=== PATIENT | female | born 1945 | race Caucasian/White ===

== ENCOUNTER 2017-11-06 19:41 | Emergency (ER) | payer MEDICARE, MEDICAID ==
--- NOTE | 2017-11-06 20:16 | RADIOLOGY REPORT (SQ) ---
EXAM DESCRIPTION: CT HEAD WITHOUT COMPLETED DATE/TIME: 11/06/2017 8:07 pm REASON FOR STUDY: tia COMPARISON: 10/25/2015 TECHNIQUE: Axial images acquired through the brain without intravenous contrast. Images reviewed wi th bone, brain and subdural windows. Images stored on PACS. All CT scanners at this facility use dose modulation, iterative reconstruction, and/or weight based d osing when appropriate to reduce radiation dose to as low as reasonably achievable (ALARA). [facility]: Dose Right [facility]: CareDose [facility]: Dose Right [facility]: Teradose 4D [facility]: Smart PlayMotion RADIATION DOSE: CT Rad equipment meets quality standard of care and radiation dose reduction techniq ues were employed. CTDIvol: 64.6 mGy. DLP: 1292 mGy-cm. mGy. LIMITATIONS: None. FINDINGS: VENTRICLES: Prominent. CEREBRUM: No masses. No hemorrhage. No midline shift. Stable chronic infarction right frontal lobe . Additional areas of low density in the white matter most likely due to chronic micro-vascular isch emic change. No evidence for acute infarction. CEREBELLUM: No masses. No hemorrhage. No alteration of density. No evidence for acute infarction. EXTRAAXIAL SPACES: Mild age-related involutional change. No fluid collections. No masses. ORBITS AND GLOBE: No intra- or extraconal masses. Normal contour of globe without masses. CALVARIUM: No fracture. PARANASAL SINUSES: Stable mucosal thickening with mucous retention cyst left maxillary sinus. No air -fluid levels. SOFT TISSUES: No mass or hematoma. OTHER: No other significant finding. IMPRESSION: NO ACUTE INTRACRANIAL PROCESS. NO SIGNIFICANT CHANGE FROM PRIOR STUDY. EVIDENCE OF ACUTE STROKE: NO. TECHNICAL DOCUMENTATION: JOB ID: [id number] Quality ID # [id number]: Final reports with documentation of one or more dose reduction techniques (e.g., Au tomated exposure control, adjustment of the mA and/or kV according to patient size, use of iterative reconstruction technique) 2010 [employer]- All Rights Reserved Reading location - IP/workstation name: [email or web address]
[2017-11-06 20:18] LABS: ABSOLUTE BASOPHILS # (AUTO) 0.1 10^3/uL (0.0-0.2); ABSOLUTE EOSINOPHILS # (AUTO) 0.2 10^3/uL (0.0-0.6); ABSOLUTE LYMPHOCYTES (AUTO) 3.8 10^3/uL (0.5-4.7); ABSOLUTE MONOCYTES (AUTO) 0.5 10^3/uL (0.1-1.4); ABSOLUTE NEUT (AUTO) 5.5 10^3/uL (1.7-8.2); BASOPHILS % (AUTO) 0.9 % (0-2); EOSINOPHILS % (AUTO) 1.5 % (0-6); HEMOGLOBIN 11.9 g/dL (12.0-15.5); LYMPHOCYTES % (AUTO) 37.8 % (13-45); MEAN CORPUSCULAR HEMOGLOBIN 27.7 pg (27.0-33.4); MEAN CORPUSCULAR VOLUME 84 fl (80-97); MONOCYTES % (AUTO) 5.2 % (3-13); RED BLOOD COUNT 4.28 10^6/uL (3.72-5.28); SEGMENTED NEUTROPHILS % (AUTO) 54.6 % (42-78); TOTAL CELLS COUNTED % (AUTO) 100 %
[2017-11-06 20:34] LABS: ALANINE AMINOTRANSFERASE 20 U/L (9-52); ALBUMIN 3.6 g/dL (3.5-5.0); ALKALINE PHOSPHATASE 114 U/L (38-126); ANION GAP 9 (5-19); ASPARTATE AMINO TRANSFERASE 20 U/L (14-36); BILIRUBIN,DIRECT 0.3 mg/dL (0.0-0.4); BILIRUBIN,TOTAL 0.3 mg/dL (0.2-1.3); BLOOD UREA NITROGEN 25 mg/dL (7-20); CALCIUM 9.2 mg/dL (8.4-10.2); CARBON DIOXIDE 28 mmol/L (22-30); CHLORIDE 101 mmol/L (98-107); CHOLESTEROL 193.14 mg/dL (0-200); GLUCOSE 293 mg/dL (75-110); POTASSIUM 4.4 mmol/L (3.6-5.0); SODIUM 137.7 mmol/L (137-145); TOTAL PROTEIN 6.7 g/dL (6.3-8.2); TRIGLYCERIDES 319 mg/dL (<150)
[2017-11-06 20:35] LABS: PLATELET COUNT 258 10^3/uL (150-450)
[2017-11-06 20:45] LABS: DIRECT LDL 117 mg/dL (<100); VLDL CHOLESTEROL 63.8 mg/dL (10-31)
--- NOTE | 2017-11-06 20:48 | EKG REPORT ---
SEVERITY:- ABNORMAL ECG - SINUS RHYTHM FIRST DEGREE AV BLOCK LOW VOLTAGE IN FRONTAL LEADS : Confirmed by: Solomon Hickman MD 06-Nov-2017 20:47:43
[2017-11-06 20:58] LABS: APPEARANCE,URINE SLIGHTLY-CLOUDY; BILIRUBIN,URINE NEGATIVE (NEGATIVE); COLOR,URINE YELLOW; GLUCOSE, URINE >=500 mg/dL (NEGATIVE); KETONES,URINE NEGATIVE (NEGATIVE); LEUKOCYTE ESTERASE,URINE SMALL (NEGATIVE); NITRITE,URINE NEGATIVE (NEGATIVE); PROTEIN,URINE NEGATIVE (NEGATIVE); URINE SPECIFIC GRAVITY 1.008; UROBILINOGEN,URINE NEGATIVE mg/dL (<2.0)
[2017-11-06] MEDS ORDERED: CLOPIDOGREL BISULFATE 75 MG TABLET PO ONE (22:23)
[2017-11-06] MEDS ORDERED: INSULIN REG, HUMAN 100 UNIT/ML 3 ML VIAL (PYX) SUBCUT ONE (22:23)
--- NOTE | 2017-11-06 22:28 | ER Document Report ---
ED General - General Chief Complaint: Altered Mental Status Stated Complaint: HIGH BLOOD SUGAR Time Seen by Provider: 11/06/17 19:50 Notes: Patient is a 72 year old female who presents with concerns of feeling generally unwell, hyperglycemia, and paresthesias to her right hand and foot. Patient reports that she felt "bad" all day and that when she checked her blood sugar was very high. She also notes that she had a sensation of tingling in her right hand and right foot that has persisted throughout the day today. It waxes and wanes and she has had similar symptoms in the past with associated hyperglycemia. The patient has not yet taken her insulin today. She does admit to very irregular checks of her blood sugar. She also notes that she has been noncompliant with multiple medications including clopidogrel which she is supposed to be taking for a recently placed drug-eluting stent. She denies any headache, neck pain, focal weakness, effusion or vomiting. Family the bedside reports that she is currently acting at her baseline. They note that she has a history of similar symptoms in the past with severe hyperglycemia. She is currently residing in the area although [place] with her family TRAVEL OUTSIDE OF THE [place] IN LAST 30 DAYS: No - Related Data Allergies/Adverse Reactions: No Known Allergies Allergy (Unverified 06/17/15 05:30) Past Medical History - General Information source: Patient, Relative - Social History Smoking Status: Never Smoker Frequency of alcohol use: None Drug Abuse: None Lives with: Family Family History: Reviewed & Not Pertinent Patient has suicidal ideation: No Patient has homicidal ideation: No - Past Medical History Cardiac Medical History: Reports: Hx Hypercholesterolemia, Hx Hypertension Endocrine Medical History: Reports: Hx Diabetes Mellitus Type 2 - lantus Renal/ Medical History: Denies: Hx Peritoneal Dialysis Past Surgical History: Reports: Hx Cardiac Surgery - stent, Hx Hysterectomy Review of Systems - Review of Systems Notes: Constitutional: Negative for fever. HENT: Negative for sore throat. Eyes: Negative for visual changes. Cardiovascular: Negative for chest pain. Respiratory: Negative for shortness of breath. Gastrointestinal: Negative for abdominal pain, vomiting or diarrhea. Genitourinary: Negative for dysuria. Musculoskeletal: Negative for back pain. Skin: Negative for rash. Neurological: Negative for headaches, positive for right hand and foot paresthesias 10 point ROS negative except as marked above and in HPI. Physical Exam - Vital signs Vitals: Resp Pulse Ox 20 98 11/06/17 19:53 11/06/17 19:53 Interpretation: Normal Notes: PHYSICAL EXAMINATION: GENERAL: Well-appearing, well-nourished and in no acute distress. HEAD: Atraumatic, normocephalic. EYES: Pupils equal round and reactive to light, extraocular movements intact, sclera anicteric, conjunctiva are normal. ENT: nares patent, oropharynx clear without exudates. Moderately dry mucous membranes. NECK: Normal range of motion, supple without lymphadenopathy LUNGS: Breath sounds clear to auscultation bilaterally and equal. No wheezes rales or rhonchi. HEART: Regular rate and rhythm without murmurs ABDOMEN: Soft, nontender, normoactive bowel sounds. No guarding, no rebound. No masses appreciated. EXTREMITIES: Normal range of motion, no pitting or edema. No cyanosis. NEUROLOGICAL: Face symmetric. Tongue protrudes midline. Extraocular motions intact. Pupils are 2 mm and equally reactive. Normal speech, normal gait. 5 out of 5 strength in both the distal and proximal upper and lower extremities bilaterally. Sensation is grossly intact throughout. Finger to nose testing normal. Pronator drift normal. PSYCH: Normal mood, normal affect. SKIN: Warm, Dry, normal turgor, no rashes or lesions noted. Course - Re-evaluation Re-evalutation: 11/06/17 22:24 Patient presents with hyperglycemia as well as a sensation of numbness and tingling in her hand and feet on the right side but no additional areas of paresthesias. The symptoms have since resolved. She has no focal neurologic deficits on examination, and a stroke scale is 0. The patient does not meet criteria to diagnose a TIA or stroke as her paresthesias were exclusively localized to her hand and foot on the right side which would not be consistent with a stroke pattern. I suspect that they may be secondary to a prolonged hyperglycemia as patient has a hemoglobin A1c of 10.6. She does admit to very sporadic checking of her blood sugar. She also admits to poor compliance with her medications including Plavix which she is currently not taking even though she had a drug-eluting stent placed less than 3 months ago. She denies any chest pain or shortness of breath. Her EKG is unremarkable and a troponin is negative. I have given her a dose of Plavix here and have provided a prescription for 2 additional months of Plavix until she can get it back and her primary care doctor for replacement of the loss Plavix prescription. I do not suspect any acute left any pathology at this time, the patient feels much improved, as tolerated oral intake. She denies any chest pain or shortness of breath, abdominal pain, nausea, vomiting or focal weakness or numbness. At this time will discharge with return precautions and follow-up recommendations. Verbal discharge instructions given a the bedside and opportunity for questions given. Medication warnings reviewed. Patient is in agreement with this plan and has verbalized understanding of return precautions and the need for primary care follow-up in the next 24-72 hours. - Vital Signs Vital signs: Temp Pulse Resp BP Pulse Ox 97.9 F 74 16 122/58 L 96 11/06/17 23:01 11/06/17 21:00 11/06/17 23:01 11/06/17 23:01 11/06/17 23:01 - Laboratory Result Diagrams: 11/06/17 19:56 11/06/17 19:56 Laboratory results interpreted by me: 11/06/17 11/06/17 11/06/17 19:51 19:56 19:56 Hgb 11.9 L BUN 25 H Glucose 293 H POC Glucose 330 H Hemoglobin A1c % Triglycerides 319 H LDL Cholesterol Direct 117 H VLDL Cholesterol 63.8 H Urine Glucose (UA) Urine Blood Ur Leukocyte Esterase 11/06/17 11/06/17 19:56 20:33 Hgb BUN Glucose POC Glucose Hemoglobin A1c % 10.8 H Triglycerides LDL Cholesterol Direct VLDL Cholesterol Urine Glucose (UA) >=500 H Urine Blood MODERATE H Ur Leukocyte Esterase SMALL H - Diagnostic Test Radiology reviewed: Image reviewed, Reports reviewed Radiology results interpreted by me: 11/06/17 22:26 CT head: No acute intracranial bleed or mass - EKG Interpretation by Me Additional EKG results interpreted by me: 11/06/17 22:26 Sinus rhythm. Rate 80. No ST elevations or depressions. QTC is 476. Discharge - Discharge Clinical Impression: Morbid obesity with BMI of 40.0-44.9, adult, Neuropathy, Hyperglycemia Hyperlipidemia Qualifiers: Hyperlipidemia type: unspecified Qualified Code(s): E78.5 - Hyperlipidemia, unspecified Diabetes mellitus Qualifiers: Diabetes mellitus type: type 2 Diabetes mellitus longterm insulin use: with longterm use Diabetes mellitus complication status: with unspecified complications Qualified Code(s): E11.8 - Type 2 diabetes mellitus with unspecified complications Condition: Stable Disposition: HOME, SELF-CARE Additional Instructions: You need to followup urgently with your primary care doctor as your blood sugars were dangerously high today. You did not have any evidence of a dangerous condition associated with these blood sugars at this time. However, it is very important that you get your blood sugars under control. Please take all of your medications exactly as directed. You should avoid foods that are high in carbohydrates and sugary foods. Losing weight will also help to better control your blood sugars. Please return to emergency department immediately if you develop weakness, persistent vomiting, confusion, or any other symptoms that are concerning to you. Please be sure to take Plavix every day as directed. It is very dangerous to come off of this medication when you had a stent placed less than a year ago. Prescriptions: Clopidogrel Bisulfate [Plavix 75 mg Tablet] 75 mg PO DAILY #30 tablet
[2017-11-06 23:23] VITALS: BP 122/58
== END 2017-11-06 23:23 | disposition home or self-care (01) ==
LOC: ER 19:41
DX: E78.5 Hyperlipidemia, unspecified (principal); E11.65 Type 2 diabetes mellitus with hyperglycemia; E11.40 Type 2 diabetes mellitus with diabetic neuropathy, unspecified; E66.01 Morbid (severe) obesity due to excess calories; Z68.41 Body mass index [BMI] 40.0-44.9, adult; R41.82 Altered mental status, unspecified; R20.2 Paresthesia of skin; I10 Essential (primary) hypertension; Z79.4 Long term (current) use of insulin
CPT/HCPCS: 93005; 99285; 36415; 82962; 85025; 80053; 81001; 84484; 83036; 80061; 70450; 93010; A9270 ×2; J1815

== ENCOUNTER 2018-06-29 21:15 | Inpatient (IN) | payer MEDICARE, MEDICAID ==
[2018-06-29] MEDS ORDERED: ASPIRIN 81 MG TABLET, CHEWABLE PO ONE (21:25)
[2018-06-29 21:55] LABS: HEMATOCRIT 38.1 % (36.0-47.0); MEAN CORPUSCULAR HEMOGLOBIN 28.1 pg (27.0-33.4); MEAN CORPUSCULAR HGB CONC 34.1 g/dL (32.0-36.0); MEAN CORPUSCULAR VOLUME 83 fl (80-97); PLATELET COUNT 254 10^3/uL (150-450); RED BLOOD COUNT 4.62 10^6/uL (3.72-5.28); RED CELL DISTRIBUTION WIDTH 14.7 % (11.5-14.0); WHITE BLOOD COUNT 21.7 10^3/uL (4.0-10.5)
--- NOTE | 2018-06-29 22:08 | RADIOLOGY REPORT (SQ) ---
EXAM DESCRIPTION: XR CHEST 1 VIEW COMPLETED DATE/TME: 06/29/2018 21:25 CLINICAL HISTORY: 73 years, Female, cp Findings: The heart is moderately enlarged. Aortic arch is calcified. No consolidation or pleural effusion. No pulmonary edema or pneumothorax. IMPRESSION: No acute disease.
[2018-06-29 22:10] LABS: ABSOLUTE LYMPHOCYTES# (MANUAL) 1.3 10^3/uL (0.5-4.7); ABSOLUTE MONOCYTES # (MANUAL) 0.4 10^3/uL (0.1-1.4); BAND NEUTROPHILS % (MANUAL) 2 % (3-5); BASOPHILS % (MANUAL) 0 % (0-2); EOSINOPHILS % (MANUAL) 0 % (0-6); LYMPHOCYTES % (MANUAL) 6 % (13-45); MONOCYTES % (MANUAL) 2 % (3-13); SEGMENTED NEUTROPHILS % (MAN) 90 % (42-78); TOTAL CELLS COUNTED 100
[2018-06-29 22:13] LABS: ALANINE AMINOTRANSFERASE 19 U/L (9-52); ALBUMIN 3.9 g/dL (3.5-5.0); ALKALINE PHOSPHATASE 105 U/L (38-126); ANION GAP 13 (5-19); ANISOCYTOSIS SLIGHT; ASPARTATE AMINO TRANSFERASE 27 U/L (14-36); BILIRUBIN,DIRECT 0.2 mg/dL (0.0-0.4); BILIRUBIN,TOTAL 0.6 mg/dL (0.2-1.3); BLOOD UREA NITROGEN 20 mg/dL (7-20); CALCIUM 9.1 mg/dL (8.4-10.2); CARBON DIOXIDE 27 mmol/L (22-30); CHLORIDE 98 mmol/L (98-107); CREATINE KINASE 44 U/L (30-135); GLUCOSE 310 mg/dL (75-110); OVALOCYTES SLIGHT; PLATELET COMMENT ADEQUATE; PLATELET LARGE PRESENT; POIKILOCYTOSIS SLIGHT; POLYCHROMASIA SLIGHT; POTASSIUM 4.5 mmol/L (3.6-5.0); SODIUM 137.9 mmol/L (137-145); TOTAL PROTEIN 7.1 g/dL (6.3-8.2); TOXIC VACUOLATION PRESENT
[2018-06-29 22:25] LABS: CREATINE KINASE MB 0.47 ng/mL (<4.55)
[2018-06-29 22:26] LABS: TROPONIN I < 0.012 ng/mL
--- NOTE | 2018-06-29 22:58 | ER Document Report ---
ED General - General Chief Complaint: Chest Pain Stated Complaint: CHEST PAINS Time Seen by Provider: 06/29/18 21:55 Mode of Arrival: Ambulatory Information source: Patient Notes: This is a 73-year-old female with a history of coronary artery disease (stent), diabetes, hypertension, CVA and dementia. Patient is brought into the emergency room because of fever and cough. Patient does have a history of peripheral neuropathy with chronic pain to the lower extremities. TRAVEL OUTSIDE OF THE [place] IN LAST 30 DAYS: No - HPI Onset: This morning Onset/Duration: Gradual Quality of pain: No pain Severity: Moderate Pain Level: 1 Associated symptoms: Fever, Other - Leg pain. denies: Chest pain, Shortness of breath Exacerbated by: Denies Relieved by: Denies Similar symptoms previously: Yes Recently seen / treated by doctor: Yes - Related Data Allergies/Adverse Reactions: No Known Allergies Allergy (Unverified 06/17/15 05:30) Past Medical History - General Information source: Patient - Social History Smoking Status: Former Smoker Cigarette use (# per day): No Chew tobacco use (# tins/day): No Frequency of alcohol use: None Drug Abuse: None Lives with: Family Family History: Reviewed & Not Pertinent Patient has suicidal ideation: No Patient has homicidal ideation: No - Past Medical History Cardiac Medical History: Reports: Hx Hypercholesterolemia, Hx Hypertension Endocrine Medical History: Reports: Hx Diabetes Mellitus Type 2 - lantus Renal/ Medical History: Denies: Hx Peritoneal Dialysis Past Surgical History: Reports: Hx Cardiac Surgery - stent, Hx Hysterectomy Review of Systems - Review of Systems Constitutional: Fever. denies: Chills EENT: No symptoms reported Cardiovascular: No symptoms reported Respiratory: No symptoms reported Gastrointestinal: No symptoms reported Genitourinary: No symptoms reported Musculoskeletal: See HPI Skin: See HPI Hematologic/Lymphatic: No symptoms reported Neurological/Psychological: No symptoms reported Physical Exam - Vital signs Vitals: Temp Pulse Resp BP Pulse Ox 99.7 F 97 17 146/63 H 97 06/29/18 21:16 06/29/18 21:16 06/29/18 21:16 06/29/18 21:16 06/29/18 21:16 Notes: Physical exam: GENERAL: Patient is alert and will answer questions intermittently. She does have baseline dementia and the patient is accompanied by her daughter who states her mental status is the same. The daughter states that the patient will often yell out because of chronic neuropathic pain. HEAD: Atraumatic, normocephalic. EYES: Pupils equal round and reactive to light, extraocular movements intact, sclera anicteric, conjunctiva are normal. ENT: TMs normal, nares patent, oropharynx clear without exudates. Moist mucous membranes. NECK: Normal range of motion, supple without obvious mass or JVD. LUNGS: Breath sounds clear to auscultation bilaterally and equal. No wheezes rales or rhonchi. HEART: Regular rate and rhythm without murmurs, rubs or gallops. ABDOMEN: Soft, normoactive bowel sounds. No tenderness to palpation. No guarding, no rebound. No masses appreciated. EXTREMITIES: Patient has some erosions in between the fourth and fifth toes of the right foot and obvious pain with movement of the toes. There is good cap refill. NEUROLOGICAL: Cranial nerves II through XII grossly intact. Normal speech, moving all extremities. PSYCH: Normal mood, normal affect. SKIN: Warm, Dry, normal turgor, no rashes or lesions noted. Course - Vital Signs Vital signs: Temp Pulse Resp BP Pulse Ox 99.7 F 97 20 131/59 H 93 06/29/18 21:16 06/29/18 21:16 06/30/18 02:01 06/30/18 02:01 06/30/18 02:01 - Laboratory Result Diagrams: 06/29/18 21:46 06/29/18 21:46 Laboratory results interpreted by me: 06/29/18 06/29/18 06/30/18 21:46 21:46 01:14 WBC 21.7 H RDW 14.7 H Seg Neuts % (Manual) 90 H Band Neutrophils % 2 L Lymphocytes % (Manual) 6 L Monocytes % (Manual) 2 L Abs Neuts (Manual) 20.0 H Glucose 310 H Urine Glucose (UA) >=500 H Urine Nitrite POSITIVE H Urine Urobilinogen 2.0 H - EKG Interpretation by Me Rate: Normal Rhythm: NSR - EKG shows normal sinus rhythm with a ventricular rate of 95, anterior septal Q waves, no significant changes from previous EKG Critical Care Note - Critical Care Note Total time excluding time spent on procedures (mins): 60 Discharge - Discharge Clinical Impression: Diabetic foot Condition: Stable Disposition: ADMITTED INPATIENT Admitting Provider: Hospitalist - Dr Malhotra Unit Admitted: Telemetry
[2018-06-29] MEDS ORDERED: CEFEPIME 1 GM/D5W RTU 1 GM/50 ML RTUPB IV ONE (22:59)
--- NOTE | 2018-06-29 23:37 | RADIOLOGY REPORT (SQ) ---
EXAM DESCRIPTION: XR FOOT 3 OR MORE VIEWS BILATERAL COMPLETED DATE/TME: 06/29/2018 22:56 CLINICAL HISTORY: 73 years Female, pain, elevated wbc COMPARISON: None. 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 Mild osteoarthritis of the right talonavicular joint. Bilateral calcaneal enthesophytes. Bony demineralization. Atherosclerosis. 2.5 cm ossicular osteophytic fragmentation at the medial aspect of the left midfoot. Swelling. Bones, joints, and soft tissues of the bilateral XR FOOT 3 OR MORE VIEWS BILATERAL appear otherwise intact. IMPRESSION: Neuropathic joint pattern of the left midfoot. Differential diagnosis includes prior trauma, coalition, osteoarthritis, and/or osteomyelitis.
[2018-06-29] MEDS ORDERED: NORMAL SALINE 1000 ML 1,000 ML IV ONE (23:51)
[2018-06-30] MEDS ORDERED: ONDANSETRON HCL INJ/PF 4 MG/2 ML SDV IV ONE (00:29)
[2018-06-30] MEDS ORDERED: MORPHINE SULFATE 10 MG/ML INJ IV ONE (00:30)
[2018-06-30 01:54] LABS: AMORPHOUS SEDIMENT,URINE TRACE /HPF; APPEARANCE,URINE SLIGHTLY-CLOUDY; BILIRUBIN,URINE NEGATIVE (NEGATIVE); COLOR,URINE YELLOW; GLUCOSE, URINE >=500 mg/dL (NEGATIVE); KETONES,URINE NEGATIVE (NEGATIVE); LEUKOCYTE ESTERASE,URINE NEGATIVE (NEGATIVE); NITRITE,URINE POSITIVE (NEGATIVE); PROTEIN,URINE NEGATIVE (NEGATIVE); URINE SPECIFIC GRAVITY 1.021
[2018-06-30] MEDS ORDERED: DEXTROSE 50%-WATER 25 GM/50 ML DISP.SYRIN IV PRN ×2 (02:58)
[2018-06-30] MEDS ORDERED: IPRATROPIUM/ALBUTEROL 0.5-2.5 MG/3 ML AMPUL NEB PRN (02:58)
[2018-06-30] MEDS ORDERED: DEXTROSE 40% GEL 15 GM TUBE PO PRN ×2 (02:58)
[2018-06-30] MEDS ORDERED: MAG HYDROX/AL HYDROX/SIMETH SUSP 30 ML UDCUP PO PRN (02:58)
[2018-06-30] MEDS ORDERED: MAGNESIUM HYDROXIDE SUSP 30 ML UDCUP PO PRN (02:58)
[2018-06-30] MEDS ORDERED: GLUCAGON,HUMAN RECOMB 1 MG INJ IM PRN (02:58)
[2018-06-30] MEDS ORDERED: VANCOMYCIN HCL INJ 1000 MG VIAL IV ONE (03:02)
[2018-06-30] MEDS ORDERED: PIPERACILLIN/TAZOBACTAM 3.375 GM VIAL IV ONE (03:02)
[2018-06-30] MEDS ORDERED: VANCOMYCIN HCL 0 MG in DEXTROSE 5%-WATER 250 ML IV NR (03:15)
[2018-06-30] MEDS ORDERED: PIPERACILLIN/TAZOBACTAM 3.375 GM VIAL IV PRN (03:19)
[2018-06-30 03:41] LABS: ABSOLUTE BASOPHILS # (AUTO) 0.1 10^3/uL (0.0-0.2); ABSOLUTE LYMPHOCYTES (AUTO) 1.3 10^3/uL (0.5-4.7); ABSOLUTE MONOCYTES (AUTO) 0.5 10^3/uL (0.1-1.4); ABSOLUTE NEUT (AUTO) 15.9 10^3/uL (1.7-8.2); BASOPHILS % (AUTO) 0.4 % (0-2); HEMATOCRIT 35.4 % (36.0-47.0); HEMOGLOBIN 12.2 g/dL (12.0-15.5); LYMPHOCYTES % (AUTO) 7.2 % (13-45); MEAN CORPUSCULAR HEMOGLOBIN 28.4 pg (27.0-33.4); MEAN CORPUSCULAR HGB CONC 34.6 g/dL (32.0-36.0); MEAN CORPUSCULAR VOLUME 82 fl (80-97); MONOCYTES % (AUTO) 2.6 % (3-13); PLATELET COUNT 227 10^3/uL (150-450); RED BLOOD COUNT 4.32 10^6/uL (3.72-5.28); RED CELL DISTRIBUTION WIDTH 14.8 % (11.5-14.0); SEGMENTED NEUTROPHILS % (AUTO) 89.8 % (42-78); TOTAL CELLS COUNTED % (AUTO) 100 %; WHITE BLOOD COUNT 17.7 10^3/uL (4.0-10.5)
[2018-06-30] MEDS ORDERED: VANCOMYCIN HCL 1,500 MG in DEXTROSE 5%-WATER 250 ML IV ONE (04:00)
--- NOTE | 2018-06-30 05:08 | PDOC H&P ---
History of Present Illness Admission Date/PCP: 06/30/18 03:04 JESSENIA WRIGHT Patient complains of: Left foot pain History of Present Illness: GERARD COHN is a 73 year old female with a past medical history of hypertension, dyslipidemia, congestive heart failure, coronary artery disease with stents x3, diabetes with neuropathy and foot ulcer. She presents with 12 hours of fever and left foot pain. Patient is a difficult historian presenting with chest pain but adamantly denies stating left foot pain is her chief complaint. In the emergency room she is found to have leukocytosis of 20,000 and erythema of the left forefoot she is diagnosed with cellulitis, receiving empiric antibiotics and referred to the hospitalist for admission. She denies chest pain palpitations nausea vomiting. Past Medical History Cardiac Medical History: Reports: Congestive Heart Failure, Coronary Artery Disease, Hyperlipidema, Hypertension Endocrine Medical History: Reports: Diabetes Mellitus Type 2 - lantus Past Surgical History Past Surgical History: Reports: Hysterectomy Social History Information Source: Patient, Relative Lives with: Family Smoking Status: Former Smoker Frequency of Alcohol Use: None Hx Recreational Drug Use: No Drugs: None Hx Prescription Drug Abuse: No - Advance Directive Resuscitation Status: Full Code Family History Family History: Reviewed & Not Pertinent Parental Family History Reviewed: Yes Children Family History Reviewed: Yes Sibling(s) Family History Reviewed.: Yes Medication/Allergy Home Medications: Cholecalciferol (Vitamin D3) [Vitamin D3] 2,000 unit PO DAILY 10/24/15 Docusate Sodium [Col-Rite] 100 mg PO BID 10/24/15 Fenofibrate Nanocrystallized [Tricor 145 mg Tablet] 145 mg PO DAILY 10/24/15 Furosemide [Lasix 40 mg Tablet] 20 mg PO QPM 10/24/15 Furosemide [Lasix] 40 mg PO QAM 10/24/15 Gabapentin [Neurontin 300 mg Capsule] 300 mg PO BID 10/24/15 Insulin Glargine,Hum.rec.anlog [Lantus] 60 unit SQ BID 10/24/15 Metformin HCl 500 mg PO BID 10/24/15 Potassium Chloride [Klor-Con] 20 meq PO DAILY 10/24/15 Acetaminophen [Tylenol 325 mg Tablet] 650 mg PO Q6HP PRN 10/25/15 Aspirin [Ecotrin 81 mg EC Tablet] 81 mg PO DAILY 10/25/15 Atorvastatin Calcium [Lipitor 40 mg Tablet] 40 mg PO QHS #30 tablet 10/29/15 Clopidogrel Bisulfate [Plavix 75 mg Tablet] 75 mg PO DAILY #30 tablet 11/06/17 Allergies/Adverse Reactions: No Known Allergies Allergy (Unverified 06/17/15 05:30) Review of Systems Constitutional: PRESENT: as per HPI, fatigue. ABSENT: chills, fever(s), headache(s), weight gain, weight loss Eyes: ABSENT: visual disturbances Ears: ABSENT: hearing changes Cardiovascular: ABSENT: chest pain, dyspnea on exertion, edema, orthropnea, palpitations Respiratory: ABSENT: cough, hemoptysis Gastrointestinal: ABSENT: abdominal pain, constipation, diarrhea, hematemesis, hematochezia, nausea, vomiting Genitourinary: ABSENT: dysuria, hematuria Musculoskeletal: ABSENT: joint swelling Integumentary: ABSENT: rash, wounds Neurological: PRESENT: paresthesias. ABSENT: abnormal gait, abnormal speech, confusion, dizziness, focal weakness, syncope Psychiatric: PRESENT: anxiety. ABSENT: depression, homidical ideation, suicidal ideation Endocrine: ABSENT: cold intolerance, heat intolerance, polydipsia, polyuria Hematologic/Lymphatic: ABSENT: easy bleeding, easy bruising Physical Exam Vital Signs: Temp Pulse Resp BP Pulse Ox 99.5 F 97 21 H 114/50 L 96 06/30/18 04:21 06/29/18 21:16 06/30/18 03:18 06/30/18 03:18 06/30/18 03:18 General appearance: PRESENT: cooperative, mild distress, morbidly obese Head exam: PRESENT: atraumatic, normocephalic Eye exam: PRESENT: conjunctiva pink, EOMI, PERRLA. ABSENT: scleral icterus Ear exam: PRESENT: normal external ear exam Mouth exam: PRESENT: moist, tongue midline Neck exam: ABSENT: carotid bruit, JVD, lymphadenopathy, thyromegaly Respiratory exam: PRESENT: clear to auscultation shreyas. ABSENT: rales, rhonchi, wheezes Cardiovascular exam: PRESENT: RRR. ABSENT: diastolic murmur, rubs, systolic murmur Pulses: PRESENT: normal dorsalis pedis pul Vascular exam: PRESENT: normal capillary refill GI/Abdominal exam: PRESENT: normal bowel sounds, soft. ABSENT: distended, guarding, mass, organolmegaly, rebound, tenderness Rectal exam: PRESENT: deferred Extremities exam: PRESENT: tenderness - Left forefoot erythema, tenderness, no open ulcer or fluctuance. ABSENT: pedal edema Neurological exam: PRESENT: alert, awake, oriented to person, oriented to place , oriented to time, oriented to situation, CN II-XII grossly intact. ABSENT: motor sensory deficit Psychiatric exam: PRESENT: appropriate affect, normal mood. ABSENT: homicidal ideation, suicidal ideation Skin exam: PRESENT: dry, intact, warm. ABSENT: cyanosis, rash Results Laboratory Results: 06/30/18 03:22 06/30/18 06/30/18 03:22 03:22 WBC 17.7 H RBC 4.32 Hgb 12.2 Hct 35.4 L MCV 82 MCH 28.4 MCHC 34.6 RDW 14.8 H Plt Count 227 Seg Neutrophils % 89.8 H Lymphocytes % 7.2 L Monocytes % 2.6 L Eosinophils % 0.0 Basophils % 0.4 Absolute Neutrophils 15.9 H Absolute Lymphocytes 1.3 Absolute Monocytes 0.5 Absolute Eosinophils 0.0 Absolute Basophils 0.1 Lactic Acid 1.4 06/30/18 03:22 Troponin I 0.012 Impressions: Chest X-Ray 06/29/18 21:25 IMPRESSION: No acute disease. Foot X-Ray 06/29/18 22:56 IMPRESSION: Neuropathic joint pattern of the left midfoot. Differential diagnosis includes prior trauma, coalition, osteoarthritis, and/or osteomyelitis. Assessment & Plan - Diagnosis (1) Cellulitis of foot Is this a current diagnosis for this admission?: Yes Plan: Complicated by diabetes with neuropathy and Charcot deformity. Empiric antibiotics initiated, follow-up blood culture, consider MRI (2) Diabetes mellitus type 1 Qualifiers: Diabetes mellitus complication status: without complication Qualified Code( s): E10.9 - Type 1 diabetes mellitus without complications Is this a current diagnosis for this admission?: Yes Plan: Outpatient regiment with sliding scale, follow-up A1c - Time Time Spent: 30 to 50 Minutes
[2018-06-30] MEDS ORDERED: PIPERACILLIN/TAZOBACTAM 4.5 GM VIAL IV ONE (06:16)
[2018-06-30] MEDS: PIPERACILLIN SODIUM/TAZOBACTAM 4.5 GM in NORMAL SALINE 100 ML IV SCH ×4 (06:41→23:30)
[2018-06-30] MEDS: HEPARIN SOD (PORCINE) 5,000 UNIT/ML 1 ML SYRINGE SUBCUT SCH ×3 (06:43→23:30)
[2018-06-30 06:47] LABS: CREATINE KINASE MB 0.59 ng/mL (<4.55); TROPONIN I 0.012 ng/mL
--- NOTE | 2018-06-30 07:40 | EKG REPORT ---
SEVERITY:- ABNORMAL ECG - SINUS RHYTHM FIRST DEGREE AV BLOCK BORDERLINE LEFT AXIS DEVIATION CONSIDER ANTEROSEPTAL INFARCT : Confirmed by: Solomon Hickman MD 30-Jun-2018 07:40:07
[2018-06-30] MEDS: FUROSEMIDE 40 MG TABLET PO SCH (08:03)
[2018-06-30] MEDS: INSULIN LISPRO 100 UNIT/ML 3 ML VIAL SUBCUT PRN ×3 (08:05→19:57)
[2018-06-30] MEDS ORDERED: INSULIN GLARGINE,HUM.REC.ANLOG 1,000 UNIT/10 ML UNIT SUBCUT SCH (10:00)
[2018-06-30] MEDS: GABAPENTIN 300 MG CAPSULE PO SCH ×2 (10:09→18:03)
[2018-06-30] MEDS: POTASSIUM CHLORIDE 10 MEQ CAPSULE.ER PO SCH (10:09)
[2018-06-30] MEDS: CLOPIDOGREL BISULFATE 75 MG TABLET PO SCH (10:09)
[2018-06-30] MEDS: DOCUSATE SODIUM 100 MG CAPSULE PO SCH ×2 (10:09→18:03)
[2018-06-30] MEDS: FENOFIBRATE NANOCRYSTALLIZED 145 MG TABLET PO SCH (10:09)
[2018-06-30] MEDS: ACETAMINOPHEN 325 MG TABLET PO PRN (10:17)
[2018-06-30 12:01] LABS: CREATINE KINASE MB 0.61 ng/mL (<4.55); TROPONIN I 0.012 ng/mL
--- NOTE | 2018-06-30 14:27 | Progress Note ---
Provider Note Provider Note: GERARD COHN is a 73 year old female with a past medical history of hypertension, dyslipidemia, congestive heart failure, coronary artery disease with stents x3, diabetes with neuropathy and foot ulcer. Patient has been started empirically on Zosyn and vancomycin. Based on her clinical response and culture results I will de-escalate her antibiotics. Accept this patient and I will be her primary attending.
[2018-06-30 17:54] LABS: CREATINE KINASE MB 0.61 ng/mL (<4.55)
[2018-06-30 17:57] LABS: TROPONIN I < 0.012 ng/mL
[2018-06-30] MEDS ORDERED: FUROSEMIDE 40 MG TABLET PO SCH (18:00)
[2018-06-30] MEDS: INSULIN GLARGINE,HUM.REC.ANLOG 1,000 UNIT/10 ML UNIT SUBCUT SCH (18:01)
[2018-06-30] MEDS: VANCOMYCIN HCL 1,250 MG in DEXTROSE 5%-WATER 250 ML IV SCH (18:01)
[2018-07-01] MEDS: INSULIN LISPRO 100 UNIT/ML 3 ML VIAL SUBCUT PRN ×3 (00:09→22:14)
[2018-07-01 05:37] LABS: ABSOLUTE BASOPHILS # (AUTO) 0.1 10^3/uL (0.0-0.2); ABSOLUTE EOSINOPHILS # (AUTO) 0.2 10^3/uL (0.0-0.6); ABSOLUTE LYMPHOCYTES (AUTO) 1.8 10^3/uL (0.5-4.7); ABSOLUTE MONOCYTES (AUTO) 0.5 10^3/uL (0.1-1.4); ABSOLUTE NEUT (AUTO) 4.8 10^3/uL (1.7-8.2); BASOPHILS % (AUTO) 0.8 % (0-2); EOSINOPHILS % (AUTO) 2.3 % (0-6); HEMATOCRIT 33.5 % (36.0-47.0); HEMOGLOBIN 11.8 g/dL (12.0-15.5); LYMPHOCYTES % (AUTO) 24.2 % (13-45); MEAN CORPUSCULAR HEMOGLOBIN 28.5 pg (27.0-33.4); MEAN CORPUSCULAR HGB CONC 35.1 g/dL (32.0-36.0); MEAN CORPUSCULAR VOLUME 81 fl (80-97); MONOCYTES % (AUTO) 7.1 % (3-13); PLATELET COUNT 206 10^3/uL (150-450); RED BLOOD COUNT 4.13 10^6/uL (3.72-5.28); RED CELL DISTRIBUTION WIDTH 14.9 % (11.5-14.0); SEGMENTED NEUTROPHILS % (AUTO) 65.6 % (42-78); TOTAL CELLS COUNTED % (AUTO) 100 %; WHITE BLOOD COUNT 7.3 10^3/uL (4.0-10.5)
[2018-07-01 05:45] LABS: ANION GAP 10 (5-19); BLOOD UREA NITROGEN 16 mg/dL (7-20); CALCIUM 8.8 mg/dL (8.4-10.2); CARBON DIOXIDE 25 mmol/L (22-30); CHLORIDE 106 mmol/L (98-107); GLUCOSE 125 mg/dL (75-110); POTASSIUM 4.2 mmol/L (3.6-5.0); SODIUM 140.8 mmol/L (137-145)
[2018-07-01] MEDS: PIPERACILLIN SODIUM/TAZOBACTAM 4.5 GM in NORMAL SALINE 100 ML IV SCH (06:11)
[2018-07-01] MEDS: HEPARIN SOD (PORCINE) 5,000 UNIT/ML 1 ML SYRINGE SUBCUT SCH ×3 (06:15→21:37)
[2018-07-01] MEDS: VANCOMYCIN HCL 1,250 MG in DEXTROSE 5%-WATER 250 ML IV SCH ×2 (06:46→17:59)
[2018-07-01] MEDS: FUROSEMIDE 40 MG TABLET PO SCH (07:50)
[2018-07-01] MEDS: DOCUSATE SODIUM 100 MG CAPSULE PO SCH ×2 (09:47→17:49)
[2018-07-01] MEDS: FENOFIBRATE NANOCRYSTALLIZED 145 MG TABLET PO SCH (09:48)
[2018-07-01] MEDS: POTASSIUM CHLORIDE 10 MEQ CAPSULE.ER PO SCH (09:48)
[2018-07-01] MEDS: GABAPENTIN 300 MG CAPSULE PO SCH ×2 (09:48→17:49)
[2018-07-01] MEDS: CLOPIDOGREL BISULFATE 75 MG TABLET PO SCH (09:48)
[2018-07-01] MEDS: INSULIN GLARGINE,HUM.REC.ANLOG 1,000 UNIT/10 ML UNIT SUBCUT SCH ×2 (11:15→17:49)
--- NOTE | 2018-07-01 12:38 | PDOC PROGRESS REPORT ---
Subjective Progress Note for:: 07/01/18 Subjective:: This is 73 years old female patient of origin presented with left foot pain and fever of 12 hours duration. Patient found to have erythema and swelling of the left foot and her initial blood work shows markedly leukocytosis with white cell count of 21,000. Patient has been started empirically on Zosyn and vancomycin. This morning I seen patient resting in bed she reports this her pain is relatively improved and she is able to eat and tolerate no nausea fever or vomiting. Her hemoglobin A1c is 8.6 and with her age and comorbidities it seems her diabetes is fairly controlled. Reason For Visit: DM FOOT CELLULITIS Physical Exam Vital Signs: Temp Pulse Resp BP Pulse Ox 98.4 F 66 16 120/46 L 98 07/01/18 10:19 07/01/18 10:19 07/01/18 10:19 07/01/18 10:19 07/01/18 10:19 Intake & Output 06/30/18 07/01/18 07/02/18 06:59 06:59 06:59 Intake Total 1947 250 Balance 1947 250 Weight 102.5 kg 105.2 kg General appearance: PRESENT: no acute distress Head exam: PRESENT: atraumatic Eye exam: PRESENT: conjunctiva pink Mouth exam: PRESENT: moist Neck exam: ABSENT: carotid bruit, JVD, lymphadenopathy, thyromegaly Respiratory exam: PRESENT: clear to auscultation shreyas. ABSENT: rales, rhonchi, wheezes Cardiovascular exam: PRESENT: RRR. ABSENT: diastolic murmur, rubs, systolic murmur GI/Abdominal exam: PRESENT: normal bowel sounds, soft. ABSENT: distended, guarding, mass, organolmegaly, rebound, tenderness Extremities exam: PRESENT: other - Erythema and swelling of the left leg. Neurological exam: PRESENT: alert, awake, oriented to time, oriented to situation Psychiatric exam: PRESENT: normal mood Results Laboratory Results: 07/01/18 04:16 07/01/18 04:16 07/01/18 07/01/18 04:16 04:16 WBC 7.3 RBC 4.13 Hgb 11.8 L Hct 33.5 L MCV 81 MCH 28.5 MCHC 35.1 RDW 14.9 H Plt Count 206 Seg Neutrophils % 65.6 Lymphocytes % 24.2 Monocytes % 7.1 Eosinophils % 2.3 Basophils % 0.8 Absolute Neutrophils 4.8 Absolute Lymphocytes 1.8 Absolute Monocytes 0.5 Absolute Eosinophils 0.2 Absolute Basophils 0.1 Sodium 140.8 Potassium 4.2 Chloride 106 Carbon Dioxide 25 Anion Gap 10 BUN 16 Creatinine 0.79 Est GFR ( Amer) > 60 Est GFR (Non-Af Amer) > 60 Glucose 125 H Calcium 8.8 06/30/18 06/30/18 06/30/18 03:22 05:45 05:45 Creatine Kinase 54 CK-MB (CK-2) 0.59 Troponin I 0.012 0.012 06/30/18 06/30/18 06/30/18 11:00 11:00 17:06 Creatine Kinase 59 CK-MB (CK-2) 0.61 0.61 Troponin I 0.012 < 0.012 06/30/18 17:12 Creatine Kinase 52 CK-MB (CK-2) Troponin I Impressions: Chest X-Ray 06/29/18 21:25 IMPRESSION: No acute disease. Foot X-Ray 06/29/18 22:56 IMPRESSION: Neuropathic joint pattern of the left midfoot. Differential diagnosis includes prior trauma, coalition, osteoarthritis, and/or osteomyelitis. Assessment & Plan - Diagnosis (1) Cellulitis of left foot Is this a current diagnosis for this admission?: Yes Plan: ID escalate her antibiotic from Zosyn and vancomycin to Vanco orally. (2) Morbid obesity with BMI of 40.0-44.9, adult Is this a current diagnosis for this admission?: Yes Plan: Lifestyle modification advised. (3) Leukocytosis Is this a current diagnosis for this admission?: Yes Plan: Has resolved. At admission her white cell count was 21,000 today it is 7.3. (4) Systolic congestive heart failure Qualifiers: Heart failure chronicity: chronic Qualified Code(s): I50.22 - Chronic systolic (congestive) heart failure Is this a current diagnosis for this admission?: Yes Plan: Continue her home medication (5) CAD status post 3 stent placement Is this a current diagnosis for this admission?: Yes Plan: Continue current medication. (6) Type 2 diabetes mellitus with diabetic neuropathy Is this a current diagnosis for this admission?: Yes Plan: Continue sliding scale. (7) Hypertension Is this a current diagnosis for this admission?: Yes Plan: Blood pressure controlled.
[2018-07-01] MEDS: FUROSEMIDE 20 MG TABLET PO SCH (17:49)
[2018-07-02] MEDS: VANCOMYCIN HCL 1,250 MG in DEXTROSE 5%-WATER 250 ML IV SCH ×2 (05:25→17:10)
[2018-07-02] MEDS: HEPARIN SOD (PORCINE) 5,000 UNIT/ML 1 ML SYRINGE SUBCUT SCH ×3 (05:27→21:11)
[2018-07-02 06:25] LABS: ABSOLUTE EOSINOPHILS # (AUTO) 0.2 10^3/uL (0.0-0.6); ABSOLUTE LYMPHOCYTES (AUTO) 3.6 10^3/uL (0.5-4.7); ABSOLUTE MONOCYTES (AUTO) 0.7 10^3/uL (0.1-1.4); BASOPHILS % (AUTO) 0.5 % (0-2); EOSINOPHILS % (AUTO) 1.7 % (0-6); HEMATOCRIT 34.7 % (36.0-47.0); HEMOGLOBIN 12.1 g/dL (12.0-15.5); LYMPHOCYTES % (AUTO) 38.1 % (13-45); MEAN CORPUSCULAR HEMOGLOBIN 28.3 pg (27.0-33.4); MEAN CORPUSCULAR HGB CONC 34.9 g/dL (32.0-36.0); MEAN CORPUSCULAR VOLUME 81 fl (80-97); MONOCYTES % (AUTO) 7.2 % (3-13); PLATELET COUNT 264 10^3/uL (150-450); RED BLOOD COUNT 4.28 10^6/uL (3.72-5.28); RED CELL DISTRIBUTION WIDTH 15.2 % (11.5-14.0); SEGMENTED NEUTROPHILS % (AUTO) 52.5 % (42-78); TOTAL CELLS COUNTED % (AUTO) 100 %; WHITE BLOOD COUNT 9.5 10^3/uL (4.0-10.5)
[2018-07-02 06:46] LABS: VANCOMYCIN,TROUGH 30.9 ug/mL (5.0-20.0)
[2018-07-02] MEDS: CLOPIDOGREL BISULFATE 75 MG TABLET PO SCH (09:13)
[2018-07-02] MEDS: POTASSIUM CHLORIDE 10 MEQ CAPSULE.ER PO SCH (09:13)
[2018-07-02] MEDS: FUROSEMIDE 40 MG TABLET PO SCH (09:13)
[2018-07-02] MEDS: FENOFIBRATE NANOCRYSTALLIZED 145 MG TABLET PO SCH (09:13)
[2018-07-02] MEDS: GABAPENTIN 300 MG CAPSULE PO SCH ×2 (09:13→17:10)
[2018-07-02] MEDS: DOCUSATE SODIUM 100 MG CAPSULE PO SCH ×2 (09:13→17:09)
[2018-07-02] MEDS ORDERED: (PENDING PHARMACY ID) (Empagliflozin [Jardiance] 25 MG) PO SCH (10:00)
[2018-07-02] MEDS ORDERED: CLOPIDOGREL BISULFATE 75 MG TABLET PO SCH (10:00)
[2018-07-02] MEDS ORDERED: MAGNESIUM CITRATE 296 ML BOTTLE PO ONE (11:30)
[2018-07-02] MEDS: CHOLECALCIFEROL (D3) 1,000 UNIT TABLET PO SCH (11:43)
[2018-07-02] MEDS: ASPIRIN 81 MG TABLET, ENT COATED PO SCH (11:43)
[2018-07-02] MEDS: INSULIN GLARGINE,HUM.REC.ANLOG 1,000 UNIT/10 ML UNIT SUBCUT SCH ×2 (11:43→17:09)
--- NOTE | 2018-07-02 14:19 | PDOC PROGRESS REPORT ---
Subjective Progress Note for:: 07/02/18 Subjective:: Patient has been doing well. I seen her sitting on chair. She is awake alert and oriented. She is not in pain or distress. She complains of constipation. Despite getting Colace. She is given mag citrate. Reason For Visit: DM FOOT CELLULITIS Physical Exam Vital Signs: Temp Pulse Resp BP Pulse Ox 98.0 F 69 15 133/49 H 99 07/02/18 12:01 07/02/18 12:01 07/02/18 12:01 07/02/18 12:01 07/02/18 12:01 Intake & Output 07/01/18 07/02/18 07/03/18 06:59 06:59 06:59 Intake Total 194 500 250 Balance 194 500 250 Weight 105.2 kg 105.2 kg General appearance: PRESENT: no acute distress, well-developed, well-nourished Head exam: PRESENT: atraumatic, normocephalic Eye exam: PRESENT: conjunctiva pink, EOMI, PERRLA. ABSENT: scleral icterus Ear exam: PRESENT: normal external ear exam Mouth exam: PRESENT: moist, tongue midline Neck exam: ABSENT: carotid bruit, JVD, lymphadenopathy, thyromegaly Respiratory exam: PRESENT: clear to auscultation shreyas. ABSENT: rales, rhonchi, wheezes Cardiovascular exam: PRESENT: RRR. ABSENT: diastolic murmur, rubs, systolic murmur Pulses: PRESENT: normal dorsalis pedis pul Vascular exam: PRESENT: normal capillary refill GI/Abdominal exam: PRESENT: normal bowel sounds, soft. ABSENT: distended, guarding, mass, organolmegaly, rebound, tenderness Rectal exam: PRESENT: deferred Extremities exam: PRESENT: full ROM. ABSENT: calf tenderness, clubbing, pedal edema Neurological exam: PRESENT: alert, awake, oriented to person, oriented to place , oriented to time, oriented to situation, CN II-XII grossly intact. ABSENT: motor sensory deficit Psychiatric exam: PRESENT: appropriate affect, normal mood. ABSENT: homicidal ideation, suicidal ideation Skin exam: PRESENT: dry, intact, warm. ABSENT: cyanosis, rash Results Laboratory Results: 07/02/18 05:45 07/02/18 05:45 07/02/18 07/02/18 05:45 05:45 WBC 9.5 RBC 4.28 Hgb 12.1 Hct 34.7 L MCV 81 MCH 28.3 MCHC 34.9 RDW 15.2 H Plt Count 264 Seg Neutrophils % 52.5 Lymphocytes % 38.1 Monocytes % 7.2 Eosinophils % 1.7 Basophils % 0.5 Absolute Neutrophils 5.0 Absolute Lymphocytes 3.6 Absolute Monocytes 0.7 Absolute Eosinophils 0.2 Absolute Basophils 0.0 Creatinine 0.77 Est GFR ( Amer) > 60 Est GFR (Non-Af Amer) > 60 06/30/18 06/30/18 06/30/18 03:22 05:45 05:45 Creatine Kinase 54 CK-MB (CK-2) 0.59 Troponin I 0.012 0.012 06/30/18 06/30/18 06/30/18 11:00 11:00 17:06 Creatine Kinase 59 CK-MB (CK-2) 0.61 0.61 Troponin I 0.012 < 0.012 06/30/18 17:12 Creatine Kinase 52 CK-MB (CK-2) Troponin I Impressions: Chest X-Ray 06/29/18 21:25 IMPRESSION: No acute disease. Foot X-Ray 06/29/18 22:56 IMPRESSION: Neuropathic joint pattern of the left midfoot. Differential diagnosis includes prior trauma, coalition, osteoarthritis, and/or osteomyelitis. Assessment & Plan - Diagnosis (1) Cellulitis of left foot Is this a current diagnosis for this admission?: Yes Plan: ID escalate her antibiotic from Zosyn and vancomycin to Vanco orally. (2) Morbid obesity with BMI of 40.0-44.9, adult Is this a current diagnosis for this admission?: Yes Plan: Lifestyle modification advised. (3) Leukocytosis Is this a current diagnosis for this admission?: Yes Plan: Has resolved. At admission her white cell count was 21,000 today it is 7.3. (4) Systolic congestive heart failure Qualifiers: Heart failure chronicity: chronic Qualified Code(s): I50.22 - Chronic systolic (congestive) heart failure Is this a current diagnosis for this admission?: Yes Plan: Continue her home medication (5) CAD status post 3 stent placement Is this a current diagnosis for this admission?: Yes Plan: Continue current medication. (6) Type 2 diabetes mellitus with diabetic neuropathy Is this a current diagnosis for this admission?: Yes Plan: Continue sliding scale. (7) Hypertension Is this a current diagnosis for this admission?: Yes Plan: Blood pressure controlled.
[2018-07-02] MEDS: FUROSEMIDE 20 MG TABLET PO SCH (17:09)
[2018-07-02 18:25] LABS: VANCOMYCIN,TROUGH 17.4 ug/mL (5.0-20.0)
[2018-07-02] MEDS: ATORVASTATIN CALCIUM 20 MG TABLET PO SCH (21:11)
[2018-07-02] MEDS: ACETAMINOPHEN 325 MG TABLET PO PRN (21:19)
[2018-07-02] MEDS ORDERED: GABAPENTIN 300 MG CAPSULE PO SCH (22:00)
[2018-07-03 05:33] LABS: ABSOLUTE EOSINOPHILS # (AUTO) 0.2 10^3/uL (0.0-0.6); ABSOLUTE LYMPHOCYTES (AUTO) 2.5 10^3/uL (0.5-4.7); ABSOLUTE MONOCYTES (AUTO) 0.5 10^3/uL (0.1-1.4); ABSOLUTE NEUT (AUTO) 3.1 10^3/uL (1.7-8.2); BASOPHILS % (AUTO) 0.5 % (0-2); EOSINOPHILS % (AUTO) 3.1 % (0-6); HEMATOCRIT 32.8 % (36.0-47.0); HEMOGLOBIN 10.8 g/dL (12.0-15.5); LYMPHOCYTES % (AUTO) 39.5 % (13-45); MEAN CORPUSCULAR HEMOGLOBIN 27.3 pg (27.0-33.4); MEAN CORPUSCULAR VOLUME 83 fl (80-97); MONOCYTES % (AUTO) 8.5 % (3-13); PLATELET COUNT 245 10^3/uL (150-450); RED BLOOD COUNT 3.96 10^6/uL (3.72-5.28); SEGMENTED NEUTROPHILS % (AUTO) 48.4 % (42-78); TOTAL CELLS COUNTED % (AUTO) 100 %; WHITE BLOOD COUNT 6.5 10^3/uL (4.0-10.5)
[2018-07-03] MEDS: HEPARIN SOD (PORCINE) 5,000 UNIT/ML 1 ML SYRINGE SUBCUT SCH ×3 (06:26→22:34)
[2018-07-03] MEDS: VANCOMYCIN HCL 1,250 MG in DEXTROSE 5%-WATER 250 ML IV SCH ×2 (06:26→17:25)
[2018-07-03] MEDS: FUROSEMIDE 40 MG TABLET PO SCH (07:41)
[2018-07-03] MEDS: ACETAMINOPHEN 325 MG TABLET PO PRN (07:47)
[2018-07-03] MEDS ORDERED: FUROSEMIDE 40 MG TABLET PO SCH (08:00)
[2018-07-03] MEDS: FENOFIBRATE NANOCRYSTALLIZED 145 MG TABLET PO SCH (10:03)
[2018-07-03] MEDS: DOCUSATE SODIUM 100 MG CAPSULE PO SCH ×2 (10:03→17:27)
[2018-07-03] MEDS: CHOLECALCIFEROL (D3) 1,000 UNIT TABLET PO SCH (10:03)
[2018-07-03] MEDS: POTASSIUM CHLORIDE 10 MEQ CAPSULE.ER PO SCH (10:03)
[2018-07-03] MEDS: ASPIRIN 81 MG TABLET, ENT COATED PO SCH (10:04)
[2018-07-03] MEDS: GABAPENTIN 300 MG CAPSULE PO SCH ×2 (10:04→17:24)
[2018-07-03] MEDS: CLOPIDOGREL BISULFATE 75 MG TABLET PO SCH (10:04)
--- NOTE | 2018-07-03 11:18 | PDOC PROGRESS REPORT ---
Subjective Subjective:: Patient seen resting in bed. She is awake alert oriented. She moved her bowels after she was given citrate. Reason For Visit: DM FOOT CELLULITIS Physical Exam Vital Signs: Temp Pulse Resp BP Pulse Ox 97.3 F 59 L 16 111/37 L 100 07/03/18 08:01 07/03/18 08:01 07/03/18 08:01 07/03/18 08:01 07/03/18 08:01 Intake & Output 07/02/18 07/03/18 07/04/18 06:59 06:59 06:59 Intake Total 500 1567 Balance 500 1567 Weight 105.2 kg 105.2 kg General appearance: PRESENT: no acute distress, well-developed, well-nourished Head exam: PRESENT: atraumatic, normocephalic Eye exam: PRESENT: conjunctiva pink, EOMI, PERRLA. ABSENT: scleral icterus Ear exam: PRESENT: normal external ear exam Mouth exam: PRESENT: moist, tongue midline Neck exam: ABSENT: carotid bruit, JVD, lymphadenopathy, thyromegaly Respiratory exam: PRESENT: clear to auscultation shreyas. ABSENT: rales, rhonchi, wheezes Cardiovascular exam: PRESENT: RRR. ABSENT: diastolic murmur, rubs, systolic murmur Pulses: PRESENT: normal dorsalis pedis pul Vascular exam: PRESENT: normal capillary refill GI/Abdominal exam: PRESENT: normal bowel sounds, soft. ABSENT: distended, guarding, mass, organolmegaly, rebound, tenderness Rectal exam: PRESENT: deferred Extremities exam: PRESENT: full ROM. ABSENT: calf tenderness, clubbing, pedal edema Neurological exam: PRESENT: alert, awake, oriented to person, oriented to place , oriented to time, oriented to situation, CN II-XII grossly intact. ABSENT: motor sensory deficit Psychiatric exam: PRESENT: appropriate affect, normal mood. ABSENT: homicidal ideation, suicidal ideation Skin exam: PRESENT: dry, intact, warm. ABSENT: cyanosis, rash Results Laboratory Results: 07/03/18 03:57 07/02/18 05:45 07/03/18 03:57 WBC 6.5 RBC 3.96 Hgb 10.8 L Hct 32.8 L MCV 83 MCH 27.3 MCHC 33.0 RDW 15.0 H Plt Count 245 Seg Neutrophils % 48.4 Lymphocytes % 39.5 Monocytes % 8.5 Eosinophils % 3.1 Basophils % 0.5 Absolute Neutrophils 3.1 Absolute Lymphocytes 2.5 Absolute Monocytes 0.5 Absolute Eosinophils 0.2 Absolute Basophils 0.0 06/30/18 06/30/18 06/30/18 03:22 05:45 05:45 Creatine Kinase 54 CK-MB (CK-2) 0.59 Troponin I 0.012 0.012 06/30/18 06/30/18 06/30/18 11:00 11:00 17:06 Creatine Kinase 59 CK-MB (CK-2) 0.61 0.61 Troponin I 0.012 < 0.012 06/30/18 17:12 Creatine Kinase 52 CK-MB (CK-2) Troponin I Impressions: Chest X-Ray 06/29/18 21:25 IMPRESSION: No acute disease. Foot X-Ray 06/29/18 22:56 IMPRESSION: Neuropathic joint pattern of the left midfoot. Differential diagnosis includes prior trauma, coalition, osteoarthritis, and/or osteomyelitis. Assessment & Plan - Diagnosis (1) Cellulitis of left foot Is this a current diagnosis for this admission?: Yes Plan: ID escalate her antibiotic from Zosyn and vancomycin to Vanco orally. (2) Morbid obesity with BMI of 40.0-44.9, adult Is this a current diagnosis for this admission?: Yes Plan: Lifestyle modification advised. (3) Leukocytosis Is this a current diagnosis for this admission?: Yes Plan: Has resolved. At admission her white cell count was 21,000 today it is 7.3. (4) Systolic congestive heart failure Qualifiers: Heart failure chronicity: chronic Qualified Code(s): I50.22 - Chronic systolic (congestive) heart failure Is this a current diagnosis for this admission?: Yes Plan: Continue her home medication (5) CAD status post 3 stent placement Is this a current diagnosis for this admission?: Yes Plan: Continue current medication. (6) Type 2 diabetes mellitus with diabetic neuropathy Is this a current diagnosis for this admission?: Yes Plan: Continue sliding scale. (7) Hypertension Is this a current diagnosis for this admission?: Yes Plan: Blood pressure controlled.
[2018-07-03] MEDS: INSULIN GLARGINE,HUM.REC.ANLOG 1,000 UNIT/10 ML UNIT SUBCUT SCH ×2 (12:57→17:23)
[2018-07-03] MEDS: FUROSEMIDE 20 MG TABLET PO SCH (17:24)
[2018-07-03] MEDS: ATORVASTATIN CALCIUM 20 MG TABLET PO SCH (22:35)
[2018-07-04] MEDS: VANCOMYCIN HCL 1,250 MG in DEXTROSE 5%-WATER 250 ML IV SCH (05:50)
[2018-07-04] MEDS: HEPARIN SOD (PORCINE) 5,000 UNIT/ML 1 ML SYRINGE SUBCUT SCH (05:50)
[2018-07-04] MEDS: FUROSEMIDE 40 MG TABLET PO SCH (08:47)
[2018-07-04] MEDS: DOCUSATE SODIUM 100 MG CAPSULE PO SCH (09:26)
[2018-07-04] MEDS: INSULIN GLARGINE,HUM.REC.ANLOG 1,000 UNIT/10 ML UNIT SUBCUT SCH (09:27)
[2018-07-04] MEDS: CLOPIDOGREL BISULFATE 75 MG TABLET PO SCH (09:27)
[2018-07-04] MEDS: FENOFIBRATE NANOCRYSTALLIZED 145 MG TABLET PO SCH (09:27)
[2018-07-04] MEDS: CHOLECALCIFEROL (D3) 1,000 UNIT TABLET PO SCH (09:27)
[2018-07-04] MEDS: POTASSIUM CHLORIDE 10 MEQ CAPSULE.ER PO SCH (09:27)
[2018-07-04] MEDS: GABAPENTIN 300 MG CAPSULE PO SCH (09:27)
[2018-07-04] MEDS: ASPIRIN 81 MG TABLET, ENT COATED PO SCH (09:27)
--- NOTE | 2018-07-04 09:42 | PDOC DISCHARGE SUMMARY ---
General - Admit/Disc Date/PCP Admission Date/Primary Care Provider: 06/30/18 03:04 JESSENIA WRIGHT Discharge Date: 07/04/18 - Discharge Diagnosis (1) Cellulitis of left foot Is this a current diagnosis for this admission?: Yes (2) Morbid obesity with BMI of 40.0-44.9, adult Is this a current diagnosis for this admission?: Yes (3) Leukocytosis Is this a current diagnosis for this admission?: Yes (4) Systolic congestive heart failure Is this a current diagnosis for this admission?: Yes (5) CAD status post 3 stent placement Is this a current diagnosis for this admission?: Yes (6) Type 2 diabetes mellitus with diabetic neuropathy Is this a current diagnosis for this admission?: Yes (7) Hypertension Is this a current diagnosis for this admission?: Yes - Additional Information Resuscitation Status: Full Code Home Medications: Aspirin [Aspirin EC] 81 mg PO DAILY 06/30/18 Atorvastatin Calcium [Lipitor 20 mg Tablet] 20 mg PO QHS 06/30/18 Cholecalciferol (Vitamin D3) [Vitamin D3 1000 Unit Tablet] 1,000 unit PO DAILY 06/30/18 Clopidogrel Bisulfate [Plavix 75 mg Tablet] 75 mg PO DAILY 06/30/18 Empagliflozin [Jardiance] 25 mg PO DAILY 06/30/18 Furosemide [Lasix 40 mg Tablet] 40 mg PO QAM 06/30/18 Gabapentin [Neurontin 300 mg Capsule] 300 mg PO QHS 06/30/18 History of Present Illness History of Present Illness: GERARD COHN is a 73 year old female with a past medical history of hypertension, dyslipidemia, congestive heart failure, coronary artery disease with stents x3, diabetes with neuropathy and foot ulcer. She presents with 12 hours of fever and left foot pain. Patient is a difficult historian presenting with chest pain but adamantly denies stating left foot pain is her chief complaint. In the emergency room she is found to have leukocytosis of 20,000 and erythema of the left forefoot she is diagnosed with cellulitis, receiving empiric antibiotics and referred to the hospitalist for admission. She denies chest pain palpitations nausea vomiting. Hospital Course Hospital Course: This is 73 years old female patient of origin presented with left foot pain and fever of 12 hours duration. Patient found to have erythema and swelling of the left foot and her initial blood work shows markedly leukocytosis with white cell count of 21,000 but not on the day of discharge her white cell count normalized to 6.5. Initially patient has been started empirically on Zosyn and vancomycin and later as we de-escalate her antibiotics to vancomycin only. This morning I seen patient resting in bed comfortably. She reports her pain has resolved and she is able to eat and tolerate well. No nausea fever or vomiting. Her hemoglobin A1c is 8.6 and with her age and comorbidities it seems her diabetes is fairly controlled. Patient is stable enough for discharge. She asked me to refill her Humalog and Lantus. I will send her home Augmentin for 3 days. Physical Exam Vital Signs: Temp Pulse Resp BP Pulse Ox 97.5 F 64 18 137/56 H 100 07/04/18 08:05 07/04/18 08:05 07/04/18 08:05 07/04/18 08:05 07/04/18 08:05 Intake & Output 07/03/18 07/04/18 07/05/18 06:59 06:59 06:59 Intake Total 1567 2350 250 Balance 1567 2350 250 Weight 105.2 kg 105.4 kg General appearance: PRESENT: no acute distress, well-developed, well-nourished Head exam: PRESENT: atraumatic, normocephalic Eye exam: PRESENT: conjunctiva pink, EOMI, PERRLA. ABSENT: scleral icterus Ear exam: PRESENT: normal external ear exam Mouth exam: PRESENT: moist, tongue midline Neck exam: ABSENT: carotid bruit, JVD, lymphadenopathy, thyromegaly Respiratory exam: PRESENT: clear to auscultation shreyas. ABSENT: rales, rhonchi, wheezes Cardiovascular exam: PRESENT: RRR. ABSENT: diastolic murmur, rubs, systolic murmur Pulses: PRESENT: normal dorsalis pedis pul Vascular exam: PRESENT: normal capillary refill GI/Abdominal exam: PRESENT: normal bowel sounds, soft. ABSENT: distended, guarding, mass, organolmegaly, rebound, tenderness Rectal exam: PRESENT: deferred Extremities exam: PRESENT: full ROM. ABSENT: calf tenderness, clubbing, pedal edema Neurological exam: PRESENT: alert, awake, oriented to person, oriented to place , oriented to time, oriented to situation, CN II-XII grossly intact. ABSENT: motor sensory deficit Psychiatric exam: PRESENT: appropriate affect, normal mood. ABSENT: homicidal ideation, suicidal ideation Skin exam: PRESENT: dry, intact, warm. ABSENT: cyanosis, rash Results Laboratory Results: 07/03/18 03:57 07/02/18 05:45 06/30/18 06/30/18 06/30/18 03:22 05:45 05:45 Creatine Kinase 54 CK-MB (CK-2) 0.59 Troponin I 0.012 0.012 06/30/18 06/30/18 06/30/18 11:00 11:00 17:06 Creatine Kinase 59 CK-MB (CK-2) 0.61 0.61 Troponin I 0.012 < 0.012 06/30/18 17:12 Creatine Kinase 52 CK-MB (CK-2) Troponin I Impressions: Chest X-Ray 06/29/18 21:25 IMPRESSION: No acute disease. Foot X-Ray 06/29/18 22:56 IMPRESSION: Neuropathic joint pattern of the left midfoot. Differential diagnosis includes prior trauma, coalition, osteoarthritis, and/or osteomyelitis. Qualifiers - * PATIENT BEING DISCHARGED WITH ANY OF THE FOLLOWING DIAGNOSIS: Heart Failure VTE patient discharged on overlapping Therapy?: No Reason(s) for not prescribing Overlap Therapy:: Not indicated Stroke Pt being discharged on Anti-thrombolytic therapy?: No Reason(s) for not prescribing Anti-thrombolytic therapy:: Not indicated Stroke Pt being discharged on Anti-coagulation therapy?: No Reason(s) for not prescribing Anti-coagulation therapy:: Not indicated Stroke Pt being discharged on Statins?: No Reason(s) for not prescribing Statins therapy:: Not indicated MN Pt being discharged on Aspirin therapy?: No Reason(s) for not prescribing Aspirin therapy:: Not indicated MN Pt being discharged on Statins?: No Reason(s) for not prescribing Statin therapy:: Not indicated MN Pt discharged ACEI/ARBS?: No Reason(s) for not prescribing ACEI/ARBS:: Not indicated HF Pt being discharged on ACEI for LVEF less than 40%?: Yes HF Pt being discharged on ARBS for LVEF less than 40%?: Yes HF Pt with Afib discharged with Warfarin?: No Reason(s) for not prescribing Warfarin:: Not indicated HF Pt discharged on evidence-based Beta Trina:: Yes
[2018-07-04 12:18] VITALS: BP 118/59
== END 2018-07-04 12:05 | disposition home or self-care (01) | DRG 638 ==
LOC: ER 21:15 → EH 06-30 03:04 → 5 06-30 04:31
PROVIDERS: ADMIT Internal Medicine; ATTEND Internal Medicine
DX: E11.628 Type 2 diabetes mellitus with other skin complications (principal); L03.116 Cellulitis of left lower limb; I50.22 Chronic systolic (congestive) heart failure; Z68.41 Body mass index [BMI] 40.0-44.9, adult; I25.10 Atherosclerotic heart disease of native coronary artery without angina pectoris; E11.610 Type 2 diabetes mellitus with diabetic neuropathic arthropathy; F03.90 Unspecified dementia, unspecified severity, without behavioral disturbance, psychotic disturbance, mood disturbance, and anxiety; I11.0 Hypertensive heart disease with heart failure; E66.01 Morbid (severe) obesity due to excess calories; Z86.73 Personal history of transient ischemic attack (TIA), and cerebral infarction without residual deficits
CPT/HCPCS: 36415; 71045; 80048; 80053; 80202; 81001; 82550; 82553; 82565; 82962; 83036; 83605; 84484; 85025; 85652; 87040; 87086; 87088; 87186; 93005; 93010; 96361; 96365; 96366; 96375; 99291; G8978-GP; G8979-GP; J0692; J1644; J1815; J2270; J2405; J2543; J3370; J3490; J7030; J7060

== ENCOUNTER 2018-09-12 13:55 | Emergency (ER) | payer MEDICARE, MEDICAID ==
[2018-09-12] MEDS ORDERED: ASPIRIN 325 MG TABLET PO ONE (14:11)
--- NOTE | 2018-09-12 14:14 | ER Document Report ---
ED Medical Screen (RME) - General Chief Complaint: Chest Pain Stated Complaint: CHEST PAIN Time Seen by Provider: 09/12/18 14:11 Mode of Arrival: Ambulatory Information source: Patient, Relative TRAVEL OUTSIDE OF THE [place] IN LAST 30 DAYS: No - HPI Patient complains to provider of: CP Onset: Other - Pt. with intermittent CP for the past 1-2 days. Also, cough and congestion - Related Data Allergies/Adverse Reactions: No Known Allergies Allergy (Unverified 06/17/15 05:30) Past Medical History - Social History Chew tobacco use (# tins/day): No Frequency of alcohol use: None Drug Abuse: None - Past Medical History Cardiac Medical History: Reports: Hx Congestive Heart Failure, Hx Coronary Artery Disease, Hx Hypercholesterolemia, Hx Hypertension Endocrine Medical History: Reports: Hx Diabetes Mellitus Type 2 - lantus Renal/ Medical History: Denies: Hx Peritoneal Dialysis Past Surgical History: Reports: Hx Cardiac Surgery - stent, Hx Hysterectomy Doctor's Discharge - Discharge Referrals: JUANA LEDESMA DO [Primary Care Provider] - Follow up as needed
[2018-09-12 14:49] LABS: ABSOLUTE BASOPHILS # (AUTO) 0.1 10^3/uL (0.0-0.2); ABSOLUTE EOSINOPHILS # (AUTO) 0.1 10^3/uL (0.0-0.6); ABSOLUTE LYMPHOCYTES (AUTO) 2.6 10^3/uL (0.5-4.7); ABSOLUTE MONOCYTES (AUTO) 0.4 10^3/uL (0.1-1.4); ABSOLUTE NEUT (AUTO) 3.6 10^3/uL (1.7-8.2); BASOPHILS % (AUTO) 0.8 % (0-2); EOSINOPHILS % (AUTO) 1.7 % (0-6); HEMATOCRIT 37.7 % (36.0-47.0); HEMOGLOBIN 12.6 g/dL (12.0-15.5); LYMPHOCYTES % (AUTO) 38.3 % (13-45); MEAN CORPUSCULAR HEMOGLOBIN 27.8 pg (27.0-33.4); MEAN CORPUSCULAR HGB CONC 33.5 g/dL (32.0-36.0); MEAN CORPUSCULAR VOLUME 83 fl (80-97); MONOCYTES % (AUTO) 6.4 % (3-13); PLATELET COUNT 297 10^3/uL (150-450); RED BLOOD COUNT 4.55 10^6/uL (3.72-5.28); RED CELL DISTRIBUTION WIDTH 14.7 % (11.5-14.0); SEGMENTED NEUTROPHILS % (AUTO) 52.8 % (42-78); TOTAL CELLS COUNTED % (AUTO) 100 %; WHITE BLOOD COUNT 6.8 10^3/uL (4.0-10.5)
[2018-09-12 15:05] LABS: ALANINE AMINOTRANSFERASE 14 U/L (9-52); ALBUMIN 4.1 g/dL (3.5-5.0); ALKALINE PHOSPHATASE 92 U/L (38-126); ANION GAP 8 (5-19); ASPARTATE AMINO TRANSFERASE 17 U/L (14-36); BILIRUBIN,DIRECT 0.3 mg/dL (0.0-0.4); BILIRUBIN,TOTAL 0.7 mg/dL (0.2-1.3); BLOOD UREA NITROGEN 17 mg/dL (7-20); CALCIUM 9.2 mg/dL (8.4-10.2); CARBON DIOXIDE 29 mmol/L (22-30); CHLORIDE 102 mmol/L (98-107); CREATINE KINASE 36 U/L (30-135); GLUCOSE 225 mg/dL (75-110); POTASSIUM 4.3 mmol/L (3.6-5.0); SODIUM 139.1 mmol/L (137-145); TOTAL PROTEIN 7.1 g/dL (6.3-8.2)
[2018-09-12 15:09] LABS: A TYPE INFLUENZA AG NEGATIVE (NEGATIVE); B INFLUENZA AG NEGATIVE (NEGATIVE)
--- NOTE | 2018-09-12 15:12 | RADIOLOGY REPORT (SQ) ---
EXAM DESCRIPTION: CHEST 2 VIEWS COMPLETED DATE/TIME: 09/12/2018 2:52 pm REASON FOR STUDY: CP COMPARISON: 06/29/2018. NUMBER OF VIEWS: One view. TECHNIQUE: Single frontal radiographic view of the chest acquired. LIMITATIONS: None. FINDINGS: LUNGS AND PLEURA: No opacities, masses or pneumothorax. No pleural effusion. MEDIASTINUM AND HILAR STRUCTURES: No masses or contour abnormality. HEART AND VASCULATURE: Cardiac enlargement. Vascular congestion. BONES: No acute findings. HARDWARE: None in the chest. OTHER: No other significant finding. IMPRESSION: CARDIAC ENLARGEMENT. VASCULAR CONGESTION. TECHNICAL DOCUMENTATION: JOB ID: [id number] [employer]- All Rights Reserved Reading location - IP/workstation name: [email or web address]
[2018-09-12 15:17] LABS: CREATINE KINASE MB 0.54 ng/mL (<4.55); TROPONIN I < 0.012 ng/mL
--- NOTE | 2018-09-12 15:44 | ER Document Report ---
ED General - General Chief Complaint: Chest Pain Stated Complaint: CHEST PAIN Time Seen by Provider: 09/12/18 14:11 Mode of Arrival: Ambulatory Notes: Patient is a 73-year-old female CHF, hypertension that presents to the emergency department for chief complaint of shortness of breath and chest discomfort. Patient reports having upper respiratory tract infection symptoms, she is having runny nose, cough congestion over the past several days, and then started having a sensation of tingling and needles in the chest, mainly in the left breast, and she was having orthopnea, and shortness of breath is worse with lying down, she actually feels tender to palpate over the left chest wall, and her left back, and is reproducible. She is noncompliant with her medications for her CHF including the Lasix, which is the one she is most noncompliant with. She also has a history of CAD, had a stent placed over a year ago. She denies any any fevers, chills, night sweats, nausea, vomiting, abdominal pain, diarrhea, dys uria or hematuria. Past Medical History: Diabetes mellitus, hypertension, hyperlipidemia, CHF, CAD Past Surgical History: Valve replacement, PCI with stenting Social History: Denies tobacco, alcohol or drug use. Family History: Reviewed and noncontributory for presenting illness Allergies: Reviewed, see documented allergy list. REVIEW OF SYSTEMS: Other than noted above, the 12 point review of systems was reviewed with the patient and were negative, all pertinent findings are included in the HPI. PHYSICAL EXAMINATION: Vital signs reviewed, nursing noted reviewed. GENERAL: Well-appearing, well-nourished and in no acute distress. HEAD: Atraumatic, normocephalic. EYES: Eyes appear normal, extraocular movements intact, sclera anicteric, conjunctiva are normal. ENT: nares patent, oropharynx clear without exudates. Moist mucous membranes. NECK: Normal range of motion, supple without lymphadenopathy LUNGS: Faint crackles noted at the bases bilaterally, upper lung maharaj are clear to auscultation bilaterally and equal. No acute respiratory distress, there is reproducible chest wall tenderness anteriorly, and as well as the posterior left ribs HEART: Regular rate and rhythm, 2/6 systolic murmur noted ABDOMEN: Soft, obese, nontender, normoactive bowel sounds. No rebound, g uarding, or rigidity. No masses appreciated. EXTREMITIES: Nontender, good range of motion, no pitting or edema. NEUROLOGICAL: No focal neurological deficits. Moves all extremities spontaneously Motor and sensory grossly intact on exam. PSYCH: Normal mood, normal affect. SKIN: Warm, Dry, normal turgor, no rashes or lesions noted on exposed skin TRAVEL OUTSIDE OF THE [place] IN LAST 30 DAYS: No - Related Data Allergies/Adverse Reactions: No Known Allergies Allergy (Unverified 06/17/15 05:30) Past Medical History - General Information source: Patient, Relative - Social History Smoking Status: Never Smoker Chew tobacco use (# tins/day): No Frequency of alcohol use: None Drug Abuse: None Family History: Reviewed & Not Pertinent Patient has suicidal ideation: No Patient has homicidal ideation: No - Past Medical History Cardiac Medical History: Reports: Hx Congestive Heart Failure, Hx Coronary Artery Disease, Hx Hypercholesterolemia, Hx Hypertension Endocrine Medical History: Reports: Hx Diabetes Mellitus Type 2 - lantus Renal/ Medical History: Denies: Hx Peritoneal Dialysis Past Surgical History: Reports: Hx Cardiac Catheterization - 1 stent placed, Hx Cardiac Surgery - stent, Hx Hysterectomy Physical Exam - Vital signs Vitals: Temp Pulse Resp BP Pulse Ox 97.7 F 71 15 176/80 H 98 09/12/18 14:13 09/12/18 14:13 09/12/18 14:13 09/12/18 14:13 09/12/18 14:13 Course - Re-evaluation Re-evalutation: Patient seen and examined vital signs reviewed. Laboratory data and imaging were ordered as appropriate for the patient's presenting symptoms and complaint, with consideration of any critical or life threatening conditions that may be associated with their obtained history and exam as noted above. Patient was treated with IV Lasix, for pulmonary congestion noted on chest x-ray Results were reviewed when available and demonstrated chest x-ray revealed pulmonary congestion, vascular congestion, likely secondary to noncompliance from the patient's Lasix and other CHF medications, she was given IV Lasix 40 mg, and was feeling better afterwards, she was monitored for 2 serial troponins, and these were negative. Bedside ultrasound was negative for signs of pericardial effusion, and EF appeared to be similar to prior echocardiogram from 2 years ago. I discussed with the patient at length the importance of taking her home medications specifically her diuretics, and other blood pressure medications and her Plavix, which she states she will try to do a better job taking them. The patient was re-evaluated and was improved, not hypoxic, and ambulating in the room. Evaluation was most consistent with pulmonary edema, mild exacerbation of CHF Results were discussed with the patient at this point, after careful consideration I feel that that patient can be discharged from the emergency department, the patient was educated treatments and reasons to return to the [facility] department based on their presumed diagnosis as noted above, they were advised to followup with a primary care physician in 2-3 days. Patient was agreeable to plan of care. *Note is created using voice recognition software and may contain spelling, syntax or grammatical errors. Laboratory 09/12/18 09/12/18 09/12/18 14:25 14:25 14:25 WBC 6.8 RBC 4.55 Hgb 12.6 Hct 37.7 MCV 83 MCH 27.8 MCHC 33.5 RDW 14.7 H Plt Count 297 Seg Neutrophils % 52.8 Lymphocytes % 38.3 Monocytes % 6.4 Eosinophils % 1.7 Basophils % 0.8 Absolute Neutrophils 3.6 Absolute Lymphocytes 2.6 Absolute Monocytes 0.4 Absolute Eosinophils 0.1 Absolute Basophils 0.1 Sodium 139.1 Potassium 4.3 Chloride 102 Carbon Dioxide 29 Anion Gap 8 BUN 17 Creatinine 0.66 Est GFR ( Amer) > 60 Est GFR (Non-Af Amer) > 60 Glucose 225 H Calcium 9.2 Total Bilirubin 0.7 Direct Bilirubin 0.3 Neonat Total Bilirubin Not Reportable Neonat Direct Bilirubin Not Reportable Neonat Indirect Bili Not Reportable AST 17 ALT 14 Alkaline Phosphatase 92 Creatine Kinase 36 CK-MB (CK-2) 0.54 Troponin I < 0.012 NT-Pro-B Natriuret Pep Total Protein 7.1 Albumin 4.1 Influenza A (Rapid) Influenza B (Rapid) 09/12/18 09/12/18 09/12/18 14:25 14:25 17:37 WBC RBC Hgb Hct MCV MCH MCHC RDW Plt Count Seg Neutrophils % Lymphocytes % Monocytes % Eosinophils % Basophils % Absolute Neutrophils Absolute Lymphocytes Absolute Monocytes Absolute Eosinophils Absolute Basophils Sodium Potassium Chloride Carbon Dioxide Anion Gap BUN Creatinine Est GFR ( Amer) Est GFR (Non-Af Amer) Glucose Calcium Total Bilirubin Direct Bilirubin Neonat Total Bilirubin Neonat Direct Bilirubin Neonat Indirect Bili AST ALT Alkaline Phosphatase Creatine Kinase CK-MB (CK-2) Troponin I < 0.012 NT-Pro-B Natriuret Pep 743 Total Protein Albumin Influenza A (Rapid) NEGATIVE Influenza B (Rapid) NEGATIVE Chest X-Ray 09/12/18 14:11 IMPRESSION: CARDIAC ENLARGEMENT. VASCULAR CONGESTION. - Vital Signs Vital signs: Temp Pulse Resp BP Pulse Ox 97.9 F 71 16 135/68 H 95 09/12/18 18:25 09/12/18 14:13 09/12/18 18:26 09/12/18 18:26 09/12/18 18:26 - Laboratory Result Diagrams: 09/12/18 14:25 09/12/18 14:25 Laboratory results interpreted by me: 09/12/18 09/12/18 14:25 14:25 RDW 14.7 H Glucose 225 H - EKG Interpretation by Me Additional EKG results interpreted by me: EKG demonstrates first-degree AV block with a ventricular rate of 70 bpm, normal axis, QTC 462 ms, no evidence of acute ischemia on this EKG, this is compared with a prior EKG from 06/29/2018, without significant change. Procedures - Ultrasound/Bedside Ultrasound/Bedside Notes: Limited bedside echocardiogram. Indication: Shortness of breath and chest pain impression: EF estimated to be approximately 70%, no significant pericardial effusion, their seem to be concentric left ventricular hypertrophy. Discharge - Discharge Clinical Impression: Shortness of breath, Pulmonary vascular congestion Condition: Stable Disposition: HOME, SELF-CARE Additional Instructions: Please take your home medication is very important you take your Lasix to keep the fluid from building up on your lungs, please follow-up with your primary care physician, I also provided Dr. Hastings's information with your paperwork. Referrals: JUANA LEDESMA I, DO [Primary Care Provider] - Follow up as needed ESTEE HASTINGS MD [ACTIVE STAFF] - Follow up as needed
[2018-09-12] MEDS ORDERED: FUROSEMIDE INJ/PF 40 MG/4 ML SDV IV ONE (15:50)
[2018-09-12 18:27] VITALS: BP 135/68
--- NOTE | 2018-09-12 23:45 | EKG REPORT ---
SEVERITY:- ABNORMAL ECG - SINUS RHYTHM FIRST DEGREE AV BLOCK LOW VOLTAGE IN FRONTAL LEADS CONSIDER ANTEROSEPTAL INFARCT NONSPECIFIC T ABNORMALITIES, INFERIOR LEADS : Confirmed by: Danna Vigil 12-Sep-2018 23:44:27
== END 2018-09-12 18:34 | disposition home or self-care (01) ==
LOC: ER 13:55
DX: R07.9 Chest pain, unspecified (principal); R06.02 Shortness of breath; I50.9 Heart failure, unspecified; E11.9 Type 2 diabetes mellitus without complications; I11.0 Hypertensive heart disease with heart failure; E78.00 Pure hypercholesterolemia, unspecified; I25.10 Atherosclerotic heart disease of native coronary artery without angina pectoris; Z95.2 Presence of prosthetic heart valve; Z90.710 Acquired absence of both cervix and uterus; I87.8 Other specified disorders of veins
CPT/HCPCS: 93005; 96374; 99285; 36415; 82553; 82550; 85025; 80053; 84484; 87804; 83880; 71046; 93010; A9270; J1940

== ENCOUNTER 2018-11-26 17:12 | Inpatient (IN) | payer MEDICARE, MEDICAID ==
[2018-11-26 18:28] LABS: VENOUS BLOOD BASE EXCESS 5.2 mmol/L; VENOUS BLOOD HCO3 30.3 mmol/L (20-32); VENOUS BLOOD PCO2 45.9 mmHg (35-63); VENOUS BLOOD PH 7.44 (7.30-7.42)
[2018-11-26 18:29] LABS: ABSOLUTE LYMPHOCYTES (AUTO) 1.4 10^3/uL (0.5-4.7); ABSOLUTE MONOCYTES (AUTO) 0.8 10^3/uL (0.1-1.4); ABSOLUTE NEUT (AUTO) 9.9 10^3/uL (1.7-8.2); BASOPHILS % (AUTO) 0.3 % (0-2); EOSINOPHILS % (AUTO) 0.3 % (0-6); HEMATOCRIT 33.9 % (36.0-47.0); HEMOGLOBIN 11.4 g/dL (12.0-15.5); LYMPHOCYTES % (AUTO) 11.7 % (13-45); MEAN CORPUSCULAR HEMOGLOBIN 28.1 pg (27.0-33.4); MEAN CORPUSCULAR HGB CONC 33.6 g/dL (32.0-36.0); MEAN CORPUSCULAR VOLUME 84 fl (80-97); MONOCYTES % (AUTO) 6.4 % (3-13); PLATELET COUNT 258 10^3/uL (150-450); RED BLOOD COUNT 4.06 10^6/uL (3.72-5.28); RED CELL DISTRIBUTION WIDTH 14.6 % (11.5-14.0); SEGMENTED NEUTROPHILS % (AUTO) 81.3 % (42-78); TOTAL CELLS COUNTED % (AUTO) 100 %; WHITE BLOOD COUNT 12.1 10^3/uL (4.0-10.5)
[2018-11-26 18:38] LABS: INTERNATIONAL RATION (INR) 1.11; PROTHROMBIN TIME 14.9 SEC (11.4-15.4)
[2018-11-26 18:53] LABS: ALANINE AMINOTRANSFERASE 8 U/L (9-52); ALBUMIN 3.4 g/dL (3.5-5.0); ALKALINE PHOSPHATASE 107 U/L (38-126); ANION GAP 8 (5-19); ASPARTATE AMINO TRANSFERASE 11 U/L (14-36); BILIRUBIN,DIRECT 0.3 mg/dL (0.0-0.4); BILIRUBIN,TOTAL 0.9 mg/dL (0.2-1.3); BLOOD UREA NITROGEN 24 mg/dL (7-20); CALCIUM 9.1 mg/dL (8.4-10.2); CARBON DIOXIDE 27 mmol/L (22-30); CHLORIDE 96 mmol/L (98-107); GLUCOSE 364 mg/dL (75-110); POTASSIUM 4.4 mmol/L (3.6-5.0); TOTAL PROTEIN 6.3 g/dL (6.3-8.2)
[2018-11-26 20:25] LABS: APPEARANCE,URINE SLIGHTLY-CLOUDY; BILIRUBIN,URINE NEGATIVE (NEGATIVE); COLOR,URINE YELLOW; GLUCOSE, URINE >=500 mg/dL (NEGATIVE); KETONES,URINE NEGATIVE (NEGATIVE); LEUKOCYTE ESTERASE,URINE NEGATIVE (NEGATIVE); NITRITE,URINE NEGATIVE (NEGATIVE); PROTEIN,URINE NEGATIVE (NEGATIVE); URINE SPECIFIC GRAVITY 1.007; UROBILINOGEN,URINE NEGATIVE mg/dL (<2.0)
[2018-11-26] MEDS ORDERED: VANCOMYCIN HCL INJ 1000 MG VIAL IV ONE (20:29)
--- NOTE | 2018-11-26 20:31 | ER Document Report ---
ED General - General Chief Complaint: Foot Pain Stated Complaint: FEVER/BODY PAIN Time Seen by Provider: 11/26/18 19:24 Notes: Patient is a 73-year-old female with a past medical history of CHF, diabetes, peripheral vascular disease, recurrent infections of the bilateral feet who presents with fever, 24 hours of left foot pain and feeling generally unwell. States her symptoms started gradually, have been worsening since onset. Describes the pain in her foot as being a severe, throbbing, burning pain. Worsened by touching the area or walking. Nothing improves the pain. States this feels the same as when she has had infections to the foot in the past. She has not seen her primary doctor regarding today's concerns. Has not noted s treaking redness up the foot. She denies dysuria, cough, sputum production, headache or neck pain. TRAVEL OUTSIDE OF THE [place] IN LAST 30 DAYS: No - Related Data Allergies/Adverse Reactions: No Known Allergies Allergy (Verified 11/26/18 19:44) Past Medical History - General Information source: Patient - Social History Smoking Status: Never Smoker Chew tobacco use (# tins/day): No Frequency of alcohol use: None Drug Abuse: None Lives with: Parents Family History: Reviewed & Not Pertinent Patient has suicidal ideation: No Patient has homicidal ideation: No - Past Medical History Cardiac Medical History: Reports: Hx Congestive Heart Failure, Hx Coronary Artery Disease, Hx Hypercholesterolemia, Hx Hypertension Endocrine Medical History: Reports: Hx Diabetes Mellitus Type 2 - lantus Renal/ Medical History: Denies: Hx Peritoneal Dialysis Past Surgical History: Reports: Hx Cardiac Catheterization - 1 stent placed, Hx Cardiac Surgery - stent, Hx Hysterectomy Review of Systems - Review of Systems Notes: Constitutional: Positive for fever. HENT: Negative for sore throat. Eyes: Negative for visual changes. Cardiovascular: Negative for chest pain. Respiratory: Negative for shortness of breath. Gastrointestinal: Negative for abdominal pain, vomiting or diarrhea. Genitourinary: Negative for dysuria. Musculoskeletal: Negative for back pain. Skin: Positive for cellulitis to the dorsum of the left foot Neurological: Negative for headaches, weakness or numbness. 10 point ROS negative except as marked above and in HPI. Physical Exam - Vital signs Vitals: Temp Pulse BP Pulse Ox 99.9 F 100 134/49 H 100 11/26/18 17:21 11/26/18 17:21 11/26/18 17:21 11/26/18 17:21 Interpretation: Normal Notes: PHYSICAL EXAMINATION: GENERAL: Elderly female in mild discomfort but no distress HEAD: Atraumatic, normocephalic. EYES: Pupils equal round and reactive to light, extraocular movements intact, sclera anicteric, conjunctiva are normal. ENT: nares patent, oropharynx clear without exudates. Moist mucous membranes. NECK: Normal range of motion, supple without lymphadenopathy LUNGS: Breath sounds clear to auscultation bilaterally and equal. No wheezes rales or rhonchi. HEART: Regular rate and rhythm ABDOMEN: Soft, obese abdomen, nontender, normoactive bowel sounds. No guarding, no rebound. No masses appreciated. EXTREMITIES: Normal range of motion, no pitting or edema. No cyanosis. NEUROLOGICAL: No focal neurological deficits. Moves all extremities spontaneously and on command. PSYCH: Normal mood, normal affect. SKIN: Warm, Dry, normal turgor, diffuse erythema on the distal aspect of the dorsum of the left foot with associated swelling without fluctuance or induration Course - Re-evaluation Re-evalutation: 11/26/18 20:30 Patient presents with exam findings consistent with a cellulitis of the dorsum of the left foot, has had a recorded fever by EMS to 101.6. Patient is also noted to be hyperglycemic and has a history of peripheral vascular disease. Labs are notable for leukocytosis, lactate within acceptable limits. Patient's overall clinical picture consistent with sepsis secondary to cellulitis. Given her advanced age, history of diabetes currently uncontrolled, peripheral vascular disease she is not appropriate for outpatient management. The patient has been started on vancomycin and cefepime to cover for both MRSA, strep and pseudomonal infection. I will avoid excessive IV hydration as patient has a history of CHF, is without tachycardia cardia, hypotension and has a normal lactate. Will discuss with the hospitalist for admission after completion of a foot x-ray to evaluate for underlying osteomyelitis. 11/26/18 20:52 I have discussed this case with Dr. Short the hospitalist. We did review the patient's saturations are somewhat lower than her baseline and chest x-ray will be obtained. Patient has been accepted for admission to telemetry. - Vital Signs Vital signs: Temp Pulse Resp BP Pulse Ox 98.2 F 72 18 131/49 H 98 11/26/18 23:40 11/26/18 23:40 11/26/18 23:40 11/26/18 23:40 11/26/18 23:40 - Laboratory Result Diagrams: 11/26/18 18:14 11/26/18 18:14 Laboratory results interpreted by me: 11/26/18 11/26/18 11/26/18 18:14 18:14 18:14 WBC 12.1 H Hgb 11.4 L Hct 33.9 L RDW 14.6 H Seg Neutrophils % 81.3 H Lymphocytes % 11.7 L Absolute Neutrophils 9.9 H APTT VBG pH 7.44 H Sodium 131.0 L Chloride 96 L BUN 24 H Glucose 364 H Hemoglobin A1c % AST 11 L ALT 8 L Albumin 3.4 L Urine Glucose (UA) 11/26/18 11/26/18 11/26/18 18:14 18:14 19:51 WBC Hgb Hct RDW Seg Neutrophils % Lymphocytes % Absolute Neutrophils APTT 36.2 H VBG pH Sodium Chloride BUN Glucose Hemoglobin A1c % 10.8 H AST ALT Albumin Urine Glucose (UA) >=500 H - Diagnostic Test Radiology reviewed: Image reviewed, Reports reviewed Radiology results interpreted by me: 11/27/18 02:12 Left foot x-ray: No evidence of underlying osteomyelitis Discharge - Discharge Clinical Impression: Cellulitis of left foot, Hyperglycemia Sepsis Qualifiers: Sepsis type: sepsis due to unspecified organism Qualified Code(s): A41.9 - Sepsis, unspecified organism Condition: Fair Disposition: ADMITTED INPATIENT Admitting Provider: Deja (Hospitalist) Unit Admitted: Telemetry
--- NOTE | 2018-11-26 20:50 | RADIOLOGY REPORT (SQ) ---
EXAM DESCRIPTION: FOOT LEFT COMPLETE Views: 3 CLINICAL HISTORY: 73 years Female, pain, fever, eval osteo COMPARISON: 06/29/2018 FINDINGS: There is severe chronic changes in the midfoot, with sclerosis and irregularity. There is been partial collapse of the navicular and talus. Overall appearance is similar to the 06/29/2018 exam. Bones are diffusely osteopenic. No acute fracture. No suspicious acute lytic bone changes or periosteal reaction. No soft tissue air. IMPRESSION: 1. Extensive chronic changes of the proximal foot, consistent with neuropathic (Charcot) foot, similar to the 06/29/2018 exam. 2. No radiographic evidence for osteomyelitis. 3. No acute fracture.
[2018-11-26] MEDS ORDERED: GLUCAGON,HUMAN RECOMB 1 MG INJ IM PRN (21:02)
[2018-11-26] MEDS ORDERED: DEXTROSE 40% GEL 15 GM TUBE PO PRN ×2 (21:02)
[2018-11-26] MEDS ORDERED: DEXTROSE 50%-WATER 25 GM/50 ML DISP.SYRIN IV PRN ×2 (21:02)
[2018-11-26] MEDS ORDERED: VANCOMYCIN HCL 0 MG in DEXTROSE 5%-WATER 250 ML IV NR (21:15)
[2018-11-26] MEDS ORDERED: CEFEPIME 2 GM/D5W RTU 2 GM/50 ML RTUPB IV ONE (21:30)
--- NOTE | 2018-11-26 21:49 | RADIOLOGY REPORT (SQ) ---
EXAM DESCRIPTION: XR CHEST 1 VIEW COMPLETED DATE/TME: 11/26/2018 20:52 CLINICAL HISTORY: 73 years, Female, boarderline hypoxia COMPARISON: EXAM DESCRIPTION: CLINICAL HISTORY: boarderline hypoxia COMPARISON: None. FINDINGS: Single view of the chest is submitted. Cardiac silhouette is moderately enlarged. There is consolidation at the left lung base with mild bilateral pulmonary edema. IMPRESSION: Cardiomegaly, pulmonary edema and left lung base consolidation.
[2018-11-26] MEDS ORDERED: HEPARIN SOD (PORCINE) 5,000 UNIT/ML 1 ML SYRINGE SUBCUT SCH (22:00)
[2018-11-26] MEDS ORDERED: CEFEPIME 2 GM/D5W RTU 2 GM/50 ML RTUPB IV SCH (22:00)
[2018-11-26] MEDS: INSULIN LISPRO 100 UNIT/ML 3 ML VIAL SUBCUT SCH (22:25)
[2018-11-26] MEDS: ACETAMINOPHEN 325 MG TABLET PO PRN (23:52)
[2018-11-26] MEDS ORDERED: NORMAL SALINE 1000 ML 250 ML IV ONE (23:59)
[2018-11-27] MEDS: VANCOMYCIN HCL 1,500 MG in DEXTROSE 5%-WATER 250 ML IV SCH ×3 (00:10→23:36)
--- NOTE | 2018-11-27 00:20 | PDOC H&P ---
History of Present Illness Admission Date/PCP: 11/26/18 21:11 ESTEE HASTINGS Patient complains of: left foot and leg pain for a few days History of Present Illness: GERARD COHN is a 73 year old woman who lives locally with her daughter, she sees Dr. Hastings for primary care. Daughter states she doesnt like to take her meds and often misses doses. Saw Dr. Hastings on Thursday and her feet were fine, no cellulitis. Then Thu, the next day, she began to have left foot pain that worsened until today when it was found to be deep red and purple by family so they brought her to the ED. Treated with broad spectrum ABX in ED. She is hemodynamically stable but her O2 was in the low 90s so we checked CXR given her CHF and sepsis, she has left lung base consolidation and mild pulmonary edema. She is also complaining of some mild lower left anterior pleuritic chest pain and some dyspnea worse than usual. She is now admitted to the hospitalist service with early sepsis (fever and WBC count with infection), left foot cellulitis and evidence of left lung pneumonia. Past Medical History Cardiac Medical History: Reports: Congestive Heart Failure, Coronary Artery Disease, Hyperlipidema, Hypertension, Heart Murmur Pulmonary Medical History: Denies: Asthma, Chronic Obstructive Pulmonary Disease (COPD) EENT Medical History: Denies: None Neurological Medical History: Reports: Ischemic CVA Denies: Seizures Endocrine Medical History: Reports: Diabetes Mellitus Type 2 - lantus Denies: Hyperthyroidism, Hypothyroidism Renal/ Medical History: Denies: Chronic Kidney Disease Malignancy Medical History: Denies: None GI Medical History: Denies: Cirrhosis, Crohn's Disease Musculoskeltal Medical History: Denies: Arthritis, Fibromyalgia Skin Medical History: Denies: Eczema, Psoriasis Psychiatric Medical History: Denies: Alcohol Dependency, Depression, General Anxiety Disorder, Substance Abuse, Tobacco Dependency Traumatic Medical History: Denies: None Hematology: Denies: Sickle Cell Disease, Bleeding Tendencies Infectious Medical History: Reports: None Past Surgical History Past Surgical History: Reports: Cardiac Catheterization - 1 stent placed, Hysterectomy Social History Information Source: Patient, Relative Lives with: Family Smoking Status: Never Smoker Frequency of Alcohol Use: None Hx Recreational Drug Use: No Drugs: None Hx Prescription Drug Abuse: No Past Social History Note: Pt is from [place], she is bilingual Barbadian and Telugu, has been living in [place] with a daughter. She moved here with that daughter to [facility] her other daughter, Estefania who is here at the bedside. She has another son in [place]. She has been here since May and is just getting settled with her medical care. - Advance Directive Resuscitation Status: Full Code Surrogate healthcare decision maker:: daughter Estefania Maldonado, Family History Parental Family History Reviewed: Yes - her dad with diabetes complications, mother "natural" Children Family History Reviewed: Yes - 2 kids with diabetes Sibling(s) Family History Reviewed.: Yes Medication/Allergy Home Medications: Aspirin [Aspirin EC] 81 mg PO DAILY 06/30/18 Atorvastatin Calcium [Lipitor 20 mg Tablet] 20 mg PO QHS 06/30/18 Cholecalciferol (Vitamin D3) [Vitamin D3 1000 Unit Tablet] 1,000 unit PO DAILY 06/30/18 Clopidogrel Bisulfate [Plavix 75 mg Tablet] 75 mg PO DAILY 06/30/18 Empagliflozin [Jardiance] 25 mg PO DAILY 06/30/18 Furosemide [Lasix 40 mg Tablet] 40 mg PO QAM 06/30/18 Gabapentin [Neurontin 300 mg Capsule] 300 mg PO QHS 06/30/18 Amox Tr/Potassium Clavulanate [Augmentin 875-125 mg Tablet] 1 tab PO BID #10 tablet 07/04/18 Carvedilol [Coreg 12.5 mg Tablet] 12.5 mg PO Q12 #60 tablet 07/04/18 Insulin Glargine,Hum.rec.anlog [Lantus (Pyxis) Insulin 100 Unit/1 ml 10 ml] 60 unit SUBCUT BID 30 Days #2 vial 07/04/18 Lisinopril/Hydrochlorothiazide [Lisinopril-Hctz 10-12.5 mg Tab] 1 each PO DAILY 30 Days #30 tablet 07/04/18 Allergies/Adverse Reactions: No Known Allergies Allergy (Verified 11/26/18 19:44) Review of Systems Constitutional: PRESENT: fatigue, fever(s). ABSENT: anorexia, chills, headache(s) Eyes: ABSENT: visual disturbances Ears: ABSENT: hearing changes Nose, Mouth, and Throat: ABSENT: mouth pain, sore throat Cardiovascular: PRESENT: dyspnea on exertion, edema, orthropnea Respiratory: ABSENT: cough Gastrointestinal: ABSENT: abdominal pain, constipation, diarrhea, nausea, vomiting Genitourinary: ABSENT: difficulty urinating, dysuria Integumentary: PRESENT: erythema. ABSENT: diaphoresis Neurological: PRESENT: memory loss. ABSENT: confusion, dizziness, focal weakness, syncope Psychiatric: ABSENT: anxiety, depression Endocrine: PRESENT: other - uncontrolled DM wth elevated CBG at home Hematologic/Lymphatic: ABSENT: easy bleeding, easy bruising Physical Exam Vital Signs: Temp Pulse Resp BP Pulse Ox 98.7 F 88 18 124/54 L 93 11/26/18 22:00 11/26/18 22:00 11/26/18 22:01 11/26/18 22:00 11/26/18 22:01 Intake & Output 11/25/18 11/26/18 11/27/18 06:59 06:59 06:59 Weight 116.12 kg General appearance: PRESENT: no acute distress, cooperative, morbidly obese Head exam: PRESENT: atraumatic, normocephalic Eye exam: PRESENT: EOMI. ABSENT: conjunctival injection, scleral icterus Ear exam: PRESENT: normal external ear exam Mouth exam: PRESENT: moist, neck supple, tongue midline Teeth exam: ABSENT: edentulous Neck exam: ABSENT: tenderness Respiratory exam: PRESENT: decreased breath sounds, unlabored. ABSENT: accessory muscle use, rales, wheezes Cardiovascular exam: PRESENT: gallop, RRR, systolic murmur Pulses: PRESENT: normal radial pulses Vascular exam: PRESENT: normal capillary refill GI/Abdominal exam: PRESENT: normal bowel sounds, soft. ABSENT: ascites, guarding, tenderness Rectal exam: PRESENT: deferred Gentrourinary exam: ABSENT: indwelling catheter Extremities exam: PRESENT: pedal edema, tenderness Musculoskeletal exam: ABSENT: deformity Neurological exam: PRESENT: alert, awake, oriented to person, oriented to place, oriented to situation, CN II-XII grossly intact. ABSENT: aphasic Psychiatric exam: PRESENT: appropriate affect. ABSENT: anxious, depressed Skin exam: PRESENT: warm, other - dorsum of left foot with deep erythema and tenderness of palpation, she reports pain up into the thigh also. No open areas, no purulence.. ABSENT: cyanosis, mottled, skin tears Results Laboratory Results: 11/26/18 18:14 11/26/18 18:14 11/26/18 11/26/18 11/26/18 18:14 18:14 18:14 WBC 12.1 H RBC 4.06 Hgb 11.4 L Hct 33.9 L MCV 84 MCH 28.1 MCHC 33.6 RDW 14.6 H Plt Count 258 Seg Neutrophils % 81.3 H Lymphocytes % 11.7 L Monocytes % 6.4 Eosinophils % 0.3 Basophils % 0.3 Absolute Neutrophils 9.9 H Absolute Lymphocytes 1.4 Absolute Monocytes 0.8 Absolute Eosinophils 0.0 Absolute Basophils 0.0 VBG pH VBG pCO2 VBG HCO3 VBG Base Excess Sodium 131.0 L Potassium 4.4 Chloride 96 L Carbon Dioxide 27 Anion Gap 8 BUN 24 H Creatinine 0.86 Est GFR ( Amer) > 60 Est GFR (Non-Af Amer) > 60 Glucose 364 H Lactic Acid 1.9 Calcium 9.1 Total Bilirubin 0.9 AST 11 L ALT 8 L Alkaline Phosphatase 107 Total Protein 6.3 Albumin 3.4 L Urine Color Urine Appearance Urine pH Ur Specific [place] Urine Protein Urine Glucose (UA) Urine Ketones Urine Blood Urine Nitrite Ur Leukocyte Esterase Urine WBC (Auto) Urine RBC (Auto) 11/26/18 11/26/18 18:14 19:51 WBC RBC Hgb Hct MCV MCH MCHC RDW Plt Count Seg Neutrophils % Lymphocytes % Monocytes % Eosinophils % Basophils % Absolute Neutrophils Absolute Lymphocytes Absolute Monocytes Absolute Eosinophils Absolute Basophils VBG pH 7.44 H VBG pCO2 45.9 VBG HCO3 30.3 VBG Base Excess 5.2 Sodium Potassium Chloride Carbon Dioxide Anion Gap BUN Creatinine Est GFR ( Amer) Est GFR (Non-Af Amer) Glucose Lactic Acid Calcium Total Bilirubin AST ALT Alkaline Phosphatase Total Protein Albumin Urine Color YELLOW Urine Appearance SLIGHTLY-CLOUDY Urine pH 5.0 Ur Specific [place] 1.007 Urine Protein NEGATIVE Urine Glucose (UA) >=500 H Urine Ketones NEGATIVE Urine Blood NEGATIVE Urine Nitrite NEGATIVE Ur Leukocyte Esterase NEGATIVE Urine WBC (Auto) 3 Urine RBC (Auto) 0 Impressions: Foot X-Ray 11/26/18 19:25 IMPRESSION: 1. Extensive chronic changes of the proximal foot, consistent with neuropathic (Charcot) foot, similar to the 06/29/2018 exam. 2. No radiographic evidence for osteomyelitis. 3. No acute fracture. Chest X-Ray 11/26/18 20:52 IMPRESSION: Cardiomegaly, pulmonary edema and left lung base consolidation. Assessment and Plan - Diagnosis (1) Cellulitis of left foot Is this a current diagnosis for this admission?: Yes Plan: Ptis diabetic, she developed this infection rather quickly. Non purulent cellulitis, with pain up to the thigh of left leg. WIll broadly cover with cefepime 2 g IV q12hrs and vanc to be dosed by pharmacy. Blood cultures pending. There is some pain and edema. I am ordering left leg DVT study given that she has another possible source of infection (left lung PNA) that could be causing the sepsis parameters. No wound care needed at this point. (2) Sepsis Qualifiers: Sepsis type: sepsis due to unspecified organism Qualified Code(s): A41.9 - Sepsis, unspecified organism Is this a current diagnosis for this admission?: Yes Plan: with fever and WBC elevated, pt is stable hemodynamically and lactic acid level in normal range, has mild pulm edema. Will give NS 250mL bolus and follow clsoely for need for more fluids, following resp status. Blood and urine cultures ordered. Pt has evidence left lower lobe PNA and left foot cellulitis and is on cefepime and vanc, broad coverage. Will rechk lactic acid. (3) Pneumonia Qualifiers: Pneumonia type: due to unspecified organism Laterality: left Lung location: lower lobe of lung Qualified Code(s): J18.1 - Lobar pneumonia, unspecified organism Is this a current diagnosis for this admission?: Yes Plan: see above, on vanc and cefepime, O2 sats slightly lower than her norm, not on O2 at baseline. Ordered NC O2 for sats <92%. No signif cough or phlegm production. Does have mild pleuritic chest pain and BAÑUELOS. (4) Type 2 diabetes mellitus with diabetic neuropathy Qualifiers: Diabetes mellitus detention insulin use: with superintendent marine oil terminal use Qualified Code(s): E11.40 - Type 2 diabetes mellitus with diabetic neuropathy, unspecified; Z79.4 - senior care (current) use of insulin Is this a current diagnosis for this admission?: Yes Plan: She uses BID lantus, doses not clear and SSI bolus insulin at home. Also on metformin. Hbg A1C>10, pt skips meds often per family. I performed counseling related to importance of taking meds as prescribed to prevent complications related to DM. SHort acting bolus insulin started and will monitor closely, will start lanatus prob tomorrow. Diabetic diet ordered. Diabetic education ordered. (5) CAD status post 3 stent placement Is this a current diagnosis for this admission?: Yes Plan: BP and HR controlled now, given sepsis parameters I am reluctant to start antihypertensives, will start as appropriate over the next day and will consider starting coreg this shift depending on how she does. Will start her ASA and once we have med rec will start plavix (if that is still active). She is admitted to [facility]. Will also follow trops given her CP (6) CHF (congestive heart failure) Is this a current diagnosis for this admission?: Yes Plan: unknown type, mild pulm edema on CXR, med list not yet reconciled, given early sepsis parameters will not start diuresis tonight. No rales on exam. (7) CVA (cerebral vascular accident) Is this a current diagnosis for this admission?: Yes Plan: on plavix (not yet confirmed) and asa. Asa started and awaiting confirmation of plavix to start. (8) Morbid obesity with BMI of 40.0-44.9, adult Is this a current diagnosis for this admission?: Yes Plan: pt needs dietary and weight loss counseling. I started, she told me she loves to eat everything, conversation needs more time and pt acutely ill so I ordered DM and CHF nutrition and education consultation. - Time Time Spent with patient: 35 or more minutes Anticipated discharge: Home - Inpatient Certification Based on my medical assessment, after consideration of the patient's comorbidities, presenting symptoms, or acuity I expect that the services needed warrant INPATIENT care.: Yes I certify that my determination is in accordance with my understanding of Medicare's requirements for reasonable and necessary INPATIENT services [42 CFR 412.3e].: Yes Medical Necessity: Need Close Monitoring Due to Risk of Patient Decompensation, Need For Continuous Telemetry Monitoring, Need for IV Antibiotics, Risk of Complication if Not Cared For in Hospital
[2018-11-27 01:28] LABS: CREATINE KINASE MB 0.38 ng/mL (<4.55)
[2018-11-27 01:29] LABS: TROPONIN I < 0.012 ng/mL
[2018-11-27 06:43] LABS: HEMATOCRIT 32.3 % (36.0-47.0); HEMOGLOBIN 11.1 g/dL (12.0-15.5); MEAN CORPUSCULAR HEMOGLOBIN 28.6 pg (27.0-33.4); MEAN CORPUSCULAR HGB CONC 34.4 g/dL (32.0-36.0); MEAN CORPUSCULAR VOLUME 83 fl (80-97); PLATELET COUNT 241 10^3/uL (150-450); RED BLOOD COUNT 3.89 10^6/uL (3.72-5.28); RED CELL DISTRIBUTION WIDTH 14.6 % (11.5-14.0); WHITE BLOOD COUNT 10.5 10^3/uL (4.0-10.5)
--- NOTE | 2018-11-27 06:48 | EKG REPORT ---
SEVERITY:- ABNORMAL ECG - SINUS RHYTHM FIRST DEGREE AV BLOCK LOW VOLTAGE IN FRONTAL LEADS OLD ANTEROSEPTAL DE : Confirmed by: Solomon Hickman MD 27-Nov-2018 06:47:01
[2018-11-27 06:57] LABS: ANION GAP 11 (5-19); BLOOD UREA NITROGEN 27 mg/dL (7-20); CALCIUM 8.9 mg/dL (8.4-10.2); CARBON DIOXIDE 25 mmol/L (22-30); CHLORIDE 96 mmol/L (98-107); CREATINE KINASE 44 U/L (30-135); GLUCOSE 306 mg/dL (75-110); POTASSIUM 4.1 mmol/L (3.6-5.0); SODIUM 131.8 mmol/L (137-145); TRIGLYCERIDES 186 mg/dL (<150)
[2018-11-27] MEDS: INSULIN LISPRO 100 UNIT/ML 3 ML VIAL SUBCUT SCH ×4 (07:01→22:09)
[2018-11-27 07:08] LABS: CREATINE KINASE MB 0.28 ng/mL (<4.55); DIRECT LDL 119 mg/dL (<100)
[2018-11-27 07:09] LABS: VLDL CHOLESTEROL 37.2 mg/dL (10-31)
[2018-11-27] MEDS: ACETAMINOPHEN 325 MG TABLET PO PRN (07:09)
[2018-11-27 07:10] LABS: TROPONIN I < 0.012 ng/mL
--- NOTE | 2018-11-27 09:54 | RADIOLOGY REPORT (SQ) ---
EXAM DESCRIPTION: VENOUS UNILATERAL LOWER COMPLETED DATE/TIME: 11/27/2018 9:27 am REASON FOR STUDY: left leg edema and pain COMPARISON: None. TECHNIQUE: Dynamic and static bhandari scale and color images acquired of the left leg venous system. Se lected spectral images acquired with additional compression and augmentation maneuvers. The contralat eral common femoral vein and saphenofemoral junction were also imaged. Images stored on PACS. LIMITATIONS: None. FINDINGS: COMMON FEMORAL: Normal phasicity, compression and augmentation. No visualized echogenic ma terial on bhandari scale. No defects on color images. FEMORAL: Normal compression and augmentation. No visualized echogenic material on bhandari scale. No defe cts on color images. POPLITEAL: Normal compression, augmentation. No visualized echogenic material on bhandari scale. No defec ts on color images. CALF VESSELS: Normal compression, augmentation. No visualized echogenic material on bhandari scale. No de fects on color images. GSV and SSV: Normal compression, augmentation. No visualized echogenic material on bhandari scale. No def ects on color images. ANY DEEP VENOUS INSUFFICIENCY: Not evaluated. ANY EVIDENCE OF POPLITEAL CYST: No. OTHER: No other significant finding. CONTRALATERAL COMMON FEMORAL VEIN AND SAPHENOFEMORAL JUNCTION: Normal phasicity, compression and augmentation. No visualized echogenic material on bhandari scale. No de fects on color images. IMPRESSION: NO EVIDENCE DVT OR SVT IN THE LEFT LEG. TECHNICAL DOCUMENTATION: JOB ID: [id number] [employer]- All Rights Reserved Reading location - IP/workstation name: [email or web address]
[2018-11-27] MEDS: CEFEPIME 2 GM/D5W RTU 2 GM/50 ML RTUPB IV SCH ×2 (10:30→22:09)
[2018-11-27] MEDS ORDERED: ASPIRIN 81 MG TABLET, ENT COATED PO ONE (13:09)
[2018-11-27] MEDS ORDERED: CLOPIDOGREL BISULFATE 75 MG TABLET PO ONE (13:10)
[2018-11-27 13:11] LABS: CREATINE KINASE MB 0.25 ng/mL (<4.55)
[2018-11-27] MEDS ORDERED: GABAPENTIN 300 MG CAPSULE PO ONE (13:11)
[2018-11-27 13:13] LABS: TROPONIN I < 0.012 ng/mL
[2018-11-27] MEDS: OXYCODONE HCL IR 5 MG TABLET PO PRN ×2 (13:44→22:10)
[2018-11-27] MEDS: MAGNESIUM SULFATE 1 GM/D5W 100 ML IV SCH ×2 (14:39→15:55)
[2018-11-27] MEDS: GABAPENTIN 300 MG CAPSULE PO SCH (22:10)
[2018-11-27] MEDS: ATORVASTATIN CALCIUM 20 MG TABLET PO SCH (22:10)
[2018-11-28 06:17] LABS: HEMATOCRIT 30.6 % (36.0-47.0); HEMOGLOBIN 10.5 g/dL (12.0-15.5); MEAN CORPUSCULAR HEMOGLOBIN 28.8 pg (27.0-33.4); MEAN CORPUSCULAR HGB CONC 34.4 g/dL (32.0-36.0); MEAN CORPUSCULAR VOLUME 84 fl (80-97); PLATELET COUNT 262 10^3/uL (150-450); RED BLOOD COUNT 3.66 10^6/uL (3.72-5.28); RED CELL DISTRIBUTION WIDTH 14.2 % (11.5-14.0); WHITE BLOOD COUNT 11.1 10^3/uL (4.0-10.5)
[2018-11-28 06:39] LABS: ANION GAP 7 (5-19); BLOOD UREA NITROGEN 25 mg/dL (7-20); CALCIUM 8.8 mg/dL (8.4-10.2); CARBON DIOXIDE 26 mmol/L (22-30); CHLORIDE 96 mmol/L (98-107); GLUCOSE 251 mg/dL (75-110); POTASSIUM 4.9 mmol/L (3.6-5.0)
[2018-11-28] MEDS: INSULIN LISPRO 100 UNIT/ML 3 ML VIAL SUBCUT SCH ×4 (07:58→23:12)
[2018-11-28] MEDS: ASPIRIN 81 MG TABLET, ENT COATED PO SCH (10:23)
[2018-11-28] MEDS: FUROSEMIDE 40 MG TABLET PO SCH (10:23)
[2018-11-28] MEDS: CLOPIDOGREL BISULFATE 75 MG TABLET PO SCH (10:23)
[2018-11-28] MEDS: GABAPENTIN 300 MG CAPSULE PO SCH ×2 (10:24→23:12)
[2018-11-28] MEDS: CHOLECALCIFEROL (D3) 1,000 UNIT TABLET PO SCH (10:24)
[2018-11-28] MEDS: CEFEPIME 2 GM/D5W RTU 2 GM/50 ML RTUPB IV SCH (10:24)
[2018-11-28 11:28] LABS: VANCOMYCIN,TROUGH 22.2 ug/mL (5.0-20.0)
--- NOTE | 2018-11-28 11:44 | PDOC PROGRESS REPORT ---
Subjective Progress Note for:: 11/27/18 Subjective:: The patient is very upset this morning. She is complaining of significant pain. She is in fact tearful. The pain is mostly in her left foot but also her sternum. Reason For Visit: LEFT FOOT CELLULITIS, EARLY SEPSIS Physical Exam Vital Signs: Temp Pulse Resp BP Pulse Ox 98.6 F 72 20 130/43 H 93 11/27/18 12:00 11/27/18 12:00 11/27/18 12:00 11/27/18 12:00 11/27/18 12:00 Intake & Output 11/26/18 11/27/18 11/28/18 06:59 06:59 06:59 Intake Total 300 50 Balance 300 50 Weight 116.12 kg General appearance: PRESENT: cooperative, mild distress - Mild to moderate distress, morbidly obese, well-developed Head exam: PRESENT: atraumatic, normocephalic Eye exam: PRESENT: conjunctival injection Ear exam: PRESENT: normal external ear exam Mouth exam: PRESENT: moist, tongue midline Respiratory exam: PRESENT: chest wall tenderness - At the sternum, decreased breath sounds - With decreased inspiratory phase, rhonchi, symmetrical. ABSENT: rales, wheezes Cardiovascular exam: PRESENT: RRR, +S1, +S2, other - As for GI/Abdominal exam: PRESENT: normal bowel sounds, soft. ABSENT: distended, tenderness Rectal exam: PRESENT: deferred Extremities exam: PRESENT: tenderness - The left foot has erythema and a dusky patch distally. The toes are warm. There is some edema. The area is extremely tender. I did not see any skin ulceration or significant cracks in the skin between the toes. Neurological exam: PRESENT: alert, awake, oriented to person, oriented to place, oriented to situation Psychiatric exam: PRESENT: appropriate affect - Affect reflects her pain and current clinical condition. ABSENT: agitated, anxious Focused psych exam: ABSENT: delusional, restlessness Results Laboratory Results: 11/27/18 06:24 11/27/18 06:24 11/26/18 11/26/18 11/26/18 18:14 18:14 18:14 WBC 12.1 H RBC 4.06 Hgb 11.4 L Hct 33.9 L MCV 84 MCH 28.1 MCHC 33.6 RDW 14.6 H Plt Count 258 Seg Neutrophils % 81.3 H Lymphocytes % 11.7 L Monocytes % 6.4 Eosinophils % 0.3 Basophils % 0.3 Absolute Neutrophils 9.9 H Absolute Lymphocytes 1.4 Absolute Monocytes 0.8 Absolute Eosinophils 0.0 Absolute Basophils 0.0 VBG pH VBG pCO2 VBG HCO3 VBG Base Excess Sodium 131.0 L Potassium 4.4 Chloride 96 L Carbon Dioxide 27 Anion Gap 8 BUN 24 H Creatinine 0.86 Est GFR ( Amer) > 60 Est GFR (Non-Af Amer) > 60 Glucose 364 H Lactic Acid 1.9 Calcium 9.1 Magnesium Total Bilirubin 0.9 AST 11 L ALT 8 L Alkaline Phosphatase 107 Total Protein 6.3 Albumin 3.4 L Triglycerides Cholesterol LDL Cholesterol Direct VLDL Cholesterol HDL Cholesterol Urine Color Urine Appearance Urine pH Ur Specific [place] Urine Protein Urine Glucose (UA) Urine Ketones Urine Blood Urine Nitrite Ur Leukocyte Esterase Urine WBC (Auto) Urine RBC (Auto) 11/26/18 11/26/18 11/27/18 18:14 19:51 00:45 WBC RBC Hgb Hct MCV MCH MCHC RDW Plt Count Seg Neutrophils % Lymphocytes % Monocytes % Eosinophils % Basophils % Absolute Neutrophils Absolute Lymphocytes Absolute Monocytes Absolute Eosinophils Absolute Basophils VBG pH 7.44 H VBG pCO2 45.9 VBG HCO3 30.3 VBG Base Excess 5.2 Sodium Potassium Chloride Carbon Dioxide Anion Gap BUN Creatinine Est GFR ( Amer) Est GFR (Non-Af Amer) Glucose Lactic Acid 1.5 Calcium Magnesium Total Bilirubin AST ALT Alkaline Phosphatase Total Protein Albumin Triglycerides Cholesterol LDL Cholesterol Direct VLDL Cholesterol HDL Cholesterol Urine Color YELLOW Urine Appearance SLIGHTLY-CLOUDY Urine pH 5.0 Ur Specific [place] 1.007 Urine Protein NEGATIVE Urine Glucose (UA) >=500 H Urine Ketones NEGATIVE Urine Blood NEGATIVE Urine Nitrite NEGATIVE Ur Leukocyte Esterase NEGATIVE Urine WBC (Auto) 3 Urine RBC (Auto) 0 11/27/18 11/27/18 06:24 06:24 WBC 10.5 RBC 3.89 Hgb 11.1 L Hct 32.3 L MCV 83 MCH 28.6 MCHC 34.4 RDW 14.6 H Plt Count 241 Seg Neutrophils % Lymphocytes % Monocytes % Eosinophils % Basophils % Absolute Neutrophils Absolute Lymphocytes Absolute Monocytes Absolute Eosinophils Absolute Basophils VBG pH VBG pCO2 VBG HCO3 VBG Base Excess Sodium 131.8 L Potassium 4.1 Chloride 96 L Carbon Dioxide 25 Anion Gap 11 BUN 27 H Creatinine 0.86 Est GFR ( Amer) > 60 Est GFR (Non-Af Amer) > 60 Glucose 306 H Lactic Acid Calcium 8.9 Magnesium 1.4 L Total Bilirubin AST ALT Alkaline Phosphatase Total Protein Albumin Triglycerides 186 H Cholesterol 211.80 H LDL Cholesterol Direct 119 H VLDL Cholesterol 37.2 H HDL Cholesterol 55 Urine Color Urine Appearance Urine pH Ur Specific [place] Urine Protein Urine Glucose (UA) Urine Ketones Urine Blood Urine Nitrite Ur Leukocyte Esterase Urine WBC (Auto) Urine RBC (Auto) 11/27/18 11/27/18 11/27/18 00:45 00:45 06:24 Creatine Kinase 53 44 CK-MB (CK-2) 0.38 Troponin I < 0.012 11/27/18 11/27/18 11/27/18 06:24 12:27 12:27 Creatine Kinase 44 CK-MB (CK-2) 0.28 0.25 Troponin I < 0.012 < 0.012 Impressions: Foot X-Ray 11/26/18 19:25 IMPRESSION: 1. Extensive chronic changes of the proximal foot, consistent with neuropathic (Charcot) foot, similar to the 06/29/2018 exam. 2. No radiographic evidence for osteomyelitis. 3. No acute fracture. Chest X-Ray 11/26/18 20:52 IMPRESSION: Cardiomegaly, pulmonary edema and left lung base consolidation. Venous Doppler Study 11/27/18 00:00 IMPRESSION: NO EVIDENCE DVT OR SVT IN THE LEFT LEG. Assessment and Plan - Diagnosis (1) Cellulitis of left foot Is this a current diagnosis for this admission?: Yes Plan: Pt is diabetic, she developed this infection rather quickly. Non purulent cellulitis, with pain up to the thigh of left leg. WIll broadly cover with cefepime 2 g IV q12hrs and vanc to be dosed by pharmacy. Blood cultures pending. There is some pain and edema. I am ordering left leg DVT study given that she has another possible source of infection (left lung PNA) that could be causing the sepsis parameters. No wound care needed at this point. November 28, 2018-the patient's foot is very tender today. I could not identify any cracks in the skin between the toes. There is some scaling on the feet. There is erythema on the distal half of the dorsum of the foot as well. The patient is currently on vancomycin and cefepime. (2) Sepsis Qualifiers: Sepsis type: sepsis due to unspecified organism Qualified Code(s): A41.9 - Sepsis, unspecified organism Is this a current diagnosis for this admission?: Yes Plan: 2 potential etiologies include her cellulitis and pneumonia. She is still quite uncomfortable today. She still has a positive fluid balance and her pulse and blood pressure are improved. (3) Pneumonia Qualifiers: Pneumonia type: due to unspecified organism Laterality: unspecified laterality Lung location: unspecified part of lung Qualified Code(s): J18.9 - Pneumonia, unspecified organism Is this a current diagnosis for this admission?: Yes Plan: Pneumonia left lung base. Most likely pneumococcal. Broad-spectrum antibiotics for cellulitis should easily cover multiple potential bacterial etiologies for pneumonia. Still with tenderness on the sternum. (4) Type 2 diabetes mellitus with diabetic neuropathy Qualifiers: Diabetes mellitus medical terminologist insulin use: with medical terminologist use Qualified Code(s): E11.40 - Type 2 diabetes mellitus with diabetic neuropathy, unspecified; Z79.4 - senior care (current) use of insulin Is this a current diagnosis for this admission?: Yes Plan: Medication reconciliation is complete and metformin, Jardiance and Lantus are listed. Her metformin dose supposedly is 45 units twice daily. I will start at 10 units and monitor her sugars. (5) CAD status post 3 stent placement Is this a current diagnosis for this admission?: Yes Plan: Continue aspirin, Plavix and atorvastatin. She is also on carvedilol. The chest pain she was mentioning yesterday was reproducible with palpation and not cardiac. (6) CHF (congestive heart failure) Is this a current diagnosis for this admission?: Yes Plan: Echocardiogram from 2016 reveals diastolic dysfunction but normal ejection fraction. The patient does have moderate to severe aortic stenosis as well. She is on lisinopril with hydrochlorothiazide and furosemide. I will add back her lisinopril with hydrochlorothiazide first. Then consider resuming furosemide. (7) CVA (cerebral vascular accident) Is this a current diagnosis for this admission?: Yes Plan: History of CVA. Currently on Plavix and aspirin. (8) Morbid obesity with BMI of 40.0-44.9, adult Is this a current diagnosis for this admission?: Yes Plan: Continue cardiac consistent carbohydrate diet. Her obesity adds significant risk to her underlying cardiovascular diseases and diabetes. - Time Time Spent with patient: 15-24 minutes Medications reviewed and adjusted accordingly: Yes
--- NOTE | 2018-11-28 11:49 | PDOC PROGRESS REPORT ---
Subjective Progress Note for:: 11/28/18 Subjective:: Patient actually feels better today. She denies any sternal discomfort. Her leg does not hurt as much. She is crying again because of the home advisor. He tried to draw blood from a small vein in her hand and she reports that it hurts Reason For Visit: LEFT FOOT CELLULITIS, EARLY SEPSIS Physical Exam Vital Signs: Temp Pulse Resp BP Pulse Ox 98.0 F 85 18 105/50 L 92 11/28/18 07:20 11/28/18 07:20 11/28/18 07:20 11/28/18 07:20 11/28/18 07:20 Intake & Output 11/27/18 11/28/18 11/29/18 06:59 06:59 06:59 Intake Total 300 1704 50 Output Total 600 Balance 300 1104 50 Weight 116.12 kg 116.8 kg General appearance: PRESENT: cooperative, mild distress - When redirected with questions she stopped crying., morbidly obese, well-developed Head exam: PRESENT: atraumatic, normocephalic Ear exam: PRESENT: normal external ear exam Respiratory exam: PRESENT: clear to auscultation srheyas, symmetrical, unlabored. ABSENT: accessory muscle use, rales, rhonchi, wheezes Cardiovascular exam: PRESENT: RRR, +S1, +S2, systolic murmur - 3/6 GI/Abdominal exam: PRESENT: normal bowel sounds, soft, other - Protuberant abdomen. ABSENT: tenderness Rectal exam: PRESENT: deferred Extremities exam: PRESENT: other - Still with erythema on the distal portion of the dorsum of the foot. It is not tender. At the base of the second toe there is a small pustule like area that could be the source of the cellulitis. Neurological exam: PRESENT: alert, awake, oriented to person, oriented to place, oriented to time, oriented to situation, CN II-XII grossly intact Psychiatric exam: PRESENT: agitated - Upset about her blood draw, appropriate affect. ABSENT: anxious Focused psych exam: ABSENT: delusional, restlessness Skin exam: PRESENT: other - Skin on the foot is still red with a darkened area just at the base of the second and third toes. Small pustular-like area on the second toe. Results Laboratory Results: 11/28/18 06:00 11/28/18 06:00 11/28/18 11/28/18 06:00 06:00 WBC 11.1 H RBC 3.66 L Hgb 10.5 L Hct 30.6 L MCV 84 MCH 28.8 MCHC 34.4 RDW 14.2 H Plt Count 262 Sodium 129.0 L Potassium 4.9 Chloride 96 L Carbon Dioxide 26 Anion Gap 7 BUN 25 H Creatinine 0.99 Est GFR ( Amer) > 60 Est GFR (Non-Af Amer) 55 L Glucose 251 H Calcium 8.8 Magnesium 1.8 11/26/18 19:51 Clean Catch Midstream Urine Culture - Final Escherichia Coli 11/27/18 11/27/18 11/27/18 00:45 00:45 06:24 Creatine Kinase 53 44 CK-MB (CK-2) 0.38 Troponin I < 0.012 11/27/18 11/27/18 11/27/18 06:24 12:27 12:27 Creatine Kinase 44 CK-MB (CK-2) 0.28 0.25 Troponin I < 0.012 < 0.012 Impressions: Foot X-Ray 11/26/18 19:25 IMPRESSION: 1. Extensive chronic changes of the proximal foot, consistent with neuropathic (Charcot) foot, similar to the 06/29/2018 exam. 2. No radiographic evidence for osteomyelitis. 3. No acute fracture. Chest X-Ray 11/26/18 20:52 IMPRESSION: Cardiomegaly, pulmonary edema and left lung base consolidation. Venous Doppler Study 11/27/18 00:00 IMPRESSION: NO EVIDENCE DVT OR SVT IN THE LEFT LEG. Assessment and Plan - Diagnosis (1) Cellulitis of left foot Is this a current diagnosis for this admission?: Yes Plan: Certainly not as painful as yesterday. Continue cefepime and vancomycin. (2) Sepsis Qualifiers: Sepsis type: sepsis due to unspecified organism Qualified Code(s): A41.9 - Sepsis, unspecified organism Is this a current diagnosis for this admission?: Yes Plan: Resolved (3) Pneumonia Qualifiers: Pneumonia type: due to unspecified organism Laterality: unspecified laterality Lung location: unspecified part of lung Qualified Code(s): J18.9 - Pneumonia, unspecified organism Is this a current diagnosis for this admission?: Yes Plan: Breathing is comfortable. Lungs are improved. Continue vancomycin and cefepime. 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 The 45 units listed in her medication reconciliation would be excessive at this point. Continue Accu-Cheks and sliding scale as well. No metformin or Jardiance at this time. (5) CAD status post 3 stent placement Is this a current diagnosis for this admission?: Yes Plan: No acute coronary symptoms. Continue current regimen. (6) CHF (congestive heart failure) Is this a current diagnosis for this admission?: Yes Plan: Lisinopril with hydrochlorothiazide has been resumed. If blood pressure tolerates we will resume her furosemide tomorrow. (7) CVA (cerebral vascular accident) Is this a current diagnosis for this admission?: Yes Plan: Chronic and stable. Continue current medical regimen. (8) Morbid obesity with BMI of 40.0-44.9, adult Is this a current diagnosis for this admission?: Yes Plan: Continue cardiac consistent carbohydrate diet. Her obesity adds significant risk to her underlying cardiovascular diseases and diabetes. - Time Time Spent with patient: 15-24 minutes Medications reviewed and adjusted accordingly: Yes
[2018-11-28] MEDS: VANCOMYCIN HCL 1,500 MG in DEXTROSE 5%-WATER 250 ML IV SCH (12:01)
[2018-11-28] MEDS: OXYCODONE HCL IR 5 MG TABLET PO PRN (12:02)
[2018-11-28] MEDS: CARVEDILOL 12.5 MG TABLET PO SCH ×2 (15:02→23:11)
[2018-11-28] MEDS: ATORVASTATIN CALCIUM 20 MG TABLET PO SCH (23:12)
[2018-11-28] MEDS: INSULIN GLARGINE,HUM.REC.ANLOG 1,000 UNIT/10 ML VIAL SUBCUT SCH (23:13)
[2018-11-28] MEDS: CEFEPIME HCL 2 GM in DEXTROSE 5%-WATER 50 ML IV SCH (23:14)
[2018-11-29] MEDS: VANCOMYCIN HCL 1,000 MG in DEXTROSE 5%-WATER 250 ML IV SCH ×2 (05:05→17:22)
[2018-11-29 06:47] LABS: HEMATOCRIT 27.8 % (36.0-47.0); HEMOGLOBIN 9.6 g/dL (12.0-15.5); MEAN CORPUSCULAR HEMOGLOBIN 28.5 pg (27.0-33.4); MEAN CORPUSCULAR HGB CONC 34.5 g/dL (32.0-36.0); MEAN CORPUSCULAR VOLUME 83 fl (80-97); PLATELET COUNT 251 10^3/uL (150-450); RED BLOOD COUNT 3.38 10^6/uL (3.72-5.28); RED CELL DISTRIBUTION WIDTH 14.3 % (11.5-14.0); WHITE BLOOD COUNT 9.7 10^3/uL (4.0-10.5)
[2018-11-29 07:04] LABS: ANION GAP 9 (5-19); BLOOD UREA NITROGEN 34 mg/dL (7-20); CALCIUM 8.6 mg/dL (8.4-10.2); CARBON DIOXIDE 24 mmol/L (22-30); CHLORIDE 94 mmol/L (98-107); GLUCOSE 222 mg/dL (75-110); POTASSIUM 4.7 mmol/L (3.6-5.0); SODIUM 126.5 mmol/L (137-145)
[2018-11-29] MEDS: INSULIN LISPRO 100 UNIT/ML 3 ML VIAL SUBCUT SCH ×4 (07:53→22:05)
[2018-11-29] MEDS: OXYCODONE HCL IR 5 MG TABLET PO PRN ×2 (07:56→17:34)
[2018-11-29] MEDS: INSULIN GLARGINE,HUM.REC.ANLOG 1,000 UNIT/10 ML VIAL SUBCUT SCH ×2 (09:42→22:06)
[2018-11-29] MEDS: CEFEPIME HCL 2 GM in DEXTROSE 5%-WATER 50 ML IV SCH ×2 (09:43→23:15)
[2018-11-29] MEDS: CARVEDILOL 12.5 MG TABLET PO SCH ×2 (09:44→22:05)
[2018-11-29] MEDS: GABAPENTIN 300 MG CAPSULE PO SCH ×2 (09:44→22:05)
[2018-11-29] MEDS: LISINOPRIL 10 MG TABLET PO SCH (09:45)
[2018-11-29] MEDS: CHOLECALCIFEROL (D3) 1,000 UNIT TABLET PO SCH (09:45)
[2018-11-29] MEDS: HYDROCHLOROTHIAZIDE 12.5 MG TABLET PO SCH (09:45)
[2018-11-29] MEDS: ASPIRIN 81 MG TABLET, ENT COATED PO SCH (09:45)
[2018-11-29] MEDS: CLOPIDOGREL BISULFATE 75 MG TABLET PO SCH (09:45)
[2018-11-29] MEDS: FUROSEMIDE 40 MG TABLET PO SCH (09:45)
[2018-11-29] MEDS ORDERED: (PENDING PHARMACY ID) (Lisinopril/Hydrochlorothiazide [Zestoretic 10-12.5 Mg Tablet] 1 TAB PO SCH (10:00)
[2018-11-29] MEDS: ATORVASTATIN CALCIUM 20 MG TABLET PO SCH (22:05)
[2018-11-30] MEDS: ACETAMINOPHEN 325 MG TABLET PO PRN ×2 (02:58→08:24)
[2018-11-30] MEDS ORDERED: HALOPERIDOL LACTATE INJ 5 MG/1 ML VIAL IM PRN (05:32)
[2018-11-30] MEDS: OXYCODONE HCL IR 5 MG TABLET PO PRN (06:33)
[2018-11-30] MEDS: INSULIN LISPRO 100 UNIT/ML 3 ML VIAL SUBCUT SCH ×4 (07:56→22:05)
[2018-11-30] MEDS: VANCOMYCIN HCL 1,000 MG in DEXTROSE 5%-WATER 250 ML IV SCH ×2 (08:07→19:20)
[2018-11-30] MEDS: GABAPENTIN 300 MG CAPSULE PO SCH ×2 (10:01→22:04)
[2018-11-30] MEDS: LISINOPRIL 10 MG TABLET PO SCH (10:01)
[2018-11-30] MEDS: HYDROCHLOROTHIAZIDE 12.5 MG TABLET PO SCH (10:01)
[2018-11-30] MEDS: FUROSEMIDE 40 MG TABLET PO SCH (10:01)
[2018-11-30] MEDS: CHOLECALCIFEROL (D3) 1,000 UNIT TABLET PO SCH (10:01)
[2018-11-30] MEDS: CLOPIDOGREL BISULFATE 75 MG TABLET PO SCH (10:01)
[2018-11-30] MEDS: ASPIRIN 81 MG TABLET, ENT COATED PO SCH (10:02)
[2018-11-30] MEDS: CARVEDILOL 12.5 MG TABLET PO SCH ×2 (10:02→22:11)
[2018-11-30] MEDS: INSULIN GLARGINE,HUM.REC.ANLOG 1,000 UNIT/10 ML VIAL SUBCUT SCH ×2 (10:03→22:05)
[2018-11-30] MEDS: CEFEPIME HCL 2 GM in DEXTROSE 5%-WATER 50 ML IV SCH ×2 (10:04→22:06)
--- NOTE | 2018-11-30 16:17 | PDOC PROGRESS REPORT ---
Subjective Progress Note for:: 11/29/18 Subjective:: Patient states that she feels poorly again today. When asked for specifics she reports that her left foot feels better but she feels badly all over her body. Reason For Visit: LEFT FOOT CELLULITIS, EARLY SEPSIS Physical Exam Vital Signs: Temp Pulse Resp BP Pulse Ox 97.5 F 55 L 17 110/66 95 11/30/18 11:12 11/30/18 14:00 11/30/18 11:12 11/30/18 11:12 11/30/18 11:12 Intake & Output 11/29/18 11/30/18 12/01/18 06:59 06:59 06:59 Intake Total 1780 1500 300 Balance 1780 1500 300 Weight 117 kg 118.2 kg General appearance: PRESENT: mild distress, morbidly obese, well-developed Head exam: PRESENT: normocephalic Eye exam: PRESENT: conjunctiva pink. ABSENT: scleral icterus Mouth exam: PRESENT: moist, tongue midline Respiratory exam: PRESENT: clear to auscultation shreyas, symmetrical, unlabored. ABSENT: accessory muscle use, rales, rhonchi, tachypnea, wheezes Cardiovascular exam: PRESENT: RRR, +S1, +S2, systolic murmur - 3/6 GI/Abdominal exam: PRESENT: distended - Protuberant abdomen, normal bowel sounds, soft. ABSENT: tenderness Rectal exam: PRESENT: deferred Extremities exam: PRESENT: pedal edema - Improved, other - Open area at the base of the left second toe. Erythema on foot is fading. Neurological exam: PRESENT: alert, awake, oriented to person, oriented to place, oriented to situation Psychiatric exam: PRESENT: anxious, other - Tearful again today. ABSENT: agitated Results Laboratory Results: 11/29/18 05:51 11/29/18 05:51 11/27/18 11/27/18 11/27/18 00:45 00:45 06:24 Creatine Kinase 53 44 CK-MB (CK-2) 0.38 Troponin I < 0.012 11/27/18 11/27/18 11/27/18 06:24 12:27 12:27 Creatine Kinase 44 CK-MB (CK-2) 0.28 0.25 Troponin I < 0.012 < 0.012 Impressions: Foot X-Ray 11/26/18 19:25 IMPRESSION: 1. Extensive chronic changes of the proximal foot, consistent with neuropathic (Charcot) foot, similar to the 06/29/2018 exam. 2. No radiographic evidence for osteomyelitis. 3. No acute fracture. Chest X-Ray 11/26/18 20:52 IMPRESSION: Cardiomegaly, pulmonary edema and left lung base consolidation. Venous Doppler Study 11/27/18 00:00 IMPRESSION: NO EVIDENCE DVT OR SVT IN THE LEFT LEG. Assessment and Plan - Diagnosis (1) Cellulitis of left foot Is this a current diagnosis for this admission?: Yes Plan: Continue current antibiotics. Erythema is fading. Patient reports that there is less pain. (2) Sepsis Qualifiers: Sepsis type: sepsis due to unspecified organism Qualified Code(s): A41.9 - Sepsis, unspecified organism Is this a current diagnosis for this admission?: Yes Plan: Resolved (3) Pneumonia Qualifiers: Pneumonia type: due to unspecified organism Laterality: unspecified laterality Lung location: lower lobe of lung Qualified Code(s): J18.1 - Lobar pneumonia, unspecified organism Is this a current diagnosis for this admission?: Yes Plan: Pneumonia left lung base. Continue current antibiotics. White blood cell count improving. (4) Type 2 diabetes mellitus with diabetic neuropathy Qualifiers: Diabetes mellitus terminal carman insulin use: with terminal carman use Qualified C ode(s): E11.40 - Type 2 diabetes mellitus with diabetic neuropathy, unspecified; Z79.4 - retirement (current) use of insulin Is this a current diagnosis for this admission?: Yes Plan: Accu-Cheks still high. Continue sliding scale. Increase Lantus and adjust based on sliding scale requirements. (5) CAD status post 3 stent placement Is this a current diagnosis for this admission?: Yes Plan: Currently asymptomatic. Continue current regimen. (6) CHF (congestive heart failure) Is this a current diagnosis for this admission?: Yes Plan: Lisinopril with hydrochlorothiazide has been resumed. If blood pressure tolerates we will resume her furosemide tomorrow. (7) CVA (cerebral vascular accident) Is this a current diagnosis for this admission?: Yes Plan: History of CVA. Continue current regimen. No new symptom complex. (8) Morbid obesity with BMI of 40.0-44.9, adult Is this a current diagnosis for this admission?: Yes Plan: Certainly presents added complexity for her comorbidities. Venous insufficiency with obesity presents increased risk for peripheral ulcers. - Time Time Spent with patient: Less than 15 minutes Medications reviewed and adjusted accordingly: Yes Anticipated discharge: Home
[2018-11-30 18:28] LABS: ANION GAP 9 (5-19); BLOOD UREA NITROGEN 53 mg/dL (7-20); CALCIUM 9.4 mg/dL (8.4-10.2); CARBON DIOXIDE 26 mmol/L (22-30); CHLORIDE 91 mmol/L (98-107); GLUCOSE 203 mg/dL (75-110); POTASSIUM 5.5 mmol/L (3.6-5.0); SODIUM 126.2 mmol/L (137-145)
[2018-11-30 18:33] LABS: VANCOMYCIN,TROUGH 20.9 ug/mL (5.0-20.0)
--- NOTE | 2018-11-30 18:54 | PDOC PROGRESS REPORT ---
Subjective Progress Note for:: 11/30/18 Subjective:: No adverse events overnight. She is a little more out of it today than she has been previously. She is able to answer questions but she looks extremely fatigued. The nurses say this is different than she normally is. She was able to get out of bed on her own power and get into the chair, but we put the chair alarm on her. Reason For Visit: LEFT FOOT CELLULITIS, EARLY SEPSIS Physical Exam Vital Signs: Temp Pulse Resp BP Pulse Ox 97.5 F 57 L 16 118/63 98 11/30/18 15:35 11/30/18 15:35 11/30/18 15:35 11/30/18 15:35 11/30/18 15:35 Intake & Output 11/29/18 11/30/18 12/01/18 06:59 06:59 06:59 Intake Total 1780 1500 300 Balance 1780 1500 300 Weight 117 kg 118.2 kg General appearance: PRESENT: mild distress, morbidly obese, well-developed Head exam: PRESENT: normocephalic Eye exam: PRESENT: conjunctiva pink. ABSENT: scleral icterus Mouth exam: PRESENT: moist, tongue midline Respiratory exam: PRESENT: clear to auscultation shreyas, symmetrical, unlabored. ABSENT: accessory muscle use, rales, rhonchi, tachypnea, wheezes Cardiovascular exam: PRESENT: RRR, +S1, +S2, systolic murmur - 3/6 GI/Abdominal exam: PRESENT: distended - Protuberant abdomen, normal bowel sounds, soft. ABSENT: tenderness Rectal exam: PRESENT: deferred Extremities exam: PRESENT: pedal edema - Improved, other - Open area at the base of the left second toe. Erythema on foot is fading. Neurological exam: PRESENT: alert, awake, oriented to person, oriented to place, oriented to situation Results Laboratory Results: 11/29/18 05:51 11/30/18 17:30 11/30/18 11/30/18 17:30 17:30 Sodium 126.2 L Potassium 5.5 H Chloride 91 L Carbon Dioxide 26 Anion Gap 9 BUN 53 H Creatinine 1.17 1.19 Est GFR ( Amer) 55 L 54 L Est GFR (Non-Af Amer) 45 L 44 L Glucose 203 H Calcium 9.4 11/27/18 11/27/18 11/27/18 00:45 00:45 06:24 Creatine Kinase 53 44 CK-MB (CK-2) 0.38 Troponin I < 0.012 11/27/18 11/27/18 11/27/18 06:24 12:27 12:27 Creatine Kinase 44 CK-MB (CK-2) 0.28 0.25 Troponin I < 0.012 < 0.012 Impressions: Foot X-Ray 11/26/18 19:25 IMPRESSION: 1. Extensive chronic changes of the proximal foot, consistent with neuropathic (Charcot) foot, similar to the 06/29/2018 exam. 2. No radiographic evidence for osteomyelitis. 3. No acute fracture. Chest X-Ray 11/26/18 20:52 IMPRESSION: Cardiomegaly, pulmonary edema and left lung base consolidation. Venous Doppler Study 11/27/18 00:00 IMPRESSION: NO EVIDENCE DVT OR SVT IN THE LEFT LEG. Assessment and Plan - Diagnosis (1) Hyponatremia Is this a current diagnosis for this admission?: Yes Plan: Her BUN is up, and her blood pressures running a little on the low side. I have stopped her HCTZ, her Lasix, and her lisinopril. Her potassium is trending up as well. I have started her on some IV normal saline. Watch her closely because of a history of heart failure. (2) Cellulitis of left foot Is this a current diagnosis for this admission?: Yes Plan: Continue current antibiotics. Erythema is fading. Patient reports that there is less pain. (3) Sepsis Qualifiers: Sepsis type: sepsis due to unspecified organism Qualified Code(s): A41.9 - Sepsis, unspecified organism Is this a current diagnosis for this admission?: Yes Plan: Resolved (4) CAD status post 3 stent placement Is this a current diagnosis for this admission?: Yes Plan: Currently asymptomatic. Continue current regimen. (5) CHF (congestive heart failure) Is this a current diagnosis for this admission?: Yes Plan: And to stop furosemide, HCTZ, and lisinopril for reasons noted above, will monitor for signs of fluid overload (6) CVA (cerebral vascular accident) Is this a current diagnosis for this admission?: Yes Plan: History of CVA. Continue current regimen. No new symptom complex. (7) Metabolic encephalopathy Is this a current diagnosis for this admission?: Yes Plan: Secondary to her acute medical issues. We are addressing them and monitoring her response. - Time Time Spent with patient: 25-34 minutes
[2018-11-30] MEDS: ATORVASTATIN CALCIUM 20 MG TABLET PO SCH (22:03)
[2018-11-30] MEDS: NORMAL SALINE 1000 ML 1,000 ML IV PRN (23:12)
[2018-12-01] MEDS: VANCOMYCIN HCL 750 MG in DEXTROSE 5%-WATER 250 ML IV SCH ×2 (06:12→17:43)
[2018-12-01] MEDS: INSULIN LISPRO 100 UNIT/ML 3 ML VIAL SUBCUT SCH ×4 (08:35→22:42)
[2018-12-01] MEDS: NORMAL SALINE 1000 ML 1,000 ML IV PRN (09:35)
[2018-12-01] MEDS: CHOLECALCIFEROL (D3) 1,000 UNIT TABLET PO SCH (10:08)
[2018-12-01] MEDS: ASPIRIN 81 MG TABLET, ENT COATED PO SCH (10:08)
[2018-12-01] MEDS: GABAPENTIN 300 MG CAPSULE PO SCH ×2 (10:08→22:40)
[2018-12-01] MEDS: CLOPIDOGREL BISULFATE 75 MG TABLET PO SCH (10:08)
[2018-12-01] MEDS: CARVEDILOL 12.5 MG TABLET PO SCH ×2 (10:08→22:33)
[2018-12-01] MEDS: CEFEPIME HCL 2 GM in DEXTROSE 5%-WATER 50 ML IV SCH ×2 (10:08→22:38)
[2018-12-01 11:37] LABS: ANION GAP 9 (5-19); BLOOD UREA NITROGEN 47 mg/dL (7-20); CALCIUM 9.6 mg/dL (8.4-10.2); CARBON DIOXIDE 24 mmol/L (22-30); CHLORIDE 99 mmol/L (98-107); GLUCOSE 177 mg/dL (75-110); POTASSIUM 5.3 mmol/L (3.6-5.0); SODIUM 131.6 mmol/L (137-145)
[2018-12-01] MEDS: INSULIN GLARGINE,HUM.REC.ANLOG 1,000 UNIT/10 ML VIAL SUBCUT SCH ×2 (12:09→22:42)
[2018-12-01] MEDS: OXYCODONE HCL IR 5 MG TABLET PO PRN (16:08)
--- NOTE | 2018-12-01 17:58 | PDOC PROGRESS REPORT ---
Subjective Progress Note for:: 12/01/18 Subjective:: No adverse events overnight. Patient told me she does not feel good today, but she looks immensely better than she did yesterday. She is much more alert and interactive, and her thoughts and speech are coherent. She is been eating and drinking without difficulty. She says she wants a dietary consult to help her make better food choices for managing her diabetes. Reason For Visit: LEFT FOOT CELLULITIS, EARLY SEPSIS Physical Exam Vital Signs: Temp Pulse Resp BP Pulse Ox 97.8 F 64 16 107/45 L 100 12/01/18 16:15 12/01/18 16:15 12/01/18 08:30 12/01/18 16:15 12/01/18 16:15 Intake & Output 11/30/18 12/01/18 12/02/18 06:59 06:59 06:59 Intake Total 4265 089 4529 Balance 9905 787 6631 Weight 118.2 kg 110.4 kg General appearance: PRESENT: No apparent distress, morbidly obese, well- developed Head exam: PRESENT: normocephalic Eye exam: PRESENT: conjunctiva pink. ABSENT: scleral icterus Mouth exam: PRESENT: moist, tongue midline Respiratory exam: PRESENT: clear to auscultation shreyas, symmetrical, unlabored. ABSENT: accessory muscle use, rales, rhonchi, tachypnea, wheezes Cardiovascular exam: PRESENT: RRR, +S1, +S2, systolic murmur - 3/6 GI/Abdominal exam: PRESENT: distended - Protuberant abdomen, normal bowel sounds, soft. ABSENT: tenderness Extremities exam: PRESENT: pedal edema - Improved, other - Open area at the base of the left second toe. Erythema on foot is fading. Neurological exam: PRESENT: alert, awake, oriented to person, oriented to place, oriented to situation Results Laboratory Results: 11/29/18 05:51 12/01/18 10:44 11/30/18 11/30/18 12/01/18 17:30 17:30 10:44 Sodium 126.2 L 131.6 L Potassium 5.5 H 5.3 H Chloride 91 L 99 Carbon Dioxide 26 24 Anion Gap 9 9 BUN 53 H 47 H Creatinine 1.17 1.19 0.89 Est GFR ( Amer) 55 L 54 L > 60 Est GFR (Non-Af Amer) 45 L 44 L > 60 Glucose 203 H 177 H Calcium 9.4 9.6 11/27/18 11/27/18 11/27/18 00:45 00:45 06:24 Creatine Kinase 53 44 CK-MB (CK-2) 0.38 Troponin I < 0.012 11/27/18 11/27/18 11/27/18 06:24 12:27 12:27 Creatine Kinase 44 CK-MB (CK-2) 0.28 0.25 Troponin I < 0.012 < 0.012 Impressions: Foot X-Ray 11/26/18 19:25 IMPRESSION: 1. Extensive chronic changes of the proximal foot, consistent with neuropathic (Charcot) foot, similar to the 06/29/2018 exam. 2. No radiographic evidence for osteomyelitis. 3. No acute fracture. Chest X-Ray 11/26/18 20:52 IMPRESSION: Cardiomegaly, pulmonary edema and left lung base consolidation. Venous Doppler Study 11/27/18 00:00 IMPRESSION: NO EVIDENCE DVT OR SVT IN THE LEFT LEG. Assessment and Plan - Diagnosis (1) Hyponatremia Is this a current diagnosis for this admission?: Yes Plan: Improved with stopping HCTZ and putting her on some normal saline. Will let the saline run overnight, repeat her BMP in the morning, and if her sodium is normalized we will stop her fluids at that time. (2) Cellulitis of left foot Is this a current diagnosis for this admission?: Yes Plan: Continue current antibiotics. Erythema is fading. Patient reports that there is less pain. (3) Sepsis Qualifiers: Sepsis type: sepsis due to unspecified organism Qualified Code(s): A41.9 - Sepsis, unspecified organism Is this a current diagnosis for this admission?: Yes Plan: Resolved (4) CAD status post 3 stent placement Is this a current diagnosis for this admission?: Yes Plan: Currently asymptomatic. Continue current regimen. (5) CHF (congestive heart failure) Is this a current diagnosis for this admission?: Yes Plan: Had to stop furosemide, HCTZ, and lisinopril for reasons noted above, will monitor for signs of fluid overload. Blood pressure is tolerating well so far. (6) CVA (cerebral vascular accident) Is this a current diagnosis for this admission?: Yes Plan: History of CVA. Continue current regimen. No new symptom complex. (7) Metabolic encephalopathy Is this a current diagnosis for this admission?: Yes Plan: Resolved - Time Time Spent with patient: 25-34 minutes
[2018-12-01] MEDS: ATORVASTATIN CALCIUM 20 MG TABLET PO SCH (22:40)
[2018-12-02] MEDS: NORMAL SALINE 1000 ML 1,000 ML IV PRN ×2 (00:05→09:44)
[2018-12-02] MEDS ORDERED: LACTULOSE SYRUP 20 GM/30 ML UDCUP PO ONE (05:00)
[2018-12-02] MEDS: VANCOMYCIN HCL 750 MG in DEXTROSE 5%-WATER 250 ML IV SCH ×2 (05:36→20:08)
[2018-12-02] MEDS: INSULIN LISPRO 100 UNIT/ML 3 ML VIAL SUBCUT SCH ×4 (08:29→23:10)
[2018-12-02] MEDS: GABAPENTIN 300 MG CAPSULE PO SCH ×2 (09:37→23:12)
[2018-12-02] MEDS: ASPIRIN 81 MG TABLET, ENT COATED PO SCH (09:37)
[2018-12-02] MEDS: CHOLECALCIFEROL (D3) 1,000 UNIT TABLET PO SCH (09:37)
[2018-12-02] MEDS: CLOPIDOGREL BISULFATE 75 MG TABLET PO SCH (09:37)
[2018-12-02] MEDS: INSULIN GLARGINE,HUM.REC.ANLOG 1,000 UNIT/10 ML VIAL SUBCUT SCH ×2 (09:37→23:11)
[2018-12-02] MEDS: LACTULOSE SYRUP 20 GM/30 ML UDCUP PO SCH (09:37)
[2018-12-02] MEDS: CARVEDILOL 12.5 MG TABLET PO SCH ×2 (09:37→23:14)
[2018-12-02 11:01] LABS: ANION GAP 8 (5-19); BLOOD UREA NITROGEN 36 mg/dL (7-20); CALCIUM 9.2 mg/dL (8.4-10.2); CARBON DIOXIDE 26 mmol/L (22-30); CHLORIDE 101 mmol/L (98-107); GLUCOSE 189 mg/dL (75-110); POTASSIUM 5.5 mmol/L (3.6-5.0); SODIUM 134.8 mmol/L (137-145)
[2018-12-02] MEDS ORDERED: VANCOMYCIN HCL 750 MG in DEXTROSE 5%-WATER 250 ML IV SCH (12:00)
[2018-12-02] MEDS: CEFEPIME HCL 2 GM in DEXTROSE 5%-WATER 50 ML IV SCH ×2 (12:42→23:09)
--- NOTE | 2018-12-02 20:12 | PDOC PROGRESS REPORT ---
Subjective Progress Note for:: 12/02/18 Subjective:: No adverse events overnight. No new complaints. Her mental status remains improved, consistent with yesterday's interview. Her daughter was in the room today and was wanting to know why the patient was a better, and I had to explain to her that compared to a couple of days ago, the patient was substantially improved. She was able to carry on a full conversation with me and engage and interact well, and provide detailed and coherent responses, something she could not do a couple of days ago. Reason For Visit: LEFT FOOT CELLULITIS, EARLY SEPSIS Physical Exam Vital Signs: Temp Pulse Resp BP Pulse Ox 98.9 F 66 20 112/33 L 95 12/02/18 15:44 12/02/18 15:44 12/02/18 15:44 12/02/18 15:44 12/02/18 15:44 Intake & Output 12/01/18 12/02/18 12/03/18 06:59 06:59 06:59 Intake Total 850 2968 2437 Output Total 1500 Balance 850 1468 2437 Weight 110.4 kg 105.1 kg General appearance: PRESENT: No apparent distress, morbidly obese, well- developed Head exam: PRESENT: normocephalic Eye exam: PRESENT: conjunctiva pink. ABSENT: scleral icterus Mouth exam: PRESENT: moist, tongue midline Respiratory exam: PRESENT: clear to auscultation shreyas, symmetrical, unlabored. ABSENT: accessory muscle use, rales, rhonchi, tachypnea, wheezes Cardiovascular exam: PRESENT: RRR, +S1, +S2, systolic murmur - 3/6 GI/Abdominal exam: PRESENT: distended - Protuberant abdomen, normal bowel sounds, soft. ABSENT: tenderness Extremities exam: PRESENT: pedal edema - Improved, other - Open area at the base of the left second toe. Erythema on foot is fading. Neurological exam: PRESENT: alert, awake, oriented to person, oriented to place, oriented to situation Results Laboratory Results: 11/29/18 05:51 12/02/18 10:21 12/02/18 10:21 Sodium 134.8 L Potassium 5.5 H Chloride 101 Carbon Dioxide 26 Anion Gap 8 BUN 36 H Creatinine 0.97 Est GFR ( Amer) > 60 Est GFR (Non-Af Amer) 56 L Glucose 189 H Calcium 9.2 11/26/18 20:33 Blood Blood Culture - Final NO GROWTH IN 5 DAYS 11/26/18 18:14 Blood Blood Culture - Final NO GROWTH IN 5 DAYS 11/27/18 11/27/18 11/27/18 00:45 00:45 06:24 Creatine Kinase 53 44 CK-MB (CK-2) 0.38 Troponin I < 0.012 11/27/18 11/27/18 11/27/18 06:24 12:27 12:27 Creatine Kinase 44 CK-MB (CK-2) 0.28 0.25 Troponin I < 0.012 < 0.012 Impressions: Foot X-Ray 11/26/18 19:25 IMPRESSION: 1. Extensive chronic changes of the proximal foot, consistent with neuropathic (Charcot) foot, similar to the 06/29/2018 exam. 2. No radiographic evidence for osteomyelitis. 3. No acute fracture. Chest X-Ray 11/26/18 20:52 IMPRESSION: Cardiomegaly, pulmonary edema and left lung base consolidation. Venous Doppler Study 11/27/18 00:00 IMPRESSION: NO EVIDENCE DVT OR SVT IN THE LEFT LEG. Assessment and Plan - Diagnosis (1) Hyponatremia Is this a current diagnosis for this admission?: Yes Plan: Essentially resolved. I am stopping her IV fluids. We will continue to hold HCTZ. We may be able to resume her Lasix tomorrow. (2) Cellulitis of left foot Is this a current diagnosis for this admission?: Yes Plan: Continue current antibiotics. Erythema is fading. Patient reports that there is less pain. We will likely transition her to oral antibiotics tomorrow. Cultures have been negative. (3) Sepsis Qualifiers: Sepsis type: sepsis due to unspecified organism Qualified Code(s): A41.9 - Sepsis, unspecified organism Is this a current diagnosis for this admission?: Yes Plan: Resolved (4) CAD status post 3 stent placement Is this a current diagnosis for this admission?: Yes Plan: Currently asymptomatic. Continue current regimen. (5) CHF (congestive heart failure) Is this a current diagnosis for this admission?: Yes Plan: Had to stop furosemide, HCTZ, and lisinopril for reasons noted above, will monitor for signs of fluid overload. Blood pressure is tolerating well so far. (6) CVA (cerebral vascular accident) Is this a current diagnosis for this admission?: Yes Plan: History of CVA. Continue current regimen. No new symptom complex. (7) Metabolic encephalopathy Is this a current diagnosis for this admission?: Yes Plan: Resolved - Time Time Spent with patient: 25-34 minutes
[2018-12-02] MEDS: ATORVASTATIN CALCIUM 20 MG TABLET PO SCH (23:12)
[2018-12-03] MEDS: VANCOMYCIN HCL 750 MG in DEXTROSE 5%-WATER 250 ML IV SCH ×2 (05:58→17:08)
[2018-12-03 07:28] LABS: ANION GAP 10 (5-19); BLOOD UREA NITROGEN 28 mg/dL (7-20); CALCIUM 9.2 mg/dL (8.4-10.2); CARBON DIOXIDE 23 mmol/L (22-30); CHLORIDE 104 mmol/L (98-107); GLUCOSE 108 mg/dL (75-110); SODIUM 136.5 mmol/L (137-145)
[2018-12-03] MEDS: INSULIN LISPRO 100 UNIT/ML 3 ML VIAL SUBCUT SCH ×4 (09:43→21:44)
[2018-12-03] MEDS: LACTULOSE SYRUP 20 GM/30 ML UDCUP PO SCH (09:44)
[2018-12-03] MEDS: GABAPENTIN 300 MG CAPSULE PO SCH ×2 (09:45→21:29)
[2018-12-03] MEDS: CARVEDILOL 12.5 MG TABLET PO SCH ×2 (09:45→21:29)
[2018-12-03] MEDS: CHOLECALCIFEROL (D3) 1,000 UNIT TABLET PO SCH (09:45)
[2018-12-03] MEDS: CLOPIDOGREL BISULFATE 75 MG TABLET PO SCH (09:45)
[2018-12-03] MEDS: ASPIRIN 81 MG TABLET, ENT COATED PO SCH (09:45)
[2018-12-03] MEDS: FUROSEMIDE 20 MG TABLET PO SCH (09:45)
[2018-12-03] MEDS: CEFEPIME HCL 2 GM in DEXTROSE 5%-WATER 50 ML IV SCH (09:49)
[2018-12-03] MEDS: ACETAMINOPHEN 325 MG TABLET PO PRN (09:50)
[2018-12-03] MEDS: INSULIN GLARGINE,HUM.REC.ANLOG 1,000 UNIT/10 ML VIAL SUBCUT SCH ×2 (09:56→21:45)
--- NOTE | 2018-12-03 17:44 | PDOC PROGRESS REPORT ---
Subjective Progress Note for:: 12/03/18 Subjective:: No adverse events overnight. No new complaints. Every day when I asked her how she is doing she says "not very good." She says this despite the fact that she is actually doing quite well. Her blood pressures have been good. Her sodium and potassium have normalized. The infection in her foot is resolving. She refused physical therapy the last 2 times they came by, and I told her not to do so the next time they come. I talked with her nurse to make sure that the patient does not refuse physical therapy again. Reason For Visit: LEFT FOOT CELLULITIS, EARLY SEPSIS Physical Exam Vital Signs: Temp Pulse Resp BP Pulse Ox 98.2 F 57 L 18 140/59 H 98 12/02/18 23:14 12/03/18 13:51 12/02/18 23:14 12/02/18 23:14 12/02/18 23:14 Intake & Output 12/02/18 12/03/18 12/04/18 06:59 06:59 06:59 Intake Total 2968 4137 1020 Output Total 1500 Balance 1468 4137 1020 Weight 105.1 kg 116.1 kg General appearance: PRESENT: No apparent distress, morbidly obese, well- developed Head exam: PRESENT: normocephalic Eye exam: PRESENT: conjunctiva pink. ABSENT: scleral icterus Mouth exam: PRESENT: moist, tongue midline Respiratory exam: PRESENT: clear to auscultation shreyas, symmetrical, unlabored. ABSENT: accessory muscle use, rales, rhonchi, tachypnea, wheezes Cardiovascular exam: PRESENT: RRR, +S1, +S2, systolic murmur - 3/6 GI/Abdominal exam: PRESENT: distended - Protuberant abdomen, normal bowel sounds, soft. ABSENT: tenderness Extremities exam: PRESENT: pedal edema - Improved, other - Open area at the base of the left second toe. Erythema on foot is fading. Capillary refill is about 3 seconds Neurological exam: PRESENT: alert, awake, oriented to person, oriented to place, oriented to situation Results Laboratory Results: 11/29/18 05:51 12/03/18 05:45 12/03/18 05:45 Sodium 136.5 L Potassium 5.0 Chloride 104 Carbon Dioxide 23 Anion Gap 10 BUN 28 H Creatinine 0.72 Est GFR ( Amer) > 60 Est GFR (Non-Af Amer) > 60 Glucose 108 Calcium 9.2 11/30/18 07:00 Foot - Left Gram Stain - Final 11/30/18 07:00 Foot - Left Wound Culture - Final Staphylococcus Aureus 11/27/18 11/27/18 11/27/18 00:45 00:45 06:24 Creatine Kinase 53 44 CK-MB (CK-2) 0.38 Troponin I < 0.012 11/27/18 11/27/18 11/27/18 06:24 12:27 12:27 Creatine Kinase 44 CK-MB (CK-2) 0.28 0.25 Troponin I < 0.012 < 0.012 Impressions: Foot X-Ray 11/26/18 19:25 IMPRESSION: 1. Extensive chronic changes of the proximal foot, consistent with neuropathic (Charcot) foot, similar to the 06/29/2018 exam. 2. No radiographic evidence for osteomyelitis. 3. No acute fracture. Chest X-Ray 11/26/18 20:52 IMPRESSION: Cardiomegaly, pulmonary edema and left lung base consolidation. Venous Doppler Study 11/27/18 00:00 IMPRESSION: NO EVIDENCE DVT OR SVT IN THE LEFT LEG. Assessment and Plan - Diagnosis (1) Hyponatremia Is this a current diagnosis for this admission?: Yes Plan: Resolved. HCTZ was discontinued. (2) Cellulitis of left foot Is this a current diagnosis for this admission?: Yes Plan: Improving well. She grew out MSSA from the wound. I have stopped her vancomycin and cefepime and started Keflex. (3) Sepsis Qualifiers: Sepsis type: sepsis due to unspecified organism Qualified Code(s): A41.9 - Sepsis, unspecified organism Is this a current diagnosis for this admission?: Yes Plan: Resolved (4) CAD status post 3 stent placement Is this a current diagnosis for this admission?: Yes Plan: Currently asymptomatic. Continue current regimen. (5) CHF (congestive heart failure) Is this a current diagnosis for this admission?: Yes Plan: Had to stop furosemide, HCTZ, and lisinopril for reasons noted above, will monitor for signs of fluid overload. Blood pressure is tolerating well so far. (6) CVA (cerebral vascular accident) Is this a current diagnosis for this admission?: Yes Plan: History of CVA. Continue current regimen. No new symptom complex. (7) Metabolic encephalopathy Is this a current diagnosis for this admission?: Yes Plan: Resolved - Time Time Spent with patient: 25-34 minutes - Plan Summary Plan Summary: We will have physical therapy come back in to see her to see if she is going to need any therapy services post discharge. Plan for disposition pending that evaluation.
[2018-12-03] MEDS: ATORVASTATIN CALCIUM 20 MG TABLET PO SCH (21:29)
[2018-12-03] MEDS: CEPHALEXIN 500 MG CAPSULE PO SCH (21:29)
[2018-12-04] MEDS: CEPHALEXIN 500 MG CAPSULE PO SCH ×2 (05:34→15:41)
[2018-12-04] MEDS: INSULIN LISPRO 100 UNIT/ML 3 ML VIAL SUBCUT SCH ×4 (09:41→23:57)
[2018-12-04] MEDS: CARVEDILOL 12.5 MG TABLET PO SCH (09:46)
[2018-12-04] MEDS: LACTULOSE SYRUP 20 GM/30 ML UDCUP PO SCH (09:46)
[2018-12-04] MEDS: FUROSEMIDE 20 MG TABLET PO SCH (09:47)
[2018-12-04] MEDS: CHOLECALCIFEROL (D3) 1,000 UNIT TABLET PO SCH (09:47)
[2018-12-04] MEDS: CLOPIDOGREL BISULFATE 75 MG TABLET PO SCH (09:47)
[2018-12-04] MEDS: GABAPENTIN 300 MG CAPSULE PO SCH (09:47)
[2018-12-04] MEDS: ASPIRIN 81 MG TABLET, ENT COATED PO SCH (09:47)
[2018-12-04] MEDS: INSULIN GLARGINE,HUM.REC.ANLOG 1,000 UNIT/10 ML VIAL SUBCUT SCH ×2 (09:48→23:59)
--- NOTE | 2018-12-04 18:51 | PDOC PROGRESS REPORT ---
Subjective Progress Note for:: 12/04/18 Subjective:: No adverse events overnight. She looks very comfortable. I woke her up and told her not to tell me that she was not doing well, because that is what she says every day, and she told me that she actually was feeling a lot better today. Vital signs been stable. The pain in her foot is essentially resolved. Reason For Visit: LEFT FOOT CELLULITIS, EARLY SEPSIS Physical Exam Vital Signs: Temp Pulse Resp BP Pulse Ox 99.2 F 59 L 20 142/62 H 93 12/04/18 07:17 12/04/18 14:00 12/04/18 07:17 12/04/18 07:17 12/04/18 07:17 Intake & Output 12/03/18 12/04/18 12/05/18 06:59 06:59 06:59 Intake Total 4137 1270 660 Balance 4137 1270 660 Weight 116.1 kg 111.5 kg General appearance: PRESENT: No apparent distress, morbidly obese, well- developed Head exam: PRESENT: normocephalic Eye exam: PRESENT: conjunctiva pink. ABSENT: scleral icterus Mouth exam: PRESENT: moist, tongue midline Respiratory exam: PRESENT: clear to auscultation shreyas, symmetrical, unlabored. ABSENT: accessory muscle use, rales, rhonchi, tachypnea, wheezes Cardiovascular exam: PRESENT: RRR, +S1, +S2, systolic murmur - 3/6 GI/Abdominal exam: PRESENT: distended - Protuberant abdomen, normal bowel sounds, soft. ABSENT: tenderness Extremities exam: PRESENT: pedal edema - Improved, other - Open area at the base of the left second toe, no exudate. Erythema on foot is nearly completely resolved. Capillary refill is about 3 seconds Neurological exam: PRESENT: alert, awake, oriented to person, oriented to place, oriented to situation Results Laboratory Results: 11/29/18 05:51 12/03/18 05:45 11/27/18 11/27/18 11/27/18 00:45 00:45 06:24 Creatine Kinase 53 44 CK-MB (CK-2) 0.38 Troponin I < 0.012 11/27/18 11/27/18 11/27/18 06:24 12:27 12:27 Creatine Kinase 44 CK-MB (CK-2) 0.28 0.25 Troponin I < 0.012 < 0.012 Impressions: Foot X-Ray 11/26/18 19:25 IMPRESSION: 1. Extensive chronic changes of the proximal foot, consistent with neuropathic (Charcot) foot, similar to the 06/29/2018 exam. 2. No radiographic evidence for osteomyelitis. 3. No acute fracture. Chest X-Ray 11/26/18 20:52 IMPRESSION: Cardiomegaly, pulmonary edema and left lung base consolidation. Venous Doppler Study 11/27/18 00:00 IMPRESSION: NO EVIDENCE DVT OR SVT IN THE LEFT LEG. Assessment and Plan - Diagnosis (1) Hyponatremia Is this a current diagnosis for this admission?: Yes Plan: Resolved. HCTZ was discontinued. (2) Cellulitis of left foot Is this a current diagnosis for this admission?: Yes Plan: Improving well. She grew out MSSA from the wound. I have stopped her vancomycin and cefepime and started Keflex. (3) Sepsis Qualifiers: Sepsis type: sepsis due to unspecified organism Qualified Code(s): A41.9 - Sepsis, unspecified organism Is this a current diagnosis for this admission?: Yes Plan: Resolved (4) CAD status post 3 stent placement Is this a current diagnosis for this admission?: Yes Plan: Currently asymptomatic. Continue current regimen. (5) CHF (congestive heart failure) Is this a current diagnosis for this admission?: Yes Plan: Had to stop furosemide, HCTZ, and lisinopril for reasons noted above, will monitor for signs of fluid overload. Blood pressure is tolerating well so far. (6) CVA (cerebral vascular accident) Is this a current diagnosis for this admission?: Yes Plan: History of CVA. Continue current regimen. No new symptom complex. (7) Metabolic encephalopathy Is this a current diagnosis for this admission?: Yes Plan: Resolved - Time Time Spent with patient: 15-24 minutes - Plan Summary Plan Summary: Awaiting a physical therapy evaluation. If she gets around well enough that they say she can go home, we will discharge her home.
[2018-12-05] MEDS: CARVEDILOL 12.5 MG TABLET PO SCH ×3 (00:04→22:13)
[2018-12-05] MEDS: ATORVASTATIN CALCIUM 20 MG TABLET PO SCH ×2 (00:04→22:14)
[2018-12-05] MEDS: GABAPENTIN 300 MG CAPSULE PO SCH ×3 (00:04→22:14)
[2018-12-05] MEDS: CEPHALEXIN 500 MG CAPSULE PO SCH ×4 (00:05→22:14)
[2018-12-05] MEDS: ACETAMINOPHEN 325 MG TABLET PO PRN (06:12)
[2018-12-05] MEDS: INSULIN LISPRO 100 UNIT/ML 3 ML VIAL SUBCUT SCH ×4 (08:22→22:14)
[2018-12-05] MEDS: LACTULOSE SYRUP 20 GM/30 ML UDCUP PO SCH (11:01)
[2018-12-05] MEDS: CHOLECALCIFEROL (D3) 1,000 UNIT TABLET PO SCH (11:01)
[2018-12-05] MEDS: ASPIRIN 81 MG TABLET, ENT COATED PO SCH (11:01)
[2018-12-05] MEDS: FUROSEMIDE 20 MG TABLET PO SCH (11:01)
[2018-12-05] MEDS: CLOPIDOGREL BISULFATE 75 MG TABLET PO SCH (11:01)
[2018-12-05] MEDS: INSULIN GLARGINE,HUM.REC.ANLOG 1,000 UNIT/10 ML VIAL SUBCUT SCH ×2 (11:01→22:14)
--- NOTE | 2018-12-05 17:16 | PDOC PROGRESS REPORT ---
Subjective Progress Note for:: 12/05/18 Subjective:: No adverse events overnight. No new complaints. Vital signs been stable. Eating and drinking without difficulty. No fevers. No cough or shortness of breath. No chest pain. Reason For Visit: LEFT FOOT CELLULITIS, EARLY SEPSIS Physical Exam Vital Signs: Temp Pulse Resp BP Pulse Ox 97.9 F 61 18 150/63 H 97 12/05/18 17:06 12/05/18 17:06 12/05/18 17:06 12/05/18 17:06 12/05/18 17:06 Intake & Output 12/04/18 12/05/18 12/06/18 06:59 06:59 06:59 Intake Total 1270 1208 1260 Balance 1270 1208 1260 Weight 111.5 kg 113.2 kg General appearance: PRESENT: No apparent distress, morbidly obese, well- developed Head exam: PRESENT: normocephalic Eye exam: PRESENT: conjunctiva pink. ABSENT: scleral icterus Mouth exam: PRESENT: moist, tongue midline Respiratory exam: PRESENT: clear to auscultation shreyas, symmetrical, unlabored. ABSENT: accessory muscle use, rales, rhonchi, tachypnea, wheezes Cardiovascular exam: PRESENT: RRR, +S1, +S2, systolic murmur - 3/6 GI/Abdominal exam: PRESENT: distended - Protuberant abdomen, normal bowel sounds, soft. ABSENT: tenderness Extremities exam: PRESENT: pedal edema - Improved, other - Open area at the base of the left second toe, no exudate. Erythema on foot is nearly completely resolved. Capillary refill is about 3 seconds Neurological exam: PRESENT: alert, awake, oriented to person, oriented to place, oriented to situation Results Laboratory Results: 11/29/18 05:51 12/03/18 05:45 11/27/18 11/27/18 11/27/18 00:45 00:45 06:24 Creatine Kinase 53 44 CK-MB (CK-2) 0.38 Troponin I < 0.012 11/27/18 11/27/18 11/27/18 06:24 12:27 12:27 Creatine Kinase 44 CK-MB (CK-2) 0.28 0.25 Troponin I < 0.012 < 0.012 Impressions: Foot X-Ray 11/26/18 19:25 IMPRESSION: 1. Extensive chronic changes of the proximal foot, consistent with neuropathic (Charcot) foot, similar to the 06/29/2018 exam. 2. No radiographic evidence for osteomyelitis. 3. No acute fracture. Chest X-Ray 11/26/18 20:52 IMPRESSION: Cardiomegaly, pulmonary edema and left lung base consolidation. Venous Doppler Study 11/27/18 00:00 IMPRESSION: NO EVIDENCE DVT OR SVT IN THE LEFT LEG. Assessment and Plan - Diagnosis (1) Hyponatremia Is this a current diagnosis for this admission?: Yes Plan: Resolved. HCTZ was discontinued. (2) Cellulitis of left foot Is this a current diagnosis for this admission?: Yes Plan: Improving well. She grew out MSSA from the wound. I have stopped her vancomycin and cefepime and started Keflex. (3) Sepsis Qualifiers: Sepsis type: sepsis due to unspecified organism Qualified Code(s): A41.9 - Sepsis, unspecified organism Is this a current diagnosis for this admission?: Yes Plan: Resolved (4) CAD status post 3 stent placement Is this a current diagnosis for this admission?: Yes Plan: Currently asymptomatic. Continue current regimen. (5) CHF (congestive heart failure) Is this a current diagnosis for this admission?: Yes Plan: Had to stop furosemide, HCTZ, and lisinopril for reasons noted above, will monitor for signs of fluid overload. Blood pressure is tolerating well so far. (6) CVA (cerebral vascular accident) Is this a current diagnosis for this admission?: Yes Plan: History of CVA. Continue current regimen. No new symptom complex. (7) Metabolic encephalopathy Is this a current diagnosis for this admission?: Yes Plan: Resolved - Time Time Spent with patient: 15-24 minutes - Plan Summary Plan Summary: Anticipate discharge home tomorrow.
[2018-12-06] MEDS: CEPHALEXIN 500 MG CAPSULE PO SCH (05:31)
[2018-12-06] MEDS: INSULIN LISPRO 100 UNIT/ML 3 ML VIAL SUBCUT SCH ×2 (08:26→12:15)
[2018-12-06] MEDS: LACTULOSE SYRUP 20 GM/30 ML UDCUP PO SCH (12:14)
[2018-12-06] MEDS: CHOLECALCIFEROL (D3) 1,000 UNIT TABLET PO SCH (12:14)
[2018-12-06] MEDS: ASPIRIN 81 MG TABLET, ENT COATED PO SCH (12:14)
[2018-12-06] MEDS: GABAPENTIN 300 MG CAPSULE PO SCH (12:14)
[2018-12-06] MEDS: FUROSEMIDE 20 MG TABLET PO SCH (12:14)
[2018-12-06] MEDS: CLOPIDOGREL BISULFATE 75 MG TABLET PO SCH (12:14)
[2018-12-06] MEDS: CARVEDILOL 12.5 MG TABLET PO SCH (12:14)
[2018-12-06] MEDS: INSULIN GLARGINE,HUM.REC.ANLOG 1,000 UNIT/10 ML VIAL SUBCUT SCH (12:51)
[2018-12-06 13:39] VITALS: BP 129/52
--- NOTE | 2018-12-06 17:11 | PDOC DISCHARGE SUMMARY ---
General - Admit/Disc Date/PCP Admission Date/Primary Care Provider: 11/26/18 21:11 ESTEE HASTINGS Discharge Date: 12/06/18 - Discharge Diagnosis (1) Hyponatremia Is this a current diagnosis for this admission?: Yes Summary: This occurred after she came into the hospital, felt to be due to HCTZ. We stopped the HCTZ and gave her some IV fluids and her sodium trended back up to normal. (2) Cellulitis of left foot Is this a current diagnosis for this admission?: Yes Summary: Responded well to antibiotics. Turned out to be a MSSA. She will finish a course of Keflex at home. (3) Sepsis Is this a current diagnosis for this admission?: Yes Summary: Resolved. This was due to the cellulitis. (4) CAD status post 3 stent placement Is this a current diagnosis for this admission?: Yes Summary: No symptoms of cardiac ischemia during this hospitalization. (5) CHF (congestive heart failure) Is this a current diagnosis for this admission?: Yes Summary: Not acutely exacerbated during this hospitalization, managed with her home medications. (6) CVA (cerebral vascular accident) Is this a current diagnosis for this admission?: Yes Summary: She continued her aspirin her statin. (7) Metabolic encephalopathy Is this a current diagnosis for this admission?: Yes Summary: When her sodium dropped she became encephalopathic. Her sodium corrected her encephalopathy resolved. - Additional Information Resuscitation Status: Full Code Discharge Diet: Cardiac, Diabetic Discharge Activity: Activity As Tolerated, Balance Activity w/Rest, No Driving, No tub bath, Weigh Daily, Other Prescriptions: Cephalexin Monohydrate [Keflex 500 mg Capsule] 500 mg PO Q8 #21 capsule Lisinopril [Prinivil 5 mg Tablet] 5 mg PO DAILY #30 tablet Home Medications: Aspirin [Adult Low Dose Aspirin EC] 81 mg PO DAILY 11/27/18 Atorvastatin Calcium [Lipitor 20 mg Tablet] 20 mg PO QHS 11/27/18 Carvedilol [Coreg 12.5 mg Tablet] 12.5 mg PO BID 11/27/18 Clopidogrel Bisulfate [Plavix 75 mg Tablet] 75 mg PO DAILY 11/27/18 Empagliflozin [Jardiance] 25 mg PO DAILY 11/27/18 Furosemide [Lasix 40 mg Tablet] 40 mg PO DAILY 11/27/18 Gabapentin [Neurontin 300 mg Capsule] 300 mg PO DAILY 11/27/18 Insulin Glargine,Hum.rec.anlog [Lantus Insulin 100 Unit/1 ml 10 ml] 45 units SQ BID 11/27/18 Metformin HCl [Glucophage 500 mg Tablet] 500 mg PO BID 11/27/18 Cephalexin Monohydrate [Keflex 500 mg Capsule] 500 mg PO Q8 #21 capsule 12/06/18 Lisinopril [Prinivil 5 mg Tablet] 5 mg PO DAILY #30 tablet 12/06/18 History of Present Illness History of Present Illness: GERARD COHN is a 73 year old female who lives locally with her daughter, she sees Dr. Hastings for primary care. Daughter states she doesnt like to take her meds and often misses doses. Saw Dr. Hastings on Thursday and her feet were fine, no cellulitis. Then Thu, the next day, she began to have left foot pain that worsened until today when it was found to be deep red and purple by family so they brought her to the ED. Treated with broad spectrum ABX in ED. She is hemodynamically stable but her O2 was in the low 90s so we checked CXR given her CHF and sepsis, she has left lung base consolidation and mild pulmonary edema. She is also complaining of some mild lower left anterior pleuritic chest pain and some dyspnea worse than usual. She is now admitted to the hospitalist service with early sepsis (fever and WBC count with infection), left foot cellulitis and evidence of left lung pneumonia. Hospital Course Hospital Course: She was put on some empiric antibiotics and the wound was cultured. It turned out to be an MSSA. It showed continued improvement she was eventually transitioned over to Keflex. There was some concern about a pneumonia initially but she never really complained of any respiratory problems. Her sodium dropped so she was taken off of her HCTZ and put on some IV fluids and her sodium and encephalopathy corrected. She was seen and evaluated by physical therapy and actually did fairly well for them, so they recommended home health physical therapy. Her labs and examination were reassuring and she discharged in good condition. Physical Exam Vital Signs: Temp Pulse Resp BP Pulse Ox 98.3 F 67 16 129/52 H 93 12/06/18 13:34 12/06/18 13:34 12/06/18 13:34 12/06/18 13:34 12/06/18 13:34 Intake & Output 12/05/18 12/06/18 12/07/18 06:59 06:59 06:59 Intake Total 1208 1974 Balance 1208 1974 Weight 113.2 kg 114.2 kg General appearance: PRESENT: No apparent distress, morbidly obese, well- developed Head exam: PRESENT: normocephalic Eye exam: PRESENT: conjunctiva pink. ABSENT: scleral icterus Mouth exam: PRESENT: moist, tongue midline Respiratory exam: PRESENT: clear to auscultation shreyas, symmetrical, unlabored. ABSENT: accessory muscle use, rales, rhonchi, tachypnea, wheezes Cardiovascular exam: PRESENT: RRR, +S1, +S2, systolic murmur - 3/6 GI/Abdominal exam: PRESENT: distended - Protuberant abdomen, normal bowel sounds, soft. ABSENT: tenderness Extremities exam: PRESENT: pedal edema - Improved, other - Open area at the base of the left second toe, no exudate. Erythema on foot is nearly completely resolved. Capillary refill is about 3 seconds Neurological exam: PRESENT: alert, awake, oriented to person, oriented to place, oriented to situation Results Laboratory Results: 11/29/18 05:51 12/03/18 05:45 11/27/18 11/27/18 11/27/18 00:45 00:45 06:24 Creatine Kinase 53 44 CK-MB (CK-2) 0.38 Troponin I < 0.012 11/27/18 11/27/18 11/27/18 06:24 12:27 12:27 Creatine Kinase 44 CK-MB (CK-2) 0.28 0.25 Troponin I < 0.012 < 0.012 Impressions: Foot X-Ray 11/26/18 19:25 IMPRESSION: 1. Extensive chronic changes of the proximal foot, consistent with neuropathic (Charcot) foot, similar to the 06/29/2018 exam. 2. No radiographic evidence for osteomyelitis. 3. No acute fracture. Chest X-Ray 11/26/18 20:52 IMPRESSION: Cardiomegaly, pulmonary edema and left lung base consolidation. Venous Doppler Study 11/27/18 00:00 IMPRESSION: NO EVIDENCE DVT OR SVT IN THE LEFT LEG. Qualifiers - * PATIENT BEING DISCHARGED WITH ANY OF THE FOLLOWING DIAGNOSIS: No Plan Time Spent: Greater than 30 Minutes
== END 2018-12-06 14:33 | disposition home health service (06) | DRG 871 ==
LOC: ER 17:12 → EH 21:11 → 4S 22:53
PROVIDERS: ADMIT Internal Medicine; ATTEND Internal Medicine
DX: A41.9 Sepsis, unspecified organism (principal); G93.41 Metabolic encephalopathy; J18.1 Lobar pneumonia, unspecified organism; L03.116 Cellulitis of left lower limb; E87.1 Hypo-osmolality and hyponatremia; Z68.41 Body mass index [BMI] 40.0-44.9, adult; I25.10 Atherosclerotic heart disease of native coronary artery without angina pectoris; B95.61 Methicillin susceptible Staphylococcus aureus infection as the cause of diseases classified elsewhere; I50.9 Heart failure, unspecified; E78.5 Hyperlipidemia, unspecified; I11.0 Hypertensive heart disease with heart failure; E03.9 Hypothyroidism, unspecified; E11.65 Type 2 diabetes mellitus with hyperglycemia; E11.40 Type 2 diabetes mellitus with diabetic neuropathy, unspecified; E66.01 Morbid (severe) obesity due to excess calories; I35.0 Nonrheumatic aortic (valve) stenosis; B96.20 Unspecified Escherichia coli [E. coli] as the cause of diseases classified elsewhere; E11.51 Type 2 diabetes mellitus with diabetic peripheral angiopathy without gangrene; Z95.5 Presence of coronary angioplasty implant and graft; Z86.73 Personal history of transient ischemic attack (TIA), and cerebral infarction without residual deficits; Z91.14 Patient's other noncompliance with medication regimen; Z90.710 Acquired absence of both cervix and uterus; Z79.82 Long term (current) use of aspirin; Z79.4 Long term (current) use of insulin; Z79.899 Other long term (current) drug therapy; Z79.02 Long term (current) use of antithrombotics/antiplatelets; Z83.3 Family history of diabetes mellitus
CPT/HCPCS: 36415; 71045; 80048; 80053; 80061; 80202; 81001; 82550; 82553; 82565; 82803; 82962; 83036; 83605; 83735; 84484; 85025; 85027; 85610; 85730; 87040; 87070; 87077; 87086; 87088; 87186; 87205; 93005; 93010; 93971; 99285; J0692; J1630; J1644; J1815; J3370; J3475; J3490; J7030; J7060

== ENCOUNTER 2018-12-22 13:28 | Emergency (ER) | payer MEDICARE, MEDICAID ==
[2018-12-22] MEDS ORDERED: CEFTRIAXONE 1 GM/D5W RTU 1 GM/50 ML RTUPB IV ONE (14:20)
--- NOTE | 2018-12-22 14:23 | ER Document Report ---
ED Medical Screen (RME) - General Chief Complaint: Skin Problem Stated Complaint: LEG PAIN Time Seen by Provider: 12/22/18 14:13 Primary Care Provider: ESTEE HASTINGS MD [Primary Care Provider] - Follow up as needed Mode of Arrival: Ambulatory Information source: Patient TRAVEL OUTSIDE OF THE [place] IN LAST 30 DAYS: No - HPI Patient complains to provider of: LEFT FOOT INFECTION Notes: 12/22/18 14:21 Patient here with complaints of left foot infection. The patient was recently admitted to the hospital for a left third toe infection. She was discharged home on antibiotics. She apparently was taking them once a day as opposed to 3 times a day. Wound care nurse was at the house today and noticed that the infection seems to be getting worse and spreading up her leg. No fever. No nausea, vomiting, diarrhea. In reviewing her previous hospitalization, wound culture shows staph aureus, susceptible to Rocephin. Exam Nontoxic, no distress. Lungs clear and equal throughout. Heart sounds normal. Open necrotic wound to the dorsum of the left third toe with swelling to this toe as well as the dorsum of the foot. Redness going up past the ankle. Swelling to the entire left lower extremity. No active bleeding. Plan CBC, CMP, blood cultures, wound culture, x-ray left foot, venous Doppler of the left lower extremity. Based on her previous wound culture report, I have ordered a dose of Rocephin. An initial examination was made on the patient as part of the triage process, and it was determined a more comprehensive evaluation was necessary. Initial labs were ordered and patient was transferred to another provider in the ED who assumed care and finished evaluation and plan. - Related Data Allergies/Adverse Reactions: No Known Allergies Allergy (Verified 12/22/18 14:14) Past Medical History - Social History Chew tobacco use (# tins/day): No Frequency of alcohol use: None Drug Abuse: None - Past Medical History Cardiac Medical History: Reports: Hx Congestive Heart Failure, Hx Coronary Artery Disease, Hx Hypercholesterolemia, Hx Hypertension, Hx Heart Murmur Pulmonary Medical History: Denies: Hx Asthma, Hx COPD Neurological Medical History: Denies: Hx Seizures Endocrine Medical History: Reports: Hx Diabetes Mellitus Type 2 - lantus. Denies: Hx Hyperthyroidism, Hx Hypothyroidism Renal/ Medical History: Denies: Hx Peritoneal Dialysis GI Medical History: Denies: Hx Cirrhosis, Hx Crohn's Disease Musculoskeltal Medical History: Denies Hx Arthritis, Denies Hx Fibromyalgia Skin Medical History: Denies Hx Eczema, Denies Hx Psoriasis Psychiatric Medical History: Denies: Hx Depression Past Surgical History: Reports: Hx Cardiac Catheterization - 1 stent placed, Hx Cardiac Surgery - stent, Hx Hysterectomy Physical Exam - Vital signs Vitals: Temp Pulse Resp BP Pulse Ox 98.9 F 69 20 132/59 H 95 12/22/18 13:48 12/22/18 13:48 12/22/18 13:48 12/22/18 13:48 12/22/18 13:48 Course - Vital Signs Vital signs: Temp Pulse Resp BP Pulse Ox 98.9 F 69 20 132/59 H 95 12/22/18 13:48 12/22/18 13:48 12/22/18 13:48 12/22/18 13:48 12/22/18 13:48 Doctor's Discharge - Discharge Referrals: ESTEE HASTINGS MD [Primary Care Provider] - Follow up as needed
[2018-12-22 14:55] LABS: ABSOLUTE BASOPHILS # (AUTO) 0.1 10^3/uL (0.0-0.2); ABSOLUTE EOSINOPHILS # (AUTO) 0.1 10^3/uL (0.0-0.6); ABSOLUTE LYMPHOCYTES (AUTO) 1.9 10^3/uL (0.5-4.7); ABSOLUTE MONOCYTES (AUTO) 0.6 10^3/uL (0.1-1.4); ABSOLUTE NEUT (AUTO) 5.6 10^3/uL (1.7-8.2); BASOPHILS % (AUTO) 0.9 % (0-2); EOSINOPHILS % (AUTO) 1.4 % (0-6); HEMATOCRIT 31.3 % (36.0-47.0); HEMOGLOBIN 10.4 g/dL (12.0-15.5); LYMPHOCYTES % (AUTO) 22.4 % (13-45); MEAN CORPUSCULAR HEMOGLOBIN 27.1 pg (27.0-33.4); MEAN CORPUSCULAR HGB CONC 33.1 g/dL (32.0-36.0); MEAN CORPUSCULAR VOLUME 82 fl (80-97); MONOCYTES % (AUTO) 7.6 % (3-13); PLATELET COUNT 318 10^3/uL (150-450); RED BLOOD COUNT 3.82 10^6/uL (3.72-5.28); RED CELL DISTRIBUTION WIDTH 14.8 % (11.5-14.0); SEGMENTED NEUTROPHILS % (AUTO) 67.7 % (42-78); TOTAL CELLS COUNTED % (AUTO) 100 %; WHITE BLOOD COUNT 8.3 10^3/uL (4.0-10.5)
[2018-12-22 15:16] LABS: ALANINE AMINOTRANSFERASE 10 U/L (9-52); ALBUMIN 3.7 g/dL (3.5-5.0); ALKALINE PHOSPHATASE 88 U/L (38-126); ANION GAP 10 (5-19); ASPARTATE AMINO TRANSFERASE 18 U/L (14-36); BILIRUBIN,DIRECT 0.3 mg/dL (0.0-0.4); BILIRUBIN,TOTAL 0.9 mg/dL (0.2-1.3); BLOOD UREA NITROGEN 17 mg/dL (7-20); CALCIUM 8.8 mg/dL (8.4-10.2); CARBON DIOXIDE 28 mmol/L (22-30); CHLORIDE 98 mmol/L (98-107); GLUCOSE 301 mg/dL (75-110); POTASSIUM 4.6 mmol/L (3.6-5.0); SODIUM 136.2 mmol/L (137-145); TOTAL PROTEIN 7.6 g/dL (6.3-8.2)
--- NOTE | 2018-12-22 15:31 | RADIOLOGY REPORT (SQ) ---
EXAM DESCRIPTION: FOOT LEFT COMPLETE COMPLETED DATE/TIME: 12/22/2018 3:20 pm REASON FOR STUDY: WOUND INFECTION COMPARISON: 11/26/2018 NUMBER OF VIEWS: Three views. TECHNIQUE: AP, lateral and oblique radiographic images acquired of the left foot. LIMITATIONS: None. FINDINGS: MINERALIZATION: Normal. BONES: Partial collapse of the talus and the navicular. Stable. No evidence of osteomyelitis. JOINTS: Neuropathic joint in the hindfoot. SOFT TISSUES: No soft tissue swelling. No foreign body. OTHER: No other significant finding. IMPRESSION: No evidence of osteomyelitis. Neuropathic joints. TECHNICAL DOCUMENTATION: JOB ID: [id number] [employer]- All Rights Reserved Reading location - IP/workstation name: [email or web address]
--- NOTE | 2018-12-22 16:21 | RADIOLOGY REPORT (SQ) ---
EXAM DESCRIPTION: VENOUS UNILATERAL LOWER COMPLETED DATE/TIME: 12/22/2018 4:08 pm REASON FOR STUDY: LEFT LEG REDNESS/SWELLING COMPARISON: 11/27/2018 TECHNIQUE: Dynamic and static bhandari scale and color images acquired of the left leg venous system. Se lected spectral images acquired with additional compression and augmentation maneuvers. The contralat eral common femoral vein and saphenofemoral junction were also imaged. Images stored on PACS. LIMITATIONS: Left lower extremity peroneal veins were difficult to visualize FINDINGS: LEFT COMMON FEMORAL: Normal phasicity, compression and augmentation. No visualized echogenic material on g ray scale. No defects on color images. FEMORAL: Normal compression and augmentation. No visualized echogenic material on bhandari scale. No defe cts on color images. POPLITEAL: Normal compression, augmentation. No visualized echogenic material on bhandari scale. No defec ts on color images. CALF VESSELS: Normal compression, augmentation. No visualized echogenic material on bhandari scale. No de fects on color images. POSTERIOR TIBIAL VEINS: Normal compression, augmentation. No visualized echogenic material on bhandari sc aníbal. No defects on color images. ANY DEEP VENOUS INSUFFICIENCY: Not evaluated. ANY EVIDENCE OF POPLITEAL CYST: No. OTHER: No other significant finding. RIGHT COMMON FEMORAL VEIN AND SAPHENOFEMORAL JUNCTION: Normal phasicity, compression and augmentation. No visualized echogenic material on bhandari scale. No de fects on color images. IMPRESSION: NO EVIDENCE OF DVT OR SVT IN THE LEFT LEG. TECHNICAL DOCUMENTATION: JOB ID: [id number] [employer]- All Rights Reserved Reading location - IP/workstation name: [email or web address]
--- NOTE | 2018-12-22 19:03 | ER Document Report ---
ED General - General Chief Complaint: Skin Problem Stated Complaint: LEG PAIN Time Seen by Provider: 12/22/18 14:13 Primary Care Provider: ESTEE HASTINGS MD [Primary Care Provider] - Follow up as needed Mode of Arrival: Ambulatory TRAVEL OUTSIDE OF THE [place] IN LAST 30 DAYS: No - HPI Notes: Patient is a 73-year-old female presents to the emergency department for evaluation of left foot infection. She was evidently admitted to the hospital for this. She was sent home on antibiotics. She was supposed to be taking them 3 times a day, but is only been taking them once a day. Her home health nurse noted that her infection looked worse today, so she sent to the ED for evaluation. No fevers or chills. No nausea or vomiting. Patient states is ta carina her medications as prescribed, with the exception of the antibiotic course. - Related Data Allergies/Adverse Reactions: No Known Allergies Allergy (Verified 12/22/18 14:14) Past Medical History - General Information source: Patient - Social History Smoking Status: Never Smoker Chew tobacco use (# tins/day): No Frequency of alcohol use: None Drug Abuse: None Family History: Reviewed & Not Pertinent Patient has suicidal ideation: No Patient has homicidal ideation: No - Past Medical History Cardiac Medical History: Reports: Hx Congestive Heart Failure, Hx Coronary Artery Disease, Hx Hypercholesterolemia, Hx Hypertension, Hx Heart Murmur Pulmonary Medical History: Denies: Hx Asthma, Hx COPD Neurological Medical History: Denies: Hx Seizures Endocrine Medical History: Reports: Hx Diabetes Mellitus Type 2 - lantus. Denies: Hx Hyperthyroidism, Hx Hypothyroidism Renal/ Medical History: Denies: Hx Peritoneal Dialysis GI Medical History: Denies: Hx Cirrhosis, Hx Crohn's Disease Musculoskeletal Medical History: Denies Hx Arthritis, Denies Hx Fibromyalgia Skin Medical History: Denies Hx Eczema, Denies Hx Psoriasis Psychiatric Medical History: Denies: Hx Depression Past Surgical History: Reports: Hx Cardiac Catheterization - 1 stent placed, Hx Cardiac Surgery - stent, Hx Hysterectomy Review of Systems - Review of Systems Constitutional: Malaise EENT: No symptoms reported Cardiovascular: No symptoms reported Respiratory: No symptoms reported Gastrointestinal: No symptoms reported Genitourinary: No symptoms reported Musculoskeletal: Leg swelling, Ankle swelling Skin: See HPI Neurological/Psychological: No symptoms reported Physical Exam - Vital signs Vitals: Temp Pulse Resp BP Pulse Ox 98.9 F 69 20 132/59 H 95 12/22/18 13:48 12/22/18 13:48 12/22/18 13:48 12/22/18 13:48 12/22/18 13:48 - Notes Notes: Vital signs reviewed, please refer to chart. Patient is normocephalic, atraumatic. Pupils equal round, reactive to light. Neck is supple without meningismus. Heart is regular rate and rhythm. Lungs are clear to auscultation bilaterally. Abdomen is soft, nontender, normoactive bowel sounds throughout. Extremities without cyanosis, clubbing, examination of the left foot yields a moderate amount of swelling. She has an open wound approximately 3 x 3 cm, from the third toe down into the dorsum of the foot. Foul-smelling drainage noted. She is swelling up to the pretibial area, 2+. Erythema extends just a few centimeters proximal to the metatarsophalangeal joints. Sensation is intact. Peripheral pulses are equal. Skin is otherwise warm and dry. Patient is awake, alert, neurological exam is nonfocal. Course - Re-evaluation Re-evalutation: 12/22/18 19:01 Patient presents to the emergency department for evaluation. She was initially seen through triage, laboratory investigations, imaging, antibiotics ordered through there. On further evaluation, the patient's vital signs are unremarkable. Her blood work fails to reveal any leukocytosis. X-ray failed to reveal any signs of osteomyelitis. I do not have a strong suspicion for that, given that the wound she has seems to be very superficial. She has no leukocy tosis, no fever, no elevated heart rate. I am unsure as to how much Keflex she has left at this point. I will then write her another week, it is stressed that she needs to take it 3 times a day. She was given a dose of IV Rocephin here. She is to follow-up with primary care next week. She is an appointment with wound care on December 29. She is to return to the emergency department with worsening or new concerning symptoms of any sort. - Vital Signs Vital signs: Temp Pulse Resp BP Pulse Ox 98.9 F 69 20 132/59 H 95 12/22/18 13:48 12/22/18 13:48 12/22/18 13:48 12/22/18 13:48 12/22/18 13:48 - Laboratory Result Diagrams: 12/22/18 14:30 12/22/18 14:30 Laboratory results interpreted by me: 12/22/18 12/22/18 14:30 14:30 Hgb 10.4 L Hct 31.3 L RDW 14.8 H Sodium 136.2 L Glucose 301 H Discharge - Discharge Clinical Impression: Cellulitis of left foot, Open wound of left foot with complication Condition: Stable Disposition: HOME, SELF-CARE Instructions: Cellulitis ([facility]) Additional Instructions: Take all the antibiotics as prescribed until gone. Follow-up with wound care as scheduled. Follow-up with your primary care physician this week. Return to the emergency department with worsening or new concerning symptoms. Referrals: ESTEE HASTINGS MD [Primary Care Provider] - Follow up as needed
[2018-12-22 19:36] VITALS: BP 122/55
== END 2018-12-22 19:36 | disposition home or self-care (01) ==
LOC: ER 13:28
DX: L03.116 Cellulitis of left lower limb (principal); T81.49XA Infection following a procedure, other surgical site, initial encounter; I50.9 Heart failure, unspecified; I11.0 Hypertensive heart disease with heart failure; E11.9 Type 2 diabetes mellitus without complications; Z79.4 Long term (current) use of insulin
CPT/HCPCS: 99284; 96365; 96366; 36415; 87040; 87070; 87205; 85025; 87077; 80053; 87186; 93971; 73630; J0696

== ENCOUNTER 2018-12-27 16:26 | Inpatient (IN) | payer MEDICARE, MEDICAID ==
[2018-12-27] MEDS ORDERED: VANCOMYCIN HCL INJ 1000 MG VIAL IV ONE (16:39)
[2018-12-27] MEDS ORDERED: PIPERACILLIN/TAZOBACTAM 4.5 GM VIAL IV ONE (16:39)
[2018-12-27] MEDS ORDERED: NORMAL SALINE 1000 ML 1,000 ML IV ONE (16:39)
[2018-12-27] MEDS ORDERED: MORPHINE SULFATE 10 MG/ML INJ IV ONE (17:25)
[2018-12-27] MEDS ORDERED: ONDANSETRON HCL INJ/PF 4 MG/2 ML SDV IV ONE (17:26)
--- NOTE | 2018-12-27 17:28 | ER Document Report ---
ED General - General Chief Complaint: Foot Pain Stated Complaint: FOOT ULCER Time Seen by Provider: 12/27/18 16:38 Mode of Arrival: Medic Information source: Relative, Emergency Med Personnel, [facility] Records Cannot obtain history due to: Altered mental status Notes: 73-year-old female with type 2 diabetes, congestive heart failure, coronary artery disease, hyperlipidemia, hypertension presents via EMS with her family who is concerned for worsening left foot infection, altered mental status, fever and increasing pain. Patient was admitted to [facility] on November 26, 2018 for left foot cellulitis. She was seen again on December 22, 2018 for similar symptoms and discharged on Keflex. Wound cultures were taken at that time and are positive for staph aureus, Proteus mirabilis and Enterococcus faecalis. TRAVEL OUTSIDE OF THE [place] IN LAST 30 DAYS: No - HPI Onset: Other Onset/Duration: Gradual, Persistent, Worse Associated symptoms: Fever, Vomiting - Related Data Allergies/Adverse Reactions: No Known Allergies Allergy (Verified 12/22/18 14:14) Past Medical History - General Information source: Relative, [facility] Records - Social History Smoking Status: Former Smoker Frequency of alcohol use: None Drug Abuse: None Lives with: Family Family History: Reviewed & Not Pertinent Patient has suicidal ideation: No Patient has homicidal ideation: No - Past Medical History Cardiac Medical History: Reports: Hx Congestive Heart Failure, Hx Coronary Artery Disease, Hx Hypercholesterolemia, Hx Hypertension, Hx Heart Murmur Pulmonary Medical History: Denies: Hx Asthma, Hx COPD Neurological Medical History: Denies: Hx Seizures Endocrine Medical History: Reports: Hx Diabetes Mellitus Type 2 - lantus. Denies: Hx Hyperthyroidism, Hx Hypothyroidism Renal/ Medical History: Denies: Hx Peritoneal Dialysis GI Medical History: Denies: Hx Cirrhosis, Hx Crohn's Disease Musculoskeletal Medical History: Denies Hx Arthritis, Denies Hx Fibromyalgia Skin Medical History: Denies Hx Eczema, Denies Hx Psoriasis Psychiatric Medical History: Denies: Hx Depression Past Surgical History: Reports: Hx Cardiac Catheterization - 1 stent placed, Hx Cardiac Surgery - stent, Hx Hysterectomy Review of Systems - Review of Systems -: Yes ROS unobtainable due to patient's medical condition Constitutional: Fever, Malaise Gastrointestinal: Vomiting Musculoskeletal: Leg swelling Skin: Change in color Neurological/Psychological: Confusion -: Yes All other systems reviewed and negative Physical Exam - Vital signs Vitals: Temp Pulse Resp BP Pulse Ox 99.4 F 96 20 125/64 95 12/27/18 16:50 12/27/18 16:50 12/27/18 16:50 12/27/18 16:50 12/27/18 16:50 - Notes Notes: PHYSICAL EXAMINATION: GENERAL: Crying, screaming, moderate distress HEAD: Atraumatic, normocephalic. EYES: Pupils equal round and reactive to light, extraocular movements intact, conjunctiva are normal. ENT: Nares patent, oropharynx clear without exudates. Moist mucous membranes. NECK: Normal range of motion, supple without lymphadenopathy LUNGS: Breath sounds clear to auscultation bilaterally and equal. No wheezes rales or rhonchi. HEART: Regular rate and rhythm without murmurs ABDOMEN: Soft, nontender, nondistended abdomen. No guarding, no rebound. No masses appreciated. Female : deferred Musculoskeletal: Left foot erythematous, edematous, left third toe necrotic with purulent drainage, foul odor. NEUROLOGICAL: Cranial nerves grossly intact. Normal speech Normal sensory, motor exams PSYCH: Crying, screaming, and directable SKIN: Left foot erythematous, edematous, left third toe necrotic with purulent drainage, foul odor. Course - Re-evaluation Re-evalutation: 12/27/18 20:53 Laboratory 12/27/18 12/27/18 12/27/18 17:01 17:01 17:01 WBC 15.5 H RBC 3.41 L Hgb 9.2 L Hct 27.8 L MCV 82 MCH 27.0 MCHC 33.1 RDW 15.0 H Plt Count 361 Seg Neutrophils % 82.3 H Lymphocytes % 10.2 L Monocytes % 6.3 Eosinophils % 0.6 Basophils % 0.6 Absolute Neutrophils 12.7 H Absolute Lymphocytes 1.6 Absolute Monocytes 1.0 Absolute Eosinophils 0.1 Absolute Basophils 0.1 ESR > 120 H PT 15.8 H INR 1.20 VBG pH VBG pCO2 VBG HCO3 VBG Base Excess Sodium 134.3 L Potassium 5.1 H Chloride 95 L Carbon Dioxide 26 Anion Gap 13 BUN 27 H Creatinine 0.93 Est GFR ( Amer) > 60 Est GFR (Non-Af Amer) 59 L Glucose 225 H Lactic Acid Calcium 8.9 Total Bilirubin 1.0 Direct Bilirubin 0.6 H Neonat Total Bilirubin Not Reportable Neonat Direct Bilirubin Not Reportable Neonat Indirect Bili Not Reportable AST 28 ALT 18 Alkaline Phosphatase 129 H C-Reactive Protein 171.8 H Total Protein 6.8 Albumin 3.2 L 12/27/18 12/27/18 17:01 18:19 WBC RBC Hgb Hct MCV MCH MCHC RDW Plt Count Seg Neutrophils % Lymphocytes % Monocytes % Eosinophils % Basophils % Absolute Neutrophils Absolute Lymphocytes Absolute Monocytes Absolute Eosinophils Absolute Basophils ESR PT INR VBG pH 7.40 VBG pCO2 41.9 VBG HCO3 25.5 VBG Base Excess 0.7 Sodium Potassium Chloride Carbon Dioxide Anion Gap BUN Creatinine Est GFR ( Amer) Est GFR (Non-Af Amer) Glucose Lactic Acid 1.5 Calcium Total Bilirubin Direct Bilirubin Neonat Total Bilirubin Neonat Direct Bilirubin Neonat Indirect Bili AST ALT Alkaline Phosphatase C-Reactive Protein Total Protein Albumin Chest X-Ray 12/27/18 16:39 IMPRESSION: CARDIAC ENLARGEMENT. VASCULAR CONGESTION. Worse than previous. Foot X-Ray 12/27/18 16:41 IMPRESSION: Gas in the soft tissues about the seconds and 4th toe suggest gangrene. No obvious osteomyelitis. Charcot joint. Temp Pulse Resp BP Pulse Ox 99.4 F 96 20 125/64 95 12/27/18 16:50 12/27/18 16:50 12/27/18 16:50 12/27/18 16:50 12/27/18 16:50 73-year-old female presents via EMS from home with her family who is concerned for altered mental status, fever and worsening foot infection. Previous medical records and nursing notes reviewed. Patient appears ill, altered is a screaming, crying and not cooperative with exam. Patient did have a wound culture obtained 5 days prior to arrival which was reviewed and vancomycin Zosyn were initiated. Patient was given morphine for pain. Patient does have a leukocytosis of 15. CRP and ESR are markedly elevated. I did speak to Dr. Crain who has agreed to admission to telemetry. - Vital Signs Vital signs: Temp Pulse Resp BP Pulse Ox 99.4 F 96 20 125/64 95 12/27/18 16:50 12/27/18 16:50 12/27/18 16:50 12/27/18 16:50 12/27/18 16:50 - Laboratory Result Diagrams: 12/27/18 17:01 05/06/19 17:01 Laboratory results interpreted by me: 12/27/18 12/27/18 12/27/18 17:01 17:01 17:01 WBC 15.5 H RBC 3.41 L Hgb 9.2 L Hct 27.8 L RDW 15.0 H Seg Neutrophils % 82.3 H Lymphocytes % 10.2 L Absolute Neutrophils 12.7 H ESR > 120 H PT 15.8 H Sodium 134.3 L Potassium 5.1 H Chloride 95 L BUN 27 H Est GFR (Non-Af Amer) 59 L Glucose 225 H Direct Bilirubin 0.6 H Alkaline Phosphatase 129 H C-Reactive Protein 171.8 H Albumin 3.2 L - Diagnostic Test Radiology reviewed: Image reviewed, Reports reviewed Discharge - Discharge Clinical Impression: Cellulitis of foot, Gangrenous toe Type 2 diabetes mellitus with diabetic neuropathy Qualifiers: Diabetes mellitus manager long term care insulin use: with manager long term care use Qualified Code(s): E11.40 - Type 2 diabetes mellitus with diabetic neuropathy, unspecified Fever Qualifiers: Fever type: unspecified Qualified Code(s): R50.9 - Fever, unspecified Condition: Fair Disposition: ADMITTED INPATIENT Admitting Provider: Breann (Hospitalist) Unit Admitted: Telemetry
[2018-12-27 17:46] LABS: ABSOLUTE BASOPHILS # (AUTO) 0.1 10^3/uL (0.0-0.2); ABSOLUTE EOSINOPHILS # (AUTO) 0.1 10^3/uL (0.0-0.6); ABSOLUTE LYMPHOCYTES (AUTO) 1.6 10^3/uL (0.5-4.7); ABSOLUTE NEUT (AUTO) 12.7 10^3/uL (1.7-8.2); BASOPHILS % (AUTO) 0.6 % (0-2); EOSINOPHILS % (AUTO) 0.6 % (0-6); HEMATOCRIT 27.8 % (36.0-47.0); HEMOGLOBIN 9.2 g/dL (12.0-15.5); LYMPHOCYTES % (AUTO) 10.2 % (13-45); MEAN CORPUSCULAR HGB CONC 33.1 g/dL (32.0-36.0); MEAN CORPUSCULAR VOLUME 82 fl (80-97); MONOCYTES % (AUTO) 6.3 % (3-13); PLATELET COUNT 361 10^3/uL (150-450); RED BLOOD COUNT 3.41 10^6/uL (3.72-5.28); SEGMENTED NEUTROPHILS % (AUTO) 82.3 % (42-78); TOTAL CELLS COUNTED % (AUTO) 100 %; WHITE BLOOD COUNT 15.5 10^3/uL (4.0-10.5)
--- NOTE | 2018-12-27 17:57 | RADIOLOGY REPORT (SQ) ---
EXAM DESCRIPTION: CHEST SINGLE VIEW COMPLETED DATE/TIME: 12/27/2018 5:43 pm REASON FOR STUDY: + culture COMPARISON: None. NUMBER OF VIEWS: One view. TECHNIQUE: Single frontal radiographic view of the chest acquired. LIMITATIONS: None. FINDINGS: LUNGS AND PLEURA: No opacities, masses or pneumothorax. No pleural effusion. MEDIASTINUM AND HILAR STRUCTURES: No masses or contour abnormality. HEART AND VASCULATURE: Cardiac enlargement. Vascular congestion. BONES: No acute findings. HARDWARE: Aortic stent graft. OTHER: No other significant finding. IMPRESSION: CARDIAC ENLARGEMENT. VASCULAR CONGESTION. Worse than previous. TECHNICAL DOCUMENTATION: JOB ID: [id number] [employer]- All Rights Reserved Reading location - IP/workstation name: [email or web address]
--- NOTE | 2018-12-27 17:59 | RADIOLOGY REPORT (SQ) ---
EXAM DESCRIPTION: FOOT LEFT COMPLETE COMPLETED DATE/TIME: 12/27/2018 5:43 pm REASON FOR STUDY: infected foot COMPARISON: None. NUMBER OF VIEWS: Three views. TECHNIQUE: AP, lateral and oblique radiographic images acquired of the left foot. LIMITATIONS: None. FINDINGS: MINERALIZATION: Osteopenia. BONES: Gas in the soft tissues about the proximal phalanx of the seconds digit and 4th digit. No def initive erosions. JOINTS: Chronic midfoot dislocation. SOFT TISSUES: Soft tissue gas. OTHER: No other significant finding. IMPRESSION: Gas in the soft tissues about the seconds and 4th toe suggest gangrene. No obvious oste omyelitis. Charcot joint. TECHNICAL DOCUMENTATION: JOB ID: [id number] [employer]- All Rights Reserved Reading location - IP/workstation name: [email or web address]
[2018-12-27 18:09] LABS: PROTHROMBIN TIME 15.8 SEC (11.4-15.4)
[2018-12-27 18:11] LABS: ALANINE AMINOTRANSFERASE 18 U/L (9-52); ALBUMIN 3.2 g/dL (3.5-5.0); ALKALINE PHOSPHATASE 129 U/L (38-126); ANION GAP 13 (5-19); ASPARTATE AMINO TRANSFERASE 28 U/L (14-36); BILIRUBIN,DIRECT 0.6 mg/dL (0.0-0.4); BLOOD UREA NITROGEN 27 mg/dL (7-20); CALCIUM 8.9 mg/dL (8.4-10.2); CARBON DIOXIDE 26 mmol/L (22-30); CHLORIDE 95 mmol/L (98-107); GLUCOSE 225 mg/dL (75-110); POTASSIUM 5.1 mmol/L (3.6-5.0); SODIUM 134.3 mmol/L (137-145); TOTAL PROTEIN 6.8 g/dL (6.3-8.2)
[2018-12-27 18:23] LABS: C-REACTIVE PROTEIN 171.8 mg/L (<10.0)
[2018-12-27 18:28] LABS: VENOUS BLOOD BASE EXCESS 0.7 mmol/L; VENOUS BLOOD HCO3 25.5 mmol/L (20-32); VENOUS BLOOD PCO2 41.9 mmHg (35-63); VENOUS BLOOD PH 7.4 (7.30-7.42)
[2018-12-27] MEDS ORDERED: VANCOMYCIN HCL 0 MG in DEXTROSE 5%-WATER 250 ML IV NR (18:30)
--- NOTE | 2018-12-27 18:39 | PDOC H&P ---
History of Present Illness Admission Date/PCP: ESTEE HASTINGS History of Present Illness: GERARD COHN is a 73 year old female who has a history of noncompliance with her medications and uncontrolled diabetes who was recently hospitalized here for a nonhealing cellulitis on her left foot. She was put on antibiotics and the foot improved she did not have any signs of osteomyelitis. She says she completed her antibiotics at home. She has come back in to the ER 5 days ago, a few weeks after she was discharged in the hospital. At that time she had some worsening redness and development of some eschar on the second toe of the left foot. Cultures were obtained and she was sent home on Keflex. She came back into the ER today because of subjective fever at home. She did not take her temperature. The foot has a foul odor. She is afebrile here. I do not know if the wound cultures from the ER were initially followed up on, but they showed 3 organisms, 2 g negatives and a staph aureus. Fortunately all of them had good sensitivities, but Keflex may have not been effective on 1 of them. She is being admitted for antibiotics, vascular studies, and a surgical consultation. Past Medical History Cardiac Medical History: Reports: Congestive Heart Failure, Coronary Artery Disease, Hyperlipidema, Hypertension, Heart Murmur Pulmonary Medical History: Denies: Asthma, Chronic Obstructive Pulmonary Disease (COPD) Neurological Medical History: Denies: Seizures Endocrine Medical History: Reports: Diabetes Mellitus Type 2 - lantus Denies: Hyperthyroidism, Hypothyroidism GI Medical History: Denies: Cirrhosis, Crohn's Disease Musculoskeltal Medical History: Denies: Arthritis, Fibromyalgia Skin Medical History: Denies: Eczema, Psoriasis Psychiatric Medical History: Denies: Depression Hematology: Denies: Sickle Cell Disease, Bleeding Tendencies Past Surgical History Past Surgical History: Reports: Cardiac Catheterization - 1 stent placed, Hysterectomy Social History Lives with: Family Smoking Status: Former Smoker Frequency of Alcohol Use: None Hx Recreational Drug Use: No Drugs: None Hx Prescription Drug Abuse: No Family History Family History: Reviewed & Not Pertinent Parental Family History Reviewed: Yes - Hypertension, diabetes Children Family History Reviewed: Yes - Hypertension, diabetes Sibling(s) Family History Reviewed.: Unknown Medication/Allergy Home Medications: Aspirin [Adult Low Dose Aspirin EC] 81 mg PO DAILY 12/27/18 Atorvastatin Calcium [Lipitor 20 mg Tablet] 20 mg PO QHS 12/27/18 Carvedilol [Coreg 12.5 mg Tablet] 12.5 mg PO Q12 12/27/18 Cephalexin Monohydrate [Keflex 500 mg Capsule] 500 mg PO Q8 12/27/18 Cholecalciferol (Vitamin D3) [Vitamin D3 2000 unit Tablet] 2,000 unit PO DAILY 12/27/18 Clopidogrel Bisulfate [Plavix 75 mg Tablet] 75 mg PO DAILY 12/27/18 Furosemide [Lasix 40 mg Tablet] 40 mg PO DAILY 12/27/18 Gabapentin [Neurontin 300 mg Capsule] 300 mg PO DAILY 12/27/18 Insulin Glargine,Hum.rec.anlog [Lantus Insulin 100 Unit/1 ml 10 ml] 45 unit SUBCUT Q12 12/27/18 Lisinopril [Prinivil 5 mg Tablet] 5 mg PO DAILY 12/27/18 Metformin HCl [Glucophage 500 mg Tablet] 500 mg PO BIDACBS 12/27/18 Humboldt-3/Dha/Epa/Fish Oil [[place]umboldt-3 Fish Oil 1,200 Mg Sfgl] 1,200 mg PO DAILY 12/27/18 Allergies/Adverse Reactions: No Known Allergies Allergy (Verified 12/22/18 14:14) Review of Systems All systems: reviewed and no additional remarkable complaints except as stated - All systems were reviewed and were negative except as noted in the HPI. Physical Exam Vital Signs: Intake & Output 12/26/18 12/27/18 12/28/18 06:59 06:59 06:59 Intake Total 1000 Balance 1000 General appearance: PRESENT: no acute distress, cooperative, disheveled, morbidly obese, other - She had a foul body odor Head exam: PRESENT: atraumatic, normocephalic Eye exam: PRESENT: EOMI, PERRLA. ABSENT: conjunctival injection, nystagmus, sc leral icterus Ear exam: PRESENT: normal external ear exam Mouth exam: PRESENT: moist, neck supple Teeth exam: PRESENT: poor dentation Throat exam: ABSENT: post pharyngeal erythema Neck exam: PRESENT: full ROM. ABSENT: carotid bruit, JVD, lymphadenopathy, meningismus, tenderness, thyromegaly Respiratory exam: PRESENT: clear to auscultation shreyas, symmetrical, unlabored. ABSENT: accessory muscle use, chest wall tenderness, crackles, prolonged expir atory phas, rhonchi, tachypnea, wheezes Cardiovascular exam: PRESENT: RRR, +S1, +S2, systolic murmur Pulses: PRESENT: normal carotid pulses Vascular exam: PRESENT: other - Delayed capillary refill in the feet bilaterally GI/Abdominal exam: PRESENT: normal bowel sounds, soft. ABSENT: distended, guar ding, rebound, tenderness Extremities exam: PRESENT: other - Trace lower extremity edema bilaterally, nonpitting. ABSENT: clubbing, pedal edema Musculoskeletal exam: PRESENT: normal inspection. ABSENT: deformity Neurological exam: PRESENT: alert, awake, oriented to person, oriented to place, oriented to time, oriented to situation, CN II-XII grossly intact, motor sensory deficit - Diminished sensation in the feet bilaterally Psychiatric exam: PRESENT: flat affect Skin exam: PRESENT: other - The left foot has swelling and erythema around the toes. There is an area on the dorsal aspect of the second toe of the left foot with an area of about 0.5 x 1.5 cm of thick dark eschar with a surrounding thin yellow exudate. The skin between the toes is cracked and there is some oozing of blood. The tip of the second toe of the left foot feels cool compared to the surrounding tissue. There is a foul odor emanating from the foot. Results Laboratory Results: 12/27/18 17:01 12/27/18 17:01 12/27/18 12/27/18 12/27/18 17:01 17:01 17:01 WBC 15.5 H RBC 3.41 L Hgb 9.2 L Hct 27.8 L MCV 82 MCH 27.0 MCHC 33.1 RDW 15.0 H Plt Count 361 Seg Neutrophils % 82.3 H Lymphocytes % 10.2 L Monocytes % 6.3 Eosinophils % 0.6 Basophils % 0.6 Absolute Neutrophils 12.7 H Absolute Lymphocytes 1.6 Absolute Monocytes 1.0 Absolute Eosinophils 0.1 Absolute Basophils 0.1 Sodium 134.3 L Potassium 5.1 H Chloride 95 L Carbon Dioxide 26 Anion Gap 13 BUN 27 H Creatinine 0.93 Est GFR ( Amer) > 60 Est GFR (Non-Af Amer) 59 L Glucose 225 H Lactic Acid 1.5 Calcium 8.9 Total Bilirubin 1.0 AST 28 ALT 18 Alkaline Phosphatase 129 H C-Reactive Protein 171.8 H Total Protein 6.8 Albumin 3.2 L Impressions: Chest X-Ray 12/27/18 16:39 IMPRESSION: CARDIAC ENLARGEMENT. VASCULAR CONGESTION. Worse than previous. Foot X-Ray 12/27/18 16:41 IMPRESSION: Gas in the soft tissues about the seconds and 4th toe suggest gangrene. No obvious osteomyelitis. Charcot joint. Assessment and Plan - Diagnosis (1) Cellulitis of left foot Is this a current diagnosis for this admission?: Yes Plan: Organisms on her wound culture from December 22, 2018 showed that a combination of Bactrim and Augmentin probably would have been sufficient. However, the concern here is for a recurrent cellulitis and a nonhealing wound on her left foot. We will put her empirically on some IV antibiotics, obtain some vascular studies, and consult surgery. I tried to contact Dr. Beavers but he was unavailable at the time. I will continue to try to contact him. (2) Type 2 diabetes mellitus with diabetic neuropathy Qualifiers: Diabetes mellitus jail insulin use: with jail use Qualified Code(s): E11.40 - Type 2 diabetes mellitus with diabetic neuropathy, unspecified; Z79.4 - care home (current) use of insulin Is this a current diagnosis for this admission?: Yes Plan: We will continue her insulin regimen at home, put on a consistent carbohydrate diet, and attempt to determine if the insulin she is using at home is sufficient, versus dietary indiscretion. - Time Time Spent with patient: 35 or more minutes - Inpatient Certification Medical Necessity: Failure to Improve With Outpatient Therapy, Significant Comorbidiites Make Outpatient Treatment Too Risky, Need for IV Antibiotics, Need for Surgery
[2018-12-27 19:36] LABS: ERYTHROCYTE SEDIMENTATION RATE > 120 mm/hr (0-30)
--- NOTE | 2018-12-27 20:40 | EKG REPORT ---
SEVERITY:- ABNORMAL ECG - SINUS RHYTHM FIRST DEGREE AV BLOCK LOW VOLTAGE IN FRONTAL LEADS NONSPECIFIC INTRAVENTRICULAR CONDUCTION DELAY : Confirmed by: Wendi Burleson MD 27-Dec-2018 20:39:58
[2018-12-27 21:12] LABS: CREATINE KINASE MB < 0.22 ng/mL (<4.55); TROPONIN I < 0.012 ng/mL
[2018-12-27] MEDS ORDERED: INSULIN GLARGINE,HUM.REC.ANLOG 1,000 UNIT/10 ML VIAL (PYX) SUBCUT ONE (22:18)
[2018-12-27] MEDS: INSULIN GLARGINE,HUM.REC.ANLOG 1,000 UNIT/10 ML VIAL SUBCUT SCH (22:28)
[2018-12-27] MEDS: CARVEDILOL 12.5 MG TABLET PO SCH (22:28)
[2018-12-27] MEDS: ATORVASTATIN CALCIUM 20 MG TABLET PO SCH (22:28)
[2018-12-28] MEDS: PIPERACILLIN SODIUM/TAZOBACTAM 3.375 GM in NORMAL SALINE 100 ML IV SCH ×4 (00:42→17:14)
[2018-12-28] MEDS ORDERED: DEXTROSE 40% GEL 15 GM TUBE PO PRN ×2 (03:28)
[2018-12-28] MEDS ORDERED: DEXTROSE 50%-WATER 25 GM/50 ML DISP.SYRIN IV PRN ×2 (03:28)
[2018-12-28] MEDS ORDERED: GLUCAGON,HUMAN RECOMB 1 MG INJ SUBCUT PRN (03:28)
--- NOTE | 2018-12-28 04:17 | Progress Note ---
Provider Note Provider Note: Patient is medically stable for surgical debridement of her foot wound.
[2018-12-28] MEDS ORDERED: FENTANYL CITRATE INJ/PF 100 MCG/2 ML AMPUL ONE (06:56)
[2018-12-28] MEDS ORDERED: MIDAZOLAM 2 MG/2 ML INJ ONE (06:56)
[2018-12-28 06:57] LABS: HEMATOCRIT 25.1 % (36.0-47.0); HEMOGLOBIN 8.3 g/dL (12.0-15.5); MEAN CORPUSCULAR HEMOGLOBIN 26.8 pg (27.0-33.4); MEAN CORPUSCULAR VOLUME 81 fl (80-97); PLATELET COUNT 302 10^3/uL (150-450); RED BLOOD COUNT 3.09 10^6/uL (3.72-5.28); WHITE BLOOD COUNT 13.1 10^3/uL (4.0-10.5)
[2018-12-28] MEDS ORDERED: PROPOFOL INJ 200 MG/20 ML VIAL IV ONE ×2 (06:57→07:31)
[2018-12-28] MEDS ORDERED: VANCOMYCIN HCL 1,000 MG in DEXTROSE 5%-WATER 250 ML IV SCH (07:00)
[2018-12-28 07:19] LABS: ANION GAP 13 (5-19); BLOOD UREA NITROGEN 28 mg/dL (7-20); CALCIUM 8.6 mg/dL (8.4-10.2); CARBON DIOXIDE 25 mmol/L (22-30); CHLORIDE 98 mmol/L (98-107); GLUCOSE 156 mg/dL (75-110); POTASSIUM 5.2 mmol/L (3.6-5.0); SODIUM 135.5 mmol/L (137-145)
[2018-12-28] MEDS ORDERED: LIDOCAINE 2% INJ-PF (100 MG/5 ML) SYRINGE ONE (07:30)
[2018-12-28] MEDS ORDERED: ONDANSETRON HCL INJ/PF 4 MG/2 ML SDV ONE (07:30)
[2018-12-28] MEDS ORDERED: FUROSEMIDE INJ/PF 40 MG/4 ML SDV ONE (08:08)
[2018-12-28] MEDS ORDERED: EPHEDRINE SULFATE INJ 50 MG/1 ML AMPULE ONE (08:13)
[2018-12-28] MEDS ORDERED: PROMETHAZINE HCL INJ 25 MG/1 ML VIAL IV PRN (08:20)
[2018-12-28] MEDS ORDERED: ONDANSETRON HCL INJ/PF 4 MG/2 ML SDV IV PRN (08:20)
[2018-12-28] MEDS ORDERED: FENTANYL CITRATE INJ/PF 100 MCG/2 ML AMPUL IV PRN ×3 (08:20)
--- NOTE | 2018-12-28 08:38 | CONSULTATION REPORT E ---
Consultation Report NAME: GERARD COHN : 1945 AGE: 73Y DATE: 12/27/2018 536 A TO: KAREN DALEY M.D. FROM: SANTY BURGESS M.D. Requesting Physician The patient is seen at the request of the emergency department and Dr. Santy Burgess. HISTORY OF PRESENT ILLNESS: The patient is a 73-year-old female with a history of multiple comorbidities and a longstanding neuropathy left foot with cellulitis. She has been hospitalized and/or seen on an outpatient basis with left foot and toe cellulitis and wound for the last six months. Most recently, she was found to have left foot cellulitis and started on oral antibiotics. She was found to have a leukocytosis on an outpatient basis at 20,000 and was subsequently sent to the hospital for further evaluation and treatment. The patient was found on x-ray to have gas around toes 2 and 4 of the left foot with purulent discharge. The patient was admitted to the hospitalist service with Surgery consulting. PAST MEDICAL HISTORY: Can be found in the history and physical document, including diabetes mellitus, coronary artery disease, history of coronary stent placement, obesity, history of congestive heart failure, and hypertension. PAST SURGICAL HISTORY: None reported. REVIEW OF SYSTEMS: As per HPI. ALLERGIES: None known. FAMILY HISTORY: Significant for diabetes. PHYSICAL EXAMINATION: GENERAL: The patient is examined in the emergency department at approximately 8:00. The patient is a morbidly obese female who speaks primarily Persian and is being translated by a relative. VITAL SIGNS: Temperature 99, respirations 20, pulse 96. HEENT: The eyes are without icterus. LUNGS: Diminished in the bases bilateral. HEART: Without murmur or gallop. EXTREMITIES: Lower extremities: Bilateral lower extremity edema. The legs are warm. The left foot has an ulcerated, actively purulent draining area of gas and fluid around the web space of the left 2nd toe. Toes 2, 3, and 4 are erythematous. The whole foot smells foul. Unable to palpate pulses of the foot. LABORATORY PROFILE: Hemoglobin 9.2, white blood cell count 15.5, PT/INR 15.8 and 1.20. BUN and creatinine 27 and 0.9. Potassium 5.1. Albumin 3.2. EKG shows first degree heart block; poor voltage in the anterior leads; could not rule out anteroseptal myocardial infarction. X-ray reviewed. There is gas in the soft tissues around the 2nd and 4th toes. There are chronic changes at the midfoot, consistent with Charcot foot. IMPRESSION: SEPTIC LEFT FOOT IN DIABETIC FEMALE WITH MULTIPLE COMORBIDITIES, GROWING MULTIPLE ORGANISMS WITH GAS IN THE DEEP SOFT TISSUES. RECOMMENDATIONS: 1. The patient is being admitted to the hospitalist service, being kept NPO on IV fluids. The patient needs to be taken to the operating room, but she just had a meal in the presence of her family. Therefore, we will have to wait at least 6 hours until the procedure can be performed safely, possibly even under general anesthesia as she will require extensive debridement of the left foot including multiple toes. 2. I spoke with Dr. Leo Omer, anesthesiologist, who agrees. The plan will be to operate on her at approximately 0600 on 12/28/2018. In the interim, she will be kept NPO on IV fluids and intravenous antibiotics. DICTATING PHYSICIAN: KAREN DALEY M.D. [id number] Y#: [id number] ID: [id number] JOB#: [id number] ACCT: [id number] cc:KAREN DALEY M.D. >
[2018-12-28] MEDS: METFORMIN HCL 500 MG TABLET PO SCH ×2 (09:08→16:39)
--- NOTE | 2018-12-28 09:15 | Operative Report ---
Nonrecallable Operative Report DATE OF SURGERY: 12/28/18 PREOPERATIVE DIAGNOSIS: gangrene left foot POSTOPERATIVE DIAGNOSIS: gangrene left foot OPERATION: left transmetatarsal forefoot amputation SURGEON: TERESA PORTILLO ANESTHESIA: GA TISSUE REMOVED OR ALTERED: left forefoot COMPLICATIONS: none ESTIMATED BLOOD LOSS: 75cc INTRAOPERATIVE FINDINGS: see dictation PROCEDURE: see dictation
--- NOTE | 2018-12-28 09:51 | XCELERA REPORT ---
[address] [address] Lower Extremity Arterial Evaluation Name: GERARD COHN Age: 73 yrs Gender: Female : 1945 Patient Status: Emergency Patient Location: [place] [address]^A Study Date: 12/27/2018 08:00 PM Procedure: A color flow and duplex scan of the lower extremity arteries was performed on the left with velocity and waveform anaylsis. Reason For Study: nonhealing wound left foot Ordering Physician: SHEREE BURGESS Performed By: Kendra Glez Measurements and Calculations Right Left COSMETICIAN PSV 103.4 cm/sec Prox PFA PSV 84.5 cm/sec Prox SFA PSV 130.1 cm/sec Mid SFA PSV 110.6 cm/sec Dist SFA PSV -105.6cm/sec Prox Pop A PSV 118.7 cm/sec Mid RAISSA PSV 77.5 cm/sec Left Side Arterial Evaluation Challenging study , limited by body habitus and leg swelling. Normal velocity and triphasic waveforms noted from the Common Femoral artery to the Popliteal artery. Monophasic with normal velocity, moderate spectral broadening in the Anterior Tibial artery. Not able to evaluate Posterior Tibial and Peroneal due to limitations as above. Ankle Brachial index not obtained due to edema. Interpretation Summary Severe hemodynamically significant lesions in the bilateral lower extremities, on duplex imaging, at rest. Study limited, Though classified in severe category, likely less than critical compromise. Clinical correlation recommended. : SHEREE BURGESS > Navdeep Nicole
[2018-12-28] MEDS ORDERED: ACETAMINOPHEN 1,000 MG/100 ML RTUPB IV ONE (09:59)
--- NOTE | 2018-12-28 10:34 | CONSULTATION REPORT E ---
Consultation Report NAME: GERARD COHN : 1945 AGE: 73Y DATE: 12/28/2018 536 A TO: KAREN DALEY M.D. FROM: SHEREE BURGESS M.D. Requesting Physician REQUESTING SERVICE: Patient seen at the request of the emergency department. CHIEF COMPLAINT: Left foot infection. This is the second dictation on consultation of the patient. HISTORY OF PRESENTING ILLNESS: The patient is a 73-year-old female with a longstanding history of left foot ulcers, swelling, diabetic neuropathy, who has been managed on an outpatient and inpatient basis over the last 6 months with varying infections, treated with a variety of antibiotics, who not presents to the emergency department with nonhealing left second toe diabetic infection. She was evaluated in the emergency department where she was found to have soupy drainage from the left foot at the webspace of the left second toe. She was growing Proteus mirabilis, Staphylococcus aureus, and Enterococcus faecalis from a wound swab 4 days prior. X-ray of the root revealed gas in the soft tissue. Surgery was consulted. The patient needed to be taken to the operating room for incision and drainage, but she had eaten a meal. She was admitted to the hospitalist service for further management. PAST MEDICAL HISTORY: Can be found in her history and physical document includin. Coronary artery disease. 2. History of CHF. 3. Diabetes mellitus. 4. Obesity. 5. Hypertension. 6. Hyperlipidemia. PAST SURGICAL HISTORY: Previous debridements, left foot. REVIEW OF SYSTEMS: Can be found in history and physical document. ALLERGIES: None known. MEDICATIONS: See list. PHYSICAL EXAMINATION: GENERAL: Patient examined in room 20 in the emergency department. She is no acute distress. She speaks primarily Bahamian, and the interview was conducted through a family member at bedside. EXTREMITIES: Exam focused on the lower extremities. There are palpable femoral pulses. Unable to feel pulses in the feet. The left foot is foul smelling, actively draining discharge from the left second toe dorsal aspect. There is gas expressed through mashing of the tissue. Toes 2, 3, and 4 are swollen and erythematous. The distal forefoot is also erythematous. LABORATORY DATA: White blood cell count 15,500, hemoglobin of 9.2. Electrolytes show a blood sugar of 225, BUN of 27. Troponin levels not elevated. EKG shows first degree heart block, cannot rule out anteroseptal infarct. IMPRESSION: Septic left foot with gas in the soft tissues of a noncompliant 73-year-old diabetic. RECOMMENDATIONS: 1. Agree with admission, IV fluids, intravenous antibiotics. 2. Patient needs to be taken to the operating room, but she just ate; therefore, we will hold off until registration representative and proceed with the debridement at that time. I explained to the patient and her family member that she will likely lose several toes, and her entire foot is in jeopardy of loss. DICTATING PHYSICIAN: KAREN DALEY M.D. [id number] [id number] PHY#: [id number] ID: [id number] JOB#: [id number] ACCT: [id number] cc:KAREN DALEY M.D. >
--- NOTE | 2018-12-28 10:49 | OPERATIVE REPORT E ---
Operative Report NAME: GERARD COHN : 1945 AGE: 73Y DATE OF SURGERY: 12/28/2018 ROOM: 536 PREOPERATIVE DIAGNOSIS: Gangrene, left forefoot. POSTOPERATIVE DIAGNOSIS: Gangrene, left forefoot. OPERATIVE PROCEDURE: Transmetatarsal forefoot amputation, left foot. SURGEON: TERESA PORTILLO M.D. INDICATIONS FOR OPERATION: This is a 73-year-old diabetic female who presents with gas gangrene of the left forefoot involving the 2nd, 3rd, 4th, and 5th metatarsals, extending to the metatarsal bases and with cellulitis extending up the lower extremity. There was pus drainage, but gas gangrene extending to the 2nd, 3rd, 4th, and 5th toes. For this reason she was brought to the operating room for transmetatarsal forefoot amputation. PROCEDURE: The patient was brought to the operating room awake, alert, in stable condition, placed on the operating table in the supine position, induced under general anesthesia, intubated. The left leg was prepped and draped in the usual sterile manner for procedure. After appropriate timeout and site verification, a tennis racquet type incision was made over the metatarsal heads on the left foot and this was extended from the dorsum around to the plantar surface. Dissection was carried down through subcutaneous tissue and fatty tissue with Bovie cautery. Once we reached the metatarsals we divided each one of them serially with the bone cutter. The deep soft tissue and tendons we then divided with the Bovie cautery and/or the scalpel. The 5 toes were then removed. The bone base was clean at this point with bleeding from the digital arteries that were all controlled with either Bovie cautery or [id number] placed, 2-0 Vicryl sutures. The subcutaneous tissue bleeding was controlled Bovie cautery. Once this was accomplished, there was good plantar flap that would approximate dorsally; however, because of the infection I did not close it completely. We copiously irrigated the base with normal saline, suctioned dry. I then placed four 2-0 nylon sutures to approximate the plantar to the dorsal surface. This was done loosely and then packed between sutures with Betadine soaked gauze. A sterile dressing was applied, which completed the procedure. Estimated blood loss was 75 mL. Sponge and needle counts were correct x3. The patient was awakened in the operating room, extubated, transferred to recovery in stable condition, no complications. DICTATING PHYSICIAN: TERESA PORTILLO M.D. [id number] PHY#: [id number] ID: [id number] JOB#: [id number] ACCT: [id number] cc:TERESA PORTILLO M.D. >
[2018-12-28] MEDS: CARVEDILOL 12.5 MG TABLET PO SCH ×2 (12:20→21:36)
[2018-12-28] MEDS: FUROSEMIDE 40 MG TABLET PO SCH (12:21)
[2018-12-28] MEDS: VANCOMYCIN HCL 750 MG in DEXTROSE 5%-WATER 250 ML IV SCH ×2 (12:23→21:37)
[2018-12-28] MEDS: INSULIN GLARGINE,HUM.REC.ANLOG 1,000 UNIT/10 ML VIAL SUBCUT SCH ×2 (12:32→21:37)
[2018-12-28 13:09] LABS: INTERNATIONAL RATION (INR) 1.21; PROTHROMBIN TIME 15.9 SEC (11.4-15.4)
--- NOTE | 2018-12-28 14:59 | PDOC PROGRESS REPORT ---
Subjective Progress Note for:: 12/28/18 Subjective:: 73 year old female who has a history of noncompliance with her medications and uncontrolled diabetes who was recently hospitalized here for a nonhealing cellulitis on her left foot. She was put on antibiotics and the foot improved she did not have any signs of osteomyelitis. She says she completed her antibiotics at home. She has come back in to the ER 5 days ago, a few weeks after she was discharged in the hospital. At that time she had some worsening redness and development of some eschar on the second toe of the left foot. Cultures were obtained and she was sent home on Keflex. She came back into the ER today because of subjective fever at home. She did not take her temperature. The foot has a foul odor. She is afebrile here. I do not know if the wound cultures from the ER were initially followed up on, but they showed 3 organisms, 2 g negatives and a staph aureus. Fortunately all of them had good sensitivities, but Keflex may have not been effective on 1 of them. She is being admitted for antibiotics, vascular studies, and a surgical consultation. 12/28/[id number]-ulro-old female with history of diabetes mellitus noncompliant with medications more recently admitted for nonhealing cellulitis of the left foot. Came back again with worsening redness and development of some asked her on the second toe of the left foot. Foot has a foul order. Surgical consult was done patient went for partial amputation of the left foot. Operative procedure is left transmetatarsal forefoot amputation. Still groggy may be still under sedation. Less responsive and lethargic. Hopefully sedation wear off by this evening. Reason For Visit: RECURRENT CELLULITIS,NONCOMPLIANCE Physical Exam Vital Signs: Temp Pulse Resp BP Pulse Ox 97.4 F 60 16 113/45 L 98 12/28/18 13:31 12/28/18 13:31 12/28/18 13:31 12/28/18 13:31 12/28/18 13:31 Intake & Output 12/27/18 12/28/18 12/29/18 06:59 06:59 06:59 Intake Total 1100 1675 Output Total 975 Balance 1100 700 Weight 107.9 kg General appearance: PRESENT: no acute distress Head exam: PRESENT: atraumatic Eye exam: PRESENT: PERRLA Ear exam: PRESENT: normal external ear exam Mouth exam: PRESENT: moist, tongue midline Neck exam: ABSENT: carotid bruit, JVD, lymphadenopathy, thyromegaly Respiratory exam: PRESENT: clear to auscultation shreyas. ABSENT: rales, rhonchi, wheezes Cardiovascular exam: PRESENT: tachycardia GI/Abdominal exam: PRESENT: normal bowel sounds, soft. ABSENT: distended, guarding, mass, organolmegaly, rebound, tenderness Rectal exam: PRESENT: deferred Gentrourinary exam: PRESENT: indwelling catheter Extremities exam: PRESENT: other - Foot wrapped in bandage. Neurological exam: PRESENT: other - No focal neurologic deficits patient looks lethargic probably secondary to sedation. Results Laboratory Results: 12/28/18 05:45 12/28/18 05:45 12/27/18 12/27/18 12/27/18 17:01 17:01 17:01 WBC 15.5 H RBC 3.41 L Hgb 9.2 L Hct 27.8 L MCV 82 MCH 27.0 MCHC 33.1 RDW 15.0 H Plt Count 361 Seg Neutrophils % 82.3 H Lymphocytes % 10.2 L Monocytes % 6.3 Eosinophils % 0.6 Basophils % 0.6 Absolute Neutrophils 12.7 H Absolute Lymphocytes 1.6 Absolute Monocytes 1.0 Absolute Eosinophils 0.1 Absolute Basophils 0.1 VBG pH VBG pCO2 VBG HCO3 VBG Base Excess Sodium 134.3 L Potassium 5.1 H Chloride 95 L Carbon Dioxide 26 Anion Gap 13 BUN 27 H Creatinine 0.93 Est GFR ( Amer) > 60 Est GFR (Non-Af Amer) 59 L Glucose 225 H Lactic Acid 1.5 Calcium 8.9 Total Bilirubin 1.0 AST 28 ALT 18 Alkaline Phosphatase 129 H C-Reactive Protein 171.8 H Total Protein 6.8 Albumin 3.2 L 12/27/18 12/28/18 12/28/18 18:19 05:45 05:45 WBC 13.1 H RBC 3.09 L Hgb 8.3 L Hct 25.1 L MCV 81 MCH 26.8 L MCHC 33.0 RDW 15.0 H Plt Count 302 Seg Neutrophils % Lymphocytes % Monocytes % Eosinophils % Basophils % Absolute Neutrophils Absolute Lymphocytes Absolute Monocytes Absolute Eosinophils Absolute Basophils VBG pH 7.40 VBG pCO2 41.9 VBG HCO3 25.5 VBG Base Excess 0.7 Sodium 135.5 L Potassium 5.2 H Chloride 98 Carbon Dioxide 25 Anion Gap 13 BUN 28 H Creatinine 1.12 Est GFR ( Amer) 58 L Est GFR (Non-Af Amer) 48 L Glucose 156 H Lactic Acid Calcium 8.6 Total Bilirubin AST ALT Alkaline Phosphatase C-Reactive Protein Total Protein Albumin 12/27/18 12/27/18 18:19 18:19 Creatine Kinase 39 CK-MB (CK-2) < 0.22 Troponin I < 0.012 Impressions: Chest X-Ray 12/27/18 16:39 IMPRESSION: CARDIAC ENLARGEMENT. VASCULAR CONGESTION. Worse than previous. Foot X-Ray 12/27/18 16:41 IMPRESSION: Gas in the soft tissues about the seconds and 4th toe suggest gangrene. No obvious osteomyelitis. Charcot joint. Assessment and Plan - Diagnosis (1) Cellulitis of foot Is this a current diagnosis for this admission?: Yes Plan: Organisms on her wound culture from December 22, 2018 showed that a combination of Bactrim and Augmentin probably would have been sufficient. However, the concern here is for a recurrent cellulitis and a nonhealing wound on her left foot. We will put her empirically on some IV antibiotics, obtain some vascular studies, and consult surgery. I tried to contact Dr. Beavers but he was unavailable at the time. I will continue to try to contact him. 12/28/2018-patient came in with eschar and foul-smelling wound on the left second toe. Status post transmetatarsal forefoot amputation. Patient is still under sedation looks groggy and lethargic. blood Cultures are pending. (2) Type 2 diabetes mellitus with diabetic neuropathy Qualifiers: Diabetes mellitus intermediate card tender insulin use: with intermediate card tender use Qualified Code(s): E11.40 - Type 2 diabetes mellitus with diabetic neuropathy, unspecified; Z79.4 - snf (current) use of insulin Is this a current diagnosis for this admission?: Yes Plan: We will continue her insulin regimen at home, put on a consistent carbohydrate diet, and attempt to determine if the insulin she is using at home is sufficient, versus dietary indiscretion. 12/28/2018-patient is going to be placed on diabetic diet, insulin sliding scale before meals and at bedtime. Dietary consult was provided. Diet exercise weight loss discussed with the patient. - Time Time Spent with patient: 25-34 minutes Medications reviewed and adjusted accordingly: Yes Anticipated discharge: SNF
[2018-12-28] MEDS: MORPHINE SULFATE 10 MG/ML INJ IV PRN ×2 (17:28→20:31)
[2018-12-28] MEDS: ATORVASTATIN CALCIUM 20 MG TABLET PO SCH (21:37)
[2018-12-29] MEDS: PIPERACILLIN SODIUM/TAZOBACTAM 3.375 GM in NORMAL SALINE 100 ML IV SCH ×5 (00:50→23:29)
[2018-12-29] MEDS: MORPHINE SULFATE 10 MG/ML INJ IV PRN ×3 (00:54→12:36)
[2018-12-29 05:07] LABS: HEMATOCRIT 22.7 % (36.0-47.0); MEAN CORPUSCULAR HEMOGLOBIN 27.2 pg (27.0-33.4); MEAN CORPUSCULAR HGB CONC 33.6 g/dL (32.0-36.0); MEAN CORPUSCULAR VOLUME 81 fl (80-97); PLATELET COUNT 333 10^3/uL (150-450); RED BLOOD COUNT 2.81 10^6/uL (3.72-5.28); RED CELL DISTRIBUTION WIDTH 14.6 % (11.5-14.0); WHITE BLOOD COUNT 9.8 10^3/uL (4.0-10.5)
[2018-12-29 05:09] LABS: HEMOGLOBIN 7.6 g/dL (12.0-15.5)
[2018-12-29 05:30] LABS: ALBUMIN 2.7 g/dL (3.5-5.0); CHLORIDE 98 mmol/L (98-107); POTASSIUM 4.7 mmol/L (3.6-5.0); SODIUM 137.1 mmol/L (137-145)
[2018-12-29 06:23] LABS: ALANINE AMINOTRANSFERASE 21 U/L (9-52); ALKALINE PHOSPHATASE 126 U/L (38-126); ANION GAP 16 (5-19); ASPARTATE AMINO TRANSFERASE 20 U/L (14-36); BILIRUBIN,DIRECT 0.5 mg/dL (0.0-0.4); BILIRUBIN,TOTAL 0.7 mg/dL (0.2-1.3); BLOOD UREA NITROGEN 32 mg/dL (7-20); CALCIUM 8.8 mg/dL (8.4-10.2); CARBON DIOXIDE 23 mmol/L (22-30); GLUCOSE 139 mg/dL (75-110); TOTAL PROTEIN 5.9 g/dL (6.3-8.2)
[2018-12-29] MEDS: METFORMIN HCL 500 MG TABLET PO SCH (08:28)
[2018-12-29] MEDS: INSULIN GLARGINE,HUM.REC.ANLOG 1,000 UNIT/10 ML VIAL SUBCUT SCH ×2 (11:22→23:28)
[2018-12-29] MEDS: FUROSEMIDE 40 MG TABLET PO SCH (11:28)
[2018-12-29] MEDS: CARVEDILOL 12.5 MG TABLET PO SCH (11:29)
[2018-12-29] MEDS: VANCOMYCIN HCL 750 MG in DEXTROSE 5%-WATER 250 ML IV SCH (11:29)
[2018-12-29] MEDS ORDERED: NORMAL SALINE 250 ML IV PRN ×2 (13:08)
--- NOTE | 2018-12-29 13:14 | PDOC PROGRESS REPORT ---
Subjective Progress Note for:: 12/29/18 Subjective:: GERARD COHN is a 73 year old female who has a history of noncompliance with her medications and uncontrolled diabetes who was recently hospitalized here for a nonhealing cellulitis on her left foot. She was put on antibiotics and the foot improved she did not have any signs of osteomyelitis. She says she completed her antibiotics at home. She has come back in to the ER 5 days ago, a few weeks after she was discharged in the hospital. At that time she had some worsening redness and development of some eschar on the second toe of the left foot. Cultures were obtained and she was sent home on Keflex. She came back into the ER today because of subjective fever at home. She did not take her temperature. The foot has a foul odor. She is afebrile here. I do not know if the wound cultures from the ER were initially followed up on, but they showed 3 organisms, 2 g negatives and a staph aureus. Fortunately all of them had good sensitivities, but Keflex may have not been effective on 1 of them. She is being admitted for antibiotics, vascular studies, and a surgical consultation. 12/29/2018. No acute events overnight. Is post left metatarsal amputation by surgery, complaining of continued pain, any shortness of breath, chills, nausea, vomiting, diarrhea, constipation or any urinary symptoms. Reason For Visit: RECURRENT CELLULITIS,NONCOMPLIANCE Physical Exam Vital Signs: Temp Pulse Resp BP Pulse Ox 99.0 F 65 20 107/54 L 96 12/29/18 04:00 12/29/18 04:00 12/29/18 04:00 12/29/18 04:00 12/29/18 04:00 Intake & Output 12/28/18 12/29/18 12/30/18 06:59 06:59 06:59 Intake Total 1100 1875 350 Output Total 975 Balance 1100 900 350 Weight 107.9 kg 104.6 kg General appearance: PRESENT: no acute distress, obese, well-developed, well- nourished Head exam: PRESENT: atraumatic, normocephalic Neck exam: ABSENT: carotid bruit, JVD, lymphadenopathy, thyromegaly Respiratory exam: PRESENT: clear to auscultation shreyas. ABSENT: rales, rhonchi, wheezes Cardiovascular exam: PRESENT: RRR. ABSENT: diastolic murmur, rubs, systolic murmur Extremities exam: PRESENT: full ROM, other. ABSENT: calf tenderness, clubbing, pedal edema Neurological exam: PRESENT: alert, awake, oriented to person, oriented to place, oriented to time, oriented to situation, CN II-XII grossly intact. ABSENT: motor sensory deficit Results Laboratory Results: 12/29/18 04:44 12/29/18 04:44 12/29/18 12/29/18 04:44 04:44 WBC 9.8 RBC 2.81 L Hgb 7.6 L Hct 22.7 L MCV 81 MCH 27.2 MCHC 33.6 RDW 14.6 H Plt Count 333 Sodium 137.1 Potassium 4.7 Chloride 98 Carbon Dioxide 23 Anion Gap 16 BUN 32 H Creatinine 1.33 H Est GFR ( Amer) 47 L Est GFR (Non-Af Amer) 39 L Glucose 139 H Calcium 8.8 Magnesium 1.5 L Total Bilirubin 0.7 AST 20 ALT 21 Alkaline Phosphatase 126 Total Protein 5.9 L Albumin 2.7 L 12/27/18 12/27/18 18:19 18:19 Creatine Kinase 39 CK-MB (CK-2) < 0.22 Troponin I < 0.012 Impressions: Chest X-Ray 12/27/18 16:39 IMPRESSION: CARDIAC ENLARGEMENT. VASCULAR CONGESTION. Worse than previous. Foot X-Ray 12/27/18 16:41 IMPRESSION: Gas in the soft tissues about the seconds and 4th toe suggest sharri grene. No obvious osteomyelitis. Charcot joint. Assessment and Plan - Diagnosis (1) Gangrenous toe Is this a current diagnosis for this admission?: Yes Plan: Due to underlying severe PAD complicated by diabetes. 12/27/2018. ESR > 120, CRP 171.8, WBC 15.5, pls 361. 12/27/2018. Foot x-ray gas in the soft tissue about the second and fourth toe suggestive of gangrene. No osteomyelitis. 12/27/2018. Bilateral lower extremity arterial Doppler. Severe hemodynamically significant lesion in the bilateral lower extremity on duplex imaging at rest. Day 2 of vancomycin and Zosyn. Cultures no growth so far. We will switch to p.o. antibiotics based on results of blood and wound culture. (2) Anemia Is this a current diagnosis for this admission?: Yes Plan: Normocytic. Likely anemia of chronic disease. Status post 2 PRBC transfusion on 12/29/2018. Denies any history of GI malignancy melena, hematochezia, vaginal bleeding, hematemesis, hemoptysis. Will obtain iron panel and stool guaiac. If stool guaiac positive will consult surgery for EGD/colonoscopy. (3) CAD status post 3 stent placement Is this a current diagnosis for this admission?: No Plan: Continue FABRIZIO, beta blockers, aspirin, clopidogrel, statins. Denies any anginal symptoms. (4) CHF (congestive heart failure) Is this a current diagnosis for this admission?: No Plan: Not acutely exacerbated. Euvolemic. 10/25/2015. 2D echo ejection fraction more than 70%. Continue cardiac diet, diuretics, FABRIZIO, beta blockers. (5) Hypertension Qualifiers: Qualified Code(s): I10 - Essential (primary) hypertension Is this a current diagnosis for this admission?: No Plan: Euvolemic. Normotensive. Continue current meds. (6) Cellulitis of foot Is this a current diagnosis for this admission?: Yes Plan: Organisms on her wound culture from December 22, 2018 showed that a combination of Bactrim and Augmentin probably would have been sufficient. However, the concern here is for a recurrent cellulitis and a nonhealing wound on her left foot. We will put her empirically on some IV antibiotics, obtain some vascular studies, and consult surgery. I tried to contact Dr. Beavers but he was unavailable at the time. I will continue to try to contact him. 12/28/2018-patient came in with eschar and foul-smelling wound on the left second toe. Status post transmetatarsal forefoot amputation. Patient is still under sedation looks groggy and lethargic. blood Cultures are pending. (7) PAD (peripheral artery disease) Is this a current diagnosis for this admission?: No Plan: 12/27/2018. BLE arterial Doppler. Severe hemodynamically significant lesion in the bilateral lower extremity on duplex imaging at rest.
[2018-12-29] MEDS ORDERED: GLUCAGON,HUMAN RECOMB 1 MG INJ IM PRN (13:47)
[2018-12-29] MEDS ORDERED: DEXTROSE 50%-WATER 25 GM/50 ML DISP.SYRIN IV PRN ×2 (13:47)
[2018-12-29] MEDS ORDERED: DEXTROSE 40% GEL 15 GM TUBE PO PRN ×2 (13:47)
--- NOTE | 2018-12-29 14:07 | PDOC PROGRESS REPORT ---
Subjective Reason For Visit: RECURRENT CELLULITIS,NONCOMPLIANCE Physical Exam Vital Signs: Temp Pulse Resp BP Pulse Ox 99.0 F 65 20 107/54 L 96 12/29/18 04:00 12/29/18 04:00 12/29/18 04:00 12/29/18 04:00 12/29/18 04:00 Intake & Output 12/28/18 12/29/18 12/30/18 06:59 06:59 06:59 Intake Total 1100 1875 600 Output Total 975 Balance 1100 900 600 Weight 107.9 kg 104.6 kg Results Laboratory Results: 12/29/18 04:44 12/29/18 04:44 12/29/18 12/29/18 04:44 04:44 WBC 9.8 RBC 2.81 L Hgb 7.6 L Hct 22.7 L MCV 81 MCH 27.2 MCHC 33.6 RDW 14.6 H Plt Count 333 Sodium 137.1 Potassium 4.7 Chloride 98 Carbon Dioxide 23 Anion Gap 16 BUN 32 H Creatinine 1.33 H Est GFR ( Amer) 47 L Est GFR (Non-Af Amer) 39 L Glucose 139 H Calcium 8.8 Magnesium 1.5 L Total Bilirubin 0.7 AST 20 ALT 21 Alkaline Phosphatase 126 Total Protein 5.9 L Albumin 2.7 L 12/27/18 12/27/18 18:19 18:19 Creatine Kinase 39 CK-MB (CK-2) < 0.22 Troponin I < 0.012 Impressions: Chest X-Ray 12/27/18 16:39 IMPRESSION: CARDIAC ENLARGEMENT. VASCULAR CONGESTION. Worse than previous. Foot X-Ray 12/27/18 16:41 IMPRESSION: Gas in the soft tissues about the seconds and 4th toe suggest gangrene. No obvious osteomyelitis. Charcot joint. Assessment & Plan - Diagnosis (1) Diabetic foot infection Is this a current diagnosis for this admission?: Yes - Plan Summary Plan Summary: This is a 73-year-old female with a severe diabetic foot infection. She is status post transmetatarsal amputation. The edges of the wound are open. I have examined the wound today. I will initiate damp to dry dressing changes twice daily. Hopefully if some granulation tissue can be stimulated, the patie nt may be able to undergo delayed primary closure in the next 4 to 5 days. Will follow this patient with you.
[2018-12-29] MEDS: ASPIRIN 81 MG TABLET, ENT COATED PO SCH (14:34)
[2018-12-29 14:55] LABS: ABSOLUTE RETICS # 0.041 10^6/uL (0.028-0.122); RETICULOCYTE COUNT (AUTO) 1.46 % (0.66-2.85)
[2018-12-29 16:21] LABS: FOLATE 9.42 ng/mL (>2.76)
[2018-12-29 16:26] LABS: IRON(TIBC) < 10.1 ug/dL (37-170)
[2018-12-29] MEDS ORDERED: FERRIC CARBOXYMALTOSE INJ 750 MG/15 ML VIAL IV PRN (17:48)
[2018-12-29] MEDS: INSULIN LISPRO 100 UNIT/ML 3 ML VIAL SUBCUT SCH ×2 (18:46→23:29)
[2018-12-29] MEDS ORDERED: INSULIN GLARGINE,HUM.REC.ANLOG 1,000 UNIT/10 ML VIAL SUBCUT SCH (22:00)
[2018-12-29] MEDS ORDERED: CARVEDILOL 12.5 MG TABLET PO SCH (22:00)
[2018-12-29] MEDS ORDERED: FERRIC CARBOXYMALTOSE 750 MG in NORMAL SALINE 250 ML IV ONE (22:00)
[2018-12-29] MEDS: CARVEDILOL 6.25 MG TABLET PO SCH (23:27)
[2018-12-29] MEDS: ATORVASTATIN CALCIUM 20 MG TABLET PO SCH (23:28)
[2018-12-30] MEDS ORDERED: VANCOMYCIN HCL 750 MG in DEXTROSE 5%-WATER 250 ML IV ONE ×2
[2018-12-30] MEDS: VANCOMYCIN HCL 750 MG in DEXTROSE 5%-WATER 250 ML IV SCH ×3 (01:07→22:53)
[2018-12-30] MEDS: MORPHINE SULFATE 10 MG/ML INJ IV PRN ×2 (03:32→17:25)
[2018-12-30] MEDS: PIPERACILLIN SODIUM/TAZOBACTAM 3.375 GM in NORMAL SALINE 100 ML IV SCH ×3 (05:49→17:22)
[2018-12-30] MEDS ORDERED: FERRIC CARBOXYMALTOSE 750 MG in NORMAL SALINE 250 ML IV ONE (06:00)
[2018-12-30] MEDS ORDERED: (PENDING PHARMACY ID) (Cholecalciferol (Vitamin D3) [Vitamin D3 2000 Unit Tablet] 2,000 UN PO SCH (10:00)
[2018-12-30] MEDS: INSULIN LISPRO 100 UNIT/ML 3 ML VIAL SUBCUT SCH ×4 (10:20→22:55)
[2018-12-30 10:40] LABS: ABSOLUTE BASOPHILS # (AUTO) 0.1 10^3/uL (0.0-0.2); ABSOLUTE EOSINOPHILS # (AUTO) 0.2 10^3/uL (0.0-0.6); ABSOLUTE LYMPHOCYTES (AUTO) 1.7 10^3/uL (0.5-4.7); ABSOLUTE MONOCYTES (AUTO) 0.6 10^3/uL (0.1-1.4); ABSOLUTE NEUT (AUTO) 5.5 10^3/uL (1.7-8.2); BASOPHILS % (AUTO) 0.9 % (0-2); EOSINOPHILS % (AUTO) 2.7 % (0-6); HEMATOCRIT 26.7 % (36.0-47.0); HEMOGLOBIN 9.1 g/dL (12.0-15.5); LYMPHOCYTES % (AUTO) 21.4 % (13-45); MEAN CORPUSCULAR HEMOGLOBIN 27.5 pg (27.0-33.4); MEAN CORPUSCULAR VOLUME 81 fl (80-97); MONOCYTES % (AUTO) 7.8 % (3-13); PLATELET COUNT 341 10^3/uL (150-450); RED CELL DISTRIBUTION WIDTH 14.7 % (11.5-14.0); SEGMENTED NEUTROPHILS % (AUTO) 67.2 % (42-78); TOTAL CELLS COUNTED % (AUTO) 100 %; WHITE BLOOD COUNT 8.2 10^3/uL (4.0-10.5)
[2018-12-30 11:10] LABS: ALANINE AMINOTRANSFERASE 19 U/L (9-52); ALBUMIN 2.8 g/dL (3.5-5.0); ALKALINE PHOSPHATASE 177 U/L (38-126); ANION GAP 10 (5-19); ASPARTATE AMINO TRANSFERASE 19 U/L (14-36); BILIRUBIN,DIRECT 0.6 mg/dL (0.0-0.4); BILIRUBIN,TOTAL 0.8 mg/dL (0.2-1.3); BLOOD UREA NITROGEN 23 mg/dL (7-20); CALCIUM 8.8 mg/dL (8.4-10.2); CARBON DIOXIDE 28 mmol/L (22-30); CHLORIDE 99 mmol/L (98-107); GLUCOSE 131 mg/dL (75-110); POTASSIUM 4.3 mmol/L (3.6-5.0); SODIUM 136.6 mmol/L (137-145); TOTAL PROTEIN 6.1 g/dL (6.3-8.2)
[2018-12-30 11:11] LABS: VANCOMYCIN,TROUGH 15.2 ug/mL (5.0-20.0)
[2018-12-30] MEDS: CHOLECALCIFEROL (D3) 1,000 UNIT TABLET PO SCH (11:23)
[2018-12-30] MEDS: LISINOPRIL 5 MG TABLET PO SCH (11:23)
[2018-12-30] MEDS: CLOPIDOGREL BISULFATE 75 MG TABLET PO SCH (11:23)
[2018-12-30] MEDS: CARVEDILOL 6.25 MG TABLET PO SCH ×2 (11:23→22:54)
[2018-12-30] MEDS: GABAPENTIN 300 MG CAPSULE PO SCH (11:23)
[2018-12-30] MEDS: ASPIRIN 81 MG TABLET, ENT COATED PO SCH (11:24)
--- NOTE | 2018-12-30 14:10 | PDOC PROGRESS REPORT ---
Subjective Progress Note for:: 12/30/18 Subjective:: GERARD COHN is a 73 year old female who has a history of noncompliance with her medications and uncontrolled diabetes who was recently hospitalized here for a nonhealing cellulitis on her left foot. She was put on antibiotics and the foot improved she did not have any signs of osteomyelitis. She says she completed her antibiotics at home. She has come back in to the ER 5 days ago, a few weeks after she was discharged in the hospital. At that time she had some worsening redness and development of some eschar on the second toe of the left foot. Cultures were obtained and she was sent home on Keflex. She came back into the ER today because of subjective fever at home. She did not take her temperature. The foot has a foul odor. She is afebrile here. I do not know if the wound cultures from the ER were initially followed up on, but they showed 3 organisms, 2 g negatives and a staph aureus. Fortunately all of them had good sensitivities, but Keflex may have not been effective on 1 of them. She is being admitted for antibiotics, vascular studies, and a surgical consultation. 12/29/2018. No acute events overnight. s/p post left metatarsal amputation by surgery, complaining of continued pain, any shortness of breath, chills, nausea, vomiting, diarrhea, constipation or any urinary symptoms. 12/30/2018. No acute events overnight. Patient still complaining persistent lower extremity pain. Denying any nausea, vomiting, diarrhea constipation or any urinary symptoms. Patient is p.o. tolerant having normal bowel and bladder movements. SBP 107-138, T-max 98.3, pulse 54-60, respiratory rate 18-20, FiO2 90 to 98% on 2 L NC. WBC 8.2, hemoglobin 9.1 up from 7.6 status post 2 PRBC transfusion on 12/29/2018, platelets 341, sodium 136.6, potassium 4.3, bicarbonate 28, BUN 23, creatinine 1.04, fasting blood glucose 131, iron <10.1, TIBC 202, ferritin 247. Reason For Visit: RECURRENT CELLULITIS,NONCOMPLIANCE Physical Exam Vital Signs: Temp Pulse Resp BP Pulse Ox 97.7 F 54 L 18 138/62 H 98 12/30/18 07:36 12/30/18 07:36 12/30/18 07:36 12/30/18 07:36 12/30/18 07:36 Intake & Output 12/29/18 12/30/18 12/31/18 06:59 06:59 06:59 Intake Total 1875 3263 250 Output Total 975 2200 Balance 900 1063 250 Weight 104.6 kg 108 kg General appearance: PRESENT: no acute distress, well-developed, well-nourished Head exam: PRESENT: atraumatic, normocephalic Respiratory exam: PRESENT: clear to auscultation shreyas. ABSENT: rales, rhonchi, wheezes Cardiovascular exam: PRESENT: RRR. ABSENT: diastolic murmur, rubs, systolic murmur GI/Abdominal exam: PRESENT: normal bowel sounds, soft. ABSENT: distended, guarding, mass, organolmegaly, rebound, tenderness Extremities exam: PRESENT: full ROM, tenderness - S/P right metatarsal amputation, wound looks clean, no sign of infection.. ABSENT: calf tenderness, clubbing, pedal edema Neurological exam: PRESENT: alert, awake, oriented to person, oriented to place, oriented to time, oriented to situation, CN II-XII grossly intact. ABSENT: motor sensory deficit Results Laboratory Results: 12/30/18 10:05 12/30/18 10:05 12/29/18 12/29/18 12/29/18 14:00 14:00 14:00 WBC RBC Hgb Hct MCV MCH MCHC RDW Plt Count Seg Neutrophils % Lymphocytes % Monocytes % Eosinophils % Basophils % Absolute Neutrophils Absolute Lymphocytes Absolute Monocytes Absolute Eosinophils Absolute Basophils Retic Count (auto) 1.46 Absolute Retic 0.041 Sodium Potassium Chloride Carbon Dioxide Anion Gap BUN Creatinine Est GFR ( Amer) Est GFR (Non-Af Amer) Glucose Calcium Magnesium Iron < 10.1 L TIBC 202 L % Saturation UNABLE TO CALCULATE Ferritin 247.00 Total Bilirubin AST ALT Alkaline Phosphatase Total Protein Albumin Vitamin B12 367.0 Folate 9.42 Blood Type O POSITIVE Antibody Screen NEGATIVE 12/30/18 12/30/18 10:05 10:05 WBC 8.2 RBC 3.30 L Hgb 9.1 L Hct 26.7 L MCV 81 MCH 27.5 MCHC 34.0 RDW 14.7 H Plt Count 341 Seg Neutrophils % 67.2 Lymphocytes % 21.4 Monocytes % 7.8 Eosinophils % 2.7 Basophils % 0.9 Absolute Neutrophils 5.5 Absolute Lymphocytes 1.7 Absolute Monocytes 0.6 Absolute Eosinophils 0.2 Absolute Basophils 0.1 Retic Count (auto) Absolute Retic Sodium 136.6 L Potassium 4.3 Chloride 99 Carbon Dioxide 28 Anion Gap 10 BUN 23 H Creatinine 1.04 Est GFR ( Amer) > 60 Est GFR (Non-Af Amer) 52 L Glucose 131 H Calcium 8.8 Magnesium 1.6 Iron TIBC % Saturation Ferritin Total Bilirubin 0.8 AST 19 ALT 19 Alkaline Phosphatase 177 H Total Protein 6.1 L Albumin 2.8 L Vitamin B12 Folate Blood Type Antibody Screen 12/27/18 12/27/18 18:19 18:19 Creatine Kinase 39 CK-MB (CK-2) < 0.22 Troponin I < 0.012 Impressions: Chest X-Ray 12/27/18 16:39 IMPRESSION: CARDIAC ENLARGEMENT. VASCULAR CONGESTION. Worse than previous. Foot X-Ray 12/27/18 16:41 IMPRESSION: Gas in the soft tissues about the seconds and 4th toe suggest gangrene. No obvious osteomyelitis. Charcot joint. Assessment and Plan - Diagnosis (1) Gangrenous toe Is this a current diagnosis for this admission?: Yes Plan: Due to underlying severe PAD complicated by diabetes. Day 3 s/p left transmetatarsal amputation. 12/30/2018. WBC 8.2, hemoglobin 9.1 12/27/2018. ESR > 120, CRP 171.8, WBC 15.5, pls 361. 12/27/2018. Foot x-ray gas in the soft tissue about the second and fourth toe suggestive of gangrene. No osteomyelitis. 12/27/2018. Bilateral lower extremity arterial Doppler. Severe hemodynamically significant lesion in the bilateral lower extremity on duplex imaging at rest. Day 3 of vancomycin and Zosyn. Cultures no growth so far. We will switch to p.o. antibiotics based on results of blood and wound culture. (2) Anemia Is this a current diagnosis for this admission?: Yes Plan: Normocytic. Likely anemia of chronic disease and iron deficiency anemia combined exacerbated by recent transmetatarsal amputation of the left foot. Status post 2 PRBC transfusion on 12/29/2018. 12/30/2018. WBC 8.2, hemoglobin 9.1 up from 7.6 status post 2 PRBC transfusion on 12/29/2018, platelets 341 Iron work-up positive for severe iron deficiency anemia. 12/29/2018. Iron <10.1, TIBC 202, ferritin 247. Received 1 dose of Injectafer on 12/29/2018. Pending stool guaiac. Denies any history of GI malignancy melena, hematochezia, vaginal bleeding, hematemesis, hemoptysis. If stool guaiac positive will consult surgery for EGD/colonoscopy. (3) CAD status post 3 stent placement Is this a current diagnosis for this admission?: No Plan: Continue FABRIZIO, beta blockers, aspirin, clopidogrel, statins. Denies any anginal symptoms. (4) CHF (congestive heart failure) Is this a current diagnosis for this admission?: No Plan: Not acutely exacerbated. Euvolemic. 10/25/2015. 2D echo ejection fraction more than 70%. Continue cardiac diet, diuretics, FABRIZIO, beta blockers. (5) Hypertension Qualifiers: Qualified Code(s): I10 - Essential (primary) hypertension Is this a current diagnosis for this admission?: No Plan: Euvolemic. Normotensive. Continue current meds. 12/30/2018: SBP 107-138, T-max 98.3, pulse 54-60, respiratory rate 18-20, FiO2 90 to 98% on 2 L NC. (6) PAD (peripheral artery disease) Is this a current diagnosis for this admission?: No Plan: 12/27/2018. BLE arterial Doppler. Severe hemodynamically significant lesion in the bilateral lower extremity on duplex imaging at rest. Will consult IR for possible intervention.
--- NOTE | 2018-12-30 17:49 | PDOC PROGRESS REPORT ---
Subjective Progress Note for:: 12/30/18 Subjective:: POD #2 post TMA Reason For Visit: RECURRENT CELLULITIS,NONCOMPLIANCE Physical Exam Vital Signs: Temp Pulse Resp BP Pulse Ox 97.7 F 61 18 138/62 H 98 12/30/18 07:36 12/30/18 14:00 12/30/18 07:36 12/30/18 07:36 12/30/18 07:36 Intake & Output 12/29/18 12/30/18 12/31/18 06:59 06:59 06:59 Intake Total 1875 3263 350 Output Total 975 2200 Balance 900 1063 350 Weight 104.6 kg 108 kg Exam: Stump skin and subcu left open. Looks clean and dry Results Laboratory Results: 12/30/18 10:05 12/30/18 10:05 12/29/18 12/30/18 12/30/18 14:00 10:05 10:05 WBC 8.2 RBC 3.30 L Hgb 9.1 L Hct 26.7 L MCV 81 MCH 27.5 MCHC 34.0 RDW 14.7 H Plt Count 341 Seg Neutrophils % 67.2 Lymphocytes % 21.4 Monocytes % 7.8 Eosinophils % 2.7 Basophils % 0.9 Absolute Neutrophils 5.5 Absolute Lymphocytes 1.7 Absolute Monocytes 0.6 Absolute Eosinophils 0.2 Absolute Basophils 0.1 Sodium 136.6 L Potassium 4.3 Chloride 99 Carbon Dioxide 28 Anion Gap 10 BUN 23 H Creatinine 1.04 Est GFR ( Amer) > 60 Est GFR (Non-Af Amer) 52 L Glucose 131 H Calcium 8.8 Magnesium 1.6 Total Bilirubin 0.8 AST 19 ALT 19 Alkaline Phosphatase 177 H Total Protein 6.1 L Albumin 2.8 L Blood Type O POSITIVE Antibody Screen NEGATIVE 12/27/18 12/27/18 18:19 18:19 Creatine Kinase 39 CK-MB (CK-2) < 0.22 Troponin I < 0.012 Impressions: Chest X-Ray 12/27/18 16:39 IMPRESSION: CARDIAC ENLARGEMENT. VASCULAR CONGESTION. Worse than previous. Foot X-Ray 12/27/18 16:41 IMPRESSION: Gas in the soft tissues about the seconds and 4th toe suggest gangrene. No obvious osteomyelitis. Charcot joint. Assessment & Plan - Time Time Spent with patient: 15-24 minutes - Inpatient Certification Medical Necessity: Need for IV Antibiotics, Need for Surgery - Plan Summary Plan Summary: Continue wet to dry dressings Possible delayed primary closure tomorrow.
[2018-12-30] MEDS: ATORVASTATIN CALCIUM 20 MG TABLET PO SCH (22:54)
[2018-12-30] MEDS: INSULIN GLARGINE,HUM.REC.ANLOG 1,000 UNIT/10 ML VIAL SUBCUT SCH (22:54)
[2018-12-31] MEDS: PIPERACILLIN SODIUM/TAZOBACTAM 3.375 GM in NORMAL SALINE 100 ML IV SCH ×4 (00:31→17:56)
[2018-12-31 03:49] LABS: HEMOGLOBIN 9.4 g/dL (12.0-15.5); MEAN CORPUSCULAR HEMOGLOBIN 27.2 pg (27.0-33.4); MEAN CORPUSCULAR HGB CONC 33.6 g/dL (32.0-36.0); MEAN CORPUSCULAR VOLUME 81 fl (80-97); RED BLOOD COUNT 3.46 10^6/uL (3.72-5.28); RED CELL DISTRIBUTION WIDTH 14.6 % (11.5-14.0)
[2018-12-31 04:06] LABS: ALANINE AMINOTRANSFERASE 21 U/L (9-52); ALBUMIN 2.7 g/dL (3.5-5.0); ALKALINE PHOSPHATASE 234 U/L (38-126); ANION GAP 8 (5-19); ASPARTATE AMINO TRANSFERASE 20 U/L (14-36); BILIRUBIN,DIRECT 0.4 mg/dL (0.0-0.4); BILIRUBIN,TOTAL 0.5 mg/dL (0.2-1.3); BLOOD UREA NITROGEN 17 mg/dL (7-20); CALCIUM 9.1 mg/dL (8.4-10.2); CARBON DIOXIDE 28 mmol/L (22-30); CHLORIDE 103 mmol/L (98-107); GLUCOSE 110 mg/dL (75-110); POTASSIUM 4.3 mmol/L (3.6-5.0); SODIUM 139.2 mmol/L (137-145)
[2018-12-31 04:13] LABS: ABSOLUTE LYMPHOCYTES# (MANUAL) 1.4 10^3/uL (0.5-4.7); ABSOLUTE MONOCYTES # (MANUAL) 0.5 10^3/uL (0.1-1.4); BAND NEUTROPHILS % (MANUAL) 1 % (3-5); BASOPHILS % (MANUAL) 0 % (0-2); EOSINOPHILS % (MANUAL) 2 % (0-6); LYMPHOCYTES % (MANUAL) 17 % (13-45); MONOCYTES % (MANUAL) 6 % (3-13); TOTAL CELLS COUNTED 100
[2018-12-31 04:16] LABS: HYPOCHROMASIA SLIGHT; OVALOCYTES SLIGHT; PLATELET CLUMPS PRESENT; PLATELET COMMENT ADEQUATE; POLYCHROMASIA SLIGHT; STOMATOCYTES SLIGHT
[2018-12-31 04:17] LABS: PLATELET COUNT 385 10^3/uL (150-450)
[2018-12-31] MEDS: INSULIN LISPRO 100 UNIT/ML 3 ML VIAL SUBCUT SCH ×4 (09:17→21:36)
[2018-12-31] MEDS: LISINOPRIL 5 MG TABLET PO SCH (09:40)
[2018-12-31] MEDS: ASPIRIN 81 MG TABLET, ENT COATED PO SCH (09:42)
[2018-12-31] MEDS: VANCOMYCIN HCL 750 MG in DEXTROSE 5%-WATER 250 ML IV SCH ×2 (09:42→21:36)
[2018-12-31] MEDS: CHOLECALCIFEROL (D3) 1,000 UNIT TABLET PO SCH (09:42)
[2018-12-31] MEDS: CLOPIDOGREL BISULFATE 75 MG TABLET PO SCH (09:42)
[2018-12-31] MEDS: CARVEDILOL 6.25 MG TABLET PO SCH ×2 (09:42→21:36)
[2018-12-31] MEDS: GABAPENTIN 300 MG CAPSULE PO SCH (09:42)
--- NOTE | 2018-12-31 10:40 | PDOC PROGRESS REPORT ---
Subjective Progress Note for:: 12/31/18 Subjective:: GERARD COHN is a 73 year old female who has a history of noncompliance with her medications and uncontrolled diabetes who was recently hospitalized here for a nonhealing cellulitis on her left foot. She was put on antibiotics and the foot improved she did not have any signs of osteomyelitis. She says she completed her antibiotics at home. She has come back in to the ER 5 days ago, a few weeks after she was discharged in the hospital. At that time she had some worsening redness and development of some eschar on the second toe of the left foot. Cultures were obtained and she was sent home on Keflex. She came back into the ER today because of subjective fever at home. She did not take her temperature. The foot has a foul odor. She is afebrile here. I do not know if the wound cultures from the ER were initially followed up on, but they showed 3 organisms, 2 g negatives and a staph aureus. Fortunately all of them had good sensitivities, but Keflex may have not been effective on 1 of them. She is being admitted for antibiotics, vascular studies, and a surgical consultation. 12/29/2018. No acute events overnight. s/p post left metatarsal amputation by surgery, complaining of continued pain, any shortness of breath, chills, nausea, vomiting, diarrhea, constipation or any urinary symptoms. 12/30/2018. No acute events overnight. Patient still complaining persistent lower extremity pain. Denying any nausea, vomiting, diarrhea constipation or any urinary symptoms. Patient is p.o. tolerant having normal bowel and bladder movements. 05/2019. No acute events overnight. Patient could not get a good night sleep, still complaining of bilateral lower extremity pain but much improvement since yesterday. Denies any fever, chills, nausea, vomiting, diarrhea, constipation or any urinary symptoms. P.o. tolerant. SBP 114-142, T-max 98.4, pulse 50s to 60s, RR 18-20, SPO2 88-96 on 2 L NC. WBC 8.0, hemoglobin 9.4, platelets 385, sodium 139, potassium 4.3, bicarb 28, creatinine 0.87, FBG 110, POC glucose 85-125 Reason For Visit: RECURRENT CELLULITIS,NONCOMPLIANCE Physical Exam Vital Signs: Temp Pulse Resp BP Pulse Ox 98.1 F 55 L 19 142/57 H 96 12/31/18 08:25 12/31/18 08:25 12/31/18 08:25 12/31/18 08:25 12/31/18 08:25 Intake & Output 12/30/18 12/31/18 01/01/19 06:59 06:59 06:59 Intake Total 3263 1400 Output Total 2200 2850 Balance 1063 -1450 Weight 108 kg 108.2 kg Results Laboratory Results: 12/31/18 03:25 12/31/18 03:25 12/30/18 12/30/18 12/31/18 10:05 10:05 03:25 WBC 8.2 8.0 RBC 3.30 L 3.46 L Hgb 9.1 L 9.4 L Hct 26.7 L 28.0 L MCV 81 81 MCH 27.5 27.2 MCHC 34.0 33.6 RDW 14.7 H 14.6 H Plt Count 341 385 Seg Neutrophils % 67.2 Not Reportable Lymphocytes % 21.4 Not Reportable Monocytes % 7.8 Not Reportable Eosinophils % 2.7 Not Reportable Basophils % 0.9 Not Reportable Absolute Neutrophils 5.5 Not Reportable Absolute Lymphocytes 1.7 Not Reportable Absolute Monocytes 0.6 Not Reportable Absolute Eosinophils 0.2 Not Reportable Absolute Basophils 0.1 Not Reportable Sodium 136.6 L Potassium 4.3 Chloride 99 Carbon Dioxide 28 Anion Gap 10 BUN 23 H Creatinine 1.04 Est GFR ( Amer) > 60 Est GFR (Non-Af Amer) 52 L Glucose 131 H Calcium 8.8 Magnesium 1.6 Total Bilirubin 0.8 AST 19 ALT 19 Alkaline Phosphatase 177 H Total Protein 6.1 L Albumin 2.8 L 12/31/18 03:25 WBC RBC Hgb Hct MCV MCH MCHC RDW Plt Count Seg Neutrophils % Lymphocytes % Monocytes % Eosinophils % Basophils % Absolute Neutrophils Absolute Lymphocytes Absolute Monocytes Absolute Eosinophils Absolute Basophils Sodium 139.2 Potassium 4.3 Chloride 103 Carbon Dioxide 28 Anion Gap 8 BUN 17 Creatinine 0.87 Est GFR ( Amer) > 60 Est GFR (Non-Af Amer) > 60 Glucose 110 Calcium 9.1 Magnesium 1.7 Total Bilirubin 0.5 AST 20 ALT 21 Alkaline Phosphatase 234 H Total Protein 6.0 L Albumin 2.7 L 05/06/19 05/06/19 18:19 18:19 Creatine Kinase 39 CK-MB (CK-2) < 0.22 Troponin I < 0.012 Impressions: Chest X-Ray 12/27/18 16:39 IMPRESSION: CARDIAC ENLARGEMENT. VASCULAR CONGESTION. Worse than previous. Foot X-Ray 12/27/18 16:41 IMPRESSION: Gas in the soft tissues about the seconds and 4th toe suggest gangrene. No obvious osteomyelitis. Charcot joint. Assessment and Plan - Diagnosis (1) Gangrenous toe Is this a current diagnosis for this admission?: Yes Plan: Due to underlying severe PAD complicated by diabetes. Day 4 s/p left transmetatarsal amputation. 12/31/2018. WBC 8.0, hemoglobin 9.4, platelets 385 12/30/2018. WBC 8.2, hemoglobin 9.1 12/27/2018. ESR > 120, CRP 171.8, WBC 15.5, pls 361. 12/27/2018. Foot x-ray gas in the soft tissue about the second and fourth toe suggestive of gangrene. No osteomyelitis. 12/27/2018. Bilateral lower extremity arterial Doppler. Severe hemodynamically significant lesion in the bilateral lower extremity on duplex imaging at rest. Day 4 of vancomycin and Zosyn. Was negative. Will switch to p.o. antibiotics. (2) Anemia Is this a current diagnosis for this admission?: Yes Plan: Normocytic. Likely anemia of chronic disease and iron deficiency anemia combined exacerbated by recent transmetatarsal amputation of the left foot. Status post 2 PRBC transfusion on 12/29/2018. 12/31/2018. WBC 8.0, hemoglobin 9.4, platelets 385 12/30/2018. WBC 8.2, hemoglobin 9.1 up from 7.6 status post 2 PRBC transfusion on 12/29/2018, platelets 341 Iron work-up positive for severe iron deficiency anemia. 12/29/2018. Iron <10.1, TIBC 202, ferritin 247. Received 1 dose of Injectafer on 12/29/2018. Pending stool guaiac. Denies any history of GI malignancy melena, hematochezia, vaginal bleeding, hematemesis, hemoptysis. If stool guaiac positive will consult surgery for EGD/colonoscopy. (3) CAD status post 3 stent placement Is this a current diagnosis for this admission?: No Plan: Continue FABRIZIO, beta blockers, aspirin, DAPT, statins. Denies any anginal symptoms. (4) CHF (congestive heart failure) Is this a current diagnosis for this admission?: No Plan: Not acutely exacerbated. Euvolemic. 10/25/2015. 2D echo ejection fraction more than 70%. Continue cardiac diet, diuretics, FABRIZIO, beta blockers. (5) Hypertension Qualifiers: Qualified Code(s): I10 - Essential (primary) hypertension Is this a current diagnosis for this admission?: No Plan: Euvolemic. Normotensive. Continue current meds. 12/31/2018: SBP 114-142, T-max 98.4, pulse 50s to 60s, RR 18-20, SPO2 88-96 on 2 L NC. 12/30/2018: SBP 107-138, T-max 98.3, pulse 54-60, respiratory rate 18-20, FiO2 90 to 98% on 2 L NC. (6) PAD (peripheral artery disease) Is this a current diagnosis for this admission?: No Plan: I contacted radiology department talk to Dr. Ray who graciously said that she will talk to Dr. Pyle and they may be able to do some type of intervention either here inpatient or as outpatient. 12/27/2018. BLE arterial Doppler. Severe hemodynamically significant lesion in the bilateral lower extremity on duplex imaging at rest. While will continue aspirin and statins. 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 Hemoglobin A1c on 11/26/2018 10.8%. 12/31/2018: FBG 110, POC glucose 85-125 Diabetic diet, sliding scale insulin, Lantus, pre-meal insulin. Will adjust dosage as needed. Outpatient PCP follow-up. Patient may benefit from oral antidiabetic as outpatient.
[2018-12-31 14:29] LABS: SEGMENTED NEUTROPHILS % (MAN) 73 % (42-78)
[2018-12-31 14:30] LABS: ABSOLUTE NEUTROPHILS# (MANUAL) 5.8 10^3/uL (1.7-8.2)
[2018-12-31] MEDS: MORPHINE SULFATE 10 MG/ML INJ IV PRN (19:25)
[2018-12-31] MEDS: INSULIN GLARGINE,HUM.REC.ANLOG 1,000 UNIT/10 ML VIAL SUBCUT SCH (21:36)
[2018-12-31] MEDS: ATORVASTATIN CALCIUM 20 MG TABLET PO SCH (21:36)
[2019-01-01] MEDS: PIPERACILLIN SODIUM/TAZOBACTAM 3.375 GM in NORMAL SALINE 100 ML IV SCH ×4 (00:38→18:50)
--- NOTE | 2019-01-01 07:54 | EKG REPORT ---
SEVERITY:- ABNORMAL ECG - LOW VOLTAGE THROUGHOUT BORDERLINE R WAVE PROGRESSION, ANTERIOR LEADS SINUS RHYTHM WITH FIRST DEGREE AV BLOCK : Confirmed by: Wendi Burleson MD 01-Jan-2019 07:54:05
[2019-01-01 08:53] LABS: ALANINE AMINOTRANSFERASE 23 U/L (9-52); ALBUMIN 2.8 g/dL (3.5-5.0); ALKALINE PHOSPHATASE 231 U/L (38-126); ANION GAP 9 (5-19); ASPARTATE AMINO TRANSFERASE 17 U/L (14-36); BILIRUBIN,DIRECT 0.4 mg/dL (0.0-0.4); BILIRUBIN,TOTAL 0.5 mg/dL (0.2-1.3); BLOOD UREA NITROGEN 15 mg/dL (7-20); CALCIUM 9.1 mg/dL (8.4-10.2); CARBON DIOXIDE 29 mmol/L (22-30); CHLORIDE 102 mmol/L (98-107); GLUCOSE 107 mg/dL (75-110); POTASSIUM 4.6 mmol/L (3.6-5.0); SODIUM 139.6 mmol/L (137-145); TOTAL PROTEIN 6.2 g/dL (6.3-8.2)
[2019-01-01 08:54] LABS: HEMATOCRIT 29.8 % (36.0-47.0); HEMOGLOBIN 9.8 g/dL (12.0-15.5); MEAN CORPUSCULAR HGB CONC 32.9 g/dL (32.0-36.0); MEAN CORPUSCULAR VOLUME 82 fl (80-97); PLATELET COUNT 430 10^3/uL (150-450); RED BLOOD COUNT 3.64 10^6/uL (3.72-5.28); RED CELL DISTRIBUTION WIDTH 14.8 % (11.5-14.0); WHITE BLOOD COUNT 10.5 10^3/uL (4.0-10.5)
[2019-01-01 08:56] LABS: VANCOMYCIN,TROUGH 16.8 ug/mL (5.0-20.0)
[2019-01-01 09:09] LABS: CREATINE KINASE MB < 0.22 ng/mL (<4.55); TROPONIN I < 0.012 ng/mL
[2019-01-01] MEDS: INSULIN LISPRO 100 UNIT/ML 3 ML VIAL SUBCUT SCH ×4 (09:19→21:54)
[2019-01-01 09:34] LABS: ABSOLUTE MONOCYTES # (MANUAL) 0.3 10^3/uL (0.1-1.4); ABSOLUTE NEUTROPHILS# (MANUAL) 7.9 10^3/uL (1.7-8.2); BASOPHILS % (MANUAL) 0 % (0-2); EOSINOPHILS % (MANUAL) 3 % (0-6); LYMPHOCYTES % (MANUAL) 19 % (13-45); MONOCYTES % (MANUAL) 3 % (3-13); SEGMENTED NEUTROPHILS % (MAN) 75 % (42-78); TOTAL CELLS COUNTED 100; TOXIC GRANULATION 1+
[2019-01-01 09:35] LABS: ANISOCYTOSIS SLIGHT; OVALOCYTES 1+; PLATELET COMMENT ADEQUATE; POIKILOCYTOSIS 1+
[2019-01-01] MEDS: CLOPIDOGREL BISULFATE 75 MG TABLET PO SCH (10:57)
[2019-01-01] MEDS: GABAPENTIN 300 MG CAPSULE PO SCH (10:57)
[2019-01-01] MEDS: LISINOPRIL 5 MG TABLET PO SCH (10:57)
[2019-01-01] MEDS: ENOXAPARIN SODIUM INJ 30 MG/0.3 ML DISP.SYRIN SUBCUT SCH (10:58)
[2019-01-01] MEDS: ASPIRIN 81 MG TABLET, ENT COATED PO SCH (10:58)
[2019-01-01] MEDS: CHOLECALCIFEROL (D3) 1,000 UNIT TABLET PO SCH (10:58)
[2019-01-01] MEDS: CARVEDILOL 6.25 MG TABLET PO SCH ×2 (10:58→21:54)
--- NOTE | 2019-01-01 11:10 | PDOC PROGRESS REPORT ---
Subjective Progress Note for:: 01/01/19 Subjective:: Report the patient got up out of bed with her wound VAC on with supervision. Reason For Visit: RECURRENT CELLULITIS,NONCOMPLIANCE Physical Exam Vital Signs: Temp Pulse Resp BP Pulse Ox 98.1 F 62 17 148/62 H 92 01/01/19 08:00 01/01/19 08:00 01/01/19 08:00 01/01/19 08:00 01/01/19 08:00 Intake & Output 12/31/18 01/01/19 01/02/19 06:59 06:59 06:59 Intake Total 1400 1560 100 Output Total 2850 1600 Balance -1450 -40 100 Weight 108.2 kg 107.8 kg General appearance: PRESENT: no acute distress Extremities exam: PRESENT: other - Left lower extremity examined. Wound VAC in position. Excellent suction. No erythema to the foot. Results Laboratory Results: 01/01/19 08:02 01/01/19 08:02 01/01/19 01/01/19 08:02 08:02 WBC 10.5 RBC 3.64 L Hgb 9.8 L Hct 29.8 L MCV 82 MCH 27.0 MCHC 32.9 RDW 14.8 H Plt Count 430 Seg Neutrophils % Not Reportable Lymphocytes % Not Reportable Monocytes % Not Reportable Eosinophils % Not Reportable Basophils % Not Reportable Absolute Neutrophils Not Reportable Absolute Lymphocytes Not Reportable Absolute Monocytes Not Reportable Absolute Eosinophils Not Reportable Absolute Basophils Not Reportable Sodium 139.6 Potassium 4.6 Chloride 102 Carbon Dioxide 29 Anion Gap 9 BUN 15 Creatinine 0.81 Est GFR ( Amer) > 60 Est GFR (Non-Af Amer) > 60 Glucose 107 Calcium 9.1 Magnesium 1.6 Total Bilirubin 0.5 AST 17 ALT 23 Alkaline Phosphatase 231 H Total Protein 6.2 L Albumin 2.8 L 12/27/18 12/27/18 01/01/19 18:19 18:19 08:02 Creatine Kinase 39 < 20 L CK-MB (CK-2) < 0.22 Troponin I < 0.012 01/01/19 08:02 Creatine Kinase CK-MB (CK-2) < 0.22 Troponin I < 0.012 Impressions: Chest X-Ray 12/27/18 16:39 IMPRESSION: CARDIAC ENLARGEMENT. VASCULAR CONGESTION. Worse than previous. Foot X-Ray 12/27/18 16:41 IMPRESSION: Gas in the soft tissues about the seconds and 4th toe suggest gangrene. No obvious osteomyelitis. Charcot joint. Assessment & Plan - Diagnosis (1) S/P transmetatarsal amputation of foot Qualifiers: Laterality: left Qualified Code(s): Z89.432 - Acquired absence of left foot Is this a current diagnosis for this admission?: Yes Plan: Impression: Patient is now postoperative day 4 status post a transmetatarsal amputation of left foot, wound cleaning up, no documented cultures; blood cultures negative for growth, on intravenous antibiotics, with wound VAC application. Recommendations: 1. Continue out of bed to chair; physical therapy consultation 2. Anticipate wound VAC change tomorrow.
[2019-01-01] MEDS: VANCOMYCIN HCL 750 MG in DEXTROSE 5%-WATER 250 ML IV SCH ×2 (12:00→21:55)
--- NOTE | 2019-01-01 12:50 | PDOC PROGRESS REPORT ---
Subjective Progress Note for:: 01/01/19 Subjective:: GERARD COHN is a 73 year old female who has a history of noncompliance with her medications and uncontrolled diabetes who was recently hospitalized here for a nonhealing cellulitis on her left foot. She was put on antibiotics and the foot improved she did not have any signs of osteomyelitis. She says she completed her antibiotics at home. She has come back in to the ER 5 days ago, a few weeks after she was discharged in the hospital. At that time she had some worsening redness and development of some eschar on the second toe of the left foot. Cultures were obtained and she was sent home on Keflex. She came back into the ER today because of subjective fever at home. She did not take her temperature. The foot has a foul odor. She is afebrile here. I do not know if the wound cultures from the ER were initially followed up on, but they showed 3 organisms, 2 g negatives and a staph aureus. Fortunately all of them had good sensitivities, but Keflex may have not been effective on 1 of them. She is being admitted for antibiotics, vascular studies, and a surgical consultation. 12/29/2018. No acute events overnight. s/p post left metatarsal amputation by surgery, complaining of continued pain, any shortness of breath, chills, nausea, vomiting, diarrhea, constipation or any urinary symptoms. 12/30/2018. No acute events overnight. Patient still complaining persistent lower extremity pain. Denying any nausea, vomiting, diarrhea constipation or any urinary symptoms. Patient is p.o. tolerant having normal bowel and bladder movements. 12/31/2018. No acute events overnight. Patient could not get a good night sleep, still complaining of bilateral lower extremity pain but much improvement since yesterday. Denies any fever, chills, nausea, vomiting, diarrhea, constipation or any urinary symptoms. P.o. tolerant. 01/01/2019. No acute events overnight. Patient very pleasant and cooperative physical examination. She sitting in recliner chair enjoying her lunch was surrounded by her family. And that her sleep is improved and lower extremity pain has also significantly has improved. Reports one bowel movement since surgery, p.o. tolerant. Denies any fever, chills, nausea, vomiting, diarrhea, constipation or any urinary symptoms. Reason For Visit: RECURRENT CELLULITIS,NONCOMPLIANCE Physical Exam Vital Signs: Temp Pulse Resp BP Pulse Ox 98.1 F 62 17 148/62 H 92 01/01/19 08:00 01/01/19 08:00 01/01/19 08:00 01/01/19 08:00 01/01/19 08:00 Intake & Output 12/31/18 01/01/19 01/02/19 06:59 06:59 06:59 Intake Total 1400 1560 100 Output Total 2850 1600 Balance -1450 -40 100 Weight 108.2 kg 107.8 kg General appearance: PRESENT: no acute distress, well-developed, well-nourished Head exam: PRESENT: atraumatic, normocephalic Respiratory exam: PRESENT: clear to auscultation shreyas. ABSENT: rales, rhonchi, wheezes Cardiovascular exam: PRESENT: RRR. ABSENT: diastolic murmur, rubs, systolic mur mur Pulses: PRESENT: +1 pedal pulses bilateral GI/Abdominal exam: PRESENT: normal bowel sounds, soft. ABSENT: distended, guarding, mass, organolmegaly, rebound, tenderness Extremities exam: PRESENT: full ROM, other - wound VAC in place. ABSENT: calf tenderness, clubbing, pedal edema Results Laboratory Results: 01/01/19 08:02 01/01/19 08:02 01/01/19 01/01/19 08:02 08:02 WBC 10.5 RBC 3.64 L Hgb 9.8 L Hct 29.8 L MCV 82 MCH 27.0 MCHC 32.9 RDW 14.8 H Plt Count 430 Seg Neutrophils % Not Reportable Lymphocytes % Not Reportable Monocytes % Not Reportable Eosinophils % Not Reportable Basophils % Not Reportable Absolute Neutrophils Not Reportable Absolute Lymphocytes Not Reportable Absolute Monocytes Not Reportable Absolute Eosinophils Not Reportable Absolute Basophils Not Reportable Sodium 139.6 Potassium 4.6 Chloride 102 Carbon Dioxide 29 Anion Gap 9 BUN 15 Creatinine 0.81 Est GFR ( Amer) > 60 Est GFR (Non-Af Amer) > 60 Glucose 107 Calcium 9.1 Magnesium 1.6 Total Bilirubin 0.5 AST 17 ALT 23 Alkaline Phosphatase 231 H Total Protein 6.2 L Albumin 2.8 L 12/27/18 12/27/18 01/01/19 18:19 18:19 08:02 Creatine Kinase 39 < 20 L CK-MB (CK-2) < 0.22 Troponin I < 0.012 01/01/19 08:02 Creatine Kinase CK-MB (CK-2) < 0.22 Troponin I < 0.012 Impressions: Chest X-Ray 12/27/18 16:39 IMPRESSION: CARDIAC ENLARGEMENT. VASCULAR CONGESTION. Worse than previous. Foot X-Ray 12/27/18 16:41 IMPRESSION: Gas in the soft tissues about the seconds and 4th toe suggest gangrene. No obvious osteomyelitis. Charcot joint. Assessment and Plan - Diagnosis (1) Gangrenous toe Is this a current diagnosis for this admission?: Yes Plan: Due to underlying severe PAD complicated by diabetes. Day 5 s/p left transmetatarsal amputation. Wound VAC placed. 01/01/2019. WBC 10.5, hemoglobin 9.8, platelets 430 12/31/2018. WBC 8.0, hemoglobin 9.4, platelets 385 12/30/2018. WBC 8.2, hemoglobin 9.1 12/27/2018. ESR > 120, CRP 171.8, WBC 15.5, pls 361. 12/27/2018. Foot x-ray gas in the soft tissue about the second and fourth toe suggestive of gangrene. No osteomyelitis. 12/27/2018. Bilateral lower extremity arterial Doppler. Severe hemodynamically significant lesion in the bilateral lower extremity on duplex imaging at rest. Day 5 of vancomycin and Zosyn. Cultures negative. Unfortunately no wound cultures were obtained. Will switch to p.o. antibiotics tomorrow. (2) Anemia Is this a current diagnosis for this admission?: Yes Plan: Normocytic. Likely anemia of chronic disease and iron deficiency anemia combined exacerbated by recent transmetatarsal amputation of the left foot. Status post 2 PRBC transfusion on 12/29/2018. 01/01/2019. WBC 10.5, hemoglobin 9.8, platelets 430 12/31/2018. WBC 8.0, hemoglobin 9.4, platelets 385 12/30/2018. WBC 8.2, hemoglobin 9.1 up from 7.6 status post 2 PRBC transfusion on 12/29/2018, platelets 341 Iron work-up positive for severe iron deficiency anemia. 12/29/2018. Iron <10.1, TIBC 202, ferritin 247. Received 1 dose of Injectafer on 12/29/2018. Pending stool guaiac. Denies any history of GI malignancy melena, hematochezia, vaginal bleeding, hematemesis, hemoptysis. If stool guaiac positive will consult surgery for EGD/colonoscopy. (3) CAD status post 3 stent placement Is this a current diagnosis for this admission?: No Plan: Continue FABRIZIO, beta blockers, aspirin, DAPT, statins. Denies any anginal symptoms. (4) CHF (congestive heart failure) Is this a current diagnosis for this admission?: No Plan: Not acutely exacerbated. Euvolemic. 10/25/2015. 2D echo ejection fraction more than 70%. Continue cardiac diet, diuretics, FABRIZIO, beta blockers. (5) Hypertension Qualifiers: Qualified Code(s): I10 - Essential (primary) hypertension Is this a current diagnosis for this admission?: No Plan: Euvolemic. Normotensive. Continue current meds. 12/31/2018: SBP 114-142, T-max 98.4, pulse 50s to 60s, RR 18-20, SPO2 88-96 on 2 L NC. 12/30/2018: SBP 107-138, T-max 98.3, pulse 54-60, respiratory rate 18-20, FiO2 90 to 98% on 2 L NC. (6) PAD (peripheral artery disease) Is this a current diagnosis for this admission?: No Plan: Which may have contributed to his recurrent nonhealing foot wounds. I contacted radiology department talk to Dr. Ray who graciously said that she will talk to Dr. Pyle and they may be able to do some type of intervention either here inpatient or as outpatient. 12/27/2018. BLE arterial Doppler. Severe hemodynamically significant lesion in the bilateral lower extremity on duplex imaging at rest. While will continue aspirin and statins. Please follow-up with IR. (7) Diabetes Qualifiers: Diabetes mellitus type: type 2 Diabetes mellitus complication status: with circulatory complication Diabetes mellitus complication detail: with peripheral angiopathy with gangrene Is this a current diagnosis for this admission?: No Plan: Controlled. Hemoglobin A1c on 11/26/2018 10.8%. 12/31/2018: FBG 110, POC glucose 85-125 Diabetic diet, sliding scale insulin, Lantus, pre-meal insulin. Will adjust dosage as needed. Outpatient PCP follow-up. Patient may benefit from oral antidiabetic as outpatient. (8) Depression Is this a current diagnosis for this admission?: Yes Plan: Denies homicidal or suicidal ideation. Chronic untreated depression. Started on low-dose mirtazapine. Reports improvement of first depressive symptoms. She is also getting better sleep since being started on mirtazapine. She needs to follow-up with PCP for readjustment of her dosage.
[2019-01-01 16:10] LABS: CREATINE KINASE MB < 0.22 ng/mL (<4.55); TROPONIN I < 0.012 ng/mL
--- NOTE | 2019-01-01 16:28 | PSYCHOLOGICAL NOTE ---
Psych Note - Psych Note Date seen by psych provider: 01/01/19 Time seen by psych provider: 08:50 - 0900 Psych Note: Reason for Consult: Noncompliance, poor coping, cries constantly GERARD COHN is a 73 year old female who has a history of noncompliance with her medications and uncontrolled diabetes who was recently hospitalized here for a nonhealing cellulitis on her left foot. Patient is very pleasant and reports that after leaving the hospital she is supposed to go to rehab; "I have to learn how to walk now." She reports that she came here from [place] after living in [place] for approximately 27 years. She continued to disclose that she has family both in [place], [place] and [place]. She states that when she came to [place] she bought land and is sad that now she is going to have to go back to live with family. She disclosed that her son lives in [place] and she has 3 grandchildren. She states that she is unable to live alone anymore "I cannot do that anymore I am too old." She states that her family came to visit her yesterday. The patient came to [facility] from [place] when she was 23 years old and states she still has family in [place]. Patient denies having mental health diagnosis however notes that she has been forgetting things because of her "age." When asked about medication she was able to report that she has medications for her diabetes, high cholesterol, high blood pressure, and heart. She reports that she has more medications but is unable to remember what therefore. Her sister and daughter help the patient divide her medications into a pill counter as soon as she receives them because she started to have difficulty remembering to take her medications. She did not feel that this was an issue however she states "I do not ever forget about my money... how much I have...where it is." She reports that over the last 2 months she has been forgetting where her money is and states "I will lose my money if I cannot remember so it is time to go stay with family." Patient is alert and orientated to person, place, time and circumstance. Mood is euthymic with congruent affect as evidenced by smiling and engaging with clinician. Patient denies suicidal homicidal ideation. Delusions are absent behaviors congruent with an intact reality based presentation i.e. organized and linear thought process. Eye contact was well-maintained. Conversational speech is within normal rate, tone and prosody. Intellectual abilities appear to be within the average range. Attention and concentration are good. Insight, judgment, impulse control are good as evidenced by patient recognizing her neurodegenerative processes and putting in safeguards i.e. asking family to help her with her medications and now identifies needing to live with family as she is unable to keep track of her money. No medication recommendations at this time V62.9 (Z65.9) unspecified problems related to unspecified psychosocial circumstance (foot amputation, age related neurodegenerative processes) Impression\\plan: Patient is cleared from acute psychiatric services. Patient does not meet IVC criteria per [place] GS 122C. Patient appears to be experiencing neurodegenerative processes and has noticed her decline in cognitive abilities. Patient reports that she needs to go to rehab upon leaving the hospital so she can learn to walk again. After that she states that she is going to stay with family as just having them help her with her medications is no longer enough because she recognizes she cannot keep track of her own personal finances and medical care. Patient is encouraged to follow through with her develop plan of care. Please reconsult if new concerns arise. Dr. Loo was consulted and care management of this patient; attending physicians in agreement with augmentations and disposition.
[2019-01-01] MEDS: ATORVASTATIN CALCIUM 20 MG TABLET PO SCH (21:54)
[2019-01-01] MEDS: INSULIN GLARGINE,HUM.REC.ANLOG 1,000 UNIT/10 ML VIAL SUBCUT SCH (21:57)
[2019-01-01 22:04] LABS: CREATINE KINASE MB < 0.22 ng/mL (<4.55); TROPONIN I < 0.012 ng/mL
[2019-01-02] MEDS: PIPERACILLIN SODIUM/TAZOBACTAM 3.375 GM in NORMAL SALINE 100 ML IV SCH ×2 (00:55→06:03)
[2019-01-02 07:05] LABS: ABSOLUTE BASOPHILS # (AUTO) 0.1 10^3/uL (0.0-0.2); ABSOLUTE EOSINOPHILS # (AUTO) 0.2 10^3/uL (0.0-0.6); ABSOLUTE MONOCYTES (AUTO) 0.8 10^3/uL (0.1-1.4); ABSOLUTE NEUT (AUTO) 7.1 10^3/uL (1.7-8.2); BASOPHILS % (AUTO) 0.7 % (0-2); EOSINOPHILS % (AUTO) 2.4 % (0-6); HEMATOCRIT 30.2 % (36.0-47.0); HEMOGLOBIN 9.9 g/dL (12.0-15.5); LYMPHOCYTES % (AUTO) 19.8 % (13-45); MEAN CORPUSCULAR HGB CONC 32.6 g/dL (32.0-36.0); MEAN CORPUSCULAR VOLUME 83 fl (80-97); MONOCYTES % (AUTO) 7.5 % (3-13); PLATELET COUNT 426 10^3/uL (150-450); RED BLOOD COUNT 3.66 10^6/uL (3.72-5.28); RED CELL DISTRIBUTION WIDTH 14.6 % (11.5-14.0); SEGMENTED NEUTROPHILS % (AUTO) 69.6 % (42-78); TOTAL CELLS COUNTED % (AUTO) 100 %; WHITE BLOOD COUNT 10.2 10^3/uL (4.0-10.5)
[2019-01-02 07:30] LABS: ALANINE AMINOTRANSFERASE 20 U/L (9-52); ALBUMIN 2.8 g/dL (3.5-5.0); ALKALINE PHOSPHATASE 206 U/L (38-126); ANION GAP 9 (5-19); ASPARTATE AMINO TRANSFERASE 15 U/L (14-36); BILIRUBIN,DIRECT 0.4 mg/dL (0.0-0.4); BILIRUBIN,TOTAL 0.5 mg/dL (0.2-1.3); BLOOD UREA NITROGEN 14 mg/dL (7-20); CALCIUM 8.9 mg/dL (8.4-10.2); CARBON DIOXIDE 28 mmol/L (22-30); CHLORIDE 104 mmol/L (98-107); GLUCOSE 95 mg/dL (75-110); POTASSIUM 4.2 mmol/L (3.6-5.0); SODIUM 141.2 mmol/L (137-145); TOTAL PROTEIN 6.3 g/dL (6.3-8.2)
[2019-01-02] MEDS: INSULIN LISPRO 100 UNIT/ML 3 ML VIAL SUBCUT SCH ×4 (09:26→21:24)
[2019-01-02] MEDS ORDERED: BISACODYL 5 MG TABEC PO PRN (09:46)
[2019-01-02] MEDS ORDERED: BISACODYL 10 MG SUPP.RECT PR PRN (09:46)
--- NOTE | 2019-01-02 09:57 | PDOC PROGRESS REPORT ---
Subjective Progress Note for:: 01/02/19 Subjective:: Patient was sitting in the bedside chair. She had slid down somewhat. She was complaining that she wanted to sit up. 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 ABSENT: scleral icterus Ear exam: PRESENT: normal external ear exam Mouth exam: PRESENT: moist, neck supple, tongue midline Respiratory exam: PRESENT: clear to auscultation shreyas. ABSENT: accessory muscle use, rales, rhonchi, wheezes Cardiovascular exam: PRESENT: RRR, +S1, +S2, systolic murmur - 3/6 rumbling murmur GI/Abdominal exam: PRESENT: hypoactive bowel sounds, soft, other - Protuberant abdomen. ABSENT: distended, guarding, tenderness Extremities exam: PRESENT: pedal edema, other - Left transmetatarsal amputation with wound VAC in place Neurological exam: PRESENT: alert, awake, oriented to person, oriented to place, oriented to situation Psychiatric exam: PRESENT: other - Patient is quite uncomfortable and wants to sit up.. ABSENT: agitated, anxious Focused psych exam: PRESENT: restlessness - As above. ABSENT: delusional Results Laboratory Results: 01/02/19 06:41 01/02/19 06:41 01/01/19 01/02/19 01/02/19 08:02 06:41 06:41 WBC 10.5 10.2 RBC 3.64 L 3.66 L Hgb 9.8 L 9.9 L Hct 29.8 L 30.2 L MCV 82 83 MCH 27.0 27.0 MCHC 32.9 32.6 RDW 14.8 H 14.6 H Plt Count 430 426 Seg Neutrophils % Not Reportable 69.6 Lymphocytes % Not Reportable 19.8 Monocytes % Not Reportable 7.5 Eosinophils % Not Reportable 2.4 Basophils % Not Reportable 0.7 Absolute Neutrophils Not Reportable 7.1 Absolute Lymphocytes Not Reportable 2.0 Absolute Monocytes Not Reportable 0.8 Absolute Eosinophils Not Reportable 0.2 Absolute Basophils Not Reportable 0.1 Sodium 141.2 Potassium 4.2 Chloride 104 Carbon Dioxide 28 Anion Gap 9 BUN 14 Creatinine 0.85 Est GFR ( Amer) > 60 Est GFR (Non-Af Amer) > 60 Glucose 95 Calcium 8.9 Total Bilirubin 0.5 AST 15 ALT 20 Alkaline Phosphatase 206 H Total Protein 6.3 Albumin 2.8 L 12/27/18 18:19 Blood Blood Culture - Final NO GROWTH IN 5 DAYS 12/27/18 17:01 Blood Blood Culture - Final NO GROWTH IN 5 DAYS 12/27/18 12/27/18 01/01/19 18:19 18:19 08:02 Creatine Kinase 39 < 20 L CK-MB (CK-2) < 0.22 Troponin I < 0.012 01/01/19 01/01/19 01/01/19 08:02 15:12 15:12 Creatine Kinase < 20 L CK-MB (CK-2) < 0.22 < 0.22 Troponin I < 0.012 < 0.012 01/01/19 01/01/19 21:05 21:05 Creatine Kinase < 20 L CK-MB (CK-2) < 0.22 Troponin I < 0.012 Impressions: Chest X-Ray 12/27/18 16:39 IMPRESSION: CARDIAC ENLARGEMENT. VASCULAR CONGESTION. Worse than previous. Foot X-Ray 12/27/18 16:41 IMPRESSION: Gas in the soft tissues about the seconds and 4th toe suggest gangrene. No obvious osteomyelitis. Charcot joint. Assessment and Plan - Diagnosis (1) Gangrenous toe Is this a current diagnosis for this admission?: Yes Plan: Due to underlying severe PAD complicated by diabetes. Day 5 s/p left transmetatarsal amputation. Wound VAC placed. 01/01/2019. WBC 10.5, hemoglobin 9.8, platelets 430 12/31/2018. WBC 8.0, hemoglobin 9.4, platelets 385 12/30/2018. WBC 8.2, hemoglobin 9.1 12/27/2018. ESR > 120, CRP 171.8, WBC 15.5, pls 361. 12/27/2018. Foot x-ray gas in the soft tissue about the second and fourth toe suggestive of gangrene. No osteomyelitis. 12/27/2018. Bilateral lower extremity arterial Doppler. Severe hemodynamically significant lesion in the bilateral lower extremity on duplex imaging at rest. Day 5 of vancomycin and Zosyn. Cultures negative. Unfortunately no wound cultures were obtained. Will switch to p.o. antibiotics tomorrow. 01/02/2019-the patient is uncomfortable sitting with her legs elevated. It does not seem to be associated with her surgical wound with VAC dressing. The VAC unit indicates no air leak at this time. Will change to p.o. antibiotics today as noted above. Vancomycin and Zosyn discontinued and Augmentin initiated. Surgery following the wound as well. (2) Anemia Qualifiers: Anemia type: iron deficiency Is this a current diagnosis for this admission?: Yes Plan: Normocytic. Likely anemia of chronic disease and iron deficiency anemia combined exacerbated by recent transmetatarsal amputation of the left foot. Status post 2 PRBC transfusion on 12/29/2018. 01/01/2019. WBC 10.5, hemoglobin 9.8, platelets 430 12/31/2018. WBC 8.0, hemoglobin 9.4, platelets 385 12/30/2018. WBC 8.2, hemoglobin 9.1 up from 7.6 status post 2 PRBC transfusion on 12/29/2018, platelets 341 Iron work-up positive for severe iron deficiency anemia. 12/29/2018. Iron <10.1, TIBC 202, ferritin 247. Received 1 dose of Injectafer on 12/29/2018. Pending stool guaiac. Denies any history of GI malignancy melena, hematochezia, vaginal bleeding, hematemesis, hemoptysis. If stool guaiac positive will consult surgery for EGD/colonoscopy. 01/02/2018-white blood cell count 10.2 with a hemoglobin of 9.9 today. Due to profound iron deficiency we will give another dose of IV iron today. Continue to monitor hemoglobin. (3) CAD status post 3 stent placement Is this a current diagnosis for this admission?: Yes Plan: Currently without anginal symptoms. Serial troponins were negative. Continue to monitor for symptoms of acute coronary syndrome. Continue all of current medications. (4) CHF (congestive heart failure) Is this a current diagnosis for this admission?: No Plan: Not acutely exacerbated. Euvolemic. 10/25/2015. 2D echo ejection fraction more than 70%. Continue cardiac diet, diuretics, FABRIZIO, beta blockers. 01/02/2019-currently asymptomatic. Currently has net positive fluid balance. Continue to monitor. Systolic pressure is slightly elevated. She may benefit from additional furosemide. (5) Hypertension Qualifiers: Hypertension type: essential hypertension Qualified Code(s): I10 - Essential (primary) hypertension Is this a current diagnosis for this admission?: Yes Plan: 01/02/2019-as noted above the systolic blood pressure is slightly high. She may benefit from an increase in furosemide consistent with her net positive fluid balance) or enalapril. We will continue to monitor. Adjust medications if still high over the next 24 to 48 hours. With her peripheral arterial disease she does need slightly higher pressures for perfusion. (6) PAD (peripheral artery disease) Is this a current diagnosis for this admission?: Yes Plan: Which may have contributed to his recurrent nonhealing foot wounds. I contacted radiology department talk to Dr. Ray who graciously said that she will talk to Dr. Pyle and they may be able to do some type of intervention either here inpatient or as outpatient. 12/27/2018. BLE arterial Doppler. Severe hemodynamically significant lesion in the bilateral lower extremity on duplex imaging at rest. While will continue aspirin and statins. Please follow-up with IR. 01/02/2019-as noted above the patient does have significant peripheral arterial disease. This will directly affect healing and likely contributed to the adverse outcome of her diabetic ulcer. Continue antiplatelet therapy. She is also on statin therapy. Follow-up with Dr. Edenilson Nicole as an outpatient. (7) Diabetes Qualifiers: Diabetes mellitus type: type 2 Diabetes mellitus complication status: with circulatory complication Diabetes mellitus complication detail: with peripheral angiopathy with gangrene Is this a current diagnosis for this admission?: No Plan: Controlled. Hemoglobin A1c on 11/26/2018 10.8%. 12/31/2018: FBG 110, POC glucose 85-125 Diabetic diet, sliding scale insulin, Lantus, pre-meal insulin. Will adjust dosage as needed. Outpatient PCP follow-up. Patient may benefit from oral antidiabetic as outpatient. 01/02/2019-excellent control of glucose with Lantus and sliding scale. Despite the metformin being checked to continue on her medication reconciliation, that she is metformin. Consider resuming if her sugars increase. (8) Depression Is this a current diagnosis for this admission?: Yes Plan: Denies homicidal or suicidal ideation. Chronic untreated depression. Started on low-dose mirtazapine. Reports improvement of first depressive symptoms. She is also getting better sleep since being started on mirtazapine. She needs to follow-up with PCP for readjustment of her dosage. 01/02/2019-initiated on low-dose mirtazapine as noted above. Symptoms appear to be improving. She was also seen by psychiatry. Please see their note as well. (9) Constipation by delayed colonic transit Is this a current diagnosis for this admission?: Yes Plan: No evidence of a bowel movement on the intake and output chart. I will start MiraLAX daily as well as Colace and Dulcolax on an as-needed basis. This would account for the stool for occult blood samples not being collected yet. - Time Time Spent with patient: 15-24 minutes Medications reviewed and adjusted accordingly: Yes
--- NOTE | 2019-01-02 10:09 | PDOC PROGRESS REPORT ---
Subjective Progress Note for:: 01/02/19 Subjective:: Patient is sitting in the chair, wound VAC removed, crying. Reason For Visit: RECURRENT CELLULITIS,NONCOMPLIANCE Physical Exam Vital Signs: Temp Pulse Resp BP Pulse Ox 97.7 F 59 L 17 151/54 H 92 01/02/19 07:43 01/02/19 07:43 01/02/19 07:43 01/02/19 07:43 01/02/19 07:43 Intake & Output 01/01/19 01/02/19 01/03/19 06:59 06:59 06:59 Intake Total 1560 1300 Output Total 1600 Balance -40 1300 Weight 107.8 kg 106.9 kg General appearance: PRESENT: other - Crying, mild to moderate distress Musculoskeletal exam: PRESENT: other - VAC off; open trans-met exposed; skin intact; open wound with minimal granulation tissue; no foul smell no active drainage. Approximation nonabsorbable sutures still in place. The foot is room temperature. Results Laboratory Results: 01/02/19 06:41 01/02/19 06:41 01/02/19 01/02/19 06:41 06:41 WBC 10.2 RBC 3.66 L Hgb 9.9 L Hct 30.2 L MCV 83 MCH 27.0 MCHC 32.6 RDW 14.6 H Plt Count 426 Seg Neutrophils % 69.6 Lymphocytes % 19.8 Monocytes % 7.5 Eosinophils % 2.4 Basophils % 0.7 Absolute Neutrophils 7.1 Absolute Lymphocytes 2.0 Absolute Monocytes 0.8 Absolute Eosinophils 0.2 Absolute Basophils 0.1 Sodium 141.2 Potassium 4.2 Chloride 104 Carbon Dioxide 28 Anion Gap 9 BUN 14 Creatinine 0.85 Est GFR ( Amer) > 60 Est GFR (Non-Af Amer) > 60 Glucose 95 Calcium 8.9 Total Bilirubin 0.5 AST 15 ALT 20 Alkaline Phosphatase 206 H Total Protein 6.3 Albumin 2.8 L 12/27/18 18:19 Blood Blood Culture - Final NO GROWTH IN 5 DAYS 12/27/18 17:01 Blood Blood Culture - Final NO GROWTH IN 5 DAYS 12/27/18 12/27/18 01/01/19 18:19 18:19 08:02 Creatine Kinase 39 < 20 L CK-MB (CK-2) < 0.22 Troponin I < 0.012 0501/01/19 01/01/19 08:02 15:12 15:12 Creatine Kinase < 20 L CK-MB (CK-2) < 0.22 < 0.22 Troponin I < 0.012 < 0.012 01/01/19 01/01/19 21:05 21:05 Creatine Kinase < 20 L CK-MB (CK-2) < 0.22 Troponin I < 0.012 Impressions: Chest X-Ray 12/27/18 16:39 IMPRESSION: CARDIAC ENLARGEMENT. VASCULAR CONGESTION. Worse than previous. Foot X-Ray 12/27/18 16:41 IMPRESSION: Gas in the soft tissues about the seconds and 4th toe suggest gangrene. No obvious osteomyelitis. Charcot joint. Assessment & Plan - Diagnosis (1) S/P transmetatarsal amputation of foot Qualifiers: Laterality: left Qualified Code(s): Z89.432 - Acquired absence of left foot Is this a current diagnosis for this admission?: Yes Plan: Impression: Patient is a operative day 5 status post left transmetatarsal amputation. No wound cultures documented. Sepsis source appears control however wound healing by secondary intention using wound VAC poor; I am concerned patient does not have sufficient arterial inflow. Recommendations: 1. Continue local wound care with wound VAC, leg elevation and IV antibiotics 2. We will discuss level of aggressiveness of intent to salvage left transmetatarsal amputation in light of compromised arterial circulation; she may require transfer to tertiary care facility, such as [facility] [place], with Dr. Benton Adams, vascular surgeon intervening; I discussed the above with Dr. Ace Givens today.
[2019-01-02] MEDS: CHOLECALCIFEROL (D3) 1,000 UNIT TABLET PO SCH (10:17)
[2019-01-02] MEDS: GABAPENTIN 300 MG CAPSULE PO SCH (10:17)
[2019-01-02] MEDS: DOCUSATE SODIUM 100 MG CAPSULE PO SCH ×2 (10:17→17:17)
[2019-01-02] MEDS: ASPIRIN 81 MG TABLET, ENT COATED PO SCH (10:17)
[2019-01-02] MEDS: CARVEDILOL 6.25 MG TABLET PO SCH ×2 (10:17→21:28)
[2019-01-02] MEDS: CLOPIDOGREL BISULFATE 75 MG TABLET PO SCH (10:18)
[2019-01-02] MEDS: LISINOPRIL 5 MG TABLET PO SCH (10:18)
[2019-01-02] MEDS: POLYETHYLENE GLYCOL 3350 POWDER 17 GM/1 PACKET PO SCH (10:18)
[2019-01-02] MEDS: ENOXAPARIN SODIUM INJ 30 MG/0.3 ML DISP.SYRIN SUBCUT SCH (10:19)
[2019-01-02] MEDS ORDERED: IRON SUCROSE COMPLEX INJ/PF 100 MG/5 ML SDV IV ONE ×2 (10:30→13:30)
[2019-01-02] MEDS: AMOXICILLIN TR/POT CLAVULANATE 500-125 MG TAB PO SCH ×2 (13:15→17:17)
[2019-01-02] MEDS: INSULIN GLARGINE,HUM.REC.ANLOG 1,000 UNIT/10 ML VIAL SUBCUT SCH (21:24)
[2019-01-02] MEDS: MIRTAZAPINE 15 MG TABLET PO SCH (21:27)
[2019-01-02] MEDS: ATORVASTATIN CALCIUM 20 MG TABLET PO SCH (21:28)
[2019-01-03 04:37] LABS: HEMATOCRIT 30.4 % (36.0-47.0); HEMOGLOBIN 10.1 g/dL (12.0-15.5); MEAN CORPUSCULAR HEMOGLOBIN 27.4 pg (27.0-33.4); MEAN CORPUSCULAR HGB CONC 33.3 g/dL (32.0-36.0); MEAN CORPUSCULAR VOLUME 82 fl (80-97); PLATELET COUNT 400 10^3/uL (150-450); WHITE BLOOD COUNT 8.8 10^3/uL (4.0-10.5)
[2019-01-03 04:58] LABS: ANION GAP 8 (5-19); BLOOD UREA NITROGEN 14 mg/dL (7-20); CALCIUM 9.5 mg/dL (8.4-10.2); CARBON DIOXIDE 29 mmol/L (22-30); CHLORIDE 105 mmol/L (98-107); GLUCOSE 114 mg/dL (75-110); POTASSIUM 4.4 mmol/L (3.6-5.0)
[2019-01-03] MEDS: INSULIN LISPRO 100 UNIT/ML 3 ML VIAL SUBCUT SCH ×4 (07:36→23:22)
[2019-01-03] MEDS: AMOXICILLIN TR/POT CLAVULANATE 500-125 MG TAB PO SCH ×3 (07:55→17:19)
[2019-01-03] MEDS: GABAPENTIN 300 MG CAPSULE PO SCH (09:13)
[2019-01-03] MEDS: CLOPIDOGREL BISULFATE 75 MG TABLET PO SCH (09:13)
[2019-01-03] MEDS: CARVEDILOL 6.25 MG TABLET PO SCH ×2 (09:13→23:29)
[2019-01-03] MEDS: LISINOPRIL 5 MG TABLET PO SCH (09:13)
[2019-01-03] MEDS: POLYETHYLENE GLYCOL 3350 POWDER 17 GM/1 PACKET PO SCH (09:13)
[2019-01-03] MEDS: ASPIRIN 81 MG TABLET, ENT COATED PO SCH (09:13)
[2019-01-03] MEDS: DOCUSATE SODIUM 100 MG CAPSULE PO SCH ×2 (09:13→17:19)
[2019-01-03] MEDS: CHOLECALCIFEROL (D3) 1,000 UNIT TABLET PO SCH (09:13)
[2019-01-03] MEDS: ENOXAPARIN SODIUM INJ 30 MG/0.3 ML DISP.SYRIN SUBCUT SCH (09:14)
[2019-01-03] MEDS: MORPHINE SULFATE 10 MG/ML INJ IV PRN (14:11)
--- NOTE | 2019-01-03 17:53 | PDOC PROGRESS REPORT ---
Subjective Progress Note for:: 01/03/19 Subjective:: The patient is resting in bed. Multiple family members visiting. She appears to be comfortable. Reason For Visit: RECURRENT CELLULITIS,NONCOMPLIANCE Physical Exam Vital Signs: Temp Pulse Resp BP Pulse Ox 98.3 F 63 18 148/76 H 93 01/03/19 12:00 01/03/19 12:00 01/03/19 12:00 01/03/19 12:00 01/03/19 12:00 Intake & Output 01/02/19 01/03/19 01/04/19 06:59 06:59 06:59 Intake Total 1300 980 Balance 1300 980 Weight 106.9 kg 106.9 kg General appearance: PRESENT: no acute distress, cooperative, obese, well-de veloped, other - Multiple family members at the bedside Head exam: PRESENT: atraumatic, normocephalic Mouth exam: PRESENT: moist, tongue midline Respiratory exam: PRESENT: rales - At bases, symmetrical, unlabored. ABSENT: de creased breath sounds, rhonchi, tachypnea, wheezes Cardiovascular exam: PRESENT: RRR, +S1, +S2, systolic murmur - 1-2/6 GI/Abdominal exam: PRESENT: normal bowel sounds, soft. ABSENT: distended, tenderness Rectal exam: PRESENT: deferred Extremities exam: PRESENT: other - VAC dressing on transmetatarsal amputation incision left foot. ABSENT: pedal edema Neurological exam: PRESENT: alert, awake, oriented to person, oriented to place, oriented to time, oriented to situation Psychiatric exam: PRESENT: flat affect. ABSENT: agitated, anxious Focused psych exam: ABSENT: delusional, restlessness Results Laboratory Results: 01/03/19 04:17 01/03/19 04:17 01/03/19 01/03/19 04:17 04:17 WBC 8.8 RBC 3.70 L Hgb 10.1 L Hct 30.4 L MCV 82 MCH 27.4 MCHC 33.3 RDW 15.0 H Plt Count 400 Sodium 142.0 Potassium 4.4 Chloride 105 Carbon Dioxide 29 Anion Gap 8 BUN 14 Creatinine 0.76 Est GFR ( Amer) > 60 Est GFR (Non-Af Amer) > 60 Glucose 114 H Calcium 9.5 Magnesium 1.8 12/27/18 12/27/18 01/01/19 18:19 18:19 08:02 Creatine Kinase 39 < 20 L CK-MB (CK-2) < 0.22 Troponin I < 0.012 01/01/19 01/01/19 01/01/19 08:02 15:12 15:12 Creatine Kinase < 20 L CK-MB (CK-2) < 0.22 < 0.22 Troponin I < 0.012 < 0.012 01/01/19 01/01/19 21:05 21:05 Creatine Kinase < 20 L CK-MB (CK-2) < 0.22 Troponin I < 0.012 Impressions: Chest X-Ray 12/27/18 16:39 IMPRESSION: CARDIAC ENLARGEMENT. VASCULAR CONGESTION. Worse than previous. Foot X-Ray 12/27/18 16:41 IMPRESSION: Gas in the soft tissues about the seconds and 4th toe suggest gangrene. No obvious osteomyelitis. Charcot joint. Assessment and Plan - Diagnosis (1) Gangrenous toe Is this a current diagnosis for this admission?: Yes Plan: Due to underlying severe PAD complicated by diabetes. Day 5 s/p left transmetatarsal amputation. Wound VAC placed. 01/01/2019. WBC 10.5, hemoglobin 9.8, platelets 430 12/31/2018. WBC 8.0, hemoglobin 9.4, platelets 385 12/30/2018. WBC 8.2, hemoglobin 9.1 12/27/2018. ESR > 120, CRP 171.8, WBC 15.5, pls 361. 12/27/2018. Foot x-ray gas in the soft tissue about the second and fourth toe suggestive of gangrene. No osteomyelitis. 12/27/2018. Bilateral lower extremity arterial Doppler. Severe hemodynamically significant lesion in the bilateral lower extremity on duplex imaging at rest. Day 5 of vancomycin and Zosyn. Cultures negative. Unfortunately no wound cultures were obtained. Will switch to p.o. antibiotics tomorrow. 01/02/2019-the patient is uncomfortable sitting with her legs elevated. It does not seem to be associated with her surgical wound with VAC dressing. The VAC unit indicates no air leak at this time. Will change to p.o. antibiotics today as noted above. Vancomycin and Zosyn discontinued and Augmentin initiated. Surgery following the wound as well. 01/03/2019-quite comfortable today. Now on oral Augmentin. The patient was discussed by general surgery with vascular surgery in [place]. They will see the patient as an outpatient. We will continue the VAC dressing and the patient will transition to group home facility tomorrow. Continue the same settings with back dressing changes Thursday, Thursday and Thursday. Moist saline dressing for transfer. (2) Anemia Qualifiers: Anemia type: iron deficiency Is this a current diagnosis for this admission?: Yes Plan: Normocytic. Likely anemia of chronic disease and iron deficiency anemia combined exacerbated by recent transmetatarsal amputation of the left foot. Status post 2 PRBC transfusion on 12/29/2018. 01/01/2019. WBC 10.5, hemoglobin 9.8, platelets 430 12/31/2018. WBC 8.0, hemoglobin 9.4, platelets 385 12/30/2018. WBC 8.2, hemoglobin 9.1 up from 7.6 status post 2 PRBC transfusion on 12/29/2018, platelets 341 Iron work-up positive for severe iron deficiency anemia. 12/29/2018. Iron <10.1, TIBC 202, ferritin 247. Received 1 dose of Injectafer on 12/29/2018. Pending stool guaiac. Denies any history of GI malignancy melena, hematochezia, vaginal bleeding, hematemesis, hemoptysis. If stool guaiac positive will consult surgery for EGD/colonoscopy. 01/02/2018-white blood cell count 10.2 with a hemoglobin of 9.9 today. Due to profound iron deficiency we will give another dose of IV iron today. Continue to monitor hemoglobin. 01/03/2018-hemoglobin continues to slowly improved. The patient has received 2 doses of intravenous iron and will start on oral iron supplementation chronically. (3) CAD status post 3 stent placement Is this a current diagnosis for this admission?: Yes Plan: Currently without anginal symptoms. Serial troponins were negative. Continue to monitor for symptoms of acute coronary syndrome. Continue all of current medications. 01/03/2019-no changes in treatment regimen as the patient is stable and without symptoms. (4) CHF (congestive heart failure) Is this a current diagnosis for this admission?: No Plan: Not acutely exacerbated. Euvolemic. 10/25/2015. 2D echo ejection fraction more than 70%. Continue cardiac diet, diuretics, FABRIZIO, beta blockers. 01/02/2019-currently asymptomatic. Currently has net positive fluid balance. Continue to monitor. Systolic pressure is slightly elevated. She may benefit from additional furosemide. 01/03/2019-minimally net positive fluid balance yesterday. Rales at bases are more likely to be atelectasis. I have ordered an incentive spirometer. Continue to monitor intake and output. (5) Hypertension Qualifiers: Hypertension type: essential hypertension Qualified Code(s): I10 - Essential (primary) hypertension Is this a current diagnosis for this admission?: Yes Plan: 01/02/2019-as noted above the systolic blood pressure is slightly high. She may benefit from an increase in furosemide consistent with her net positive fluid balance) or enalapril. We will continue to monitor. Adjust medications if st ill high over the next 24 to 48 hours. With her peripheral arterial disease she does need slightly higher pressures for perfusion. 01/03/2019-still with slightly elevated systolic pressures. I will resume her previous dose of 40 mg Lasix p.o. daily. Continue to monitor blood pressure. (6) PAD (peripheral artery disease) Is this a current diagnosis for this admission?: Yes Plan: Which may have contributed to his recurrent nonhealing foot wounds. I contacted radiology department talk to Dr. Ray who graciously said that she will talk to Dr. Pyle and they may be able to do some type of intervention either here inpatient or as outpatient. 12/27/2018. BLE arterial Doppler. Severe hemodynamically significant lesion in the bilateral lower extremity on duplex imaging at rest. While will continue aspirin and statins. Please follow-up with IR. 01/02/2019-as noted above the patient does have significant peripheral arterial disease. This will directly affect healing and likely contributed to the adverse outcome of her diabetic ulcer. Continue antiplatelet therapy. She is also on statin therapy. Follow-up with Dr. Edenilson Nicole as an outpatient. 01/03/2019-as noted above Dr. Thomason was able to speak to Dr. Adams. An outpatient appointment will be set up for this week. For the time being continue antiplatelet therapy as well as statin therapy and antihypertensive medications. (7) Diabetes Qualifiers: Diabetes mellitus type: type 2 Diabetes mellitus complication status: with circulatory complication Diabetes mellitus complication detail: with peripheral angiopathy with gangrene Is this a current diagnosis for this admission?: No Plan: Controlled. Hemoglobin A1c on 11/26/2018 10.8%. 12/31/2018: FBG 110, POC glucose 85-125 Diabetic diet, sliding scale insulin, Lantus, pre-meal insulin. Will adjust dosage as needed. Outpatient PCP follow-up. Patient may benefit from oral antidiabetic as outpatient. 01/02/2019-excellent control of glucose with Lantus and sliding scale. Despite the metformin being checked to continue on her medication reconciliation, that she is metformin. Consider resuming if her sugars increase. 01/03/2019-still with good glucose control. I will resume metformin at discharge. (8) Depression Is this a current diagnosis for this admission?: Yes Plan: Denies homicidal or suicidal ideation. Chronic untreated depression. Started on low-dose mirtazapine. Reports improvement of first depressive symptoms. She is also getting better sleep since being started on mirtazapine. She needs to follow-up with PCP for readjustment of her dosage. 01/02/2019-initiated on low-dose mirtazapine as noted above. Symptoms appear to be improving. She was also seen by psychiatry. Please see their note as well. 01/03/2019-appears to be in good spirits. Continue low-dose mirtazapine. (9) Constipation by delayed colonic transit Is this a current diagnosis for this admission?: Yes Plan: No evidence of a bowel movement on the intake and output chart. I will start MiraLAX daily as well as Colace and Dulcolax on an as-needed basis. This would account for the stool for occult blood samples not being collected yet. 01/03/2019-now on daily MiraLAX and twice daily Colace. Bisacodyl available as needed. - Time Time Spent with patient: 15-24 minutes Medications reviewed and adjusted accordingly: Yes Anticipated discharge: SNF Within: within 24 hours
[2019-01-03] MEDS: FERROUS SULFATE 325 MG TABLET PO SCH (18:03)
--- NOTE | 2019-01-03 18:54 | PDOC PROGRESS REPORT ---
Subjective Progress Note for:: 01/03/19 Reason For Visit: RECURRENT CELLULITIS,NONCOMPLIANCE Physical Exam Vital Signs: Temp Pulse Resp BP Pulse Ox 97.9 F 57 L 18 154/55 H 99 01/03/19 16:00 01/03/19 16:00 01/03/19 16:00 01/03/19 16:00 01/03/19 16:00 Intake & Output 01/02/19 01/03/19 01/04/19 06:59 06:59 06:59 Intake Total 1300 980 450 Balance 1300 980 450 Weight 106.9 kg 106.9 kg Results Laboratory Results: 01/03/19 04:17 01/03/19 04:17 01/03/19 01/03/19 04:17 04:17 WBC 8.8 RBC 3.70 L Hgb 10.1 L Hct 30.4 L MCV 82 MCH 27.4 MCHC 33.3 RDW 15.0 H Plt Count 400 Sodium 142.0 Potassium 4.4 Chloride 105 Carbon Dioxide 29 Anion Gap 8 BUN 14 Creatinine 0.76 Est GFR ( Amer) > 60 Est GFR (Non-Af Amer) > 60 Glucose 114 H Calcium 9.5 Magnesium 1.8 12/27/18 12/27/18 01/01/19 18:19 18:19 08:02 Creatine Kinase 39 < 20 L CK-MB (CK-2) < 0.22 Troponin I < 0.012 01/01/19 01/01/19 01/01/19 08:02 15:12 15:12 Creatine Kinase < 20 L CK-MB (CK-2) < 0.22 < 0.22 Troponin I < 0.012 < 0.012 01/01/19 01/01/19 21:05 21:05 Creatine Kinase < 20 L CK-MB (CK-2) < 0.22 Troponin I < 0.012 Impressions: Chest X-Ray 12/27/18 16:39 IMPRESSION: CARDIAC ENLARGEMENT. VASCULAR CONGESTION. Worse than previous. Foot X-Ray 12/27/18 16:41 IMPRESSION: Gas in the soft tissues about the seconds and 4th toe suggest gangrene. No obvious osteomyelitis. Charcot joint. Assessment & Plan - Diagnosis (1) Diabetic foot infection Is this a current diagnosis for this admission?: Yes - Plan Summary Plan Summary: This is a 73-year-old female with a severe diabetic foot infection. She is status post transmetatarsal amputation. The wound VAC was removed and replaced by my partner Dr. Beavers yesterday. There is very little in the way of granulation tissue. This is likely due to her poor circulation below the knee. I have discussed the case with a vascular surgeon in [place], Dr. Adams. He is agreed to see the patient as an outpatient later this week. I will arrange for the patient to see Dr. Adams in [place] for an evaluation either this Thursday or . Continue wound VAC for now. Plan to discharge to SNF tomorrow. Surgical list service will see the patient again on an as-needed basis. Please renotify with questions or concerns.
[2019-01-03] MEDS ORDERED: ATORVASTATIN CALCIUM 40 MG TABLET PO SCH (22:00)
[2019-01-03] MEDS: MIRTAZAPINE 15 MG TABLET PO SCH (23:28)
[2019-01-03] MEDS: INSULIN GLARGINE,HUM.REC.ANLOG 1,000 UNIT/10 ML VIAL SUBCUT SCH (23:28)
[2019-01-04 00:17] VITALS: BP 129/76
[2019-01-04] MEDS: INSULIN LISPRO 100 UNIT/ML 3 ML VIAL SUBCUT SCH ×2 (07:40→12:54)
[2019-01-04] MEDS: AMOXICILLIN TR/POT CLAVULANATE 500-125 MG TAB PO SCH ×2 (08:13→12:58)
[2019-01-04] MEDS: FERROUS SULFATE 325 MG TABLET PO SCH (08:14)
--- NOTE | 2019-01-04 09:54 | PDOC TRANSFER SUMMARY ---
General - Admit/Disc Date/PCP Admission Date/Primary Care Provider: 12/27/18 19:11 ESTEE HASTINGS Discharge Date: 01/04/19 - Discharge Diagnosis (1) Gangrenous toe Is this a current diagnosis for this admission?: Yes Summary: The patient had a gangrenous left toe. After evaluation it was felt that transmetatarsal amputation was the best treatment considering her peripheral arterial disease. The patient did undergo the amputation approximately 1 week ago. She has had a negative pressure dressing in place since. The wound has remained clean however with very poor peripheral circulation (see Doppler study) there is no significant healing taking place. The patient will see vascular surgery on an outpatient basis. (2) Anemia Is this a current diagnosis for this admission?: Yes Summary: The patient has anemia of chronic disease. She did receive 2 units of packed red blood cells and I believe this was prior to her surgery. Continue to monitor her hemoglobin. Also continue daily iron supplement. She might benefit from vitamin C, B complex and protein supplements for wound healing. (3) CAD status post 3 stent placement Is this a current diagnosis for this admission?: Yes Summary: The patient has a history of coronary artery disease. No changes were made in her current medication regimen as she was symptom-free during this hospitalization. (4) CHF (congestive heart failure) Is this a current diagnosis for this admission?: No Summary: The patient has a history of chronic congestive heart failure. This was not an active problem during his hospitalization. We maintained her diuretic therapy and monitored her intake and output. (5) Hypertension Is this a current diagnosis for this admission?: Yes Summary: Blood pressure was reasonably controlled during this admission. Continue current regimen. (6) PAD (peripheral artery disease) Is this a current diagnosis for this admission?: Yes Summary: Please also see the Doppler study. The patient has severe peripheral arterial disease. She is on aspirin and Plavix as well as statin therapy. Because it will impair wound healing and possibly lead to further amputation, the patient will be seeing vascular surgery (Dr. Adams) this week to assess for possib le interventions. This will hopefully improve wound healing and prevent further amputations in the future. (7) Diabetes Is this a current diagnosis for this admission?: Yes Summary: Continue cardiac and diabetic diet. She is on metformin as well as insulin. We have adjusted her insulin based on her sliding scale requirements. (8) Depression Is this a current diagnosis for this admission?: Yes Summary: The patient has been in good spirits lately. She has been started on low-dose mirtazapine and is responding quite well. Continue same medication. (9) Constipation by delayed colonic transit Is this a current diagnosis for this admission?: Yes Summary: We have increased the bowel regimen for the patient. She is now on MiraLAX and Colace. She also has as needed medications available. - Additional Information Discharge Diet: Cardiac, Diabetic Discharge Activity: Activity As Tolerated - Heel weightbearing on left foot Home Medications: Aspirin [Adult Low Dose Aspirin EC] 81 mg PO DAILY 12/27/18 Atorvastatin Calcium [Lipitor 20 mg Tablet] 20 mg PO QHS 12/27/18 Carvedilol [Coreg 12.5 mg Tablet] 12.5 mg PO Q12 12/27/18 Cholecalciferol (Vitamin D3) [Vitamin D3 2000 unit Tablet] 2,000 unit PO DAILY 12/27/18 Clopidogrel Bisulfate [Plavix 75 mg Tablet] 75 mg PO DAILY 12/27/18 Furosemide [Lasix 40 mg Tablet] 40 mg PO DAILY 12/27/18 Gabapentin [Neurontin 300 mg Capsule] 300 mg PO DAILY 12/27/18 Insulin Glargine,Hum.rec.anlog [Lantus Insulin 100 Unit/1 ml 10 ml] 45 unit SUBCUT Q12 12/27/18 Lisinopril [Prinivil 5 mg Tablet] 5 mg PO DAILY 12/27/18 Metformin HCl [Glucophage 500 mg Tablet] 500 mg PO BIDACBS 12/27/18 Maitland-3/Dha/Epa/Fish Oil [Maitland-3 Fish Oil 1,200 mg Sfgl] 1,200 mg PO DAILY 12/27/18 Amox Tr/Potassium Clavulanate [Augmentin "500" Tablet] 1 tab PO MEALS tablet 01/04/19 Docusate Sodium [Colace 100 mg Capsule] 100 mg PO BID capsule 01/04/19 Ferrous Sulfate [Feosol 325 mg Tablet] 325 mg PO BIDPCBS tablet 01/04/19 Furosemide [Lasix 40 mg Tablet] 40 mg PO DAILY tablet 01/04/19 Insulin Lispro [Humalog Insulin (Lispro) 100 unit/mL] 0 - 12 unit SUBCUT ACHS unit 01/04/19 Mirtazapine [Remeron 15 mg Tablet] 7.5 mg PO QHS tablet 01/04/19 Polyethylene Glycol 3350 [Miralax Powder 17 gm/Packet] 17 gm PO DAILY powd.pack 01/04/19 History of Present Illness Admission Date/PCP: 12/27/18 19:11 ESTEE HASTINGS Patient complains of: Gangrenous left toe History of Present Illness: GERARD COHN is a 73 year old female with a history of atherosclerosis including coronary artery disease with stent placement as well as peripheral arterial disease. She had developed gangrene left toe and was admitted for definitive treatment. She underwent transmetatarsal imitation of the left toe. She was on antibiotics prior and post surgery. During her hospitalization her blood pressure was reasonably controlled as well as her diabetes. She was on a cardiac/diabetic diet. Pain control was quite good. She was found to be depressed and started on low-dose mirtazapine and this has been working quite well. In fact I do not believe she will need an increase in her dose. I think the increased stimulation at the skilled facility with increased activity will also be helpful. For wound care she will continue the VAC dressing at -125 mmHg continuous negative pressure. VAC changes on Thursday, Thursday and Thursday. Follow-up with surgery in 2 weeks. Hospital Course Hospital Course: See details above. The patient had an infected gangrenous lesion on her left toe. She underwent transmetatarsal amputation with antibiotic therapy pre-and postoperatively. She is now on oral antibiotic therapy. Comorbidities include hypertension, diabetes, anemia and she has significant peripheral arterial disease. An outpatient appointment with vascular surgery has been arranged and it is critical that she keep that appointment Physical Exam Vital Signs: Temp Pulse Resp BP Pulse Ox 98.6 F 69 15 129/76 H 98 01/04/19 00:00 01/04/19 00:00 01/04/19 00:00 01/04/19 00:00 01/04/19 00:00 Intake & Output 01/03/19 01/04/19 01/05/19 06:59 06:59 06:59 Intake Total 980 1350 Balance 980 1350 Weight 106.9 kg 107.6 kg General appearance: PRESENT: no acute distress, cooperative, well-developed Head exam: PRESENT: atraumatic, normocephalic Ear exam: PRESENT: normal external ear exam Respiratory exam: PRESENT: clear to auscultation shreyas, symmetrical, unlabored. ABSENT: accessory muscle use, crackles, rales, rhonchi, tachypnea, wheezes Cardiovascular exam: PRESENT: RRR, +S1, +S2, systolic murmur GI/Abdominal exam: PRESENT: normal bowel sounds, soft. ABSENT: distended, guarding, tenderness Rectal exam: PRESENT: deferred Extremities exam: PRESENT: other - Transmetatarsal amputation site wound on the left Musculoskeletal exam: PRESENT: ambulatory - Left foot heel weightbearing only Neurological exam: PRESENT: alert, awake, oriented to person, oriented to place, oriented to situation Psychiatric exam: PRESENT: appropriate affect, normal mood. ABSENT: agitated, anxious Focused psych exam: ABSENT: delusional, restlessness Results Laboratory Results: 01/03/19 04:17 01/03/19 04:17 12/27/18 12/27/18 01/01/19 18:19 18:19 08:02 Creatine Kinase 39 < 20 L CK-MB (CK-2) < 0.22 Troponin I < 0.012 01/01/19 01/01/19 01/01/19 08:02 15:12 15:12 Creatine Kinase < 20 L CK-MB (CK-2) < 0.22 < 0.22 Troponin I < 0.012 < 0.012 01/01/19 01/01/19 21:05 21:05 Creatine Kinase < 20 L CK-MB (CK-2) < 0.22 Troponin I < 0.012 Impressions: Chest X-Ray 12/27/18 16:39 IMPRESSION: CARDIAC ENLARGEMENT. VASCULAR CONGESTION. Worse than previous. Foot X-Ray 12/27/18 16:41 IMPRESSION: Gas in the soft tissues about the seconds and 4th toe suggest gangrene. No obvious osteomyelitis. Charcot joint. Transfer Plan - Disposition Transfer Plan: The patient will transfer to a [facility] facility for ongoing therapy. She has an outpatient appointment for vascular surgery to address peripheral arterial disease in the left leg. She will also require follow-up visit with surgery for the left transmetatarsal amputation. - Time Spent with Patient Time spent with patient: Greater than 30 Minutes Qualifiers - * PATIENT BEING DISCHARGED WITH ANY OF THE FOLLOWING DIAGNOSIS: No Acute Heart Failure Is this a Heart Failure Patient?: No Plan Time Spent: Greater than 30 Minutes
[2019-01-04] MEDS ORDERED: FUROSEMIDE 40 MG TABLET PO SCH (10:00)
[2019-01-04] MEDS: POLYETHYLENE GLYCOL 3350 POWDER 17 GM/1 PACKET PO SCH (10:50)
[2019-01-04] MEDS: GABAPENTIN 300 MG CAPSULE PO SCH (10:51)
[2019-01-04] MEDS: CARVEDILOL 6.25 MG TABLET PO SCH (10:51)
[2019-01-04] MEDS: LISINOPRIL 5 MG TABLET PO SCH (10:51)
[2019-01-04] MEDS: CHOLECALCIFEROL (D3) 1,000 UNIT TABLET PO SCH (10:51)
[2019-01-04] MEDS: ASPIRIN 81 MG TABLET, ENT COATED PO SCH (10:52)
[2019-01-04] MEDS: DOCUSATE SODIUM 100 MG CAPSULE PO SCH (10:52)
[2019-01-04] MEDS: CLOPIDOGREL BISULFATE 75 MG TABLET PO SCH (10:52)
[2019-01-04] MEDS: ENOXAPARIN SODIUM INJ 30 MG/0.3 ML DISP.SYRIN SUBCUT SCH (10:53)
== END 2019-01-04 15:30 | DRG 239 ==
LOC: ER 16:26 → EH 19:11 → 5 21:06
PROVIDERS: ADMIT Family Medicine; ATTEND Family Medicine
PROC: 30233N1 Transfusion of Nonautologous Red Blood Cells into Peripheral Vein, Percutaneous Approach (ICD-10-PCS; 2018-12-27)
PROC: 0Y6N0ZB Detachment at Left Foot, Partial 2nd Ray, Open Approach (ICD-10-PCS; 2018-12-28)
PROC: 0Y6N0ZC Detachment at Left Foot, Partial 3rd Ray, Open Approach (ICD-10-PCS; 2018-12-28)
PROC: 0Y6N0ZD Detachment at Left Foot, Partial 4th Ray, Open Approach (ICD-10-PCS; 2018-12-28)
PROC: 0Y6N0ZF Detachment at Left Foot, Partial 5th Ray, Open Approach (ICD-10-PCS; 2018-12-28)
PROC: 0Y6N0Z9 Detachment at Left Foot, Partial 1st Ray, Open Approach (ICD-10-PCS; principal; 2018-12-28 07:00)
DX: E11.52 Type 2 diabetes mellitus with diabetic peripheral angiopathy with gangrene (principal); A48.0 Gas gangrene; I25.10 Atherosclerotic heart disease of native coronary artery without angina pectoris; F32.9 Major depressive disorder, single episode, unspecified; I10 Essential (primary) hypertension; K59.01 Slow transit constipation; B96.4 Proteus (mirabilis) (morganii) as the cause of diseases classified elsewhere; B95.61 Methicillin susceptible Staphylococcus aureus infection as the cause of diseases classified elsewhere; B95.4 Other streptococcus as the cause of diseases classified elsewhere; E78.5 Hyperlipidemia, unspecified; E66.01 Morbid (severe) obesity due to excess calories; E11.40 Type 2 diabetes mellitus with diabetic neuropathy, unspecified; E11.65 Type 2 diabetes mellitus with hyperglycemia; D63.1 Anemia in chronic kidney disease; D50.9 Iron deficiency anemia, unspecified; E78.00 Pure hypercholesterolemia, unspecified; Z60.2 Problems related to living alone; Z79.4 Long term (current) use of insulin; Z65.9 Problem related to unspecified psychosocial circumstances; Z95.5 Presence of coronary angioplasty implant and graft; Z79.899 Other long term (current) drug therapy; Z91.19 Patient's noncompliance with other medical treatment and regimen; Z90.710 Acquired absence of both cervix and uterus; Z87.891 Personal history of nicotine dependence; Z79.02 Long term (current) use of antithrombotics/antiplatelets; Z79.82 Long term (current) use of aspirin; Z83.3 Family history of diabetes mellitus; Z82.49 Family history of ischemic heart disease and other diseases of the circulatory system
CPT/HCPCS: 01480; 36415; 36430; 71045; 80048; 80053; 80202; 82550; 82553; 82607; 82728; 82746; 82803; 82962; 83540; 83550; 83605; 83735; 84484; 85025; 85027; 85045; 85610; 85652; 86140; 86850; 86900; 86901; 86920; 87040; 88305; 88311; 93005; 93010; 93926; 94799; 96361; 96365; 96375; 99285; J0131; J1439; J1650; J1756; J1815; J1940; J2001; J2250; J2270; J2405; J2543; J2704; J3010; J3370; J3490; J7030; J7050; J7060; P9016

== ENCOUNTER 2019-01-28 14:14 | Emergency (ER) | payer MEDICARE, MEDICAID ==
--- NOTE | 2019-01-28 14:32 | ER Document Report ---
ED Medical Screen (RME) - General Chief Complaint: Fever Stated Complaint: FEVER Time Seen by Provider: 01/28/19 14:24 Primary Care Provider: ESTEE HASTINGS MD [Primary Care Provider] - Follow up as needed Notes: Patient is a 73-year-old female with a recent toe amputation of the left lower extremity. She was at therapy today when the therapist took a temporal temperature reading 101. Patient's denying taking any antipyretics prior to arrival to the emergency room. States primary care provider told her to come immediately to the emergency room for evaluation. Patient states she has a generalized cough and congestion but is denying any other complaints. GENERAL: Alert, interacts well. No acute distress. EXTREMITIES: Moves all 4 extremities spontaneously. Left lower extremity ankle down heavily wrapped, bandaging not removed in triage. Patient is afebrile in the emergency room. I have greeted and performed a rapid initial assessment of this patient. A comprehensive ED assessment and evaluation of the patient, analysis of test results and completion of the medical decision making process will be conducted by additional ED providers. This medical record was dictated with voice recognizing software. There may be grammatical, syntax errors that are unintended. TRAVEL OUTSIDE OF THE [place] IN LAST 30 DAYS: No - Related Data Allergies/Adverse Reactions: No Known Allergies Allergy (Verified 01/28/19 14:15) Past Medical History - Past Medical History Cardiac Medical History: Reports: Hx Congestive Heart Failure, Hx Coronary Artery Disease, Hx Hypercholesterolemia, Hx Hypertension, Hx Heart Murmur Pulmonary Medical History: Denies: Hx Asthma, Hx COPD Neurological Medical History: Denies: Hx Seizures Endocrine Medical History: Reports: Hx Diabetes Mellitus Type 2 - lantus. Denies: Hx Hyperthyroidism, Hx Hypothyroidism Renal/ Medical History: Denies: Hx Peritoneal Dialysis GI Medical History: Denies: Hx Cirrhosis, Hx Crohn's Disease Musculoskeltal Medical History: Denies Hx Arthritis, Denies Hx Fibromyalgia Skin Medical History: Denies Hx Eczema, Denies Hx Psoriasis Psychiatric Medical History: Denies: Hx Depression Past Surgical History: Reports: Hx Cardiac Catheterization - 1 stent placed, Hx Cardiac Surgery - stent, Hx Hysterectomy Physical Exam - Vital signs Vitals: Temp Pulse Resp BP Pulse Ox 98.1 F 67 18 124/64 94 01/28/19 14:15 01/28/19 14:15 01/28/19 14:15 01/28/19 14:15 01/28/19 14:15 Course - Vital Signs Vital signs: Temp Pulse Resp BP Pulse Ox 98.1 F 67 18 124/64 94 01/28/19 14:15 01/28/19 14:15 01/28/19 14:15 01/28/19 14:15 01/28/19 14:15 Doctor's Discharge - Discharge Referrals: ESTEE HASTINGS MD [Primary Care Provider] - Follow up as needed
--- NOTE | 2019-01-28 15:15 | RADIOLOGY REPORT (SQ) ---
EXAM DESCRIPTION: CHEST 2 VIEWS COMPLETED DATE/TIME: 01/28/2019 3:02 pm REASON FOR STUDY: fever COMPARISON: 12/27/2018 EXAM PARAMETERS: NUMBER OF VIEWS: two views TECHNIQUE: Digital Frontal and Lateral radiographic views of the chest acquired. RADIATION DOSE: NA LIMITATIONS: none FINDINGS: LUNGS AND PLEURA: Unchanged diffuse, somewhat coarse coarse interstitial pulmonary opacity . MEDIASTINUM AND HILAR STRUCTURES: No masses or contour abnormalities. HEART AND VASCULAR STRUCTURES: Cardiomegaly with aortic valve stent endograft. BONES: Disc degenerative disease of the thoracic spine. HARDWARE: None in the chest. OTHER: No other significant finding. IMPRESSION: Cardiomegaly with somewhat coarse interstitial pulmonary opacities, which may reflect ed sam and/or underlying chronic interstitial change. There is no focal airspace opacity. TECHNICAL DOCUMENTATION: JOB ID: [id number] [employer]- All Rights Reserved Reading location - IP/workstation name: [email or web address]
[2019-01-28 16:08] LABS: ABSOLUTE BASOPHILS # (AUTO) 0.1 10^3/uL (0.0-0.2); ABSOLUTE EOSINOPHILS # (AUTO) 0.2 10^3/uL (0.0-0.6); ABSOLUTE LYMPHOCYTES (AUTO) 2.7 10^3/uL (0.5-4.7); ABSOLUTE MONOCYTES (AUTO) 0.7 10^3/uL (0.1-1.4); ABSOLUTE NEUT (AUTO) 6.9 10^3/uL (1.7-8.2); BASOPHILS % (AUTO) 0.7 % (0-2); EOSINOPHILS % (AUTO) 2.1 % (0-6); HEMATOCRIT 30.1 % (36.0-47.0); HEMOGLOBIN 10.1 g/dL (12.0-15.5); LYMPHOCYTES % (AUTO) 25.5 % (13-45); MEAN CORPUSCULAR HEMOGLOBIN 27.5 pg (27.0-33.4); MEAN CORPUSCULAR HGB CONC 33.6 g/dL (32.0-36.0); MEAN CORPUSCULAR VOLUME 82 fl (80-97); MONOCYTES % (AUTO) 6.7 % (3-13); PLATELET COUNT 332 10^3/uL (150-450); RED BLOOD COUNT 3.67 10^6/uL (3.72-5.28); RED CELL DISTRIBUTION WIDTH 17.3 % (11.5-14.0); TOTAL CELLS COUNTED % (AUTO) 100 %; WHITE BLOOD COUNT 10.6 10^3/uL (4.0-10.5)
[2019-01-28 16:16] LABS: INTERNATIONAL RATION (INR) 1.07; PROTHROMBIN TIME 14.4 SEC (11.4-15.4)
--- NOTE | 2019-01-28 16:18 | ER Document Report ---
ED Fever - General Chief Complaint: Fever Stated Complaint: FEVER Time Seen by Provider: 01/28/19 14:24 Primary Care Provider: Wound Care [Provider Group] - Follow up as needed TERESA PORTILLO MD [ACTIVE STAFF] - Follow up as needed ESTEE HASTINGS MD [Primary Care Provider] - Follow up as needed Notes: Patient is a 73-year-old female history of CAD, CHF, UTI, hypertension, anemia, CVA, type 2 diabetes who presents to the emergency department with a chief complaint of fever. She states 1 month ago she had surgery on her left foot to remove her toes due to infection. After her hospital stay at [facility] she was tr ansferred to an inpatient rehab facility where she reports she did see vascular surgery due to her decreased blood flow to her leg in which she did have surgery to correct. Patient reports that she is a diabetic. Patient states that she was discharged from rehab on January 24 and today the physical therapist came to her house. Physical therapist checked her temperature which was 101. Family states the patient was outside in the hot sun when her temperature was taken over her forehead. Patient did call her primary care physician Dr. Hastings to report the 101 temp who then requested patient come to the emergency department for an evaluation. Patient denies nausea vomiting or diarrhea. Patient denies cough, fever, shortness of breath, or chest pain. Patient states that she did have a home health nurse come out to the house yesterday and redressed the wound. She states that the nurse told her that the wound was healing appropriately and taught the daughter how to change the dressings. Patient at this time has no complaints. TRAVEL OUTSIDE OF THE [place] IN LAST 30 DAYS: No - Related Data Allergies/Adverse Reactions: No Known Allergies Allergy (Verified 01/28/19 14:15) Past Medical History - Social History Smoking Status: Never Smoker Chew tobacco use (# tins/day): No Frequency of alcohol use: None Drug Abuse: None Family History: Reviewed & Not Pertinent Patient has suicidal ideation: No Patient has homicidal ideation: No - Past Medical History Cardiac Medical History: Reports: Hx Congestive Heart Failure, Hx Coronary Artery Disease, Hx Hypercholesterolemia, Hx Hypertension, Hx Heart Murmur Pulmonary Medical History: Reports: None Denies: Hx Asthma, Hx COPD EENT Medical History: Reports: None Neurological Medical History: Reports: None. Denies: Hx Seizures Endocrine Medical History: Reports: Hx Diabetes Mellitus Type 2 - lantus. Denies: Hx Hyperthyroidism, Hx Hypothyroidism Renal/ Medical History: Reports: None. Denies: Hx Peritoneal Dialysis Malignancy Medical History: Reports: None GI Medical History: Reports: None. Denies: Hx Cirrhosis, Hx Crohn's Disease Musculoskeletal Medical History: Reports None, Denies Hx Arthritis, Denies Hx Fibromyalgia Skin Medical History: Reports None, Denies Hx Eczema, Denies Hx Psoriasis Psychiatric Medical History: Reports: None Denies: Hx Depression Traumatic Medical History: Reports: None Infectious Medical History: Reports: None Past Surgical History: Reports: Hx Cardiac Catheterization - 1 stent placed, Hx Cardiac Surgery - stent, Hx Hysterectomy, Hx Orthopedic Surgery Review of Systems - Review of Systems Constitutional: See HPI EENT: No symptoms reported Cardiovascular: No symptoms reported Respiratory: No symptoms reported Gastrointestinal: No symptoms reported Genitourinary: No symptoms reported Female Genitourinary: No symptoms reported Musculoskeletal: No symptoms reported Skin: No symptoms reported Hematologic/Lymphatic: No symptoms reported Neurological/Psychological: No symptoms reported Physical Exam - Vital signs Vitals: Temp Pulse Resp BP Pulse Ox 98.1 F 67 18 124/64 94 01/28/19 14:15 01/28/19 14:15 01/28/19 14:15 01/28/19 14:15 01/28/19 14:15 Interpretation: Normal Course - Re-evaluation Re-evalutation: 01/28/19 16:22 Will obtain blood work to rule out infection. Patient has no complaints at this time. Patient states she did take Ibuprofen prior to arrival. Did remove the dressing on the left foot. Daughter states that it was last changed yesterday and they were instructed to change it daily. The wound appears that it is healing, there is no drainage or surrounding cellulitis. She does have a good left dorsalis pedis pulse strong and easily palpable. We will re-dress the wound in the emergency department at today's visit. 01/28/19 18:40 Dr. Renae at bedside to evaluate left foot wound. He states that it is h ealing appropriately and does not appear infected. We did redress the wound as a wet to dry as they do daily at home and applied a new Kerlix and Mikael bandage. I will refer the patient to wound care as she is unsure of her follow-up. 01/28/19 19:11 Patient is resting comfortably on stretcher. Tech at the bedside placing patient on bedpan to obtain urine sample. I do anticipate discharge once urine sample is resulted. Patient is tolerating p.o. and is not in any acute distress at this time. Family at the bedside reports that she does have a follow-up appointment with Dr. Portillo February 02. I will put in a referral for wound care clinic so the patient and family have the information. Family to continue daily dressings as directed by the home health nurse strict follow-up regarding wound care is vital. 20:00 Discussed urinary tract infection diagnosis with patient and family. Will give first dose in the ER. Patient stable at discharge. - Vital Signs Vital signs: Temp Pulse Resp BP Pulse Ox 98.5 F 62 18 117/49 L 99 01/28/19 17:47 01/28/19 17:47 01/28/19 17:47 01/28/19 17:47 01/28/19 17:47 - Laboratory Result Diagrams: 01/28/19 15:53 01/28/19 15:53 Laboratory results interpreted by me: 01/28/19 01/28/19 01/28/19 15:53 15:53 19:15 WBC 10.6 H RBC 3.67 L Hgb 10.1 L Hct 30.1 L RDW 17.3 H Sodium 136.5 L BUN 24 H Glucose 138 H Alkaline Phosphatase 128 H Urine Nitrite POSITIVE H 01/28/19 Patient slightly anemic, 10.1, this is consistent with previous hemoglobins. - Diagnostic Test Radiology reviewed: Reports reviewed Radiology results interpreted by me: 01/28/19 Chest XRAY similiar to previous read. - EKG Interpretation by Me Additional EKG results interpreted by me: 01/28/19 Patient's EKG shows a sinus rhythm with a heart of 68. Patient does have a left axis deviation. There are T wave inversions in lead III but this is not consistent and multiple leads and was present in previous EKG. There appears to be no change from old EKG. Discharge - Discharge Clinical Impression: Urinary tract infection Qualifiers: Urinary tract infection type: site unspecified Hematuria presence: without hematuria Qualified Code(s): N39.0 - Urinary tract infection, site not specified Condition: Stable Disposition: HOME, SELF-CARE Additional Instructions: Today you were seen in the emergency department for possible fever and infection. During your visit you have been fever free and your blood work was unremarkable. Your urine sample was consistent with a urinary tract infection. I will place you on an antibiotic for this. I did have one of our surgeons look at your left foot wound who states it appears to be healing up appropriately. He did recommend you have strict follow-up with Dr. Portillo who originally did your surgery. You have stated that you have a follow-up appointment on February 02 with him. He will also need follow-up with the wound care clinic. Dr. Portillo will need to see you first as a referral and may need to be placed. I will still attached to the information for the wound care clinic to your discharge instructions. Continue to change the dressing daily as directed and educated by the home health nurse yesterday. We have changed the dressing today during your visit. Please return to the emergency department for any fever, nausea, vomiting, diarrhea, signs of infection to include redness that starts to streak up your left leg, severe left foot or left leg pain, or any other concerning signs or symptoms. Prescriptions: Nitrofurantoin/Nitrofuran Mac [Macrobid 100 mg Capsule] 1 tab PO BID 7 Days #14 capsule Referrals: ESTEE HASTINGS MD [Primary Care Provider] - Follow up as needed TERESA PORTILLO MD [ACTIVE STAFF] - Follow up as needed Wound Care [Provider Group] - Follow up as needed
[2019-01-28 16:28] LABS: ALANINE AMINOTRANSFERASE 19 U/L (9-52); ALBUMIN 3.8 g/dL (3.5-5.0); ALKALINE PHOSPHATASE 128 U/L (38-126); ANION GAP 12 (5-19); ASPARTATE AMINO TRANSFERASE 15 U/L (14-36); BILIRUBIN,DIRECT 0.4 mg/dL (0.0-0.4); BILIRUBIN,TOTAL 0.6 mg/dL (0.2-1.3); BLOOD UREA NITROGEN 24 mg/dL (7-20); CALCIUM 9.4 mg/dL (8.4-10.2); CARBON DIOXIDE 25 mmol/L (22-30); CHLORIDE 100 mmol/L (98-107); GLUCOSE 138 mg/dL (75-110); POTASSIUM 4.6 mmol/L (3.6-5.0); SODIUM 136.5 mmol/L (137-145); TOTAL PROTEIN 7.4 g/dL (6.3-8.2)
[2019-01-28 19:41] LABS: APPEARANCE,URINE CLEAR; BILIRUBIN,URINE NEGATIVE (NEGATIVE); COLOR,URINE STRAW; GLUCOSE, URINE NEGATIVE (NEGATIVE); KETONES,URINE NEGATIVE (NEGATIVE); LEUKOCYTE ESTERASE,URINE NEGATIVE (NEGATIVE); NITRITE,URINE POSITIVE (NEGATIVE); PROTEIN,URINE NEGATIVE (NEGATIVE); URINE SPECIFIC GRAVITY 1.004; UROBILINOGEN,URINE NEGATIVE mg/dL (<2.0)
[2019-01-28] MEDS ORDERED: NITROFURANTOIN MONOHYD/M-CRYST 100 MG CAPSULE PO ONE (20:02)
[2019-01-28 20:19] VITALS: BP 134/79
--- NOTE | 2019-01-28 22:07 | EKG REPORT ---
SEVERITY:- ABNORMAL ECG - SINUS RHYTHM FIRST DEGREE AV BLOCK BORDERLINE LEFT AXIS DEVIATION : Confirmed by: Solomon Hickman MD 28-Jan-2019 22:06:59
== END 2019-01-28 20:24 | disposition home or self-care (01) ==
LOC: ER 14:14
DX: N39.0 Urinary tract infection, site not specified (principal); R50.9 Fever, unspecified; D64.9 Anemia, unspecified; I10 Essential (primary) hypertension; I25.10 Atherosclerotic heart disease of native coronary artery without angina pectoris; E11.9 Type 2 diabetes mellitus without complications; Z89.432 Acquired absence of left foot; Z98.890 Other specified postprocedural states; Z95.5 Presence of coronary angioplasty implant and graft
CPT/HCPCS: 99284; 36415; 87040; 87086; 85025; 85610; 87088; 80053; 81001; 87186; 83605; 71046; 93005; 93010; A9270; J8499

== ENCOUNTER → 2019-02-15 | Outpatient (CLI) | payer MEDICARE, MEDICAID ==
[2019-02-15 11:42] LABS: ABSOLUTE BASOPHILS # (AUTO) 0.1 10^3/uL (0.0-0.2); ABSOLUTE EOSINOPHILS # (AUTO) 0.2 10^3/uL (0.0-0.6); ABSOLUTE LYMPHOCYTES (AUTO) 2.8 10^3/uL (0.5-4.7); ABSOLUTE MONOCYTES (AUTO) 0.7 10^3/uL (0.1-1.4); ABSOLUTE NEUT (AUTO) 6.1 10^3/uL (1.7-8.2); BASOPHILS % (AUTO) 0.8 % (0-2); EOSINOPHILS % (AUTO) 1.6 % (0-6); HEMATOCRIT 31.1 % (36.0-47.0); HEMOGLOBIN 10.4 g/dL (12.0-15.5); LYMPHOCYTES % (AUTO) 28.5 % (13-45); MEAN CORPUSCULAR HEMOGLOBIN 27.3 pg (27.0-33.4); MEAN CORPUSCULAR HGB CONC 33.4 g/dL (32.0-36.0); MEAN CORPUSCULAR VOLUME 82 fl (80-97); MONOCYTES % (AUTO) 6.6 % (3-13); PLATELET COUNT 417 10^3/uL (150-450); RED BLOOD COUNT 3.81 10^6/uL (3.72-5.28); RED CELL DISTRIBUTION WIDTH 16.9 % (11.5-14.0); SEGMENTED NEUTROPHILS % (AUTO) 62.5 % (42-78); TOTAL CELLS COUNTED % (AUTO) 100 %; WHITE BLOOD COUNT 9.8 10^3/uL (4.0-10.5)
--- NOTE | 2019-02-15 12:11 | RADIOLOGY REPORT (SQ) ---
EXAM DESCRIPTION: CHEST PA/LATERAL COMPLETED DATE/TIME: 02/15/2019 11:49 am REASON FOR STUDY: PNEUMOTHORAX, UNSPECIFIED COMPARISON: Chest films 09/12/2018, 11/26/2018, 01/28/2019 EXAM PARAMETERS: NUMBER OF VIEWS: two views TECHNIQUE: Digital Frontal and Lateral radiographic views of the chest acquired. RADIATION DOSE: NA LIMITATIONS: none FINDINGS: LUNGS AND PLEURA: No opacities, masses or pneumothorax. No pleural effusion. MEDIASTINUM AND HILAR STRUCTURES: No masses or contour abnormalities. HEART AND VASCULAR STRUCTURES: Stable moderate cardiomegaly BONES: No acute findings. HARDWARE: None in the chest. OTHER: No other significant finding. IMPRESSION: Stable moderate cardiomegaly. No pneumothorax TECHNICAL DOCUMENTATION: JOB ID: [id number] [employer]- All Rights Reserved Reading location - IP/workstation name: [email or web address]
--- NOTE | 2019-02-15 12:14 | RADIOLOGY REPORT (SQ) ---
EXAM DESCRIPTION: FOOT LEFT COMPLETE COMPLETED DATE/TIME: 02/15/2019 11:49 am REASON FOR STUDY: NON-PRS CHRONIC ULCER OTH PRT LEFT FOOT W FAT LAYER EXPOSED L97.522 NON-PRS CHRON IC ULCER OTH PRT LEFT FOOT W FAT LAYER J93.9 PNEUMOTHORAX, UNSPECIFIED E11.621 TYPE 2 DIABETES LIBRADO LITUS WITH FOOT ULCER COMPARISON: 12/29/2018 NUMBER OF VIEWS: Three views. TECHNIQUE: AP, lateral and oblique radiographic images acquired of the left foot. LIMITATIONS: None. FINDINGS: MINERALIZATION: Bones are osteopenic BONES: Since the prior plain films 12/27/2018, patient has undergone transmetatarsal amputation of the left foot. Periosteal new bone is present along the distal stumps of the 1st through 5th metatarsals . There is aggressive demineralization of the 5th metatarsal stump, 4th metatarsal stump, and distal most 1st metatarsal stump. This could represent osteomyelitis. JOINTS: There is Charcot foot at the intertarsal joints, with collapse and fragmentation of the talus and sclerosis throughout the subtalar joint. SOFT TISSUES: Diffuse left forefoot soft tissue swelling. Persistent ulceration over the region of t he 1st metatarsal stump with air bubble. Extensive arterial vascular calcification and soft tissue c alcification. OTHER: No other significant finding. IMPRESSION: Since the prior plain films, patient has had a transmetatarsal amputation of the left fo ot. There is demineralization of the metatarsal stumps worrisome for osteomyelitis. Stable neuropathic changes in the intertarsal joints as compared to 12/27/2018. TECHNICAL DOCUMENTATION: JOB ID: [id number] [employer]- All Rights Reserved Reading location - IP/workstation name: [email or web address]
[2019-02-15 12:29] LABS: ERYTHROCYTE SEDIMENTATION RATE 111 mm/hr (0-30)
[2019-02-15 12:40] LABS: ALANINE AMINOTRANSFERASE 16 U/L (9-52); ALBUMIN 3.5 g/dL (3.5-5.0); ALKALINE PHOSPHATASE 131 U/L (38-126); ANION GAP 9 (5-19); ASPARTATE AMINO TRANSFERASE 13 U/L (14-36); BILIRUBIN,DIRECT 0.3 mg/dL (0.0-0.4); BILIRUBIN,TOTAL 0.4 mg/dL (0.2-1.3); BLOOD UREA NITROGEN 26 mg/dL (7-20); C-REACTIVE PROTEIN 18.4 mg/L (<10.0); CALCIUM 9.7 mg/dL (8.4-10.2); CARBON DIOXIDE 26 mmol/L (22-30); CHLORIDE 105 mmol/L (98-107); GLUCOSE 191 mg/dL (75-110); POTASSIUM 5.3 mmol/L (3.6-5.0)
== END ==
LOC: WC 10:35
PROVIDERS: ATTEND Nurse Practitioner Family
DX: E11.621 Type 2 diabetes mellitus with foot ulcer (principal); L97.522 Non-pressure chronic ulcer of other part of left foot with fat layer exposed; Z79.4 Long term (current) use of insulin; J93.9 Pneumothorax, unspecified; Z89.432 Acquired absence of left foot; I51.7 Cardiomegaly
CPT/HCPCS: 36415; 85025; 85652; 86140; 80053; 83036; 71046; 73630; 11042 ×2; 11045 ×2; 99214; G0463; 99215

== ENCOUNTER → 2019-02-16 | Outpatient (CLI) | payer MEDICARE, MEDICAID ==
--- NOTE | 2019-02-17 12:01 | XCELERA REPORT ---
[address] [address] Lower Extremity Arterial Evaluation Name: GERARD COHN Age: 73 yrs Gender: Female : 1945 Patient Status: Outpatient Patient Location: Study Date: 02/16/2019 01:32 PM Procedure: A color flow and duplex scan of the lower extremity arteries was performed bilaterally with velocity and waveform anaylsis. Reason For Study: LT FOOT ULCER Ordering Physician: VANESSA GO Performed By: Scotty Zimmerman Measurements and Calculations Right Left TERRAZZO FINISHER PSV 156.3 162.4 cm/sec Prox PFA PSV -109.6 72.2 cm/sec Prox SFA PSV 105.3 141.1 cm/sec Mid SFA PSV -91.3 -108.1cm/sec Dist SFA PSV -113.1 -126.4cm/sec Prox Pop A PSV 69.5 188.6 cm/sec Dist RAISSA PSV 40.7 117.3 cm/sec Dist BOOMBOAT OPERATOR PSV 66.7 16.3 cm/sec Dallas Pedis PSV 45.7 -163.3cm/sec Right Side Arterial Evaluation Normal velocity and triphasic waveforms noted from the Common Femoral artery to the Popliteal. Biphasic with normal velocity, moderate spectral broadening in the Posterior Tibial Monophasic with low normal velocity, moderate spectral broadening in the Anterior Tibial. . Ankle Brachial index not obtained, declined by patient. Left Side Arterial Evaluation Normal velocity and triphasic waveforms noted from the Common Femoral artery to the Popliteal. Monophasic with low velocity, moderate spectral broadening in the Posterior Tibial. Monophasic with normal velocity in the Anterior Tibial. Ankle Brachial index not obtained, declined by patient. Interpretation Summary Severe hemodynamically significant lesions in the bilateral lower extremities, on duplex imaging, at rest. Infrageniculate disease, bilaterally. : VANESSA GO > Navdeep Nicole
== END ==
LOC: SP 13:09
PROVIDERS: ATTEND Nurse Practitioner Family
DX: J93.9 Pneumothorax, unspecified (principal); E11.621 Type 2 diabetes mellitus with foot ulcer; L97.522 Non-pressure chronic ulcer of other part of left foot with fat layer exposed
CPT/HCPCS: 93925

== ENCOUNTER → 2019-03-02 | Outpatient (CLI) | payer MEDICARE, MEDICAID ==
--- NOTE | 2019-03-02 16:40 | Progress Note ---
Provider Note Provider Note: ID Consult Note Asked to review patient's chart and provide input. Pt not seen or examined. Reviewed recent labs, culture and imaging results and notes. Pt is a 73 year old woman with diabetes, peripheral neuropathy, PAD, CHF, morbid obesity, and CVA with left hemiparesis who underwent L foot transmetatarsal ampu tation on 12/28/18 for gangrene. During that hospitalization, the bone submitted to pathology showed acute osteomyelitis. The surgical wound was not closed by primary intention. At hospital discharge, she was appreciated to have very little granulation tissue, and she was supposed to see a vascular surgeon in [place]. No cultures were taken at the time she had the amputation. Previously, she had a culture from the foot in November that grew MSSA and another culture on 12/22 that grew MSSA, Proteus mirabilis and Enterococcus faecalis. Unknown how these cultures were collected. The MSSA is fluoroquinolone resistant. The transmetatarsal amputation site did not close, and [facility] Her recent labs included SCr 0.8. CRP 18 on 01/26. ESR 111. Plain films of the foot were read as showing Charcot arthropathic changes, extensive arterial vascular calcification, and "aggressive demineralization of the 5th metatarsal stump, 4th metatarsal stump, and distal most 1st metatarsal stump worrisome for osteomyelitis." On ultrasound evaluation she has severe hemodynamically significant lesions in both legs at rest with infrageniculate disease b/l. Impression/Recommendations L diabetic foot osteomyelitis - She likely has osteomyelitis given her history and presentation, with MSSA being a primary concern based on her old cultures. - Prognosis is guarded, as peripheral vascular disease impairs delivery of antibiotics and immune cells to the infected bone - Suggest Augmentin PO 500/125 mg TID for 6 weeks. This would provide activity against the MSSA, Proteus and Enterococcus that previously grew in December 2018. Rocephin 2g IV daily through a PICC line is also an option, but I do no think Rocephin will offer her a distinct advantage over PO Augmentin and could potentially be associated with increased cost and some risks (e.g. PICC line related thormbosis or bloodstream infection). Juan Wagoner MD [facility] Infectious Diseases pager [phone]
--- NOTE | 2019-03-03 12:18 | XCELERA REPORT ---
[address] [address] Lower Extremity Venous Evaluation Procedure: A bilateral duplex scan of the lower extremity veins was performed. The evaluation included responses to compression and other maneuvers with patient in the supine and standing positions to assess venous insufficiency. Right Sided Venous Evaluation Deep venous system evaluatiion shows patent veins with no obstruction or significant reflux identified. Sapheno Femoral junction: no reflux. Femoral vein reflux: no reflux. Greater Saphenous vein, Proximal thigh: reflux: no reflux. Greater Saphenous vein, Distal thigh: reflux: no reflux. Greater Saphenous vein, Proximal below knee: reflux: no reflux. No significant Perforators identified. Left Sided Venous Evaluation Deep venous system evaluatiion shows patent veins with no obstruction or significant reflux identified. Sapheno Femoral junction: no reflux. Femoral vein reflux: no reflux. Greater Saphenous vein, Proximal thigh: reflux: no reflux. Greater Saphenous vein, Distal thigh: reflux: no reflux. Greater Saphenous vein, Proximal below knee: reflux: no reflux. No significant Perforators identified. Interpretation Summary No duplex evidence of DVT or obstruction in the bilateral lower extremities. No deep or superficial reflux identified. Name: GERARD COHN Age: 73 yrs Gender: Female : 1945 Patient Status: Outpatient Patient Location: [facility] Study Date: 03/02/2019 02:17 PM Reason For Study: PVD Ordering Physician: VANESSA OG Performed By: Ashley Thomas : VANESSA GO > Navdeep Nicole
== END ==
LOC: RAD 14:01
PROVIDERS: ATTEND Nurse Practitioner Family
DX: I73.9 Peripheral vascular disease, unspecified (principal); L97.524 Non-pressure chronic ulcer of other part of left foot with necrosis of bone
CPT/HCPCS: 93970

== ENCOUNTER 2019-03-10 20:31 | Emergency (ER) | payer MEDICARE, MEDICAID ==
--- NOTE | 2019-03-10 21:49 | ER Document Report ---
ED Medical Screen (RME) - General Chief Complaint: Post Surgical Pain Stated Complaint: BLEEDING FROM AMPUTATION SITE Time Seen by Provider: 03/10/19 21:46 Primary Care Provider: VANESSA GO NP, [employer]OTTER [Primary Care Provider] - Follow up as needed Mode of Arrival: Wheelchair Information source: Patient Notes: Patient presents with diabetic foot wound after going to wound clinic today. Patient states she had the wound debrided today and it started to bleed heavily. Patient denies any trauma to the wound. hx: Diabetes, hypertension, dyslipidemia, CHF, toe amputation, diabetic foot wound I have greeted and performed a rapid initial assessment of this patient. A comprehensive ED assessment and evaluation of the patient, analysis of test results and completion of the medical decision making process will be conducted by additional ED providers. TRAVEL OUTSIDE OF THE [place] IN LAST 30 DAYS: No - Related Data Allergies/Adverse Reactions: No Known Allergies Allergy (Verified 01/28/19 14:15) Past Medical History - Past Medical History Cardiac Medical History: Reports: Hx Congestive Heart Failure, Hx Coronary Artery Disease, Hx Hypercholesterolemia, Hx Hypertension, Hx Heart Murmur Pulmonary Medical History: Denies: Hx Asthma, Hx COPD Neurological Medical History: Denies: Hx Seizures Endocrine Medical History: Reports: Hx Diabetes Mellitus Type 2 - lantus. Denies: Hx Hyperthyroidism, Hx Hypothyroidism Renal/ Medical History: Denies: Hx Peritoneal Dialysis GI Medical History: Denies: Hx Cirrhosis, Hx Crohn's Disease Musculoskeltal Medical History: Denies Hx Arthritis, Denies Hx Fibromyalgia Skin Medical History: Denies Hx Eczema, Denies Hx Psoriasis Psychiatric Medical History: Denies: Hx Depression Past Surgical History: Reports: Hx Cardiac Catheterization - 1 stent placed, Hx Cardiac Surgery - stent, Hx Hysterectomy, Hx Orthopedic Surgery Physical Exam - Vital signs Vitals: Temp Pulse Resp BP Pulse Ox 98.7 F 73 20 131/80 H 95 03/10/19 21:01 03/10/19 21:01 03/10/19 21:01 03/10/19 21:01 03/10/19 21:01 - General Notes: Bloody dressing to left foot, no active bleeding from wound Course - Vital Signs Vital signs: Temp Pulse Resp BP Pulse Ox 98.7 F 73 20 131/80 H 95 03/10/19 21:01 03/10/19 21:01 03/10/19 21:01 03/10/19 21:01 03/10/19 21:01 Doctor's Discharge - Discharge Referrals: VANESSA GO H[employer] BOX SPOTTER, [employer]TER [Primary Care Provider] - Follow up as needed
--- NOTE | 2019-03-10 23:05 | ER Document Report ---
HPI - HPI Patient complains to provider of: Foot wound bleeding Time Seen by Provider: 03/10/19 21:46 Onset: This afternoon Onset/Duration: Persistent Quality of pain: Achy Pain Level: 3 Context: Patient is managed by the wound clinic daily for a diabetic foot ulcer. Patient has had her toes of this foot amputated previously. Patient states that they did not put the typical wet-to-dry dressing that she typically has in place and she no longer has a wound VAC in place. Family noticed blood saturating the dressing. Patient denies any injury to the foot. Patient denies any fever. Patient is not currently taking antibiotics. Associated Symptoms: Other - Left foot wound bleeding. denies: Fever Exacerbated by: Denies Relieved by: Denies Similar symptoms previously: No Recently seen / treated by doctor: Yes - ROS ROS below otherwise negative: Yes Systems Reviewed and Negative: Yes All other systems reviewed and negative - CONSTITUTIONAL Constitutional: DENIES: Fever, Chills - RESPIRATORY Respiratory: DENIES: Trouble Breathing, Coughing - MUSCULOSKELETAL Musculoskeletal: REPORTS: Extremity pain. DENIES: Swelling - DERM Skin Color: Normal Notes: Diabetic foot wound Past Medical History - General Information source: Patient, Relative - Social History Smoking Status: Never Smoker Frequency of alcohol use: None Drug Abuse: None Lives with: Family Family History: Reviewed & Not Pertinent - Past Medical History Cardiac Medical History: Reports: Hx Congestive Heart Failure, Hx Coronary Artery Disease, Hx Hypercholesterolemia, Hx Hypertension, Hx Heart Murmur Pulmonary Medical History: Denies: Hx Asthma, Hx COPD Neurological Medical History: Denies: Hx Seizures Endocrine Medical History: Reports: Hx Diabetes Mellitus Type 2 - lantus. Denies: Hx Hyperthyroidism, Hx Hypothyroidism Renal/ Medical History: Denies: Hx Peritoneal Dialysis GI Medical History: Denies: Hx Cirrhosis, Hx Crohn's Disease Musculoskeletal Medical History: Denies Hx Arthritis, Denies Hx Fibromyalgia Skin Medical History: Denies Hx Eczema, Denies Hx Psoriasis Psychiatric Medical History: Denies: Hx Depression Past Surgical History: Reports: Hx Cardiac Catheterization - 1 stent placed, Hx Cardiac Surgery - stent, Hx Hysterectomy, Hx Orthopedic Surgery Vertical Provider Document - CONSTITUTIONAL Agree With Documented VS: Yes Exam Limitations: No Limitations General Appearance: WD/WN, No Apparent Distress - INFECTION CONTROL TRAVEL OUTSIDE OF THE [place] IN LAST 30 DAYS: No - HEENT HEENT: Atraumatic, Normocephalic - NECK Neck: Normal Inspection - RESPIRATORY Respiratory: Breath Sounds Normal, No Respiratory Distress - CARDIOVASCULAR Cardiovascular: Regular Rate, Regular Rhythm - MUSCULOSKELETAL/EXTREMETIES Musculoskeletal/Extremeties: MAEW, Tender - Tenderness to left foot with 2+ edema - NEURO Level of Consciousness: Awake, Alert, Appropriate - DERM Integumentary: Warm, Dry Notes: Patient with amputation of toes to left foot with a chronic diabetic foot ulcer to the foot. Granulation tissue noted to the wound bed, no surrounding erythema, no purulent drainage, no foul odor Course - Re-evaluation Re-evalutation: 03/10/19 23:04 Patient refuses to have any lab work or imaging studies performed, patient is only wanting the bleeding to her foot to stop. Patient advised that bleeding has stopped. Patient requests a new dressing to the foot. Patient plans to follow-up with the vascular surgeon tomorrow. - Vital Signs Vital signs: Temp Pulse Resp BP Pulse Ox 98.7 F 73 20 131/80 H 95 03/10/19 21:01 03/10/19 21:01 03/10/19 21:01 03/10/19 21:01 03/10/19 21:01 Discharge - Discharge Clinical Impression: Encounter for wound re-check, Diabetic foot wound Condition: Good Disposition: HOME, SELF-CARE Additional Instructions: Return immediately for any new or worsening symptoms: Fever, increased swelling, bleeding or any concerning symptoms Followup with your primary care provider, call tomorrow to make a followup appointment Follow-up with your vascular surgeon tomorrow for recheck as planned Referrals: VANESSA GO NP, QUILL STRIPPER [Primary Care Provider] - Follow up as needed
[2019-03-11 02:42] VITALS: BP 140/52
== END 2019-03-11 00:22 | disposition home or self-care (01) ==
LOC: ER 20:31
DX: E11.621 Type 2 diabetes mellitus with foot ulcer (principal); L97.529 Non-pressure chronic ulcer of other part of left foot with unspecified severity; I50.9 Heart failure, unspecified; I25.10 Atherosclerotic heart disease of native coronary artery without angina pectoris; I11.0 Hypertensive heart disease with heart failure; Z89.422 Acquired absence of other left toe(s)
CPT/HCPCS: 99283

== ENCOUNTER 2019-03-11 16:58 | Inpatient (IN) | payer MEDICARE, MEDICAID ==
[2019-03-11] MEDS ORDERED: NORMAL SALINE 1000 ML 1,000 ML IV ONE (19:39)
[2019-03-11] MEDS ORDERED: VANCOMYCIN HCL INJ 1000 MG VIAL IV ONE (19:40)
[2019-03-11] MEDS ORDERED: PIPERACILLIN/TAZOBACTAM 3.375 GM VIAL IV ONE (19:40)
--- NOTE | 2019-03-11 19:44 | ER Document Report ---
ED Medical Screen (RME) - General Chief Complaint: Foot Pain Stated Complaint: LEFT FOOT PAIN Time Seen by Provider: 03/11/19 19:35 Primary Care Provider: VANESSA GO [employer], [employer] [Primary Care Provider] - Follow up as needed Mode of Arrival: Wheelchair Information source: Patient, Relative - Daughter Notes: This is a 73-year-old morbidly obese noncompliant insulin-dependent diabetic female also with history of hypertension, CHF, hyperlipidemia, history of what sounds like aortic valve replacement last year on plavix here for worsening left lateral foot wound infection for the last several days. no fevers. She did have her toes amputated on the foot at the beginning of December of this year and has followed with Dr. Nicole at the wound clinic since. She has been going to the wound clinic daily for the last 3 weeks and undergoing debridements in the hyperbaric chamber in hopes of not losing her foot. Her sugars are poorly controlled and run around 300 most of the time despite having insulin the patient does not like to use it. She has been on Augmentin for the last 5 days and was on Keflex before that with no improvement of her sx. She denies any GI side effects. No other known trauma or injury. She does have a history of peripheral neuropathy and peripheral vascular disease however patient states area is painful. they do note some malodorous purulent discharge when the dressing is changed. She is minimally ambulatory at baseline. No pain anywhere else. No other associated symptoms. she per pt was sent in by Dr. Nicole for admission with IV antibiotics and likely surgical debridement. >>>> PHYSICAL_EXAM: GENERAL_APPEARANCE: alert, cooperative, mild obvious discomfort. Pleasant, morbidly, obese, elderly, female who speaks some [place] however her adult daughter at bedside speaks full [place], smiling, speaking in full sentences, easily sitting up, in no sign of pain or resp distress however does appear uncomfortable if he tried to manipulate her left foot. VITALS: reviewed, see vital signs table. HEAD: no_swelling\tenderness on the head, normocephalic, atraumatic, NECK: supple, no_neck_tenderness. full rom. full strength. HEART: RRR LUNGS: CTAB BACK: no_back_tenderness. The left foot was wrapped in sterile dressing and cast shoe/walking boot and pt in a wheel chair and her dressing was not removed in triage. There was some yellow drainage on the lateral aspect of the dressing however. The patient moaned in pain before i even touched her dressing appearing as if it hurts. She is able to fully move her knee and without complication. There is no swelling of the calf or tenderness to palpation proximally from the ankle. She is status post amputation of all of her toes on the left foot. Full rom and full strength otherwise. no other swelling or ttp. gait not assessed. brisk cap refill. good hand balloon sander. no shortening or rotation of the limbs or other obvious deformities to suggest trauma. SKIN: warm, dry, good_color. no rash. no other grossly visible overlying skin changes to otherwise suggest trauma NEURO: cerebellar function intact, motor_intact and sensory_intact in injured_extremity. Patient seen by me in PIT and I did place labs, order IV antibiotics and imaging and perform the above brief h and p. These are pending and will be followed and reviewed by my colleagues. I have greeted and performed a rapid initial assessment of this patient. A comprehensive ED assessment and evaluation of the patient, analysis of test results and completion of medical decision making process will be conducted by an additional ED providers. Documentation achieved through voice recording which my lead to some occasional accidental typographical errors. Extensive efforts have been made to proof read documentation to make sure these are the least as possible. TRAVEL OUTSIDE OF THE [place] IN LAST 30 DAYS: No - Related Data Allergies/Adverse Reactions: No Known Allergies Allergy (Verified 03/11/19 17:01) Past Medical History - General Information source: Patient, Relative - adult daughter - Past Medical History Cardiac Medical History: Reports: Hx Congestive Heart Failure, Hx Coronary Artery Disease, Hx Hypercholesterolemia, Hx Hypertension, Hx Heart Murmur Pulmonary Medical History: Denies: Hx Asthma, Hx COPD Neurological Medical History: Denies: Hx Seizures Endocrine Medical History: Reports: Hx Diabetes Mellitus Type 2 - lantus. Denies: Hx Hyperthyroidism, Hx Hypothyroidism Renal/ Medical History: Denies: Hx Peritoneal Dialysis GI Medical History: Denies: Hx Cirrhosis, Hx Crohn's Disease Musculoskeltal Medical History: Denies Hx Arthritis, Denies Hx Fibromyalgia Skin Medical History: Denies Hx Eczema, Denies Hx Psoriasis Psychiatric Medical History: Denies: Hx Depression Past Surgical History: Reports: Hx Cardiac Catheterization - 1 stent placed, Hx Cardiac Surgery - stent, Hx Hysterectomy, Hx Orthopedic Surgery Physical Exam - Vital signs Vitals: Temp Pulse Resp BP Pulse Ox 98.3 F 64 16 127/52 H 98 03/11/19 17:09 03/11/19 17:09 03/11/19 17:09 03/11/19 17:09 03/11/19 17:09 Course - Vital Signs Vital signs: Temp Pulse Resp BP Pulse Ox 98.3 F 64 16 127/52 H 98 03/11/19 17:09 03/11/19 17:09 03/11/19 17:09 03/11/19 17:09 03/11/19 17:09 Doctor's Discharge - Discharge Referrals: VANESSA GO [employer], [employer] [Primary Care Provider] - Follow up as needed
--- NOTE | 2019-03-11 21:58 | RADIOLOGY REPORT (SQ) ---
XR CHEST 1 VIEW EXAM DATE: 03/11/2019 7:40 PM CDT HISTORY: Pain. COMPARISON: None. FINDINGS: The heart size is mildly enlarged. Mild pulmonary vascular congestion. No consolidation, pleural effusion, or pneumothorax is seen. The bony thorax is intact. Vascular stent is noted. IMPRESSION: No evidence of acute cardiopulmonary disease.
--- NOTE | 2019-03-11 22:11 | RADIOLOGY REPORT (SQ) ---
EXAM DESCRIPTION: XR LEFT FOOT 3 OR MORE VIEWS COMPLETED DATE/TME: 03/11/2019 19:38 CLINICAL HISTORY: 73 years, Female, r/o osteo lat mid foot COMPARISON: X-ray left foot 02/15/2019 NUMBER OF VIEWS: TECHNIQUE: LIMITATIONS: None. FINDINGS: There is some gas within the lateral soft tissues, suspicious for gas-forming infection. There is evidence of gross bone destruction, involving the base of the fifth metatarsal, compatible with osteomyelitis. This is a new finding, as compared with the prior study. There are severe degenerative changes involving the tarsal bone joints, compatible with neuropathic arthropathy. IMPRESSION: Osteomyelitis involving the base of the fifth metatarsal. Gas within the lateral soft tissues, suspicious for gas-forming infection. Neuropathic arthropathy. copyright 2010 [employer]- All Rights Reserved
[2019-03-11 22:47] LABS: ABSOLUTE BASOPHILS # (AUTO) 0.1 10^3/uL (0.0-0.2); ABSOLUTE EOSINOPHILS # (AUTO) 0.3 10^3/uL (0.0-0.6); ABSOLUTE LYMPHOCYTES (AUTO) 2.8 10^3/uL (0.5-4.7); ABSOLUTE MONOCYTES (AUTO) 0.6 10^3/uL (0.1-1.4); ABSOLUTE NEUT (AUTO) 5.6 10^3/uL (1.7-8.2); BASOPHILS % (AUTO) 0.9 % (0-2); EOSINOPHILS % (AUTO) 2.8 % (0-6); HEMATOCRIT 30.3 % (36.0-47.0); HEMOGLOBIN 10.2 g/dL (12.0-15.5); LYMPHOCYTES % (AUTO) 29.9 % (13-45); MEAN CORPUSCULAR HEMOGLOBIN 27.1 pg (27.0-33.4); MEAN CORPUSCULAR HGB CONC 33.6 g/dL (32.0-36.0); MEAN CORPUSCULAR VOLUME 81 fl (80-97); MONOCYTES % (AUTO) 6.2 % (3-13); PLATELET COUNT 390 10^3/uL (150-450); RED BLOOD COUNT 3.76 10^6/uL (3.72-5.28); RED CELL DISTRIBUTION WIDTH 16.7 % (11.5-14.0); SEGMENTED NEUTROPHILS % (AUTO) 60.2 % (42-78); TOTAL CELLS COUNTED % (AUTO) 100 %; WHITE BLOOD COUNT 9.4 10^3/uL (4.0-10.5)
[2019-03-11 22:55] LABS: INTERNATIONAL RATION (INR) 1.09; PROTHROMBIN TIME 14.1 SEC (11.4-15.4)
[2019-03-11 22:56] LABS: PARTIAL THROMBOPLASTIN TIME 35.7 SEC (23.5-35.8)
[2019-03-12 00:48] LABS: ALANINE AMINOTRANSFERASE 22 U/L (9-52); ALBUMIN 3.3 g/dL (3.5-5.0); ALKALINE PHOSPHATASE 137 U/L (38-126); ANION GAP 7 (5-19); ASPARTATE AMINO TRANSFERASE 16 U/L (14-36); BILIRUBIN,DIRECT 0.3 mg/dL (0.0-0.4); BILIRUBIN,TOTAL 0.3 mg/dL (0.2-1.3); BLOOD UREA NITROGEN 18 mg/dL (7-20); C-REACTIVE PROTEIN 59.5 mg/L (<10.0); CALCIUM 9.4 mg/dL (8.4-10.2); CARBON DIOXIDE 27 mmol/L (22-30); CHLORIDE 103 mmol/L (98-107); GLUCOSE 231 mg/dL (75-110); POTASSIUM 4.3 mmol/L (3.6-5.0); TOTAL PROTEIN 6.7 g/dL (6.3-8.2)
[2019-03-12] MEDS ORDERED: MAGNESIUM HYDROXIDE SUSP 30 ML UDCUP PO PRN (01:29)
[2019-03-12] MEDS ORDERED: GLUCAGON,HUMAN RECOMB 1 MG INJ IM PRN (01:29)
[2019-03-12] MEDS ORDERED: DEXTROSE 50%-WATER 25 GM/50 ML DISP.SYRIN IV PRN ×2 (01:29)
[2019-03-12] MEDS ORDERED: IPRATROPIUM/ALBUTEROL 0.5-2.5 MG/3 ML AMPUL NEB PRN (01:29)
[2019-03-12] MEDS ORDERED: MAG HYDROX/AL HYDROX/SIMETH SUSP 30 ML UDCUP PO PRN (01:29)
[2019-03-12] MEDS ORDERED: DEXTROSE 40% GEL 15 GM TUBE PO PRN ×2 (01:29)
[2019-03-12] MEDS ORDERED: NORMAL SALINE 1000 ML 1,000 ML IV SCH (01:30)
--- NOTE | 2019-03-12 01:33 | ER Document Report ---
ED General - General Chief Complaint: Foot Pain Stated Complaint: LEFT FOOT PAIN Time Seen by Provider: 03/11/19 19:35 Primary Care Provider: VANESSA GO [employer], [employer] [NURSE PRACTITIONER] - Follow up as needed Mode of Arrival: Wheelchair TRAVEL OUTSIDE OF THE [place] IN LAST 30 DAYS: No - HPI Notes: Patient is a 73-year-old female who presents to the emergency department for evaluation. She is an extremely poor historian. All she can tell me is that she was "in the tube earlier" and they told her to come to the emergency room. She has a known history of osteomyelitis, status post midfoot amputation on the left. I asked her what her blood sugars have been running and she simply states "high" but she does not check them every day. She states "from now on I am going to." She states her entire leg is painful, mostly on the lateral aspect of the left foot. She is unaware of any lindsay fevers, states she has occasionally felt chills. - Related Data Allergies/Adverse Reactions: No Known Allergies Allergy (Verified 03/11/19 17:01) Past Medical History - General Information source: Patient, Relative - adult daughter - Social History Smoking Status: Former Smoker Drug Abuse: None Family History: Reviewed & Not Pertinent, DM, Hypertension - Past Medical History Cardiac Medical History: Reports: Hx Congestive Heart Failure, Hx Coronary Artery Disease, Hx Hypercholesterolemia, Hx Hypertension, Hx Peripheral Vascular Disease, Hx Heart Murmur Pulmonary Medical History: Denies: Hx Asthma, Hx COPD Neurological Medical History: Denies: Hx Seizures Endocrine Medical History: Reports: Hx Diabetes Mellitus Type 2 - lantus. Denies: Hx Hyperthyroidism, Hx Hypothyroidism Renal/ Medical History: Denies: Hx Peritoneal Dialysis GI Medical History: Denies: Hx Cirrhosis, Hx Crohn's Disease Musculoskeletal Medical History: Denies Hx Arthritis, Denies Hx Fibromyalgia Skin Medical History: Denies Hx Eczema, Denies Hx Psoriasis Psychiatric Medical History: Denies: Hx Depression Past Surgical History: Reports: Hx Cardiac Catheterization - 1 stent placed, Hx Cardiac Surgery - stent, Hx Hysterectomy, Hx Orthopedic Surgery Review of Systems - Review of Systems Constitutional: See HPI EENT: No symptoms reported Cardiovascular: No symptoms reported Respiratory: No symptoms reported Gastrointestinal: No symptoms reported Genitourinary: No symptoms reported Musculoskeletal: See HPI Skin: See HPI Neurological/Psychological: No symptoms reported Physical Exam - Vital signs Vitals: Temp Pulse Resp BP Pulse Ox 98.3 F 64 16 127/52 H 98 03/11/19 17:09 03/11/19 17:09 03/11/19 17:09 03/11/19 17:09 03/11/19 17:09 - Notes Notes: This is a 73-year-old female who appears her stated age in no acute distress. Vital signs reviewed, please refer to chart. Head is normocephalic, atraumatic. Pupils equal round, reactive to light. Neck is supple without meningismus. Heart is regular rate and rhythm. Lungs are clear to auscultation bilaterally. Abdomen is soft, nontender, normoactive bowel sounds throughout. Examination of the left lower extremity yields a transmetatarsal midfoot amputation. The wounds are open distally. She has significant hyperemia and tenderness. There is bulla formation over the lateral aspect of the foot. No lindsay drainage noted at this time. No posterior calf tenderness. Course - Re-evaluation Re-evalutation: 03/12/19 01:32 Patient presented to the emergency department for evaluation. She is an extremely poor historian. Laboratory investigations, imaging, and antibiotics were actually ordered through triage. Imaging did reveal findings consistent with osteomyelitis, as well as concern for gas-forming infection in the soft tissues. Upon hearing this information, I did consult surgery. Dr. Beebe came down to the department to evaluate the patient. He does suspect that the patient will require a below the knee amputation. This was discussed with the patient as well as the patient's daughter, and they voiced understanding. Secondary to her multiple medical conditions, he asked that medicine admit the patient. I spoke with Dr. Malhotra, he will admit the patient for further care. - Vital Signs Vital signs: Temp Pulse Resp BP Pulse Ox 98.3 F 64 16 127/52 H 98 03/11/19 17:09 03/11/19 17:09 03/11/19 17:09 03/11/19 17:09 03/11/19 17:09 - Laboratory Result Diagrams: 03/11/19 22:28 03/12/19 00:16 Laboratory results interpreted by me: 03/11/19 03/12/19 22:28 00:16 Hgb 10.2 L Hct 30.3 L RDW 16.7 H Glucose 231 H Alkaline Phosphatase 137 H C-Reactive Protein 59.5 H Albumin 3.3 L - Diagnostic Test Radiology reviewed: Reports reviewed Radiology results interpreted by me: 03/12/19 01:32 Foot X-Ray 03/11/19 19:38 IMPRESSION: Osteomyelitis involving the base of the fifth metatarsal. Gas within the lateral soft tissues, suspicious for gas-forming infection. Neuropathic arthropathy. copyright 2010 [employer]- All Rights Reserved Chest X-Ray 03/11/19 19:40 IMPRESSION: No evidence of acute cardiopulmonary disease. - EKG Interpretation by Me Additional EKG results interpreted by me: 03/12/19 01:33 Sinus mechanism with a rate of 68 bpm. First-degree AV block. Left axis deviation. Nonspecific ST changes, but no acute changes concerning for ischemia or infarction. Discharge - Discharge Clinical Impression: Osteomyelitis due to type 2 diabetes mellitus, Cellulitis of left foot Condition: Stable Disposition: ADMITTED INPATIENT Admitting Provider: Roscoe (Hospitalist) Unit Admitted: Telemetry Referrals: VANESSA GO NP, [employer] [NURSE PRACTITIONER] - Follow up as needed
[2019-03-12] MEDS ORDERED: VANCOMYCIN HCL 0 MG in DEXTROSE 5%-WATER 250 ML IV NR ×2 (01:45→18:15)
[2019-03-12] MEDS ORDERED: CEFEPIME 1 GM/D5W RTU 1 GM/50 ML RTUPB IV ONE (02:00)
[2019-03-12] MEDS ORDERED: DOCUSATE SODIUM 100 MG CAPSULE PO ONE (02:00)
[2019-03-12] MEDS ORDERED: CARVEDILOL 12.5 MG TABLET PO ONE ×2 (02:00→05:00)
[2019-03-12] MEDS ORDERED: ATORVASTATIN CALCIUM 40 MG TABLET PO ONE (02:00)
[2019-03-12] MEDS ORDERED: INSULIN GLARGINE,HUM.REC.ANLOG 1,000 UNIT/10 ML VIAL SUBCUT ONE ×2 (02:00→05:00)
[2019-03-12] MEDS ORDERED: VANCOMYCIN HCL INJ 1000 MG VIAL IV PRN (02:38)
[2019-03-12] MEDS ORDERED: VANCOMYCIN HCL 2,000 MG in DEXTROSE 5%-WATER 500 ML IV ONE (02:45)
[2019-03-12] MEDS: INSULIN LISPRO 100 UNIT/ML 3 ML VIAL SUBCUT SCH ×4 (03:03→21:21)
[2019-03-12] MEDS ORDERED: INSULIN GLARGINE,HUM.REC.ANLOG 1,000 UNIT/10 ML VIAL (PYX) SUBCUT ONE ×2 (05:51→06:00)
[2019-03-12] MEDS: FENTANYL CITRATE INJ/PF 100 MCG/2 ML AMPUL IV PRN (05:54)
[2019-03-12] MEDS: HEPARIN SOD (PORCINE) 5,000 UNIT/ML 1 ML VIAL SUBCUT SCH ×3 (05:57→21:20)
--- NOTE | 2019-03-12 06:14 | PDOC H&P ---
History of Present Illness Admission Date/PCP: 03/12/19 01:49 ESTEE HASTINGS Patient complains of: Left foot pain History of Present Illness: GERARD COHN is a 73 year old female with a partial past medical history of severe aortic stenosis, sclerosis with 5/6 regurgitation murmur, diabetes, peripheral vascular disease, status post transmetatarsal amputation 12/2018 with chronic non-healing diabetic foot with osteomyelitis, failing multiple concurrent rounds of antibiotics including Keflex followed by Augmentin. Undergoing hyperbaric therapy without significant improvements she is referred to the emergency room for evaluation and she is found to have swelling of the left foot with gas in the tissues. She is referred to the hospitalist for admission given chronic comorbidities. Past Medical History Cardiac Medical History: Reports: Congestive Heart Failure, Coronary Artery Disease, Hyperlipidema, Hypertension, Peripheral Vascular Disease, Heart Murmur Pulmonary Medical History: Denies: Asthma, Chronic Obstructive Pulmonary Disease (COPD) Neurological Medical History: Denies: Seizures Endocrine Medical History: Reports: Diabetes Mellitus Type 2 - lantus Denies: Hyperthyroidism, Hypothyroidism GI Medical History: Denies: Cirrhosis, Crohn's Disease Musculoskeltal Medical History: Denies: Arthritis, Fibromyalgia Skin Medical History: Denies: Eczema, Psoriasis Psychiatric Medical History: Denies: Depression Hematology: Denies: Sickle Cell Disease, Bleeding Tendencies Past Surgical History Past Surgical History: Reports: Cardiac Catheterization - 1 stent placed, Hysterectomy, Orthopedic Surgery Social History Information Source: Patient, [facility] Records Smoking Status: Former Smoker Frequency of Alcohol Use: None Hx Recreational Drug Use: No Drugs: None Hx Prescription Drug Abuse: No - Advance Directive Resuscitation Status: Full Code Family History Family History: DM, Hypertension Parental Family History Reviewed: Yes Children Family History Reviewed: Yes Sibling(s) Family History Reviewed.: Yes Medication/Allergy Home Medications: Aspirin [Adult Low Dose Aspirin EC] 81 mg PO DAILY 12/27/18 Atorvastatin Calcium [Lipitor 20 mg Tablet] 20 mg PO QHS 12/27/18 Carvedilol [Coreg 12.5 mg Tablet] 12.5 mg PO Q12 12/27/18 Cholecalciferol (Vitamin D3) [Vitamin D3 2000 unit Tablet] 2,000 unit PO DAILY 12/27/18 Clopidogrel Bisulfate [Plavix 75 mg Tablet] 75 mg PO DAILY 12/27/18 Furosemide [Lasix 40 mg Tablet] 40 mg PO DAILY 12/27/18 Gabapentin [Neurontin 300 mg Capsule] 300 mg PO DAILY 12/27/18 Insulin Glargine,Hum.rec.anlog [Lantus Insulin 100 Unit/1 ml 10 ml] 45 unit SUBCUT Q12 12/27/18 Lisinopril [Prinivil 5 mg Tablet] 5 mg PO DAILY 12/27/18 Metformin HCl [Glucophage 500 mg Tablet] 500 mg PO BIDACBS 12/27/18 [place]-3/Dha/Epa/Fish Oil [[place]-3 Fish Oil 1,200 mg Sfgl] 1,200 mg PO DAILY 12/27/18 Amox Tr/Potassium Clavulanate [Augmentin "500" Tablet] 1 tab PO MEALS tablet 01/04/19 Docusate Sodium [Colace 100 mg Capsule] 100 mg PO BID capsule 01/04/19 Ferrous Sulfate [Feosol 325 mg Tablet] 325 mg PO BIDPCBS tablet 01/04/19 Furosemide [Lasix 40 mg Tablet] 40 mg PO DAILY tablet 01/04/19 Insulin Lispro [Humalog Insulin (Lispro) 100 unit/mL] 0 - 12 unit SUBCUT ACHS unit 01/04/19 Mirtazapine [Remeron 15 mg Tablet] 7.5 mg PO QHS tablet 01/04/19 Polyethylene Glycol 3350 [Miralax Powder 17 gm/Packet] 17 gm PO DAILY powd.pack 01/04/19 Nitrofurantoin/Nitrofuran Mac [Macrobid 100 mg Capsule] 1 tab PO BID 7 Days #14 capsule 01/28/19 Allergies/Adverse Reactions: No Known Allergies Allergy (Verified 03/11/19 17:01) Review of Systems Constitutional: PRESENT: as per HPI, chills, fatigue, night sweats, weakness. ABSENT: fever(s), headache(s), weight gain, weight loss Eyes: ABSENT: visual disturbances Ears: ABSENT: hearing changes Cardiovascular: ABSENT: chest pain, dyspnea on exertion, edema, orthropnea, palpitations Respiratory: ABSENT: cough, hemoptysis Gastrointestinal: ABSENT: abdominal pain, constipation, diarrhea, hematemesis, hematochezia, nausea, vomiting Genitourinary: ABSENT: dysuria, hematuria Musculoskeletal: ABSENT: joint swelling Integumentary: PRESENT: as per HPI, other - Left foot edema with erythema and pain. ABSENT: rash, wounds Neurological: ABSENT: abnormal gait, abnormal speech, confusion, dizziness, focal weakness, syncope Psychiatric: ABSENT: anxiety, depression, homidical ideation, suicidal ideation Endocrine: ABSENT: cold intolerance, heat intolerance, polydipsia, polyuria Hematologic/Lymphatic: ABSENT: easy bleeding, easy bruising Physical Exam Vital Signs: Temp Pulse Resp BP Pulse Ox 97.9 F 65 16 123/46 L 97 03/12/19 03:38 03/12/19 03:38 03/12/19 03:38 03/12/19 03:38 03/12/19 03:38 Intake & Output 03/10/19 03/11/19 03/12/19 11:59 11:59 11:59 Intake Total 1050 Balance 1050 Weight 116.12 kg General appearance: PRESENT: no acute distress, well-developed, well-nourished Head exam: PRESENT: atraumatic, normocephalic Eye exam: PRESENT: conjunctiva pink, EOMI, PERRLA. ABSENT: scleral icterus Ear exam: PRESENT: normal external ear exam Mouth exam: PRESENT: moist, tongue midline Neck exam: ABSENT: carotid bruit, JVD, lymphadenopathy, thyromegaly Respiratory exam: PRESENT: clear to auscultation shreyas. ABSENT: rales, rhonchi, wheezes Cardiovascular exam: PRESENT: RRR, +S1, +S2, systolic murmur - 5/6 aortic systolic and diastolic murmur of stenosis with regurgitation. ABSENT: diastolic murmur, gallop, rubs, tachycardia Pulses: PRESENT: normal dorsalis pedis pul Vascular exam: PRESENT: normal capillary refill GI/Abdominal exam: PRESENT: normal bowel sounds, soft. ABSENT: distended, guarding, mass, organolmegaly, rebound, tenderness Rectal exam: PRESENT: deferred Extremities exam: PRESENT: full ROM, +1 edema - Left foot edema with erythema and pain. ABSENT: calf tenderness, clubbing, pedal edema Musculoskeletal exam: PRESENT: other - Left foot edema with erythema and pain Neurological exam: PRESENT: alert, awake, oriented to person, oriented to place, oriented to time, oriented to situation, CN II-XII grossly intact. ABSENT: mo tor sensory deficit Psychiatric exam: PRESENT: appropriate affect, normal mood. ABSENT: homicidal ideation, suicidal ideation Skin exam: PRESENT: dry, intact, warm. ABSENT: cyanosis, rash Results Laboratory Results: 03/11/19 22:28 03/12/19 00:16 03/11/19 03/11/19 03/11/19 22:28 22:28 22:28 WBC 9.4 RBC 3.76 Hgb 10.2 L Hct 30.3 L MCV 81 MCH 27.1 MCHC 33.6 RDW 16.7 H Plt Count 390 Seg Neutrophils % 60.2 Lymphocytes % 29.9 Monocytes % 6.2 Eosinophils % 2.8 Basophils % 0.9 Absolute Neutrophils 5.6 Absolute Lymphocytes 2.8 Absolute Monocytes 0.6 Absolute Eosinophils 0.3 Absolute Basophils 0.1 Sodium Cancelled Potassium Cancelled Chloride Cancelled Carbon Dioxide Cancelled Anion Gap Cancelled BUN Cancelled Creatinine Cancelled Est GFR ( Amer) Cancelled Est GFR (Non-Af Amer) Cancelled Glucose Cancelled Lactic Acid 1.1 Calcium Cancelled Total Bilirubin Cancelled AST Cancelled ALT Cancelled Alkaline Phosphatase Cancelled C-Reactive Protein Total Protein Cancelled Albumin Cancelled 03/11/19 03/12/19 22:28 00:16 WBC RBC Hgb Hct MCV MCH MCHC RDW Plt Count Seg Neutrophils % Lymphocytes % Monocytes % Eosinophils % Basophils % Absolute Neutrophils Absolute Lymphocytes Absolute Monocytes Absolute Eosinophils Absolute Basophils Sodium 137.3 Potassium 4.3 Chloride 103 Carbon Dioxide 27 Anion Gap 7 BUN 18 Creatinine 0.79 Est GFR ( Amer) > 60 Est GFR (Non-Af Amer) > 60 Glucose 231 H Lactic Acid Calcium 9.4 Total Bilirubin 0.3 AST 16 ALT 22 Alkaline Phosphatase 137 H C-Reactive Protein Cancelled 59.5 H Total Protein 6.7 Albumin 3.3 L Impressions: Foot X-Ray 03/11/19 19:38 IMPRESSION: Osteomyelitis involving the base of the fifth metatarsal. Gas within the lateral soft tissues, suspicious for gas-forming infection. Neuropathic arthropathy. copyright 2010 [email or web address]- All Rights Reserved Chest X-Ray 03/11/19 19:40 IMPRESSION: No evidence of acute cardiopulmonary disease. Assessment and Plan - Diagnosis (1) Gas gangrene Is this a current diagnosis for this admission?: Yes Plan: Patient failed exhaustive conservative management, complicated by comorbidities in addition to severe aortic stenosis with regurgitation. Hence she is a high risk patient for moderate risk surgery such as BKA. Follow-up cardiology consult for preop evaluation, surgery consulted, continue empiric antibiotics, follow-up blood culture and CBC (2) Aortic stenosis Is this a current diagnosis for this admission?: Yes Plan: Described as severe echocardiogram 2016, avoid volume depletion, nitrates or hypotension, cardiology consulted (3) Osteomyelitis due to type 2 diabetes mellitus Is this a current diagnosis for this admission?: Yes Plan: Empiric antibiotics, follow-up surgical consult (4) Diabetes mellitus type 1 Qualifiers: Diabetes mellitus complication status: without complication Qualified Code(s): E10.9 - Type 1 diabetes mellitus without complications Is this a current diagnosis for this admission?: Yes Plan: Half outpatient long-acting insulin regiment with Humalog sliding scale while n.p.o. (5) Hypertension Qualifiers: Qualified Code(s): I10 - Essential (primary) hypertension Is this a current diagnosis for this admission?: Yes Plan: Outpatient regiment. - Time Time Spent with patient: 25-34 minutes - Inpatient Certification Medical Necessity: Need Close Monitoring Due to Risk of Patient Decompensation
--- NOTE | 2019-03-12 08:25 | PDOC CONSULTATION ---
Consultation Consult Date: 03/12/19 Provider Consulted: NILE PARKS Consult reason:: infected left TMA History of Present Illness Admission Date/PCP: 03/12/19 01:49 ESTEE HASTINGS History of Present Illness: GERARD COHN is a 73 year old female diabetic and hypertensive post left TMA 01/07/19/ TMA incision left open because of infection. [facility].Immediately after seeing patient with obvious need for at least a left BKA for infected TMA site, I spoke to her daughter who is also being seen in the ED at the same time. Told her that her mother needs a BKA. She tells me that her mother is non compliant as far as managing her Diabetes. Past Medical History Cardiac Medical History: Reports: Congestive Heart Failure, Coronary Artery Disease, Hyperlipidema, Hypertension, Peripheral Vascular Disease, Heart Murmur Pulmonary Medical History: Denies: Asthma, Chronic Obstructive Pulmonary Disease (COPD) Neurological Medical History: Denies: Seizures Endocrine Medical History: Reports: Diabetes Mellitus Type 2 - lantus Denies: Hyperthyroidism, Hypothyroidism GI Medical History: Denies: Cirrhosis, Crohn's Disease Musculoskeltal Medical History: Denies: Arthritis, Fibromyalgia Skin Medical History: Denies: Eczema, Psoriasis Psychiatric Medical History: Denies: Depression Hematology: Denies: Sickle Cell Disease, Bleeding Tendencies Past Surgical History Past Surgical History: Reports: Cardiac Catheterization - 1 stent placed, Hysterectomy, Orthopedic Surgery Social History Smoking Status: Former Smoker Frequency of Alcohol Use: None Hx Recreational Drug Use: No Drugs: None Hx Prescription Drug Abuse: No - Advance Directive Resuscitation Status: Full Code Family History Family History: DM, Hypertension Parental Family History Reviewed: Yes Children Family History Reviewed: No Sibling(s) Family History Reviewed.: No Medication/Allergy Home Medications: Aspirin [Adult Low Dose Aspirin EC] 81 mg PO DAILY 12/27/18 Atorvastatin Calcium [Lipitor 20 mg Tablet] 20 mg PO QHS 12/27/18 Carvedilol [Coreg 12.5 mg Tablet] 12.5 mg PO Q12 12/27/18 Cholecalciferol (Vitamin D3) [Vitamin D3 2000 unit Tablet] 2,000 unit PO DAILY 12/27/18 Clopidogrel Bisulfate [Plavix 75 mg Tablet] 75 mg PO DAILY 12/27/18 Furosemide [Lasix 40 mg Tablet] 40 mg PO DAILY 12/27/18 Gabapentin [Neurontin 300 mg Capsule] 300 mg PO DAILY 12/27/18 Insulin Glargine,Hum.rec.anlog [Lantus Insulin 100 Unit/1 ml 10 ml] 45 unit SUBCUT Q12 12/27/18 Lisinopril [Prinivil 5 mg Tablet] 5 mg PO DAILY 12/27/18 Metformin HCl [Glucophage 500 mg Tablet] 500 mg PO BIDACBS 12/27/18 [place]-3/Dha/Epa/Fish Oil [[place]-3 Fish Oil 1,200 mg Sfgl] 1,200 mg PO DAILY 12/27/18 Amox Tr/Potassium Clavulanate [Augmentin "500" Tablet] 1 tab PO MEALS tablet 01/04/19 Docusate Sodium [Colace 100 mg Capsule] 100 mg PO BID capsule 01/04/19 Ferrous Sulfate [Feosol 325 mg Tablet] 325 mg PO BIDPCBS tablet 01/04/19 Furosemide [Lasix 40 mg Tablet] 40 mg PO DAILY tablet 01/04/19 Insulin Lispro [Humalog Insulin (Lispro) 100 unit/mL] 0 - 12 unit SUBCUT ACHS unit 01/04/19 Mirtazapine [Remeron 15 mg Tablet] 7.5 mg PO QHS tablet 01/04/19 Polyethylene Glycol 3350 [Miralax Powder 17 gm/Packet] 17 gm PO DAILY powd.pack 01/04/19 Nitrofurantoin/Nitrofuran Mac [Macrobid 100 mg Capsule] 1 tab PO BID 7 Days #14 capsule 01/28/19 Allergies/Adverse Reactions: No Known Allergies Allergy (Verified 03/11/19 17:01) Review of Systems Constitutional: PRESENT: as per HPI, other - no fever or chills Cardiovascular: PRESENT: other - no chest pains/cough Gastrointestinal: PRESENT: other - no pains Musculoskeletal: PRESENT: other - painsleft TMA and left calf Physical Exam Vital Signs: Temp Pulse Resp BP Pulse Ox 97.7 F 68 16 140/60 H 95 03/12/19 05:30 03/12/19 05:30 03/12/19 05:30 03/12/19 05:30 03/12/19 05:30 Intake & Output 03/11/19 03/12/19 03/13/19 06:59 06:59 06:59 Intake Total 1050 Balance 1050 Weight 116.1 kg General appearance: PRESENT: mild distress Head exam: PRESENT: atraumatic Eye exam: PRESENT: conjunctiva pink Mouth exam: PRESENT: moist Neck exam: PRESENT: full ROM Respiratory exam: PRESENT: clear to auscultation shreyas Cardiovascular exam: PRESENT: RRR Pulses: PRESENT: normal radial pulses Vascular exam: PRESENT: normal capillary refill GI/Abdominal exam: PRESENT: soft Extremities exam: PRESENT: tenderness - left swollen calf and erythematous swollen left TMA with open wound Musculoskeletal exam: PRESENT: ambulatory Psychiatric exam: PRESENT: anxious Skin exam: PRESENT: warm - erythematous left foot with open TMA wound Results Laboratory Results: 03/11/19 22:28 03/12/19 00:16 03/11/19 03/11/19 03/11/19 22:28 22:28 22:28 WBC 9.4 RBC 3.76 Hgb 10.2 L Hct 30.3 L MCV 81 MCH 27.1 MCHC 33.6 RDW 16.7 H Plt Count 390 Seg Neutrophils % 60.2 Lymphocytes % 29.9 Monocytes % 6.2 Eosinophils % 2.8 Basophils % 0.9 Absolute Neutrophils 5.6 Absolute Lymphocytes 2.8 Absolute Monocytes 0.6 Absolute Eosinophils 0.3 Absolute Basophils 0.1 Sodium Cancelled Potassium Cancelled Chloride Cancelled Carbon Dioxide Cancelled Anion Gap Cancelled BUN Cancelled Creatinine Cancelled Est GFR ( Amer) Cancelled Est GFR (Non-Af Amer) Cancelled Glucose Cancelled Lactic Acid 1.1 Calcium Cancelled Total Bilirubin Cancelled AST Cancelled ALT Cancelled Alkaline Phosphatase Cancelled C-Reactive Protein Total Protein Cancelled Albumin Cancelled 03/11/19 03/12/19 22:28 00:16 WBC RBC Hgb Hct MCV MCH MCHC RDW Plt Count Seg Neutrophils % Lymphocytes % Monocytes % Eosinophils % Basophils % Absolute Neutrophils Absolute Lymphocytes Absolute Monocytes Absolute Eosinophils Absolute Basophils Sodium 137.3 Potassium 4.3 Chloride 103 Carbon Dioxide 27 Anion Gap 7 BUN 18 Creatinine 0.79 Est GFR ( Amer) > 60 Est GFR (Non-Af Amer) > 60 Glucose 231 H Lactic Acid Calcium 9.4 Total Bilirubin 0.3 AST 16 ALT 22 Alkaline Phosphatase 137 H C-Reactive Protein Cancelled 59.5 H Total Protein 6.7 Albumin 3.3 L Impressions: Foot X-Ray 03/11/19 19:38 IMPRESSION: Osteomyelitis involving the base of the fifth metatarsal. Gas within the lateral soft tissues, suspicious for gas-forming infection. Neuropathic arthropathy. copyright 2010 [employer]- All Rights Reserved Chest X-Ray 03/11/19 19:40 IMPRESSION: No evidence of acute cardiopulmonary disease. Assessment & Plan - Diagnosis (1) Aortic stenosis Is this a current diagnosis for this admission?: Yes (2) Cellulitis of left foot Is this a current diagnosis for this admission?: Yes (3) Diabetic foot infection Is this a current diagnosis for this admission?: Yes (4) Hypertension Qualifiers: Hypertension type: essential hypertension Qualified Code(s): I10 - Essential (primary) hypertension Is this a current diagnosis for this admission?: Yes (5) PAD (peripheral artery disease) Is this a current diagnosis for this admission?: Yes (6) Type 2 diabetes mellitus with diabetic neuropathy Qualifiers: Diabetes mellitus skilled nursing insulin use: with skilled nursing use Qualified Code(s): E11.40 - Type 2 diabetes mellitus with diabetic neuropathy, unspecified; Z79.4 - [facility] (current) use of insulin Is this a current diagnosis for this admission?: Yes (7) Morbid obesity with BMI of 40.0-44.9, adult Is this a current diagnosis for this admission?: Yes - Time Time Spent: 30 to 50 Minutes - Inpatient Certification Medical Necessity: Need for IV Antibiotics, Need for Surgery - Plan Summary Plan Summary: Will need at least a left BKA Ask Medical/Cardiac clearance. D/W Hospitalist
[2019-03-12] MEDS ORDERED: NORMAL SALINE 1000 ML 1,000 ML IV PRN (08:51)
--- NOTE | 2019-03-12 09:52 | EKG REPORT ---
SEVERITY:- ABNORMAL ECG - SINUS RHYTHM FIRST DEGREE AV BLOCK BORDERLINE LEFT AXIS DEVIATION LOW VOLTAGE IN FRONTAL LEADS : Confirmed by: Solomon Hickman MD 12-Mar-2019 09:51:34
[2019-03-12] MEDS: DOCUSATE SODIUM 100 MG CAPSULE PO SCH ×2 (10:00→17:44)
[2019-03-12] MEDS ORDERED: CEFEPIME 1 GM/D5W RTU 1 GM/50 ML RTUPB IV SCH (10:00)
[2019-03-12] MEDS: CARVEDILOL 12.5 MG TABLET PO SCH ×2 (13:06→21:19)
[2019-03-12] MEDS: ASPIRIN 81 MG TABLET, CHEWABLE PO SCH (13:08)
--- NOTE | 2019-03-12 15:01 | PDOC PROGRESS REPORT ---
Subjective Progress Note for:: 03/12/19 Subjective:: Patient is more or less in agreement to proceed with left below the knee amputation tomorrow. Reason For Visit: DM FOOT ULCER,HTN Physical Exam Vital Signs: Temp Pulse Resp BP Pulse Ox 98.3 F 84 16 115/48 L 96 03/12/19 09:09 03/12/19 13:48 03/12/19 13:48 03/12/19 09:09 03/12/19 13:48 Intake & Output 03/11/19 03/12/19 03/13/19 06:59 06:59 06:59 Intake Total 1050 Balance 1050 Weight 116.1 kg General appearance: PRESENT: no acute distress Extremities exam: PRESENT: other - Left trans-met wound, limited drainage Results Laboratory Results: 03/11/19 22:28 03/12/19 00:16 03/11/19 03/11/19 03/11/19 22:28 22:28 22:28 WBC 9.4 RBC 3.76 Hgb 10.2 L Hct 30.3 L MCV 81 MCH 27.1 MCHC 33.6 RDW 16.7 H Plt Count 390 Seg Neutrophils % 60.2 Lymphocytes % 29.9 Monocytes % 6.2 Eosinophils % 2.8 Basophils % 0.9 Absolute Neutrophils 5.6 Absolute Lymphocytes 2.8 Absolute Monocytes 0.6 Absolute Eosinophils 0.3 Absolute Basophils 0.1 Sodium Cancelled Potassium Cancelled Chloride Cancelled Carbon Dioxide Cancelled Anion Gap Cancelled BUN Cancelled Creatinine Cancelled Est GFR ( Amer) Cancelled Est GFR (Non-Af Amer) Cancelled Glucose Cancelled Lactic Acid 1.1 Calcium Cancelled Total Bilirubin Cancelled AST Cancelled ALT Cancelled Alkaline Phosphatase Cancelled C-Reactive Protein Total Protein Cancelled Albumin Cancelled 03/11/19 03/12/19 22:28 00:16 WBC RBC Hgb Hct MCV MCH MCHC RDW Plt Count Seg Neutrophils % Lymphocytes % Monocytes % Eosinophils % Basophils % Absolute Neutrophils Absolute Lymphocytes Absolute Monocytes Absolute Eosinophils Absolute Basophils Sodium 137.3 Potassium 4.3 Chloride 103 Carbon Dioxide 27 Anion Gap 7 BUN 18 Creatinine 0.79 Est GFR ( Amer) > 60 Est GFR (Non-Af Amer) > 60 Glucose 231 H Lactic Acid Calcium 9.4 Total Bilirubin 0.3 AST 16 ALT 22 Alkaline Phosphatase 137 H C-Reactive Protein Cancelled 59.5 H Total Protein 6.7 Albumin 3.3 L Impressions: Foot X-Ray 03/11/19 19:38 IMPRESSION: Osteomyelitis involving the base of the fifth metatarsal. Gas within the lateral soft tissues, suspicious for gas-forming infection. Neuropathic arthropathy. copyright 2010 [employer]- All Rights Reserved Chest X-Ray 03/11/19 19:40 IMPRESSION: No evidence of acute cardiopulmonary disease. Assessment & Plan - Diagnosis (1) Gas gangrene Is this a current diagnosis for this admission?: Yes Plan: Impression: Patient with a septic left foot gas gangrene and osteomyelitis status post left transmetatarsal amputation Recommendations: 1. We will keep patient n.p.o. after midnight 2. Anticipate left below the knee amputation by Dr. Worthy tomorrow
--- NOTE | 2019-03-12 16:04 | PDOC PROGRESS REPORT ---
Subjective Progress Note for:: 03/12/19 Subjective:: Patient admitted with a nonhealing ulcer on the left transmetatarsal amputation site. Her below-knee amputation is scheduled for tomorrow. She is sleeping comfortably and awakens easily. Reason For Visit: DM FOOT ULCER,HTN Physical Exam Vital Signs: Temp Pulse Resp BP Pulse Ox 97.7 F 80 16 140/60 H 95 03/12/19 05:30 03/12/19 07:00 03/12/19 05:30 03/12/19 05:30 03/12/19 05:30 Intake & Output 03/11/19 03/12/19 03/13/19 06:59 06:59 06:59 Intake Total 1050 Balance 1050 Weight 116.1 kg General appearance: PRESENT: no acute distress, morbidly obese, well-developed Head exam: PRESENT: atraumatic, normocephalic Ear exam: PRESENT: normal external ear exam Mouth exam: PRESENT: dry mucosa, tongue midline Respiratory exam: PRESENT: clear to auscultation shreyas, symmetrical, unlabored. ABSENT: rales, rhonchi, tachypnea, wheezes Cardiovascular exam: PRESENT: RRR, +S1, +S2, systolic murmur - 4/6 grinding GI/Abdominal exam: PRESENT: hypoactive bowel sounds, soft. ABSENT: distended, tenderness Rectal exam: PRESENT: deferred Extremities exam: PRESENT: other - Left foot with an open wound across the pre vious amputation site. Yellow slough present. Neurological exam: PRESENT: awake, oriented to person, oriented to place. ABSENT: alert - Just awakened from sleep so she is appropriately somnolent. Psychiatric exam: PRESENT: flat affect. ABSENT: agitated, anxious Focused psych exam: ABSENT: delusional, restlessness Skin exam: PRESENT: other - Open wound as above Results Laboratory Results: 03/11/19 22:28 03/12/19 00:16 03/11/19 03/11/19 03/11/19 22:28 22:28 22:28 WBC 9.4 RBC 3.76 Hgb 10.2 L Hct 30.3 L MCV 81 MCH 27.1 MCHC 33.6 RDW 16.7 H Plt Count 390 Seg Neutrophils % 60.2 Lymphocytes % 29.9 Monocytes % 6.2 Eosinophils % 2.8 Basophils % 0.9 Absolute Neutrophils 5.6 Absolute Lymphocytes 2.8 Absolute Monocytes 0.6 Absolute Eosinophils 0.3 Absolute Basophils 0.1 Sodium Cancelled Potassium Cancelled Chloride Cancelled Carbon Dioxide Cancelled Anion Gap Cancelled BUN Cancelled Creatinine Cancelled Est GFR ( Amer) Cancelled Est GFR (Non-Af Amer) Cancelled Glucose Cancelled Lactic Acid 1.1 Calcium Cancelled Total Bilirubin Cancelled AST Cancelled ALT Cancelled Alkaline Phosphatase Cancelled C-Reactive Protein Total Protein Cancelled Albumin Cancelled 03/11/19 03/12/19 22:28 00:16 WBC RBC Hgb Hct MCV MCH MCHC RDW Plt Count Seg Neutrophils % Lymphocytes % Monocytes % Eosinophils % Basophils % Absolute Neutrophils Absolute Lymphocytes Absolute Monocytes Absolute Eosinophils Absolute Basophils Sodium 137.3 Potassium 4.3 Chloride 103 Carbon Dioxide 27 Anion Gap 7 BUN 18 Creatinine 0.79 Est GFR ( Amer) > 60 Est GFR (Non-Af Amer) > 60 Glucose 231 H Lactic Acid Calcium 9.4 Total Bilirubin 0.3 AST 16 ALT 22 Alkaline Phosphatase 137 H C-Reactive Protein Cancelled 59.5 H Total Protein 6.7 Albumin 3.3 L Impressions: Foot X-Ray 03/11/19 19:38 IMPRESSION: Osteomyelitis involving the base of the fifth metatarsal. Gas within the lateral soft tissues, suspicious for gas-forming infection. Neuropathic arthropathy. copyright 2010 [employer]- All Rights Reserved Chest X-Ray 03/11/19 19:40 IMPRESSION: No evidence of acute cardiopulmonary disease. Assessment and Plan - Diagnosis (1) Gas gangrene Is this a current diagnosis for this admission?: Yes Plan: The patient has a nonhealing ulcer on the left foot. X-ray reveals gas-forming infection with osteomyelitis. She is currently on vancomycin and Zosyn. Surgery has been consulted for consideration of left below-knee amputation. With her aortic stenosis she is high risk however the infection with gas gangrene requires treatment and the definitive treatment would be amputation. (2) Aortic stenosis Qualifiers: Cardiac valve disease etiology: nonrheumatic Qualified Code(s): I35.0 - Nonrheumatic aortic (valve) stenosis Is this a current diagnosis for this admission?: Yes Plan: 03/12/2019-the patient has a history of severe aortic stenosis. Cardiology has requested a current echocardiogram which I have ordered. Dr. Benjy will be seeing the patient. As noted above she is high risk however treatment for gas gangrene is necessary. (3) Osteomyelitis due to type 2 diabetes mellitus Is this a current diagnosis for this admission?: Yes Plan: 03/12/2019-continue the current antibiotics. Once the affected bone is removed the patient will not need 6 weeks of IV antibiotics. (4) Diabetes mellitus type 2 in obese Is this a current diagnosis for this admission?: Yes Plan: The patient is on diet and so I have ordered her long-acting insulin she is also on a sliding scale. On the morning of her surgery she will be n.p.o. and so a smaller dose of Lantus should be used. (5) Hypertension Qualifiers: Hypertension type: essential hypertension Qualified Code(s): I10 - Essential (primary) hypertension Is this a current diagnosis for this admission?: Yes Plan: 03/12/2019-it is imperative that we do not let her blood pressure dropped too low due to the aortic stenosis. We also need to make sure she does not become hypovolemic. Will monitor her blood pressure and her intake and output. Suppl ement with IV fluid if needed. - Time Time Spent with patient: 15-24 minutes Medications reviewed and adjusted accordingly: Yes
[2019-03-12] MEDS: FERROUS SULFATE 325 MG TABLET PO SCH (17:03)
[2019-03-12] MEDS: METFORMIN HCL 500 MG TABLET PO SCH (17:04)
--- NOTE | 2019-03-12 18:12 | Progress Note ---
Provider Note Provider Note: Because the patient is only on cefepime, and has had multiple hospitalizations, I will add back vancomycin until after her surgery then this can be discontinued unless there are positive blood cultures.
[2019-03-12] MEDS: ATORVASTATIN CALCIUM 40 MG TABLET PO SCH (21:19)
[2019-03-12] MEDS: GABAPENTIN 300 MG CAPSULE PO SCH (21:19)
[2019-03-12] MEDS: MIRTAZAPINE 15 MG TABLET PO SCH (21:21)
[2019-03-12] MEDS ORDERED: CARVEDILOL 12.5 MG TABLET PO SCH (22:00)
[2019-03-12] MEDS ORDERED: INSULIN GLARGINE,HUM.REC.ANLOG 1,000 UNIT/10 ML VIAL SUBCUT SCH (22:00)
[2019-03-13] MEDS ORDERED: VANCOMYCIN HCL INJ 1000 MG VIAL IV PRN (02:18)
[2019-03-13] MEDS: CEFEPIME 1 GM/D5W RTU 1 GM/50 ML RTUPB IV SCH ×2 (02:24→14:21)
[2019-03-13] MEDS ORDERED: VANCOMYCIN HCL 2,000 MG in DEXTROSE 5%-WATER 500 ML IV ONE (02:30)
[2019-03-13] MEDS ORDERED: VANCOMYCIN HCL INJ 1000 MG VIAL ONE (02:40)
[2019-03-13 05:32] LABS: ABSOLUTE BASOPHILS # (AUTO) 0.1 10^3/uL (0.0-0.2); ABSOLUTE EOSINOPHILS # (AUTO) 0.4 10^3/uL (0.0-0.6); ABSOLUTE LYMPHOCYTES (AUTO) 2.3 10^3/uL (0.5-4.7); ABSOLUTE MONOCYTES (AUTO) 0.5 10^3/uL (0.1-1.4); BASOPHILS % (AUTO) 0.6 % (0-2); EOSINOPHILS % (AUTO) 4.7 % (0-6); HEMATOCRIT 26.1 % (36.0-47.0); HEMOGLOBIN 8.9 g/dL (12.0-15.5); LYMPHOCYTES % (AUTO) 27.7 % (13-45); MEAN CORPUSCULAR HEMOGLOBIN 27.2 pg (27.0-33.4); MEAN CORPUSCULAR HGB CONC 33.9 g/dL (32.0-36.0); MEAN CORPUSCULAR VOLUME 80 fl (80-97); MONOCYTES % (AUTO) 6.5 % (3-13); PLATELET COUNT 335 10^3/uL (150-450); RED BLOOD COUNT 3.26 10^6/uL (3.72-5.28); SEGMENTED NEUTROPHILS % (AUTO) 60.5 % (42-78); TOTAL CELLS COUNTED % (AUTO) 100 %; WHITE BLOOD COUNT 8.2 10^3/uL (4.0-10.5)
[2019-03-13 05:53] LABS: ANION GAP 8 (5-19); BLOOD UREA NITROGEN 14 mg/dL (7-20); CALCIUM 8.8 mg/dL (8.4-10.2); CARBON DIOXIDE 24 mmol/L (22-30); CHLORIDE 106 mmol/L (98-107); GLUCOSE 156 mg/dL (75-110); POTASSIUM 4.4 mmol/L (3.6-5.0)
[2019-03-13] MEDS: HEPARIN SOD (PORCINE) 5,000 UNIT/ML 1 ML VIAL SUBCUT SCH ×3 (07:02→21:12)
[2019-03-13] MEDS: INSULIN LISPRO 100 UNIT/ML 3 ML VIAL SUBCUT SCH ×4 (09:23→22:00)
[2019-03-13] MEDS: CARVEDILOL 12.5 MG TABLET PO SCH ×3 (09:40→21:12)
--- NOTE | 2019-03-13 09:55 | PDOC PROGRESS REPORT ---
Subjective Progress Note for:: 03/13/19 Subjective:: Patient is present with family members at the bedside. Awaiting updated echocardiogram to reassess her aortic stenosis and preoperative assessment. Reason For Visit: DM FOOT ULCER,HTN Physical Exam Vital Signs: Temp Pulse Resp BP Pulse Ox 97.8 F 63 16 104/68 93 03/13/19 07:45 03/13/19 07:45 03/13/19 07:45 03/13/19 07:45 03/13/19 07:45 Intake & Output 03/12/19 03/13/19 03/14/19 06:59 06:59 06:59 Intake Total 1050 790 Balance 1050 790 Weight 116.1 kg 116 kg General appearance: PRESENT: no acute distress, cooperative, morbidly obese, well-developed Head exam: PRESENT: atraumatic, normocephalic Eye exam: PRESENT: conjunctiva pale. ABSENT: scleral icterus Ear exam: PRESENT: normal external ear exam Mouth exam: PRESENT: moist, tongue midline Respiratory exam: PRESENT: clear to auscultation shreyas, symmetrical, unlabored. ABSENT: chest wall tenderness, rales, rhonchi, tachypnea, wheezes Cardiovascular exam: PRESENT: RRR, +S1, +S2, systolic murmur - 4/6 systolic murmur GI/Abdominal exam: PRESENT: normal bowel sounds, soft. ABSENT: distended, tenderness Rectal exam: PRESENT: deferred Extremities exam: PRESENT: other - Open wound on the left foot. Checks pad with minimal serosanguineous drainage Musculoskeletal exam: ABSENT: ambulatory Neurological exam: PRESENT: alert, awake, oriented to person, CN II-XII grossly intact, other - Difficult to fully assess orientation due to language barrier however discussion with her son certainly indicates completely oriented. Psychiatric exam: PRESENT: flat affect. ABSENT: agitated, anxious Focused psych exam: ABSENT: restlessness Skin exam: PRESENT: other - Open wound at the site of the transmetatarsal amputation. Slough in the midportion of the wound. The medial and lateral aspects of the wound are slightly deeper. There is some crusted areas at the margin of the wound. The distal foot is swollen and slightly erythematous. Results Laboratory Results: 03/13/19 04:43 03/13/19 04:43 03/13/19 03/13/19 04:43 04:43 WBC 8.2 RBC 3.26 L Hgb 8.9 L Hct 26.1 L MCV 80 MCH 27.2 MCHC 33.9 RDW 16.0 H Plt Count 335 Seg Neutrophils % 60.5 Lymphocytes % 27.7 Monocytes % 6.5 Eosinophils % 4.7 Basophils % 0.6 Absolute Neutrophils 5.0 Absolute Lymphocytes 2.3 Absolute Monocytes 0.5 Absolute Eosinophils 0.4 Absolute Basophils 0.1 Sodium 137.9 Potassium 4.4 Chloride 106 Carbon Dioxide 24 Anion Gap 8 BUN 14 Creatinine 0.68 Est GFR ( Amer) > 60 Est GFR (Non-Af Amer) > 60 Glucose 156 H Calcium 8.8 Magnesium 1.3 L Impressions: Foot X-Ray 03/11/19 19:38 IMPRESSION: Osteomyelitis involving the base of the fifth metatarsal. Gas within the lateral soft tissues, suspicious for gas-forming infection. Neuropathic arthropathy. copyright 2010 [employer]- All Rights Reserved Chest X-Ray 03/11/19 19:40 IMPRESSION: No evidence of acute cardiopulmonary disease. Assessment and Plan - Diagnosis (1) Gas gangrene Is this a current diagnosis for this admission?: Yes Plan: The patient has a nonhealing ulcer on the left foot. X-ray reveals gas-forming infection with osteomyelitis. She is currently on vancomycin and Zosyn. Surgery has been consulted for consideration of left below-knee amputation. With her aortic stenosis she is high risk however the infection with gas gangrene requires treatment and the definitive treatment would be amputation. 03/13/2019-surgery was scheduled for today however with her severe aortic stenosis proper cardiology assessment is underway. The echocardiogram is going to be repeated for accuracy. Cardiology will discuss with surgery/anesthesia to update them. In the meantime continue vancomycin and cefepime. (2) Aortic stenosis Qualifiers: Cardiac valve disease etiology: nonrheumatic Qualified Code(s): I35.0 - Nonrheumatic aortic (valve) stenosis Is this a current diagnosis for this admission?: Yes Plan: 03/12/2019-the patient has a history of severe aortic stenosis. Cardiology has requested a current echocardiogram which I have ordered. Dr. Burleson will be seeing the patient. As noted above she is high risk however treatment for gas gangrene is necessary. 03/13/2019-with her history of aortic stenosis and valve replacement we want to make sure that there is an accurate assessment of her cardiac risk factors. Had a long discussion with the family regarding the balance of risk of the foot infection versus risk of surgery. We will know more once the final echocardiogram is available. (3) Osteomyelitis due to type 2 diabetes mellitus Is this a current diagnosis for this admission?: Yes Plan: 03/12/2019-continue the current antibiotics. Once the affected bone is removed the patient will not need 6 weeks of IV antibiotics. 03/13/2019-continue vancomycin and cefepime. The benefit of amputation will be to alleviate the need for long-term antibiotic therapy. (4) Diabetes mellitus type 2 in obese Is this a current diagnosis for this admission?: Yes Plan: The patient is on diet and so I have ordered her long-acting insulin she is also on a sliding scale. On the morning of her surgery she will be n.p.o. and so a smaller dose of Lantus should be used. 03/13/2019-continue sliding scale and metformin at this time. May need to add a decreased dose of Lantus depending on her surgery schedule. (5) Hypertension Qualifiers: Hypertension type: essential hypertension Qualified Code(s): I10 - Essential (primary) hypertension Is this a current diagnosis for this admission?: Yes Plan: 03/12/2019-it is imperative that we do not let her blood pressure dropped too low due to the aortic stenosis. We also need to make sure she does not become hypovolemic. Will monitor her blood pressure and her intake and output. Supplement with IV fluid if needed. 03/13/2019-blood pressures are actually on the low side. I will leave the Coreg at 12.5 mg twice daily with parameters to hold for pulse less than 65. I will hold lisinopril for systolic pressure less than 110. I will split the furosemide to 20 mg twice daily from 40 mg daily and this should help with blood pressure control. - Time Time Spent with patient: 25-34 minutes Medications reviewed and adjusted accordingly: Yes
[2019-03-13] MEDS ORDERED: FUROSEMIDE 40 MG TABLET PO SCH ×2 (10:00)
[2019-03-13] MEDS ORDERED: LISINOPRIL 5 MG TABLET PO SCH (10:00)
[2019-03-13] MEDS: LISINOPRIL 5 MG TABLET PO SCH (11:29)
[2019-03-13] MEDS: MAGNESIUM SULFATE/D5W 1 GM/100 ML RTUPB IV SCH ×3 (11:40→16:07)
[2019-03-13] MEDS: METFORMIN HCL 500 MG TABLET PO SCH ×2 (11:40→18:03)
[2019-03-13] MEDS: FERROUS SULFATE 325 MG TABLET PO SCH ×2 (11:40→18:03)
[2019-03-13] MEDS: POTASSIUM CHLORIDE 10 MEQ CAPSULE.ER PO SCH (11:40)
[2019-03-13] MEDS: NORMAL SALINE 1000 ML 1,000 ML IV PRN (11:40)
[2019-03-13] MEDS: DOCUSATE SODIUM 100 MG CAPSULE PO SCH ×2 (11:41→17:54)
[2019-03-13] MEDS: GABAPENTIN 300 MG CAPSULE PO SCH ×2 (11:41→21:12)
[2019-03-13] MEDS: ASPIRIN 81 MG TABLET, CHEWABLE PO SCH (11:41)
--- NOTE | 2019-03-13 13:40 | XCELERA REPORT ---
[address] [address] Transthoracic Echocardiogram Report Name: GERARD COHN Age: 73 yrs Gender: Female : 1945 Patient Status: In[facility] Date: 03/12/2019 01:53 PM Height: 66 in Weight: 255 lb BSA: 2.2 m2 Procedure: A two-dimensional transthoracic echocardiogram with color flow and Doppler was performed. The study was technically difficult with many images being suboptimal in quality. Poor doppler interogation and endocardial visualisation not optimal. Reason For Study: Aortic stenosis History: Aortic stenosis. Ordering Physician: OMKAR FRANCIS Performed By: Tho Mcneill Interpretation Summary Recommend antiobiotics for SBE prophylaxis.WILL REPEAT LIMITED ECHO FOR AORTIC VALVE JET AND STATE OF BIOPROSTHETIC VALVE. The study was technically difficult with many images being suboptimal in quality. The left ventricle is grossly normal size. There is normal left ventricular wall thickness. Probably no regional wall motion abnormality..Normal LVEF greater than 65%. Doppler measurements suggest normal left ventricular diastolic function There is no thrombus. Cannot assess ASD,VSD,or PFO. The right atrium is normal. The left atrium is moderately dilated. There is moderate to severe mitral annular calcification. Calcified mitral apparatus causing mitral stenosis. There is no evidence of mitral valve prolapse. There is mild to moderate mitral stenosis There is a trace amount of mitral regurgitation There is no vegetation seen on the mitral valve. The aortic valve is not well visualized secondary to technical limitations There is no aortic valvular vegetation. There is a trace amount of aortic regurgitation There is a bioprosthetic aortic valve. Valve interogation is not optimal.Cannot exclude mild to moderate restenosis of the bioprosthetic aortic valve. There is no tricuspid stenosis. Probably trace TR.Insufficient TR jet to calculate RVSP. The pulmonic valve is not well visualized. The aortic root is not well visualized. The inferior vena cava was not well visualized There is no pericardial effusion. Recommend antiobiotics for SBE prophylaxis.WILL REPEAT LIMITED ECHO FOR AORTIC VALVE JET AND STATE OF BIOPROSTHETIC VALVE. MMode/2D Measurements & Calculations RVDd: 2.9 cm LVIDd: 4.9 cm FS: 47.8 % Ao root diam: 1.9 cm IVSd: 0.90 cm LVIDs: 2.6 cm EDV(Teich): 114.9 ml Ao root area: 2.9 cm2 LVPWd: 1.0 cm ESV(Teich): 24.1 ml LA dimension: 4.6 cm EF(Teich): 79.0 % Doppler Measurements & Calculations MV E max afua: MV P1/2t max afua: Ao V2 max: LV V1 max P.5 cm/sec 276.9 cm/sec 268.8 cm/sec 20.0 mmHg MV A max afua: MV P1/2t: 95.8 msec Ao max PG: LV V1 mean P.0 cm/sec MVA(P1/2t): 2.3 cm2 28.9 mmHg 11.8 mmHg MV E/A: 1.5 MV dec slope: Ao V2 mean: LV V1 max: 175.8 cm/sec 223.7 cm/sec 846.4 cm/sec2 Ao mean PG: LV V1 mean: MV dec time: 0.31 sec 14.5 mmHg 161.4 cm/sec Ao V2 VTI: 48.9 cm LV V1 VTI: 45.5 cm PA V2 max: MV P1/2t-pr_phl: 96.4 cm/sec 95.8 msec PA max P.7 mmHg Left Ventricle The left ventricle is grossly normal size. There is normal left ventricular wall thickness. Probably no regional wall motion abnormality..Normal LVEF greater than 65%. Doppler measurements suggest normal left ventricular diastolic function. There is no thrombus. Cannot assess ASD,VSD,or PFO. Right Ventricle The right ventricle is not well visualized secondary to technical limitations. Atria The right atrium is normal. The left atrium is moderately dilated. Mitral Valve There is moderate to severe mitral annular calcification. Calcified mitral apparatus causing mitral stenosis. There is no evidence of mitral valve prolapse. There is no vegetation seen on the mitral valve. There is mild to moderate mitral stenosis. There is a trace amount of mitral regurgitation. Aortic Valve The aortic valve is not well visualized secondary to technical limitations. There is no aortic valvular vegetation. There is a trace amount of aortic regurgitation. There is a bioprosthetic aortic valve. Valve interogation is not optimal.Cannot exclude mild to moderate restenosis of the bioprosthetic aortic valve. Tricuspid Valve There is no tricuspid stenosis. Probably trace TR.Insufficient TR jet to calculate RVSP. Pulmonic Valve The pulmonic valve is not well visualized. Great Vessels The aortic root is not well visualized. The inferior vena cava was not well visualized. Effusions There is no pericardial effusion. : OMKAR FRANCIS > Wendi Burleson
[2019-03-13] MEDS ORDERED: MAGNESIUM SULFATE/D5W 1 GM/100 ML RTUPB IV ONE (16:04)
--- NOTE | 2019-03-13 17:09 | Progress Note ---
Provider Note Provider Note: Hypomagnesemia corrected with IV magnesium earlier this morning.
[2019-03-13] MEDS: VANCOMYCIN HCL 1,000 MG in DEXTROSE 5%-WATER 250 ML IV SCH (18:03)
--- NOTE | 2019-03-13 19:26 | PDOC PROGRESS REPORT ---
Subjective Progress Note for:: 03/13/19 Subjective:: less pains left foot and calf Not cleared for OR by Firewall Security Engineer since ECHO study not accurate. He may request for a repeat study prior to OR and could hopefully be rescheduled for tomorrow Reason For Visit: DM FOOT ULCER,HTN Physical Exam Vital Signs: Temp Pulse Resp BP Pulse Ox 97.7 F 82 18 141/62 H 96 03/13/19 12:11 03/13/19 14:21 03/13/19 14:21 03/13/19 12:11 03/13/19 14:21 Intake & Output 03/12/19 03/13/19 03/14/19 06:59 06:59 06:59 Intake Total 7175 277 4064 Output Total 800 Balance 1050 790 324 Weight 116.1 kg 116 kg Exam: Inflammation at the left foot appears to be slightly improved with decrease swelling and erythema Still with mild tenderness medial calf Results Laboratory Results: 03/13/19 04:43 03/13/19 04:43 03/13/19 03/13/19 03/13/19 04:43 04:43 08:57 WBC 8.2 RBC 3.26 L Hgb 8.9 L Hct 26.1 L MCV 80 MCH 27.2 MCHC 33.9 RDW 16.0 H Plt Count 335 Seg Neutrophils % 60.5 Lymphocytes % 27.7 Monocytes % 6.5 Eosinophils % 4.7 Basophils % 0.6 Absolute Neutrophils 5.0 Absolute Lymphocytes 2.3 Absolute Monocytes 0.5 Absolute Eosinophils 0.4 Absolute Basophils 0.1 Sodium 137.9 Potassium 4.4 Chloride 106 Carbon Dioxide 24 Anion Gap 8 BUN 14 Creatinine 0.68 Est GFR ( Amer) > 60 Est GFR (Non-Af Amer) > 60 Glucose 156 H Calcium 8.8 Magnesium 1.3 L Blood Type O POSITIVE Antibody Screen POSITIVE 03/13/19 03/13/19 08:57 16:00 WBC RBC Hgb Hct MCV MCH MCHC RDW Plt Count Seg Neutrophils % Lymphocytes % Monocytes % Eosinophils % Basophils % Absolute Neutrophils Absolute Lymphocytes Absolute Monocytes Absolute Eosinophils Absolute Basophils Sodium Potassium Chloride Carbon Dioxide Anion Gap BUN Creatinine Est GFR ( Amer) Est GFR (Non-Af Amer) Glucose Calcium Magnesium 1.3 L 1.8 Blood Type Antibody Screen Impressions: Foot X-Ray 03/11/19 19:38 IMPRESSION: Osteomyelitis involving the base of the fifth metatarsal. Gas within the lateral soft tissues, suspicious for gas-forming infection. Neuropathic arthropathy. copyright 2011 [employer]- All Rights Reserved Chest X-Ray 03/11/19 19:40 IMPRESSION: No evidence of acute cardiopulmonary disease. Assessment & Plan - Diagnosis (1) Aortic stenosis Qualifiers: Cardiac valve disease etiology: nonrheumatic Qualified Code(s): I35.0 - Nonrheumatic aortic (valve) stenosis Is this a current diagnosis for this admission?: Yes (2) Cellulitis of left foot Is this a current diagnosis for this admission?: Yes (3) Diabetic foot infection Is this a current diagnosis for this admission?: Yes (4) Hypertension Qualifiers: Hypertension type: essential hypertension Qualified Code(s): I10 - Essential (primary) hypertension Is this a current diagnosis for this admission?: Yes (5) PAD (peripheral artery disease) Is this a current diagnosis for this admission?: Yes (6) Type 2 diabetes mellitus with diabetic neuropathy Qualifiers: Diabetes mellitus supervisor long goods insulin use: with supervisor long goods use Qualified Code(s): E11.40 - Type 2 diabetes mellitus with diabetic neuropathy, unspecified; Z79.4 - detention (current) use of insulin Is this a current diagnosis for this admission?: Yes (7) Morbid obesity with BMI of 40.0-44.9, adult Is this a current diagnosis for this admission?: Yes - Time Time Spent with patient: 15-24 minutes - Inpatient Certification Based on my medical assessment, after consideration of the patient's comorbidities, presenting symptoms, or acuity I expect that the services needed warrant INPATIENT care.: Yes Medical Necessity: Need for IV Antibiotics, Need for Surgery - Plan Summary Plan Summary: Firewall Security Engineer did not clear patient for OR today. Claims ECHO not accurate and may request another ECHO Will reschedule left BKA tomorrow after Cardiology clearance
[2019-03-13] MEDS: ATORVASTATIN CALCIUM 40 MG TABLET PO SCH (21:12)
[2019-03-13] MEDS: MIRTAZAPINE 15 MG TABLET PO SCH (21:12)
[2019-03-14] MEDS: CEFEPIME 1 GM/D5W RTU 1 GM/50 ML RTUPB IV SCH ×2 (01:48→16:18)
[2019-03-14] MEDS: FENTANYL CITRATE INJ/PF 100 MCG/2 ML AMPUL IV PRN ×2 (03:31→11:36)
[2019-03-14 05:14] LABS: ABSOLUTE BASOPHILS # (AUTO) 0.1 10^3/uL (0.0-0.2); ABSOLUTE EOSINOPHILS # (AUTO) 0.4 10^3/uL (0.0-0.6); ABSOLUTE LYMPHOCYTES (AUTO) 2.2 10^3/uL (0.5-4.7); ABSOLUTE MONOCYTES (AUTO) 0.5 10^3/uL (0.1-1.4); ABSOLUTE NEUT (AUTO) 6.1 10^3/uL (1.7-8.2); BASOPHILS % (AUTO) 0.9 % (0-2); EOSINOPHILS % (AUTO) 4.1 % (0-6); HEMATOCRIT 28.3 % (36.0-47.0); HEMOGLOBIN 9.5 g/dL (12.0-15.5); LYMPHOCYTES % (AUTO) 23.9 % (13-45); MEAN CORPUSCULAR HEMOGLOBIN 26.6 pg (27.0-33.4); MEAN CORPUSCULAR HGB CONC 33.5 g/dL (32.0-36.0); MEAN CORPUSCULAR VOLUME 80 fl (80-97); MONOCYTES % (AUTO) 5.8 % (3-13); PLATELET COUNT 355 10^3/uL (150-450); RED BLOOD COUNT 3.56 10^6/uL (3.72-5.28); RED CELL DISTRIBUTION WIDTH 15.9 % (11.5-14.0); SEGMENTED NEUTROPHILS % (AUTO) 65.3 % (42-78); TOTAL CELLS COUNTED % (AUTO) 100 %; WHITE BLOOD COUNT 9.3 10^3/uL (4.0-10.5)
[2019-03-14] MEDS: HEPARIN SOD (PORCINE) 5,000 UNIT/ML 1 ML VIAL SUBCUT SCH ×2 (05:31→14:32)
[2019-03-14] MEDS: VANCOMYCIN HCL 1,000 MG in DEXTROSE 5%-WATER 250 ML IV SCH ×2 (05:37→18:23)
[2019-03-14 05:39] LABS: ANION GAP 9 (5-19); BLOOD UREA NITROGEN 11 mg/dL (7-20); CALCIUM 9.1 mg/dL (8.4-10.2); CARBON DIOXIDE 24 mmol/L (22-30); CHLORIDE 107 mmol/L (98-107); GLUCOSE 166 mg/dL (75-110); POTASSIUM 4.5 mmol/L (3.6-5.0)
[2019-03-14] MEDS: INSULIN LISPRO 100 UNIT/ML 3 ML VIAL SUBCUT SCH ×3 (08:13→16:24)
[2019-03-14] MEDS: METFORMIN HCL 500 MG TABLET PO SCH ×2 (08:13→16:24)
--- NOTE | 2019-03-14 09:41 | PDOC PROGRESS REPORT ---
Subjective Progress Note for:: 03/14/19 Subjective:: Patient unchanged clinically; operation canceled yesterday due to lack of cardiac clearance; I spoke with Dr. Burleson, interface engineer this morning. Patient has a history of TAVR of the aortic valve. Echocardiogram being performed this morning. Reason For Visit: DM FOOT ULCER,HTN Physical Exam Vital Signs: Temp Pulse Resp BP Pulse Ox 98.4 F 73 17 136/65 H 92 03/14/19 07:51 03/14/19 07:51 03/14/19 07:51 03/14/19 07:51 03/14/19 07:51 Intake & Output 03/13/19 03/14/19 03/15/19 06:59 06:59 06:59 Intake Total 790 1474 Output Total 2100 Balance 790 -626 Weight 116 kg 108.5 kg General appearance: PRESENT: no acute distress Extremities exam: PRESENT: other - Left lower extremity examined. Foot wrap; tenderness diminished along the calf. Results Laboratory Results: 03/14/19 05:02 03/14/19 05:02 03/13/19 03/13/19 03/13/19 08:57 08:57 16:00 WBC RBC Hgb Hct MCV MCH MCHC RDW Plt Count Seg Neutrophils % Lymphocytes % Monocytes % Eosinophils % Basophils % Absolute Neutrophils Absolute Lymphocytes Absolute Monocytes Absolute Eosinophils Absolute Basophils Sodium Potassium Chloride Carbon Dioxide Anion Gap BUN Creatinine Est GFR ( Amer) Est GFR (Non-Af Amer) Glucose Calcium Magnesium 1.3 L 1.8 Blood Type O POSITIVE Antibody Screen POSITIVE 03/14/19 03/14/19 03/14/19 05:02 05:02 05:02 WBC 9.3 RBC 3.56 L Hgb 9.5 L Hct 28.3 L MCV 80 MCH 26.6 L MCHC 33.5 RDW 15.9 H Plt Count 355 Seg Neutrophils % 65.3 Lymphocytes % 23.9 Monocytes % 5.8 Eosinophils % 4.1 Basophils % 0.9 Absolute Neutrophils 6.1 Absolute Lymphocytes 2.2 Absolute Monocytes 0.5 Absolute Eosinophils 0.4 Absolute Basophils 0.1 Sodium 139.8 Potassium 4.5 Chloride 107 Carbon Dioxide 24 Anion Gap 9 BUN 11 Creatinine 0.61 Est GFR ( Amer) > 60 Est GFR (Non-Af Amer) > 60 Glucose 166 H Calcium 9.1 Magnesium 1.7 Blood Type Antibody Screen Impressions: Foot X-Ray 03/11/19 19:38 IMPRESSION: Osteomyelitis involving the base of the fifth metatarsal. Gas within the lateral soft tissues, suspicious for gas-forming infection. Neuropathic arthropathy. copyright 2011 [employer]- All Rights Reserved Chest X-Ray 03/11/19 19:40 IMPRESSION: No evidence of acute cardiopulmonary disease. Assessment & Plan - Diagnosis (1) Gas gangrene Is this a current diagnosis for this admission?: Yes Plan: Impression: Septic left foot with stable hemodynamic parameters; less calf tenderness; Recommendations: 1. We will set patient up for a possible staged procedure later today under general anesthesia after receiving final cardiac clearance. 2. I discussed the above with patient, patient's daughter at bedside this morning.
--- NOTE | 2019-03-14 10:16 | Progress Note ---
Provider Note Provider Note: CARDIOLOGY PRELIMINARY CONSULTATION NOTE: Formal consult to follow. PATIENT interviewed and examined. Also spoke with the patient's daughter. IMPRESSION: 1. History of TAVR for symptomatic aortic stenosis, done in August 2017. Patient's recent echo shows a mild gradient across the aortic valve which is acceptable. 2. Diabetes mellitus. 3. Hypertension 4. No history of coronary artery disease as per patient and patient's daughter. 5. Gangrene left foot for left lower extremity amputation. 6. Mild to moderate mitral stenosis 7. preoperative cardiac risk assessment The patient will be mild to moderate cardiac risk for this procedure. Make sure that the patient gets antibiotic for SBE prophylaxis 1 hour prior to surgery. Earlier discussed the case with Dr. Beavers. Formal consult to follow.
[2019-03-14] MEDS: FERROUS SULFATE 325 MG TABLET PO SCH ×2 (10:22→18:20)
[2019-03-14] MEDS: ASPIRIN 81 MG TABLET, CHEWABLE PO SCH (10:22)
[2019-03-14] MEDS: DOCUSATE SODIUM 100 MG CAPSULE PO SCH ×2 (10:22→18:20)
[2019-03-14] MEDS: GABAPENTIN 300 MG CAPSULE PO SCH (10:23)
[2019-03-14] MEDS: POTASSIUM CHLORIDE 10 MEQ CAPSULE.ER PO SCH (10:23)
[2019-03-14] MEDS: LISINOPRIL 5 MG TABLET PO SCH (10:25)
[2019-03-14] MEDS: CARVEDILOL 12.5 MG TABLET PO SCH (10:25)
[2019-03-14 18:35] LABS: VANCOMYCIN,TROUGH 18.4 ug/mL (5.0-20.0)
[2019-03-14 20:19] LABS: HEMATOCRIT 34.7 % (36.0-47.0); HEMOGLOBIN 11.5 g/dL (12.0-15.5); MEAN CORPUSCULAR HEMOGLOBIN 27.1 pg (27.0-33.4); MEAN CORPUSCULAR HGB CONC 33.2 g/dL (32.0-36.0); MEAN CORPUSCULAR VOLUME 81 fl (80-97); PLATELET COUNT 332 10^3/uL (150-450); RED BLOOD COUNT 4.27 10^6/uL (3.72-5.28); RED CELL DISTRIBUTION WIDTH 17.1 % (11.5-14.0); WHITE BLOOD COUNT 8.8 10^3/uL (4.0-10.5)
[2019-03-14] MEDS ORDERED: PROPOFOL INJ 200 MG/20 ML VIAL IV ONE (20:23)
[2019-03-14] MEDS ORDERED: MIDAZOLAM 2 MG/2 ML INJ ONE (20:24)
[2019-03-14] MEDS ORDERED: ONDANSETRON HCL INJ/PF 4 MG/2 ML SDV ONE (20:24)
[2019-03-14] MEDS ORDERED: EPHEDRINE SULFATE INJ 50 MG/1 ML AMPULE ONE (20:24)
[2019-03-14] MEDS ORDERED: FENTANYL CITRATE INJ/PF 100 MCG/2 ML AMPUL ONE (20:24)
[2019-03-14] MEDS ORDERED: GLYCOPYRROLATE INJ 0.4 MG/2 ML VIAL ONE (21:53)
[2019-03-14] MEDS ORDERED: FENTANYL CITRATE INJ/PF 100 MCG/2 ML AMPUL IV PRN ×3 (22:00)
[2019-03-14] MEDS ORDERED: OXYCODONE-ACETAMINOPHEN 5-325 MG TABLET PO PRN ×2 (22:00)
[2019-03-14] MEDS ORDERED: MORPHINE SULFATE 10 MG/ML INJ IV PRN (22:00)
[2019-03-14] MEDS ORDERED: DIPHENHYDRAMINE HCL 50 MG/ML VIAL IV PRN (22:00)
[2019-03-14] MEDS ORDERED: PROMETHAZINE HCL INJ 25 MG/1 ML VIAL IV PRN ×2 (22:00)
[2019-03-14] MEDS ORDERED: ONDANSETRON HCL INJ/PF 4 MG/2 ML SDV IV PRN (22:00)
[2019-03-14] MEDS ORDERED: MEPERIDINE HCL/PF INJ 25 MG/1 ML DISP.SYRIN IV PRN (22:00)
--- NOTE | 2019-03-14 22:13 | PDOC PROGRESS REPORT ---
Subjective Progress Note for:: 03/14/19 Subjective:: Patient currently receiving a unit of packed red blood cells in anticipation of surgery later today Reason For Visit: DM FOOT ULCER,HTN Physical Exam Vital Signs: Temp Pulse Resp BP Pulse Ox 98.6 F 66 18 117/53 L 93 03/14/19 12:35 03/14/19 12:35 03/14/19 12:35 03/14/19 12:35 03/14/19 12:35 Intake & Output 03/13/19 03/14/19 03/15/19 06:59 06:59 06:59 Intake Total 790 1474 550 Output Total 2100 Balance 790 -626 550 Weight 116 kg 108.5 kg General appearance: PRESENT: cooperative, mild distress - Anxious regarding the surgery, obese Head exam: PRESENT: atraumatic, normocephalic Eye exam: PRESENT: conjunctiva pale. ABSENT: scleral icterus Ear exam: PRESENT: normal external ear exam Mouth exam: PRESENT: dry mucosa, tongue midline Respiratory exam: PRESENT: clear to auscultation shreyas, symmetrical, unlabored. ABSENT: rales, rhonchi, tachypnea, wheezes Cardiovascular exam: PRESENT: RRR, +S1, +S2, systolic murmur - 3/6 GI/Abdominal exam: PRESENT: normal bowel sounds, soft. ABSENT: distended, tenderness Rectal exam: PRESENT: deferred Extremities exam: PRESENT: pedal edema, other - Left foot with dressing in place Neurological exam: PRESENT: alert, awake, oriented to person, oriented to place, oriented to situation, CN II-XII grossly intact Psychiatric exam: PRESENT: anxious. ABSENT: agitated Focused psych exam: ABSENT: delusional, restlessness Results Laboratory Results: 03/14/19 05:02 03/14/19 05:02 03/13/19 03/13/19 03/14/19 08:57 16:00 05:02 WBC 9.3 RBC 3.56 L Hgb 9.5 L Hct 28.3 L MCV 80 MCH 26.6 L MCHC 33.5 RDW 15.9 H Plt Count 355 Seg Neutrophils % 65.3 Lymphocytes % 23.9 Monocytes % 5.8 Eosinophils % 4.1 Basophils % 0.9 Absolute Neutrophils 6.1 Absolute Lymphocytes 2.2 Absolute Monocytes 0.5 Absolute Eosinophils 0.4 Absolute Basophils 0.1 Sodium Potassium Chloride Carbon Dioxide Anion Gap BUN Creatinine Est GFR ( Amer) Est GFR (Non-Af Amer) Glucose Calcium Magnesium 1.8 Blood Type O POSITIVE Antibody Screen POSITIVE 03/14/19 03/14/19 05:02 05:02 WBC RBC Hgb Hct MCV MCH MCHC RDW Plt Count Seg Neutrophils % Lymphocytes % Monocytes % Eosinophils % Basophils % Absolute Neutrophils Absolute Lymphocytes Absolute Monocytes Absolute Eosinophils Absolute Basophils Sodium 139.8 Potassium 4.5 Chloride 107 Carbon Dioxide 24 Anion Gap 9 BUN 11 Creatinine 0.61 Est GFR ( Amer) > 60 Est GFR (Non-Af Amer) > 60 Glucose 166 H Calcium 9.1 Magnesium 1.7 Blood Type Antibody Screen Impressions: Foot X-Ray 03/11/19 19:38 IMPRESSION: Osteomyelitis involving the base of the fifth metatarsal. Gas within the lateral soft tissues, suspicious for gas-forming infection. Neuropathic arthropathy. copyright 2010 [employer]- All Rights Reserved Chest X-Ray 03/11/19 19:40 IMPRESSION: No evidence of acute cardiopulmonary disease. Assessment and Plan - Diagnosis (1) Gas gangrene Is this a current diagnosis for this admission?: Yes Plan: The patient has a nonhealing ulcer on the left foot. X-ray reveals gas-forming infection with osteomyelitis. She is currently on vancomycin and Zosyn. Surgery has been consulted for consideration of left below-knee amputation. With her aortic stenosis she is high risk however the infection with gas gangrene requires treatment and the definitive treatment would be amputation. 03/13/2019-surgery was scheduled for today however with her severe aortic stenosi s proper cardiology assessment is underway. The echocardiogram is going to be repeated for accuracy. Cardiology will discuss with surgery/anesthesia to update them. In the meantime continue vancomycin and cefepime. 03/14/2019-remains on antibiotics. Patient is awaiting or time for left below-knee amputation. (2) Aortic stenosis Qualifiers: Cardiac valve disease etiology: nonrheumatic Qualified Code(s): I35.0 - Nonrheumatic aortic (valve) stenosis Is this a current diagnosis for this admission?: Yes Plan: 03/12/2019-the patient has a history of severe aortic stenosis. Cardiology has requested a current echocardiogram which I have ordered. Dr. Burleson will be seeing the patient. As noted above she is high risk however treatment for gas gangrene is necessary. 03/13/2019-with her history of aortic stenosis and valve replacement we want to make sure that there is an accurate assessment of her cardiac risk factors. Had a long discussion with the family regarding the balance of risk of the foot infection versus risk of surgery. We will know more once the final echocardiogram is available. 03/14/2019-the patient has had a valve replacement. The echocardiogram has been read by Dr. Burleson. The patient is cleared for surgery. (3) Osteomyelitis due to type 2 diabetes mellitus Is this a current diagnosis for this admission?: Yes Plan: 03/12/2019-continue the current antibiotics. Once the affected bone is removed the patient will not need 6 weeks of IV antibiotics. 03/13/2019-continue vancomycin and cefepime. The benefit of amputation will be to alleviate the need for long-term antibiotic therapy. 03/14/2019-continue IV antibiotics. Determine length of course after amputation. (4) Diabetes mellitus type 2 in obese Is this a current diagnosis for this admission?: Yes Plan: The patient is on diet and so I have ordered her long-acting insulin she is also on a sliding scale. On the morning of her surgery she will be n.p.o. and so a smaller dose of Lantus should be used. 03/13/2019-continue sliding scale and metformin at this time. May need to add a decreased dose of Lantus depending on her surgery schedule. 03/14/2019-the patient was n.p.o. today. If surgery is performed she should be able to return to an oral diet tomorrow and continue her current regimen including sliding scale coverage (5) Hypertension Qualifiers: Hypertension type: essential hypertension Qualified Code(s): I10 - Essential (primary) hypertension Is this a current diagnosis for this admission?: Yes Plan: 03/12/2019-it is imperative that we do not let her blood pressure dropped too low due to the aortic stenosis. We also need to make sure she does not become hypovolemic. Will monitor her blood pressure and her intake and output. Supplement with IV fluid if needed. 03/13/2019-blood pressures are actually on the low side. I will leave the Coreg at 12.5 mg twice daily with parameters to hold for pulse less than 65. I will hold lisinopril for systolic pressure less than 110. I will split the furosemide to 20 mg twice daily from 40 mg daily and this should help with blood pressure control. 03/14/2019-her blood pressures were lower yesterday. I have made adjustments to the medications and spread them out as opposed to concentrated in the morning. We will need to monitor blood pressures especially for postoperative pain. Adjust medications based on vital signs. - Time Time Spent with patient: 15-24 minutes Medications reviewed and adjusted accordingly: Yes Anticipated discharge: SNF
--- NOTE | 2019-03-14 22:32 | Operative Report ---
Operative Report DATE OF SURGERY: 03/14/19 PREOPERATIVE DIAGNOSIS: 1. Septic left transmetatarsal amputation site wound. 2. Diabetes mellitus POSTOPERATIVE DIAGNOSIS: Same OPERATION: Left below the knee amputation with primary closure SURGEON: KAREN DALEY ANESTHESIA: Spinal TISSUE REMOVED OR ALTERED: Left BKA lower leg COMPLICATIONS: None ESTIMATED BLOOD LOSS: 225 cc INTRAOPERATIVE FINDINGS: See below PROCEDURE: The patient was seen in the preop holding area with the left leg was marked. She was then taken to the operating room where spinal anesthesia was induced by Dr. Calloway's cath. Left leg was prepped and draped in sterile fashion with the left foot isolated. Surgical plan surgical timeout were conducted. Appropriate level of anesthesia confirmed. Markings were made on the skin for a standard below the knee amputation with the planned transection approximately on e half distance between the tibial tuberosity and the ankle. The skin was cut with a #10 blade. Electrocautery was used to divide the subcutaneous tissue fascia and muscle as encountered. Superficial veins were clipped off or tied with 2-0 Vicryl suture. The periosteum of the tibia and fibula elevated, and the tibia and fibula respectively transected with the oscillating saw. Neurovascular bundles including the anterior tibial, posterior tibial and peroneal complexes were all taken as a unit by clamping, dividing, and ligating with 0 Vicryl suture. Remaining muscular attachments of the soleus and gastrocnemius muscles were divided. The lower leg was passed off to pathology and taken to. Hemostasis was achieved with electrocautery and very selective locations. Myodesis was performed in 2 layers with multiple interrupted [id number] 2-0 Vicryl sutures. Skin approximated with 3-0 Ethilon, and jarad. Performed 4 x 4's Kerlix and Mikael wrap applied. Patient tolerated procedure well, taken recovery in stable condition. She remained hemodynamically stable throughout the course of the operation.
[2019-03-15] MEDS: FENTANYL CITRATE INJ/PF 100 MCG/2 ML AMPUL IV PRN ×4 (00:29→22:17)
[2019-03-15] MEDS: DIAZEPAM 5 MG TABLET PO PRN (01:34)
[2019-03-15] MEDS: CEFEPIME 1 GM/D5W RTU 1 GM/50 ML RTUPB IV SCH ×2 (01:35→12:56)
[2019-03-15] MEDS: GABAPENTIN 300 MG CAPSULE PO SCH ×3 (02:03→22:19)
[2019-03-15] MEDS: CARVEDILOL 12.5 MG TABLET PO SCH ×3 (02:03→22:20)
[2019-03-15] MEDS: ATORVASTATIN CALCIUM 40 MG TABLET PO SCH ×2 (02:03→22:19)
[2019-03-15] MEDS: HEPARIN SOD (PORCINE) 5,000 UNIT/ML 1 ML VIAL SUBCUT SCH ×4 (02:03→22:20)
[2019-03-15] MEDS: MIRTAZAPINE 15 MG TABLET PO SCH ×2 (02:04→22:19)
[2019-03-15] MEDS: INSULIN LISPRO 100 UNIT/ML 3 ML VIAL SUBCUT SCH ×5 (02:05→22:18)
[2019-03-15] MEDS ORDERED: KETOROLAC TROMETHAMINE INJ/PF 30 MG/1 ML SDV IV ONE ×2 (02:45→13:00)
[2019-03-15] MEDS ORDERED: DIPHENHYDRAMINE HCL 50 MG/ML VIAL IV ONE (03:00)
[2019-03-15] MEDS ORDERED: METHYLPREDNISOLONE INJ 125 MG/2 ML SDV IV ONE (03:00)
[2019-03-15] MEDS: VANCOMYCIN HCL 1,000 MG in DEXTROSE 5%-WATER 250 ML IV SCH ×2 (06:05→18:20)
[2019-03-15 07:41] LABS: ABSOLUTE BASOPHILS # (AUTO) 0.1 10^3/uL (0.0-0.2); ABSOLUTE EOSINOPHILS # (AUTO) 0.1 10^3/uL (0.0-0.6); ABSOLUTE LYMPHOCYTES (AUTO) 1.5 10^3/uL (0.5-4.7); ABSOLUTE MONOCYTES (AUTO) 0.5 10^3/uL (0.1-1.4); ABSOLUTE NEUT (AUTO) 10.3 10^3/uL (1.7-8.2); BASOPHILS % (AUTO) 0.5 % (0-2); EOSINOPHILS % (AUTO) 0.6 % (0-6); HEMATOCRIT 33.7 % (36.0-47.0); LYMPHOCYTES % (AUTO) 11.9 % (13-45); MEAN CORPUSCULAR HEMOGLOBIN 26.7 pg (27.0-33.4); MEAN CORPUSCULAR HGB CONC 32.7 g/dL (32.0-36.0); MEAN CORPUSCULAR VOLUME 82 fl (80-97); MONOCYTES % (AUTO) 4.3 % (3-13); PLATELET COUNT 332 10^3/uL (150-450); RED BLOOD COUNT 4.12 10^6/uL (3.72-5.28); RED CELL DISTRIBUTION WIDTH 16.7 % (11.5-14.0); SEGMENTED NEUTROPHILS % (AUTO) 82.7 % (42-78); TOTAL CELLS COUNTED % (AUTO) 100 %; WHITE BLOOD COUNT 12.5 10^3/uL (4.0-10.5)
[2019-03-15] MEDS: METFORMIN HCL 500 MG TABLET PO SCH ×2 (07:56→16:53)
[2019-03-15 08:03] LABS: ANION GAP 8 (5-19); BLOOD UREA NITROGEN 13 mg/dL (7-20); CARBON DIOXIDE 24 mmol/L (22-30); CHLORIDE 106 mmol/L (98-107); GLUCOSE 223 mg/dL (75-110)
[2019-03-15] MEDS: FERROUS SULFATE 325 MG TABLET PO SCH ×2 (09:19→18:00)
[2019-03-15] MEDS: ASPIRIN 81 MG TABLET, CHEWABLE PO SCH (09:20)
[2019-03-15] MEDS: POTASSIUM CHLORIDE 10 MEQ CAPSULE.ER PO SCH (09:20)
[2019-03-15] MEDS: LISINOPRIL 5 MG TABLET PO SCH (09:20)
[2019-03-15] MEDS: DOCUSATE SODIUM 100 MG CAPSULE PO SCH ×2 (09:20→18:00)
[2019-03-15] MEDS: ACETAMINOPHEN 325 MG TABLET PO PRN ×2 (09:21→16:52)
--- NOTE | 2019-03-15 10:24 | PDOC PROGRESS REPORT ---
Subjective Progress Note for:: 03/15/19 Subjective:: pains on left BKA stump Reason For Visit: DM FOOT ULCER,HTN Physical Exam Vital Signs: Temp Pulse Resp BP Pulse Ox 97.9 F 88 21 H 126/72 H 95 03/15/19 08:00 03/15/19 08:00 03/15/19 08:00 03/15/19 08:00 03/15/19 08:00 Intake & Output 03/14/19 03/15/19 03/16/19 06:59 06:59 06:59 Intake Total 1474 3050 300 Output Total 2100 1010 Balance -626 2040 300 Weight 108.5 kg 108.5 kg Exam: Stump dressings appear clean and dry. Results Laboratory Results: 03/15/19 07:06 03/15/19 07:06 03/13/19 03/14/19 03/15/19 08:57 19:58 07:06 WBC 8.8 12.5 H RBC 4.27 4.12 Hgb 11.5 L 11.0 L Hct 34.7 L 33.7 L MCV 81 82 MCH 27.1 26.7 L MCHC 33.2 32.7 RDW 17.1 H 16.7 H Plt Count 332 332 Seg Neutrophils % 82.7 H Lymphocytes % 11.9 L Monocytes % 4.3 Eosinophils % 0.6 Basophils % 0.5 Absolute Neutrophils 10.3 H Absolute Lymphocytes 1.5 Absolute Monocytes 0.5 Absolute Eosinophils 0.1 Absolute Basophils 0.1 Sodium Potassium Chloride Carbon Dioxide Anion Gap BUN Creatinine Est GFR ( Amer) Est GFR (Non-Af Amer) Glucose Calcium Blood Type O POSITIVE Antibody Screen POSITIVE 03/15/19 07:06 WBC RBC Hgb Hct MCV MCH MCHC RDW Plt Count Seg Neutrophils % Lymphocytes % Monocytes % Eosinophils % Basophils % Absolute Neutrophils Absolute Lymphocytes Absolute Monocytes Absolute Eosinophils Absolute Basophils Sodium 137.5 Potassium 5.0 Chloride 106 Carbon Dioxide 24 Anion Gap 8 BUN 13 Creatinine 0.75 Est GFR ( Amer) > 60 Est GFR (Non-Af Amer) > 60 Glucose 223 H Calcium 9.0 Blood Type Antibody Screen Impressions: Foot X-Ray 03/11/19 19:38 IMPRESSION: Osteomyelitis involving the base of the fifth metatarsal. Gas within the lateral soft tissues, suspicious for gas-forming infection. Neuropathic arthropathy. copyright 2011 [employer]- All Rights Reserved Chest X-Ray 03/11/19 19:40 IMPRESSION: No evidence of acute cardiopulmonary disease. Assessment & Plan - Diagnosis (1) Aortic stenosis Qualifiers: Cardiac valve disease etiology: nonrheumatic Qualified Code(s): I35.0 - N onrheumatic aortic (valve) stenosis Is this a current diagnosis for this admission?: Yes (2) Cellulitis of left foot Is this a current diagnosis for this admission?: Yes (3) Diabetic foot infection Is this a current diagnosis for this admission?: Yes (4) Hypertension Qualifiers: Hypertension type: essential hypertension Qualified Code(s): I10 - Essential (primary) hypertension Is this a current diagnosis for this admission?: Yes (5) PAD (peripheral artery disease) Is this a current diagnosis for this admission?: Yes (6) Type 2 diabetes mellitus with diabetic neuropathy Qualifiers: Diabetes mellitus skilled nursing insulin use: with eyeglass lens generator use Qualified Code(s): E11.40 - Type 2 diabetes mellitus with diabetic neuropathy, unspecified; Z79.4 - director global (current) use of insulin Is this a current diagnosis for this admission?: Yes (7) Morbid obesity with BMI of 40.0-44.9, adult Is this a current diagnosis for this admission?: Yes - Time Time Spent with patient: 15-24 minutes - Inpatient Certification Medical Necessity: Need for Pain Control, Need for IV Antibiotics - Plan Summary Plan Summary: Continue IV antibiotics Will check wound in 24-48 hrs
[2019-03-15] MEDS ORDERED: MORPHINE SULFATE 10 MG/ML INJ IV ONE (12:00)
[2019-03-15] MEDS: MAGNESIUM SULFATE/D5W 1 GM/100 ML RTUPB IV SCH ×2 (13:35→14:48)
[2019-03-15] MEDS: NORMAL SALINE 1000 ML 1,000 ML IV PRN (14:48)
--- NOTE | 2019-03-15 17:07 | PDOC PROGRESS REPORT ---
Subjective Progress Note for:: 03/15/19 Subjective:: No adverse events overnight. Apparently she is been spontaneously yelling out saying she is in pain. She will spontaneously settle down. She got a couple of doses of fentanyl earlier in the day and said that it did not help. We gave her a dose of morphine instead she said that helped better. She says she feels like the wrap is too tight but she keeps wanting to bend her knee which makes the wrap go even tighter, and despite the fact that I told her several times not to bend her knee she continued to do so. Her appetite has improved and she is eating more today. Reason For Visit: DM FOOT ULCER,HTN Physical Exam Vital Signs: Temp Pulse Resp BP Pulse Ox 98.3 F 67 18 136/63 H 93 03/15/19 16:00 03/15/19 16:00 03/15/19 16:00 03/15/19 16:00 03/15/19 16:00 Intake & Output 03/14/19 03/15/19 03/16/19 06:59 06:59 06:59 Intake Total 2474 3050 1120 Output Total 2100 1010 100 Balance 374 2040 1020 Weight 108.5 kg 108.5 kg General appearance: PRESENT: no acute distress, cooperative, disheveled, morb idly obese Respiratory exam: PRESENT: clear to auscultation shreyas, symmetrical, unlabored. ABSENT: accessory muscle use, chest wall tenderness, crackles, prolonged expiratory phas, rales, rhonchi, tachypnea, wheezes Cardiovascular exam: PRESENT: RRR, +S1, +S2 Pulses: PRESENT: normal carotid pulses Vascular exam: PRESENT: normal capillary refill GI/Abdominal exam: PRESENT: normal bowel sounds, soft. ABSENT: distended, guarding, rebound, tenderness Extremities exam: PRESENT: other - Left BKA stump is wrapped in a clean dressing and covered with Coban. ABSENT: clubbing, pedal edema Neurological exam: PRESENT: alert, awake, oriented to person, oriented to place, oriented to situation Psychiatric exam: PRESENT: anxious Skin exam: PRESENT: dry, warm Results Laboratory Results: 03/15/19 07:06 03/15/19 07:06 03/14/19 03/15/19 03/15/19 19:58 07:06 07:06 WBC 8.8 12.5 H RBC 4.27 4.12 Hgb 11.5 L 11.0 L Hct 34.7 L 33.7 L MCV 81 82 MCH 27.1 26.7 L MCHC 33.2 32.7 RDW 17.1 H 16.7 H Plt Count 332 332 Seg Neutrophils % 82.7 H Lymphocytes % 11.9 L Monocytes % 4.3 Eosinophils % 0.6 Basophils % 0.5 Absolute Neutrophils 10.3 H Absolute Lymphocytes 1.5 Absolute Monocytes 0.5 Absolute Eosinophils 0.1 Absolute Basophils 0.1 Sodium 137.5 Potassium 5.0 Chloride 106 Carbon Dioxide 24 Anion Gap 8 BUN 13 Creatinine 0.75 Est GFR ( Amer) > 60 Est GFR (Non-Af Amer) > 60 Glucose 223 H Calcium 9.0 Magnesium 03/15/19 07:06 WBC RBC Hgb Hct MCV MCH MCHC RDW Plt Count Seg Neutrophils % Lymphocytes % Monocytes % Eosinophils % Basophils % Absolute Neutrophils Absolute Lymphocytes Absolute Monocytes Absolute Eosinophils Absolute Basophils Sodium Potassium Chloride Carbon Dioxide Anion Gap BUN Creatinine Est GFR ( Amer) Est GFR (Non-Af Amer) Glucose Calcium Magnesium 1.4 L Impressions: Foot X-Ray 03/11/19 19:38 IMPRESSION: Osteomyelitis involving the base of the fifth metatarsal. Gas within the lateral soft tissues, suspicious for gas-forming infection. Neuropathic arthropathy. copyright 2011 [employer]- All Rights Reserved Chest X-Ray 03/11/19 19:40 IMPRESSION: No evidence of acute cardiopulmonary disease. Assessment and Plan - Diagnosis (1) Gas gangrene Is this a current diagnosis for this admission?: Yes Plan: Status post left BKA. Surgery has recommended continuing antibiotics for another couple of days and they can recheck the wound. (2) Aortic stenosis Qualifiers: Cardiac valve disease etiology: nonrheumatic Qualified Code(s): I35.0 - Nonrheumatic aortic (valve) stenosis Is this a current diagnosis for this admission?: Yes Plan: Status post TAVR. Nothing to do from a cardiac standpoint. (3) Diabetes mellitus type 2 in obese Is this a current diagnosis for this admission?: Yes Plan: Continue aggressive management. May need to increase her home insulin regimen. (4) Osteomyelitis due to type 2 diabetes mellitus Is this a current diagnosis for this admission?: Yes - Time Time Spent with patient: 15-24 minutes
[2019-03-16] MEDS: CEFEPIME 1 GM/D5W RTU 1 GM/50 ML RTUPB IV SCH ×2 (02:28→12:05)
[2019-03-16] MEDS: FENTANYL CITRATE INJ/PF 100 MCG/2 ML AMPUL IV PRN ×5 (03:58→23:27)
[2019-03-16] MEDS: HEPARIN SOD (PORCINE) 5,000 UNIT/ML 1 ML VIAL SUBCUT SCH ×3 (05:49→22:17)
[2019-03-16] MEDS: VANCOMYCIN HCL 1,000 MG in DEXTROSE 5%-WATER 250 ML IV SCH (05:56)
[2019-03-16] MEDS: METFORMIN HCL 500 MG TABLET PO SCH ×2 (08:26→16:35)
[2019-03-16] MEDS: INSULIN LISPRO 100 UNIT/ML 3 ML VIAL SUBCUT SCH ×4 (08:26→22:18)
[2019-03-16] MEDS: DOCUSATE SODIUM 100 MG CAPSULE PO SCH ×2 (10:23→17:05)
[2019-03-16] MEDS: LISINOPRIL 5 MG TABLET PO SCH (10:25)
[2019-03-16] MEDS: FERROUS SULFATE 325 MG TABLET PO SCH ×2 (10:25→17:05)
[2019-03-16] MEDS: ASPIRIN 81 MG TABLET, CHEWABLE PO SCH (10:25)
[2019-03-16] MEDS: GABAPENTIN 300 MG CAPSULE PO SCH ×2 (10:25→22:19)
[2019-03-16] MEDS: POTASSIUM CHLORIDE 10 MEQ CAPSULE.ER PO SCH (10:25)
[2019-03-16] MEDS: CARVEDILOL 12.5 MG TABLET PO SCH ×2 (10:25→22:17)
[2019-03-16] MEDS: NORMAL SALINE 1000 ML 1,000 ML IV PRN (11:38)
--- NOTE | 2019-03-16 15:33 | PDOC PROGRESS REPORT ---
Subjective Progress Note for:: 03/16/19 Subjective:: No adverse events overnight. She will be laying in bed looking perfectly comfortable and then will spontaneously yelling out saying in [place] that she is in pain, and then the next moment she will look comfortable again. She is been eating and drinking without difficulty. Reason For Visit: DM FOOT ULCER,HTN Physical Exam Vital Signs: Temp Pulse Resp BP Pulse Ox 98.2 F 68 23 H 139/54 H 91 L 03/16/19 11:55 03/16/19 14:00 03/16/19 11:55 03/16/19 11:55 03/16/19 11:55 Intake & Output 03/15/19 03/16/19 03/17/19 06:59 06:59 06:59 Intake Total 3050 2745 787 Output Total 1010 390 350 Balance 2040 2355 437 Weight 108.5 kg 107.3 kg General appearance: PRESENT: no acute distress, cooperative, disheveled, mor bidly obese Respiratory exam: PRESENT: clear to auscultation shreyas, symmetrical, unlabored. ABSENT: accessory muscle use, chest wall tenderness, crackles, prolonged expiratory phas, rales, rhonchi, tachypnea, wheezes Cardiovascular exam: PRESENT: RRR, +S1, +S2 Pulses: PRESENT: normal carotid pulses Vascular exam: PRESENT: normal capillary refill GI/Abdominal exam: PRESENT: normal bowel sounds, soft. ABSENT: distended, guarding, rebound, tenderness Extremities exam: PRESENT: other - Left BKA stump is wrapped in a clean dressing and covered with Coban. ABSENT: clubbing, pedal edema Neurological exam: PRESENT: alert, awake, oriented to person, oriented to place, oriented to situation Psychiatric exam: PRESENT: anxious Skin exam: PRESENT: dry, warm Results Laboratory Results: 03/15/19 07:06 03/16/19 09:00 03/16/19 09:00 Creatinine 1.10 Est GFR ( Amer) 59 L Est GFR (Non-Af Amer) 49 L Impressions: Foot X-Ray 03/11/19 19:38 IMPRESSION: Osteomyelitis involving the base of the fifth metatarsal. Gas within the lateral soft tissues, suspicious for gas-forming infection. Neuropathic arthropathy. copyright 2011 [employer]- All Rights Reserved Chest X-Ray 03/11/19 19:40 IMPRESSION: No evidence of acute cardiopulmonary disease. Assessment and Plan - Diagnosis (1) Gas gangrene Is this a current diagnosis for this admission?: Yes Plan: Status post left BKA. Surgery has recommended continuing antibiotics for now and will likely recheck the wound again tomorrow to determine the need for continued treatment. (2) Aortic stenosis Qualifiers: Cardiac valve disease etiology: nonrheumatic Qualified Code(s): I35.0 - Nonrheumatic aortic (valve) stenosis Is this a current diagnosis for this admission?: Yes Plan: Status post TAVR. Nothing to do from a cardiac standpoint. (3) Diabetes mellitus type 2 in obese Is this a current diagnosis for this admission?: Yes Plan: Continue aggressive management. May need to increase her home insulin regimen. (4) Osteomyelitis due to type 2 diabetes mellitus Is this a current diagnosis for this admission?: Yes Plan: On antibiotics for now, will assess the need for continued antibiotics after surgery reevaluate the wound - Time Time Spent with patient: 15-24 minutes
[2019-03-16] MEDS: DIAZEPAM 5 MG TABLET PO PRN (16:35)
[2019-03-16] MEDS: MIRTAZAPINE 15 MG TABLET PO SCH (22:19)
[2019-03-16] MEDS: ATORVASTATIN CALCIUM 40 MG TABLET PO SCH (22:19)
--- NOTE | 2019-03-16 22:33 | XCELERA REPORT ---
[address] [address] Transthoracic Echocardiogram Report Name: GERARD COHN Age: 73 yrs Gender: Female : 1945 Patient Status: [facility] Study Date: 03/14/2019 09:01 AM Height: 65 in Weight: 255 lb BSA: 2.2 m2 Procedure: A two-dimensional transthoracic echocardiogram with color flow and Doppler was performed in limited views only. Study Quality: Good. Reason For Study: Assess Aortic Valve ( H/O TAVR) History: Assess Aortic Valve ( H/O TAVR). Ordering Physician: WENDI WEIR Performed By: Magalie Gramajo Interpretation Summary There is no aortic valvular vegetation. No aortic regurgitation is present. There is a bioprosthetic Valve with Peak gradient of 39 mm of Hg ,and a mean gradient of 24 mm of Hg. MMode/2D Measurements & Calculations RVDd: 4.1 cm LVIDd: 4.2 cm FS: 32.3 % Ao root diam: 2.7 cm IVSd: 1.5 cm LVIDs: 2.8 cm EDV(Teich): 76.8 ml Ao root area: 5.9 cm2 LVPWd: 1.3 cm ESV(Teich): 29.9 ml LA dimension: 5.1 cm EF(Teich): 61.0 % LVOT diam: 2.0 cm LVOT area: 3.0 cm2 Doppler Measurements & Calculations MV E max afua: MV P1/2t max afua: Ao V2 max: LV V1 max P.4 cm/sec 301.3 cm/sec 312.2 cm/sec 9.1 mmHg MV A max afua: MV P1/2t: 105.7 msec Ao max PG: LV V1 mean P.8 cm/sec MVA(P1/2t): 2.1 cm2 39.1 mmHg 6.4 mmHg MV E/A: 1.3 MV dec slope: Ao V2 mean: LV V1 max: 227.5 cm/sec 151.2 cm/sec 834.6 cm/sec2 Ao mean PG: LV V1 mean: MV dec time: 0.36 sec23.9 mmHg 120.8 cm/sec Ao V2 VTI: 75.3 cm LV V1 VTI: 39.1 cm LENKA(I,D): 1.6 cm2 LENKA(V,D): 1.5 cm2 SV(LVOT): 118.9 ml PA V2 max: PI end-d afua: TR max afua: 89.3 cm/sec 145.2 cm/sec 412.6 cm/sec PA max P.2 mmHg TR max P.1 mmHg MV P1/2t-pr_phl: 105.7 msec Aortic Valve There is no aortic valvular vegetation. No aortic regurgitation is present. There is a bioprosthetic Valve with Peak gradient of 39 mm of Hg ,and a mean gradient of 24 mm of Hg. : WENDI WEIR > Wendi Weir
[2019-03-17] MEDS: CEFEPIME 1 GM/D5W RTU 1 GM/50 ML RTUPB IV SCH ×2 (02:21→12:16)
[2019-03-17] MEDS: HEPARIN SOD (PORCINE) 5,000 UNIT/ML 1 ML VIAL SUBCUT SCH ×3 (06:55→22:08)
[2019-03-17] MEDS: VANCOMYCIN HCL 1,500 MG in DEXTROSE 5%-WATER 250 ML IV SCH (06:56)
[2019-03-17] MEDS: INSULIN LISPRO 100 UNIT/ML 3 ML VIAL SUBCUT SCH ×4 (08:50→22:04)
[2019-03-17] MEDS: METFORMIN HCL 500 MG TABLET PO SCH ×2 (08:50→17:46)
[2019-03-17] MEDS: ACETAMINOPHEN 325 MG TABLET PO PRN ×2 (10:08→15:35)
[2019-03-17] MEDS: GABAPENTIN 300 MG CAPSULE PO SCH ×2 (10:09→22:05)
[2019-03-17] MEDS: LISINOPRIL 5 MG TABLET PO SCH (10:09)
[2019-03-17] MEDS: FERROUS SULFATE 325 MG TABLET PO SCH ×2 (10:09→17:46)
[2019-03-17] MEDS: POTASSIUM CHLORIDE 10 MEQ CAPSULE.ER PO SCH (10:09)
[2019-03-17] MEDS: CARVEDILOL 12.5 MG TABLET PO SCH ×2 (10:09→22:08)
[2019-03-17] MEDS: ASPIRIN 81 MG TABLET, CHEWABLE PO SCH (10:09)
[2019-03-17] MEDS: DOCUSATE SODIUM 100 MG CAPSULE PO SCH ×2 (10:09→17:46)
--- NOTE | 2019-03-17 17:47 | PDOC PROGRESS REPORT ---
Subjective Progress Note for:: 03/17/19 Subjective:: No adverse events overnight. No new complaints. Vital signs been stable. Pain is been well controlled. She is eating and drinking without difficulty. She like got a little bit confused earlier but was able to be easily reoriented. She says the surgeon has not been in to look at her leg today. Reason For Visit: DM FOOT ULCER,HTN Physical Exam Vital Signs: Temp Pulse Resp BP Pulse Ox 98.2 F 66 17 115/52 L 93 03/17/19 11:46 03/17/19 14:00 03/17/19 11:46 03/17/19 11:46 03/17/19 11:46 Intake & Output 03/16/19 03/17/19 03/18/19 06:59 06:59 06:59 Intake Total 2745 2217 300 Output Total 390 1650 Balance 2355 567 300 Weight 107.3 kg 103.3 kg General appearance: PRESENT: no acute distress, cooperative, disheveled, morbidly obese Respiratory exam: PRESENT: clear to auscultation shreyas, symmetrical, unlabored. ABSENT: accessory muscle use, chest wall tenderness, crackles, prolonged expiratory phas, rales, rhonchi, tachypnea, wheezes Cardiovascular exam: PRESENT: RRR, +S1, +S2 Pulses: PRESENT: normal carotid pulses Vascular exam: PRESENT: normal capillary refill GI/Abdominal exam: PRESENT: normal bowel sounds, soft. ABSENT: distended, guarding, rebound, tenderness Extremities exam: PRESENT: other - Left BKA stump is wrapped in a clean dressing and covered with Coban. ABSENT: clubbing, pedal edema Neurological exam: PRESENT: alert, awake, oriented to person, oriented to place, oriented to situation Psychiatric exam: PRESENT: anxious Skin exam: PRESENT: dry, warm Results Laboratory Results: 03/15/19 07:06 03/16/19 09:00 03/12/19 01:47 Blood Blood Culture - Final NO GROWTH IN 5 DAYS 03/12/19 00:16 Blood Blood Culture - Final NO GROWTH IN 5 DAYS Impressions: Foot X-Ray 03/11/19 19:38 IMPRESSION: Osteomyelitis involving the base of the fifth metatarsal. Gas within the lateral soft tissues, suspicious for gas-forming infection. Neuropathic arthropathy. copyright 2011 [employer]- All Rights Reserved Chest X-Ray 03/11/19 19:40 IMPRESSION: No evidence of acute cardiopulmonary disease. Assessment and Plan - Diagnosis (1) Gas gangrene Is this a current diagnosis for this admission?: Yes Plan: Status post left BKA. Surgery has recommended continuing antibiotics for now, awaiting surgeries reevaluation of the wound determined need for further treatment. (2) Aortic stenosis Qualifiers: Cardiac valve disease etiology: nonrheumatic Qualified Code(s): I35.0 - Nonrheumatic aortic (valve) stenosis Is this a current diagnosis for this admission?: Yes Plan: Status post TAVR. Nothing to do from a cardiac standpoint. (3) Diabetes mellitus type 2 in obese Is this a current diagnosis for this admission?: Yes Plan: Continue aggressive management. May need to increase her home insulin regimen. (4) Osteomyelitis due to type 2 diabetes mellitus Is this a current diagnosis for this admission?: Yes Plan: On antibiotics for now, will assess the need for continued antibiotics after surgery reevaluate the wound - Time Time Spent with patient: 15-24 minutes
[2019-03-17] MEDS: MIRTAZAPINE 15 MG TABLET PO SCH (22:04)
[2019-03-17] MEDS: ATORVASTATIN CALCIUM 40 MG TABLET PO SCH (22:05)
[2019-03-18] MEDS: CEFEPIME 1 GM/D5W RTU 1 GM/50 ML RTUPB IV SCH ×2 (01:33→12:03)
[2019-03-18] MEDS: HEPARIN SOD (PORCINE) 5,000 UNIT/ML 1 ML VIAL SUBCUT SCH ×3 (05:25→21:44)
[2019-03-18] MEDS: VANCOMYCIN HCL 1,500 MG in DEXTROSE 5%-WATER 250 ML IV SCH (05:31)
[2019-03-18] MEDS: ACETAMINOPHEN 325 MG TABLET PO PRN (05:31)
[2019-03-18] MEDS: INSULIN LISPRO 100 UNIT/ML 3 ML VIAL SUBCUT SCH ×4 (07:51→21:43)
[2019-03-18] MEDS: GABAPENTIN 300 MG CAPSULE PO SCH ×2 (09:11→21:43)
[2019-03-18] MEDS: FERROUS SULFATE 325 MG TABLET PO SCH ×2 (09:11→17:23)
[2019-03-18] MEDS: LISINOPRIL 5 MG TABLET PO SCH (09:12)
[2019-03-18] MEDS: CARVEDILOL 12.5 MG TABLET PO SCH ×2 (09:12→21:45)
[2019-03-18] MEDS: DOCUSATE SODIUM 100 MG CAPSULE PO SCH ×2 (09:12→17:23)
[2019-03-18] MEDS: POTASSIUM CHLORIDE 10 MEQ CAPSULE.ER PO SCH (09:12)
[2019-03-18] MEDS: METFORMIN HCL 500 MG TABLET PO SCH ×2 (09:12→17:23)
[2019-03-18] MEDS: ASPIRIN 81 MG TABLET, CHEWABLE PO SCH (09:12)
[2019-03-18] MEDS: NORMAL SALINE 1000 ML 1,000 ML IV PRN (17:24)
--- NOTE | 2019-03-18 18:42 | PDOC PROGRESS REPORT ---
Subjective Progress Note for:: 03/18/19 Subjective:: No adverse events overnight. No new complaints. Vital signs been stable. Pain is been well controlled. Blood glucose has been within tolerable limits. Surgery came in today and said she does not need any further intervention on the wound and she does not need more antibiotics. We will try to get her to a care home facility but the initial facility denied the referral. Reason For Visit: DM FOOT ULCER,HTN Physical Exam Vital Signs: Temp Pulse Resp BP Pulse Ox 97.6 F 65 20 149/70 H 93 03/18/19 15:11 03/18/19 15:11 03/18/19 15:11 03/18/19 15:11 03/18/19 15:11 Intake & Output 03/17/19 03/18/19 03/19/19 06:59 06:59 06:59 Intake Total 2217 707 1630 Output Total 1650 1925 1425 Balance 567 -1218 205 Weight 103.3 kg 101.8 kg General appearance: PRESENT: no acute distress, cooperative, disheveled, morbidly obese Respiratory exam: PRESENT: clear to auscultation shreyas, symmetrical, unlabored. ABSENT: accessory muscle use, chest wall tenderness, crackles, prolonged expi ratory phas, rales, rhonchi, tachypnea, wheezes Cardiovascular exam: PRESENT: RRR, +S1, +S2 Pulses: PRESENT: normal carotid pulses Vascular exam: PRESENT: normal capillary refill GI/Abdominal exam: PRESENT: normal bowel sounds, soft. ABSENT: distended, guarding, rebound, tenderness Extremities exam: PRESENT: other - Left BKA stump is wrapped in a clean dressing and covered with Coban. ABSENT: clubbing, pedal edema Neurological exam: PRESENT: alert, awake, oriented to person, oriented to place, oriented to situation Psychiatric exam: PRESENT: anxious Skin exam: PRESENT: dry, warm Results Laboratory Results: 03/15/19 07:06 03/16/19 09:00 Impressions: Foot X-Ray 03/11/19 19:38 IMPRESSION: Osteomyelitis involving the base of the fifth metatarsal. Gas within the lateral soft tissues, suspicious for gas-forming infection. Neuropathic arthropathy. copyright 2010 [employer]- All Rights Reserved Chest X-Ray 03/11/19 19:40 IMPRESSION: No evidence of acute cardiopulmonary disease. Assessment and Plan - Diagnosis (1) Gas gangrene Is this a current diagnosis for this admission?: Yes Plan: Status post left BKA. Surgery has recommended stopping antibiotics and has determined that there is no further need for surgical intervention on the leg. She is to follow-up with surgery in the clinic in 3 weeks. (2) Aortic stenosis Qualifiers: Cardiac valve disease etiology: nonrheumatic Qualified Code(s): I35.0 - Nonrheumatic aortic (valve) stenosis Is this a current diagnosis for this admission?: Yes Plan: Status post TAVR. Nothing to do from a cardiac standpoint. (3) Diabetes mellitus type 2 in obese Is this a current diagnosis for this admission?: Yes Plan: Continue aggressive management. May need to increase her home insulin regimen. (4) Osteomyelitis due to type 2 diabetes mellitus Is this a current diagnosis for this admission?: Yes Plan: Resolved as the infected material has been removed. - Time Time Spent with patient: 15-24 minutes
[2019-03-18] MEDS: MIRTAZAPINE 15 MG TABLET PO SCH (21:43)
[2019-03-18] MEDS: ATORVASTATIN CALCIUM 40 MG TABLET PO SCH (21:43)
[2019-03-19] MEDS: CEFEPIME 1 GM/D5W RTU 1 GM/50 ML RTUPB IV SCH ×2 (00:59→13:43)
[2019-03-19] MEDS: HEPARIN SOD (PORCINE) 5,000 UNIT/ML 1 ML VIAL SUBCUT SCH ×3 (05:53→21:25)
[2019-03-19] MEDS: VANCOMYCIN HCL 1,500 MG in DEXTROSE 5%-WATER 250 ML IV SCH (05:53)
[2019-03-19 07:04] LABS: VANCOMYCIN,TROUGH 21.5 ug/mL (5.0-20.0)
[2019-03-19] MEDS: INSULIN LISPRO 100 UNIT/ML 3 ML VIAL SUBCUT SCH ×4 (07:59→21:36)
[2019-03-19] MEDS: METFORMIN HCL 500 MG TABLET PO SCH ×2 (07:59→17:30)
[2019-03-19] MEDS: GABAPENTIN 300 MG CAPSULE PO SCH ×2 (09:22→21:37)
[2019-03-19] MEDS: CARVEDILOL 12.5 MG TABLET PO SCH ×3 (09:22→21:24)
[2019-03-19] MEDS: POTASSIUM CHLORIDE 10 MEQ CAPSULE.ER PO SCH (09:22)
[2019-03-19] MEDS: DOCUSATE SODIUM 100 MG CAPSULE PO SCH ×2 (09:22→17:29)
[2019-03-19] MEDS: ASPIRIN 81 MG TABLET, CHEWABLE PO SCH (09:23)
[2019-03-19] MEDS: FERROUS SULFATE 325 MG TABLET PO SCH ×2 (09:23→17:30)
[2019-03-19] MEDS: LISINOPRIL 5 MG TABLET PO SCH (09:23)
[2019-03-19 11:43] LABS: ANION GAP 8 (5-19); BLOOD UREA NITROGEN 18 mg/dL (7-20); CALCIUM 9.4 mg/dL (8.4-10.2); CARBON DIOXIDE 22 mmol/L (22-30); CHLORIDE 107 mmol/L (98-107); GLUCOSE 175 mg/dL (75-110); POTASSIUM 5.4 mmol/L (3.6-5.0)
--- NOTE | 2019-03-19 16:36 | PDOC PROGRESS REPORT ---
Subjective Progress Note for:: 03/19/19 Subjective:: No adverse events overnight. No new complaints. She has been refusing attempts to turn her in the bed. We will try to explain to her that we are trying to prevent pressure sores with deep tissue injury but she does not seem to care. Eating and drinking without difficulty. IV came out last night but because she does not get anything through it now or just can discontinue it. Reason For Visit: DM FOOT ULCER,HTN Physical Exam Vital Signs: Temp Pulse Resp BP Pulse Ox 98.4 F 59 L 16 148/56 H 94 03/19/19 11:43 03/19/19 14:00 03/19/19 11:43 03/19/19 11:43 03/19/19 11:43 Intake & Output 03/18/19 03/19/19 03/20/19 06:59 06:59 06:59 Intake Total 707 1630 1000 Output Total 1925 1425 Balance -9665 963 4407 Weight 101.8 kg General appearance: PRESENT: no acute distress, cooperative, disheveled, morbidl y obese Respiratory exam: PRESENT: clear to auscultation shreyas, symmetrical, unlabored. ABSENT: accessory muscle use, chest wall tenderness, crackles, prolonged expiratory phas, rales, rhonchi, tachypnea, wheezes Cardiovascular exam: PRESENT: RRR, +S1, +S2 Pulses: PRESENT: normal carotid pulses Vascular exam: PRESENT: normal capillary refill GI/Abdominal exam: PRESENT: normal bowel sounds, soft. ABSENT: distended, guarding, rebound, tenderness Extremities exam: PRESENT: other - Left BKA stump is wrapped in a clean dressing and covered with Coban. ABSENT: clubbing, pedal edema Neurological exam: PRESENT: alert, awake, oriented to person, oriented to place, oriented to situation Psychiatric exam: PRESENT: anxious Skin exam: PRESENT: dry, warm Results Laboratory Results: 03/15/19 07:06 03/19/19 06:31 03/19/19 03/19/19 06:31 06:31 Sodium 137.3 Potassium 5.4 H Chloride 107 Carbon Dioxide 22 Anion Gap 8 BUN 18 Creatinine 0.91 0.90 Est GFR ( Amer) > 60 > 60 Est GFR (Non-Af Amer) > 60 > 60 Glucose 175 H Calcium 9.4 Impressions: Foot X-Ray 03/11/19 19:38 IMPRESSION: Osteomyelitis involving the base of the fifth metatarsal. Gas within the lateral soft tissues, suspicious for gas-forming infection. Neuropathic arthropathy. copyright 2011 [employer]- All Rights Reserved Chest X-Ray 03/11/19 19:40 IMPRESSION: No evidence of acute cardiopulmonary disease. Assessment and Plan - Diagnosis (1) Gas gangrene Is this a current diagnosis for this admission?: Yes Plan: Status post left BKA. Surgery has recommended stopping antibiotics and has det ermined that there is no further need for surgical intervention on the leg. She is to follow-up with surgery in the clinic in 3 weeks. (2) Aortic stenosis Qualifiers: Cardiac valve disease etiology: nonrheumatic Qualified Code(s): I35.0 - Nonrheumatic aortic (valve) stenosis Is this a current diagnosis for this admission?: Yes Plan: Status post TAVR. Nothing to do from a cardiac standpoint. (3) Diabetes mellitus type 2 in obese Is this a current diagnosis for this admission?: Yes Plan: Continue aggressive management. May need to increase her home insulin regimen. (4) Osteomyelitis due to type 2 diabetes mellitus Is this a current diagnosis for this admission?: Yes Plan: Resolved as the infected material has been removed. - Time Time Spent with patient: 15-24 minutes - Plan Summary Plan Summary: Placement has been a bit of an issue. Case management is working on it. We probably will not hear anything until early next week.
[2019-03-19] MEDS: ACETAMINOPHEN 325 MG TABLET PO PRN (21:20)
[2019-03-19] MEDS: ATORVASTATIN CALCIUM 40 MG TABLET PO SCH (21:21)
[2019-03-19] MEDS: MIRTAZAPINE 15 MG TABLET PO SCH (21:21)
[2019-03-20] MEDS: HEPARIN SOD (PORCINE) 5,000 UNIT/ML 1 ML VIAL SUBCUT SCH ×3 (05:31→22:23)
[2019-03-20] MEDS: INSULIN LISPRO 100 UNIT/ML 3 ML VIAL SUBCUT SCH ×4 (08:05→22:14)
[2019-03-20] MEDS: METFORMIN HCL 500 MG TABLET PO SCH ×2 (08:24→17:08)
[2019-03-20] MEDS: LISINOPRIL 5 MG TABLET PO SCH (09:53)
[2019-03-20] MEDS: ASPIRIN 81 MG TABLET, CHEWABLE PO SCH (09:53)
[2019-03-20] MEDS: GABAPENTIN 300 MG CAPSULE PO SCH ×2 (09:53→22:24)
[2019-03-20] MEDS: CARVEDILOL 12.5 MG TABLET PO SCH ×2 (09:54→22:25)
[2019-03-20] MEDS: DOCUSATE SODIUM 100 MG CAPSULE PO SCH ×2 (09:54→17:08)
[2019-03-20] MEDS: FERROUS SULFATE 325 MG TABLET PO SCH ×2 (09:54→17:08)
[2019-03-20] MEDS ORDERED: VANCOMYCIN HCL 1,250 MG in DEXTROSE 5%-WATER 250 ML IV SCH (10:00)
[2019-03-20] MEDS: ACETAMINOPHEN 325 MG TABLET PO PRN ×2 (13:59→18:49)
--- NOTE | 2019-03-20 17:33 | PDOC PROGRESS REPORT ---
Subjective Progress Note for:: 03/20/19 Subjective:: No adverse events overnight. No new complaints. Vital signs been stable. Eating and drinking without difficulty. Reason For Visit: DM FOOT ULCER,HTN Physical Exam Vital Signs: Temp Pulse Resp BP Pulse Ox 98.4 F 65 16 142/59 H 94 03/20/19 15:00 03/20/19 15:00 03/20/19 15:00 03/20/19 15:00 03/20/19 15:00 Intake & Output 03/19/19 03/20/19 03/21/19 06:59 06:59 06:59 Intake Total 1630 3482 1186 Output Total 1425 3900 1000 Balance 205 -418 186 Weight 109.2 kg General appearance: PRESENT: no acute distress, cooperative, disheveled, morbidly obese Respiratory exam: PRESENT: clear to auscultation shreyas, symmetrical, unlabored. ABSENT: accessory muscle use, chest wall tenderness, crackles, prolonged expiratory phas, rales, rhonchi, tachypnea, wheezes Cardiovascular exam: PRESENT: RRR, +S1, +S2 Pulses: PRESENT: normal carotid pulses Vascular exam: PRESENT: normal capillary refill GI/Abdominal exam: PRESENT: normal bowel sounds, soft. ABSENT: distended, guarding, rebound, tenderness Extremities exam: PRESENT: other - Left BKA stump is wrapped in a clean dressing and covered with Coban. ABSENT: clubbing, pedal edema Neurological exam: PRESENT: alert, awake, oriented to person, oriented to place, oriented to situation Psychiatric exam: PRESENT: anxious Skin exam: PRESENT: dry, warm Results Laboratory Results: 03/15/19 07:06 03/19/19 06:31 Impressions: Foot X-Ray 03/11/19 19:38 IMPRESSION: Osteomyelitis involving the base of the fifth metatarsal. Gas within the lateral soft tissues, suspicious for gas-forming infection. Neuropathic arthropathy. copyright 2011 [employer]- All Rights Reserved Chest X-Ray 03/11/19 19:40 IMPRESSION: No evidence of acute cardiopulmonary disease. Assessment and Plan - Diagnosis (1) Gas gangrene Is this a current diagnosis for this admission?: Yes Plan: Status post left BKA. Surgery has recommended stopping antibiotics and has determined that there is no further need for surgical intervention on the leg. She is to follow-up with surgery in the clinic in 3 weeks. (2) Aortic stenosis Qualifiers: Cardiac valve disease etiology: nonrheumatic Qualified Code(s): I35.0 - Nonrheumatic aortic (valve) stenosis Is this a current diagnosis for this admission?: Yes Plan: Status post TAVR. Nothing to do from a cardiac standpoint. (3) Diabetes mellitus type 2 in obese Is this a current diagnosis for this admission?: Yes Plan: Continue aggressive management. May need to increase her home insulin regimen. (4) Osteomyelitis due to type 2 diabetes mellitus Is this a current diagnosis for this admission?: Yes Plan: Resolved as the infected material has been removed. - Time Time Spent with patient: 15-24 minutes - Plan Summary Plan Summary: Case management working on placement
[2019-03-20] MEDS: BISACODYL 5 MG TABEC PO PRN (18:48)
[2019-03-20] MEDS: MIRTAZAPINE 15 MG TABLET PO SCH (22:24)
[2019-03-20] MEDS: ATORVASTATIN CALCIUM 40 MG TABLET PO SCH (22:24)
[2019-03-21] MEDS: ACETAMINOPHEN 325 MG TABLET PO PRN (01:39)
[2019-03-21] MEDS: NALBUPHINE HCL INJ 10 MG/1 ML AMPULE IM PRN ×2 (04:28→18:56)
[2019-03-21] MEDS: HEPARIN SOD (PORCINE) 5,000 UNIT/ML 1 ML VIAL SUBCUT SCH ×3 (05:31→22:54)
[2019-03-21] MEDS: INSULIN LISPRO 100 UNIT/ML 3 ML VIAL SUBCUT SCH ×4 (08:18→21:05)
[2019-03-21] MEDS: METFORMIN HCL 500 MG TABLET PO SCH ×2 (08:45→17:42)
[2019-03-21] MEDS: CARVEDILOL 12.5 MG TABLET PO SCH ×2 (10:12→22:54)
[2019-03-21] MEDS: LISINOPRIL 5 MG TABLET PO SCH (10:44)
[2019-03-21] MEDS: ASPIRIN 81 MG TABLET, CHEWABLE PO SCH (10:44)
[2019-03-21] MEDS: DOCUSATE SODIUM 100 MG CAPSULE PO SCH ×2 (10:44→17:43)
[2019-03-21] MEDS: FERROUS SULFATE 325 MG TABLET PO SCH ×2 (10:44→17:42)
[2019-03-21] MEDS: BISACODYL 5 MG TABEC PO PRN (10:44)
[2019-03-21] MEDS: GABAPENTIN 300 MG CAPSULE PO SCH ×2 (10:44→22:54)
[2019-03-21] MEDS: LACTULOSE SYRUP 20 GM/30 ML UDCUP PO PRN (12:53)
[2019-03-21] MEDS: POLYETHYLENE GLYCOL 3350 POWDER 17 GM/1 PACKET PO SCH (12:55)
--- NOTE | 2019-03-21 13:03 | PDOC TRANSFER SUMMARY ---
General - Admit/Disc Date/PCP Admission Date/Primary Care Provider: 03/12/19 01:49 ESTEE HASTINGS Discharge Date: 03/21/19 - Discharge Diagnosis (1) Gas gangrene Is this a current diagnosis for this admission?: Yes Summary: She is had a lot of problems with her left leg for the past year. Several months ago it was recommended that she get an amputation at that time because she was determined to not have very good blood flow to the left foot. She declined and has had several hospital admissions related to it. This time it was certain that the leg was not salvageable, and she underwent a left BKA. (2) Aortic stenosis Is this a current diagnosis for this admission?: Yes Summary: This is chronic and stable (3) Diabetes mellitus type 2 in obese Is this a current diagnosis for this admission?: Yes Summary: She is on metformin, Lantus, and a sliding scale. It is uncertain how compliant she has been with her diet at home, but the suspicion is that she has not been compliant with a diabetic diet. (4) Osteomyelitis due to type 2 diabetes mellitus Is this a current diagnosis for this admission?: Yes Summary: She received antibiotics after admission and for 2 to 3 days postoperatively. At that point they were discontinued because there was no further evidence of cellulitis, the wound looked good, and the infected material had been removed. - Additional Information Resuscitation Status: Full Code Discharge Diet: Cardiac, Diabetic Discharge Activity: Slowly Increase Activity, Supervised Activity, No tub bath Home Medications: Aspirin [Ecotrin 81 mg EC Tablet] 81 mg PO DAILY 03/12/19 Atorvastatin Calcium [Lipitor 20 mg Tablet] 20 mg PO QHS 03/12/19 Carvedilol [Coreg 12.5 mg Tablet] 12.5 mg PO Q12 03/12/19 Cholecalciferol (Vitamin D3) [Vitamin D3 2000 unit Tablet] 2,000 unit PO DAILY 03/12/19 Clopidogrel Bisulfate [Plavix 75 mg Tablet] 75 mg PO DAILY 03/12/19 Ferrous Sulfate [Feosol 325 mg Tablet] 325 mg PO BID 03/12/19 Furosemide [Lasix 40 mg Tablet] 40 mg PO DAILY 03/12/19 Gabapentin [Neurontin 300 mg Capsule] 300 mg PO Q12 03/12/19 Lisinopril [Prinivil 5 mg Tablet] 5 mg PO DAILY 03/12/19 Metformin HCl [Glucophage 500 mg Tablet] 500 mg PO BID 03/12/19 Mirtazapine [Remeron 15 mg Tablet] 7.5 mg PO QHS 03/12/19 Bisacodyl [Dulcolax 5 mg Tablet] 5 mg PO DAILYP PRN tabec 03/21/19 Docusate Sodium [Colace 100 mg Capsule] 100 mg PO BID capsule 03/21/19 Insulin Glargine,Hum.rec.anlog [Lantus Insulin 100 Unit/1 ml 10 ml] 45 unit SUBCUT DAILY #0 03/21/19 Insulin Lispro [Humalog Insulin (Lispro) 100 unit/mL] 0 - 12 unit SUBCUT ACHS unit 03/21/19 Lactulose [Cephulac Syrup 20 gm/30 ml Udcup] 20 gm PO Q6HP PRN udc 03/21/19 Mag Hydrox/Al Hydrox/Simeth [Maalox Plus Susp 30 Udcup] 30 ml PO Q6HP PRN udc 03/21/19 Magnesium Hydroxide [Milk of Magnesia 30 ml Udcup] 30 ml PO HSP PRN udc 03/21/19 Polyethylene Glycol 3350 [Miralax Powder 17 gm/Packet] 17 gm PO DAILY powd.pack 03/21/19 History of Present Illness Admission Date/PCP: 03/12/19 01:49 ESTEE HASTINGS History of Present Illness: GERARD COHN is a 73 year old female with a partial past medical history of severe aortic stenosis, sclerosis with 5/6 regurgitation murmur, diabetes, peripheral vascular disease, status post transmetatarsal amputation 12/2018 with chronic non-healing diabetic foot with osteomyelitis, failing multiple concurrent rounds of antibiotics including Keflex followed by Augmentin. Undergoing hyperbaric therapy without significant improvements she is referred to the emergency room for evaluation and she is found to have swelling of the left foot with gas in the tissues. She is referred to the hospitalist for admission given chronic comorbidities. Hospital Course Hospital Course: She was started on antibiotics and ultimately had a left BKA. She is done well postoperatively. Antibiotics were discontinued 2 to 3 days postoperatively. Surgery wants to see her in the office in 3 weeks to remove her jarad. If she is compliant with her diet, we anticipate that insulin regimen at discharge should be sufficient to help keep her blood sugar under good control. Her comorbid conditions were managed with her home medications. She was seen and evaluated by physical therapy who recommended nursing home for rehab. For most of her hospitalization she was refusing to let us turn her in the bed and she already had the beginnings of some sacral and buttock skin breakdown on ad mission, and despite our attempt to educate her for the need to return every couple of hours, most of the time she refused. Finally yesterday evening she decided to let us start turning her. Close attention will need to be paid to sacral and buttock skin care to prevent further breakdown. At this point she has suspected deep tissue injury. Her daughter was even encouraging her to let us turn her in the bed but as noted, most of the time she refused. Bed was obtained at a nursing home facility and she is being transferred today in good condition. Physical Exam Vital Signs: Temp Pulse Resp BP Pulse Ox 97.6 F 59 L 17 129/60 H 94 03/21/19 11:34 03/21/19 11:34 03/21/19 11:34 03/21/19 11:34 03/21/19 11:34 Intake & Output 03/20/19 03/21/19 03/22/19 06:59 06:59 06:59 Intake Total 3482 2247 Output Total 3900 2900 Balance -418 -653 Weight 109.2 kg 107.8 kg General appearance: PRESENT: no acute distress, cooperative, disheveled, morbidly obese Respiratory exam: PRESENT: clear to auscultation shreyas, symmetrical, unlabored. ABSENT: accessory muscle use, chest wall tenderness, crackles, prolonged expiratory phas, rales, rhonchi, tachypnea, wheezes Cardiovascular exam: PRESENT: RRR, +S1, +S2 Pulses: PRESENT: normal carotid pulses Vascular exam: PRESENT: normal capillary refill GI/Abdominal exam: PRESENT: normal bowel sounds, soft. ABSENT: distended, guarding, rebound, tenderness Extremities exam: PRESENT: other - Left BKA stump is wrapped in a clean dressing and covered with Coban. ABSENT: clubbing, pedal edema Neurological exam: PRESENT: alert, awake, oriented to person, oriented to place, oriented to situation Psychiatric exam: PRESENT: anxious Skin exam: PRESENT: dry, warm Results Laboratory Results: 03/15/19 07:06 03/19/19 06:31 Impressions: Foot X-Ray 03/11/19 19:38 IMPRESSION: Osteomyelitis involving the base of the fifth metatarsal. Gas within the lateral soft tissues, suspicious for gas-forming infection. Neuropathic arthropathy. copyright 2011 [employer]- All Rights Reserved Chest X-Ray 03/11/19 19:40 IMPRESSION: No evidence of acute cardiopulmonary disease. Transfer Plan - Time Spent with Patient Time spent with patient: Greater than 30 Minutes Qualifiers - * PATIENT BEING DISCHARGED WITH ANY OF THE FOLLOWING DIAGNOSIS: No Acute Heart Failure - Is this a Heart Failure Patient?: No Plan Time Spent: Greater than 30 Minutes
[2019-03-21] MEDS ORDERED: BISACODYL 10 MG SUPP.RECT PR ONE (17:00)
[2019-03-21] MEDS: ATORVASTATIN CALCIUM 40 MG TABLET PO SCH (22:54)
[2019-03-21] MEDS: MIRTAZAPINE 15 MG TABLET PO SCH (22:54)
[2019-03-22] MEDS: HEPARIN SOD (PORCINE) 5,000 UNIT/ML 1 ML VIAL SUBCUT SCH ×3 (06:10→22:39)
[2019-03-22] MEDS: BISACODYL 5 MG TABEC PO PRN (06:10)
[2019-03-22] MEDS: INSULIN LISPRO 100 UNIT/ML 3 ML VIAL SUBCUT SCH ×4 (08:00→22:39)
[2019-03-22] MEDS: METFORMIN HCL 500 MG TABLET PO SCH ×2 (10:52→17:06)
[2019-03-22] MEDS: ASPIRIN 81 MG TABLET, CHEWABLE PO SCH (10:52)
[2019-03-22] MEDS: GABAPENTIN 300 MG CAPSULE PO SCH ×2 (10:52→22:29)
[2019-03-22] MEDS: LISINOPRIL 5 MG TABLET PO SCH (10:52)
[2019-03-22] MEDS: CARVEDILOL 12.5 MG TABLET PO SCH ×2 (10:52→22:29)
[2019-03-22] MEDS: FERROUS SULFATE 325 MG TABLET PO SCH ×2 (10:53→17:07)
[2019-03-22] MEDS: ACETAMINOPHEN 325 MG TABLET PO PRN ×2 (10:53→17:06)
[2019-03-22] MEDS: LACTULOSE SYRUP 20 GM/30 ML UDCUP PO PRN ×2 (10:53→17:07)
[2019-03-22] MEDS: DOCUSATE SODIUM 100 MG CAPSULE PO SCH ×2 (10:53→17:06)
[2019-03-22] MEDS: POLYETHYLENE GLYCOL 3350 POWDER 17 GM/1 PACKET PO SCH (10:54)
[2019-03-22] MEDS: NALBUPHINE HCL INJ 10 MG/1 ML AMPULE IM PRN (11:07)
--- NOTE | 2019-03-22 17:56 | PDOC PROGRESS REPORT ---
Subjective Progress Note for:: 03/22/19 Subjective:: He was supposed to go to a [facility] facility yesterday but could not go because she has not had a bowel movement several days. We will give her multiple medications and still not getting a bowel movement. We offered to give her an enema and she refused it. Went back in and talk with her again today and she agreed to have an enema. Reason For Visit: DM FOOT ULCER,HTN Physical Exam Vital Signs: Temp Pulse Resp BP Pulse Ox 98.1 F 59 L 17 142/53 H 95 03/22/19 16:00 03/22/19 16:00 03/22/19 16:00 03/22/19 16:00 03/22/19 16:00 Intake & Output 03/21/19 03/22/19 03/23/19 06:59 06:59 06:59 Intake Total 2247 960 Output Total 2900 1650 Balance -653 -690 Weight 107.8 kg 104.2 kg General appearance: PRESENT: no acute distress, cooperative, disheveled, morbidly obese Respiratory exam: PRESENT: clear to auscultation shreyas, symmetrical, unlabored. ABSENT: accessory muscle use, chest wall tenderness, crackles, prolonged expiratory phas, rales, rhonchi, tachypnea, wheezes Cardiovascular exam: PRESENT: RRR, +S1, +S2 Pulses: PRESENT: normal carotid pulses Vascular exam: PRESENT: normal capillary refill GI/Abdominal exam: PRESENT: normal bowel sounds, soft. ABSENT: distended, guarding, rebound, tenderness Extremities exam: PRESENT: other - Left BKA stump is wrapped in a clean dressing and covered with Coban. ABSENT: clubbing, pedal edema Neurological exam: PRESENT: alert, awake, oriented to person, oriented to place, oriented to situation Psychiatric exam: PRESENT: anxious Skin exam: PRESENT: dry, warm Results Laboratory Results: 03/15/19 07:06 03/19/19 06:31 Impressions: Foot X-Ray 03/11/19 19:38 IMPRESSION: Osteomyelitis involving the base of the fifth metatarsal. Gas within the lateral soft tissues, suspicious for gas-forming infection. Neuropathic arthropathy. copyright 2010 [employer]- All Rights Reserved Chest X-Ray 03/11/19 19:40 IMPRESSION: No evidence of acute cardiopulmonary disease. Assessment and Plan - Diagnosis (1) Gas gangrene Is this a current diagnosis for this admission?: Yes Plan: Status post left BKA. Surgery has recommended stopping antibiotics and has determined that there is no further need for surgical intervention on the leg. She is to follow-up with surgery in the clinic in 3 weeks. (2) Aortic stenosis Qualifiers: Cardiac valve disease etiology: nonrheumatic Qualified Code(s): I35.0 - Nonrheumatic aortic (valve) stenosis Is this a current diagnosis for this admission?: Yes Plan: Status post TAVR. Nothing to do from a cardiac standpoint. (3) Diabetes mellitus type 2 in obese Is this a current diagnosis for this admission?: Yes Plan: Continue aggressive management. May need to increase her home insulin regimen. (4) Osteomyelitis due to type 2 diabetes mellitus Is this a current diagnosis for this admission?: Yes Plan: Resolved as the infected material has been removed. - Time Time Spent with patient: 15-24 minutes
[2019-03-22] MEDS: MIRTAZAPINE 15 MG TABLET PO SCH (22:29)
[2019-03-22] MEDS: ATORVASTATIN CALCIUM 40 MG TABLET PO SCH (22:29)
[2019-03-23 02:36] VITALS: BP 145/50
[2019-03-23] MEDS: HEPARIN SOD (PORCINE) 5,000 UNIT/ML 1 ML VIAL SUBCUT SCH (06:11)
[2019-03-23] MEDS: NALBUPHINE HCL INJ 10 MG/1 ML AMPULE IM PRN ×2 (06:16→10:56)
[2019-03-23] MEDS: INSULIN LISPRO 100 UNIT/ML 3 ML VIAL SUBCUT SCH (08:00)
[2019-03-23] MEDS: POLYETHYLENE GLYCOL 3350 POWDER 17 GM/1 PACKET PO SCH (09:25)
[2019-03-23] MEDS: CARVEDILOL 12.5 MG TABLET PO SCH (09:26)
[2019-03-23] MEDS: GABAPENTIN 300 MG CAPSULE PO SCH (09:26)
[2019-03-23] MEDS: LISINOPRIL 5 MG TABLET PO SCH (09:26)
[2019-03-23] MEDS: ASPIRIN 81 MG TABLET, CHEWABLE PO SCH (09:26)
[2019-03-23] MEDS: FERROUS SULFATE 325 MG TABLET PO SCH (09:27)
[2019-03-23] MEDS: METFORMIN HCL 500 MG TABLET PO SCH (09:27)
[2019-03-23] MEDS: DOCUSATE SODIUM 100 MG CAPSULE PO SCH (09:27)
== END 2019-03-23 12:35 | DRG 616 ==
LOC: ER 16:58 → EH 03-12 01:49 → 5 03-12 05:12
PROVIDERS: ADMIT Internal Medicine; ATTEND Internal Medicine
PROC: 30233N1 Transfusion of Nonautologous Red Blood Cells into Peripheral Vein, Percutaneous Approach (ICD-10-PCS; 2019-03-14)
PROC: 0Y6J0Z1 Detachment at Left Lower Leg, High, Open Approach (ICD-10-PCS; principal; 2019-03-14 17:15)
DX: E11.69 Type 2 diabetes mellitus with other specified complication (principal); A48.0 Gas gangrene; M86.8X7 Other osteomyelitis, ankle and foot; L03.116 Cellulitis of left lower limb; E11.52 Type 2 diabetes mellitus with diabetic peripheral angiopathy with gangrene; Z68.41 Body mass index [BMI] 40.0-44.9, adult; L97.429 Non-pressure chronic ulcer of left heel and midfoot with unspecified severity; E66.01 Morbid (severe) obesity due to excess calories; Z91.19 Patient's noncompliance with other medical treatment and regimen; I11.0 Hypertensive heart disease with heart failure; I50.9 Heart failure, unspecified; E78.5 Hyperlipidemia, unspecified; Z79.01 Long term (current) use of anticoagulants; Z95.2 Presence of prosthetic heart valve; E11.40 Type 2 diabetes mellitus with diabetic neuropathy, unspecified; Z79.4 Long term (current) use of insulin; I25.10 Atherosclerotic heart disease of native coronary artery without angina pectoris; Z95.5 Presence of coronary angioplasty implant and graft; Z87.891 Personal history of nicotine dependence; Z89.432 Acquired absence of left foot; I44.0 Atrioventricular block, first degree; I35.0 Nonrheumatic aortic (valve) stenosis; E11.621 Type 2 diabetes mellitus with foot ulcer; E11.65 Type 2 diabetes mellitus with hyperglycemia; E83.42 Hypomagnesemia; I34.0 Nonrheumatic mitral (valve) insufficiency; K59.00 Constipation, unspecified; Z53.29 Procedure and treatment not carried out because of patient's decision for other reasons
CPT/HCPCS: 01482; 36415; 36430; 71045; 80048; 80053; 80202; 82565; 82962; 83605; 83735; 85025; 85610; 85730; 86140; 86850; 86870; 86880; 86900; 86901; 86902; 86920; 87040; 88305; 88311; 93005; 93010; 93306; 93321; 99283; 99284; J0692; J1644; J1815; J1885; J2250; J2270; J2300; J2405; J2704; J3010; J3370; J3475; J3490; J7030; J7060; P9016